=== PATIENT | male | born 1960 | race Caucasian/White ===

== ENCOUNTER 2016-10-06 21:21 | Observation (INO) | payer MEDICARE ==
[~2016-10-06] VITALS: Ht 175.3 cm; Wt 78.0 kg
[2016-10-06 21:23] VITALS: TEMP 97.9
[2016-10-06 21:35] VITALS: BP 132/87; PULSE 90; RESP 17; O2SAT 96
[2016-10-06] MEDS ORDERED: ASPIRIN 81 MG CHEW TAB PO ONE (21:45)
[2016-10-06] MEDS ORDERED: SODIUM CHLORID 0.9% 500 ML INJ 500 ML IV ONE (21:45)
[2016-10-06] MEDS ORDERED: TETANUS/DIPHTHERIA TOXOID ADULT 0.5 ML VIAL IM ONE (21:45)
[2016-10-06] MEDS ORDERED: BUPIVACAINE HCL PF 0.5% 10 ML VIAL INFIL ONE (21:45)
[2016-10-06] MEDS ORDERED: SODIUM CHLORIDE 0.9% FLUSH 5 ML FLUSH IVF PRN ×2 (21:45→23:00)
--- NOTE | 2016-10-06 21:54 | PD ---
HPI Chief Complaint: Chest Pain Time Seen by Provider: 21:30 Travel History International Travel<30 days: No Contact w/Intl Traveler<30days: No Traveled to known affect area: No History of Present Illness HPI Patient is a 56-year-old male presenting to the emergency department for evaluation of chest pain. Patient states the pain radiates across his whole chest, he reports it is shooting and constant. He states this started a few hours ago. He reports shortness of breath but no nausea, vomiting, or radiation of the chest pain. Patient does state that his right hand specifically the right second finger is painful and swollen. He is unsure what happened to his finger, he states is been like that for several days. He denies any fever or chills. Patient does endorse daily alcohol use, his last drink was several hours ago. He reports drinking 12 cans of beer today. He denies any illicit drug use, he has been cutting back on his tobacco use only smoking 2 cigarettes daily. PFS Past Medical History Medical History: Denies Significant Hx Social History Alcohol Use: Yes (patient reports drinking as much as he can on a daily basis.) Tobacco Use: Yes Allergies-Medications (Allergen,Severity, Reaction): Coded Allergies: No Known Allergies (Unverified , 10/06/16) Reported Meds & Prescriptions Reported Meds & Active Scripts Active Clindamycin (Clindamycin HCl) 150 Mg Cap 300 Mg PO Q8HR 10 Days Review of Systems Except as stated in HPI: all other systems reviewed are Neg General / Constitutional: No: Fever, Chills Eyes: No: Visual changes HENT: No: Headaches, Neck Pain Cardiovascular: Positive: Chest Pain or Discomfort, No: Tachycardia, Syncope, Dyspnea on exertion, Edema Respiratory: Positive: Shortness of Breath, No: Cough, Wheezing Gastrointestinal: No: Nausea, Vomiting, Diarrhea, Abdominal Pain Musculoskeletal: Positive: Edema, Pain Skin: Positive Change in Pigmentation, Positive Change in nails Neurologic: No: Weakness, Dizziness, Focal Abnormalities, Change in Mentation Psychiatric: Positive: Substance Abuse Physical Exam Narrative GENERAL: Well-developed, well-nourished, alert male. Resting comfortably in no acute distress. SKIN: Warm and dry. 2 superficial abrasions to the right anterior forearm, paronychia noted to the right second finger tip. Edema noted to the right second finger. HEAD: Atraumatic. Normocephalic. EYES: Pupils equal and round. No scleral icterus. No injection or drainage. ENT: No nasal bleeding or discharge. Mucous membranes pink and moist. NECK: Trachea midline. No JVD. CARDIOVASCULAR: Regular rate and rhythm. No murmur appreciated. Positive radial pulse. RESPIRATORY: No accessory muscle use. Clear to auscultation. Breath sounds equal bilaterally. GASTROINTESTINAL: Abdomen soft, non-tender, nondistended. Hepatic and splenic margins not palpable. MUSCULOSKELETAL: No obvious deformities. No clubbing. No cyanosis. No edema. NEUROLOGICAL: Awake and alert. No obvious cranial nerve deficits. Motor grossly within normal limits. Normal speech. PSYCHIATRIC: Appropriate mood and affect; insight and judgment normal. Data Data Last Documented VS Vital Signs Date Time Temp Pulse Resp B/P Pulse Ox O2 Delivery O2 Flow Rate FiO2 10/06/16 21:35 90 17 132/87 96 Room Air 10/06/16 21:23 97.9 Orders Ckmb (Isoenzyme) Profile (10/06/16 21:31) Complete Blood Count With Diff (10/06/16 21:31) Comprehensive Metabolic Panel (10/06/16 21:31) Magnesium (Mg) (10/06/16 21:31) Prothrombin Time / Inr (Pt) (10/06/16 21:31) Act Partial Throm Time (Ptt) (10/06/16 21:31) Troponin I (10/06/16 21:31) Chest, Single Ap (10/06/16 21:31) Ecg Monitoring (10/06/16 21:31) Bilateral Bp Monitoring (10/06/16 21:31) Iv Access Insert/Monitor (10/06/16 21:31) Oximetry (10/06/16 21:31) Oxygen Administration (10/06/16 21:31) Aspirin Chew (Aspirin Chew) (10/06/16 21:45) Sodium Chloride 0.9% Flush (Ns Flush) (10/06/16 21:45) Sodium Chlorid 0.9% 500 Ml Inj (Ns 500 M (10/06/16 21:45) Alcohol (Ethanol) (10/06/16 21:31) Wound Culture And Gram Stain (10/06/16 21:31) Tetanus/Diphtheria Tox Adult (Tetanus/Di (10/06/16 21:45) Bupivacaine Pf 0.5% Inj (Marcaine Pf 0.5 (10/06/16 21:45) Hand, Complete (Zys0asp) (10/06/16 ) Vital Signs (Adult) TORREY.Q4H (10/06/16 21:31) Blood Culture (10/06/16 21:31) CKMB (10/06/16 21:43) CKMB% (10/06/16 21:43) Sodium Chlor 0.9% 1000 Ml Inj (Ns 1000 M (10/06/16 22:45) Clindamycin (Cleocin) (10/06/16 22:45) Admit Order (Ed Use Only) (10/06/16 22:54) Activity Bed Rest With Brp (10/06/16 22:54) Vital Signs (Adult) Q4H (10/06/16 22:54) Cardiac Rhythm .As Directed (10/06/16 22:54) ^ Notify Dr: Other .PRN (10/06/16 22:54) ^ Notify Dr. Parameters (10/06/16 22:54) Resp Oxygen Nasal Cannula (10/06/16 ) Diet Npo (10/07/16 Breakfast) Ckmb (Isoenzyme) Profile (10/07/16 00:45) Ckmb (Isoenzyme) Profile (10/07/16 03:45) Troponin I (10/07/16 00:45) Troponin I (10/07/16 03:45) Electrocardiogram (10/07/16 00:45) Electrocardiogram (10/07/16 03:45) ^ Obtain (10/06/16 22:54) Sodium Chlor 0.9% 1000 Ml Inj (Ns 1000 M (10/06/16 22:54) Sodium Chloride 0.9% Flush (Ns Flush) (10/06/16 23:00) Sodium Chloride 0.9% Flush (Ns Flush) (10/06/16 23:00) Acetaminophen (Tylenol) (10/06/16 23:00) Ondansetron Inj (Zofran Inj) (10/06/16 23:00) Pantoprazole (Protonix) (10/07/16 09:00) Nitroglycerin Sl (Nitrostat Sl) (10/06/16 23:00) Aspirin (Aspirin) (10/07/16 09:00) Licensed Occupational Therapy Assistant / Telemetry TORREY.Q8H (10/06/16 22:54) Labs Laboratory Tests Test 10/06/16 10/06/16 21:43 21:45 White Blood Count 8.9 TH/MM3 Red Blood Count 4.30 MIL/MM3 Hemoglobin 13.7 GM/DL Hematocrit 39.9 % Mean Corpuscular Volume 92.8 FL Mean Corpuscular Hemoglobin 31.9 PG Mean Corpuscular Hemoglobin 34.4 % Concent Red Cell Distribution Width 14.9 % Platelet Count 353 TH/MM3 Mean Platelet Volume 8.1 FL Neutrophils (%) (Auto) 55.5 % Lymphocytes (%) (Auto) 34.5 % Monocytes (%) (Auto) 7.9 % Eosinophils (%) (Auto) 1.6 % Basophils (%) (Auto) 0.5 % Neutrophils # (Auto) 4.9 TH/MM3 Lymphocytes # (Auto) 3.1 TH/MM3 Monocytes # (Auto) 0.7 TH/MM3 Eosinophils # (Auto) 0.1 TH/MM3 Basophils # (Auto) 0.0 TH/MM3 CBC Comment DIFF FINAL Differential Comment Sodium Level 134 MEQ/L Potassium Level 3.7 MEQ/L Chloride Level 99 MEQ/L Carbon Dioxide Level 23.3 MEQ/L Anion Gap 12 MEQ/L Blood Urea Nitrogen 6 MG/DL Creatinine 0.77 MG/DL Estimat Glomerular Filtration 104 ML/MIN Rate Random Glucose 96 MG/DL Calcium Level 8.3 MG/DL Magnesium Level 2.0 MG/DL Total Bilirubin 0.6 MG/DL Aspartate Amino Transf 64 U/L (AST/SGOT) Alanine Aminotransferase 56 U/L (ALT/SGPT) Alkaline Phosphatase 90 U/L Total Creatine Kinase 179 U/L Creatine Kinase MB 2.9 NG/ML Troponin I LESS THAN 0.02 NG/ML Total Protein 7.9 GM/DL Albumin 3.3 GM/DL Ethyl Alcohol Level 256 MG/DL Prothrombin Time 10.7 SEC Prothromb Time International 1.0 RATIO Ratio Activated Partial 29.4 SEC Thromboplast Time MDM Medical Decision Making Medical Screen Exam Complete: Yes Emergency Medical Condition: Yes Interpretation(s) Last Impressions Chest X-Ray 10/06/162130 Signed Impressions: Service Date/Time: Thursday, October 06, 2016 21:53 - CONCLUSION: No acute disease. Warner Hill MD Hand X-Ray 10/06/16 0000 Signed Impressions: Service Date/Time: Thursday, October 06, 2016 21:55 - CONCLUSION: Soft tissue swelling without evidence of acute fracture or destructive bone changes. 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 Warner Hill MD Vital Signs Date Time Temp Pulse Resp B/P Pulse Ox O2 Delivery O2 Flow Rate FiO2 10/06/16 21:35 90 17 132/87 96 Room Air 10/06/16 21:23 97.9 Differential Diagnosis Abscess versus cellulitis versus electrolyte abnormality versus cardiac arrhythmia versus alcohol abuse versus a VA versus other Narrative Course Patient is a 56-year-old male presenting to emergency department evaluation of chest pain. Patient also complains of right second finger pain. There is a paronychia noted to the right second fingertip surrounding the nail bed. Please see procedure report for I&D. Labs, imaging ordered and pending. EKG shows sinus rhythm with PVCs. Scabs to right and left anterior forearm appear consistent with an impetigo. CBC is unremarkable Chemistry is unremarkable Troponin is less than 0.02 Alcohol level is 256 Coags are unremarkable Chest x-ray is negative X-ray of the left hand show soft tissue swelling. Clindamycin by mouth 1 dose ordered IV fluids 1 L ordered. 324 mg of aspirin ordered. Patient's vital signs are stable. Prescription written for clindamycin. Patient is agreeable to staying in the chest pain Center, orders placed. Procedures Procedure Narrative After the risks and benefits were discussed the following procedure was performed: To right second fingertip INCISION AND DRAINAGE OF ABSCESS: The area was prepped and was sterilely draped. A digital block with 0.5% bupivacaine with a total number 1 mL was used to anesthetize the area. The area was properly anesthetized. A number 11 scalpel was used to make a 1-cm incision across the area of the abscess. Cultures were obtained. The abscess was drained an irrigated with normal saline. Sterile dressing applied. Diagnosis Primary Impression: Chest pain Qualified Code: R07.9 - Chest pain, unspecified type Additional Impressions: Paronychia Qualified Code: L03.011 - Paronychia, right Impetigo Admitting Information Admitting Physician Requests: Observation Scripts Clindamycin 150 Mg [id number] Mg PO Q8HR 10 Days Ref 0 Prov:Comfort Donaldson 10/06/16 Condition: Stable Comfort Donaldson Oct 06, 2016 21:54
[2016-10-06 22:03] LABS: AUTOMATED NEUTROPHIL # 4.9 TH/MM3 (1.8-7.7); BASOPHIL % 0.5 % (0.0-2.0); EOSINOPHIL # 0.1 TH/MM3 (0-0.4); EOSINOPHIL % 1.6 % (0.0-4.0); HEMATOCRIT 39.9 % (39.0-51.0); HEMO FLAGS DIFF FINAL; LYMPH % 34.5 % (9.0-44.0); LYMPHOCYTE # 3.1 TH/MM3 (1.0-4.8); MEAN CELL VOLUME 92.8 FL (80.0-100.0); MEAN CORPUSCULAR HEMOGLOBIN 31.9 PG (27.0-34.0); MEAN CORPUSCULAR HGB CONC 34.4 % (32.0-36.0); MONO % 7.9 % (0.0-8.0); NEUT % 55.5 % (16.0-70.0); PLATELET COUNT 353 TH/MM3 (150-450); RED CELL DISTRIBUTION WIDTH 14.9 % (11.6-17.2); WHITE BLOOD COUNT 8.9 TH/MM3 (4.0-11.0)
--- NOTE | 2016-10-06 22:12 | RADRPT ---
EXAM DATE/TIME: 10/06/2016 21:53 [facility] COMPARISON: No previous studies available for comparison. INDICATIONS : Chest pain. MEDICAL HISTORY : None. SURGICAL HISTORY : None. ENCOUNTER: Initial ACUITY: 2 days PAIN SCORE: 6/10 LOCATION: Bilateral chest FINDINGS: A single view of the chest demonstrates the lungs to be symmetrically aerated without evidence of mas s, infiltrate or effusion. The cardiomediastinal contours are unremarkable. Osseous structures are intact. CONCLUSION: No acute disease. Warner Hill MD on October 06, 2016 at 22:10 Board Certified Radiologist. This report was verified electronically.
--- NOTE | 2016-10-06 22:14 | RADRPT ---
EXAM DATE/TIME: 10/06/2016 21:55 [facility] COMPARISON: No previous studies available for comparison. INDICATIONS : Right hand inflammation. MEDICAL HISTORY : None. SURGICAL HISTORY : None. ENCOUNTER: Initial ACUITY: 2 days PAIN SCORE: 9/10 LOCATION: Right upper extremity FINDINGS: [id number] generalized soft tissue swelling is seen across the metacarpal region of the hand. Degenerative joint disease is identified involving the first metacarpophalangeal joint. There is slig ht subluxation, joint space narrowing and subchondral sclerosis. The bony structures and joints are otherwise intact. There are no destructive changes there is no lanette dence of acute fracture. CONCLUSION: Soft tissue swelling without evidence of acute fracture or destructive bone changes. 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 Warner Hill MD on October 06, 2016 at 22:11 Board Certified Radiologist. This report was verified electronically.
[2016-10-06 22:18] LABS: APTT (PATIENT) 29.4 SEC (24.3-30.1); PROTHROMBIN TIME - PATIENT 10.7 SEC (9.8-11.6)
[2016-10-06 22:23] LABS: ANION GAP 12 MEQ/L (5-15); AST (GOT) 64 U/L (15-37); BICARBONATE 23.3 MEQ/L (21.0-32.0); BLOOD UREA NITROGEN 6 MG/DL (7-18); CHLORIDE 99 MEQ/L (98-107); GLOMERULAR FILTRATION RATE 104 ML/MIN (>89); POTASSIUM 3.7 MEQ/L (3.5-5.1); SODIUM (NA) 134 MEQ/L (136-145)
[2016-10-06 22:28] LABS: ALKALINE PHOSPHATASE 90 U/L (45-117); ALT (GPT) 56 U/L (12-78); CREATINE KINASE 179 U/L (39-308); TOTAL BILIRUBIN ADULT 0.6 MG/DL (0.2-1.0)
[2016-10-06 22:44] LABS: CKMB 2.9 NG/ML (0.5-3.6)
[2016-10-06] MEDS ORDERED: CLINDAMYCIN 150 MG CAP PO ONE (22:45)
[2016-10-06] MEDS ORDERED: SODIUM CHLOR 0.9% 1000 ML INJ 1,000 ML IV ONE (22:45)
[2016-10-06] MEDS ORDERED: CLIN1CAP5 PO (22:59)
[2016-10-06 23:00] VITALS: O2SAT 96
[2016-10-06] MEDS ORDERED: ONDANSETRON HCL 4 MG/2 ML VIAL IV PRN (23:00)
[2016-10-06] MEDS ORDERED: NITROGLYCERIN 0.4 MG SL 25 TABS/BTL SL PRN (23:00)
[2016-10-06] MEDS ORDERED: ACETAMINOPHEN 500 MG CPLT PO PRN (23:00)
[2016-10-06] MEDS: SODIUM CHLORIDE 0.9% FLUSH 5 ML FLUSH IVF SCH (23:05)
[2016-10-07 00:27] VITALS: BP 146/91; PULSE 55; RESP 18; TEMP 97.7; O2SAT 99
[2016-10-07] MEDS: SODIUM CHLOR 0.9% 1000 ML INJ 1,000 ML IV SCH ×4 (01:05→12:15)
[2016-10-07 02:02] LABS: CREATINE KINASE 154 U/L (39-308)
[2016-10-07 02:14] LABS: CKMB 2.7 NG/ML (0.5-3.6)
[2016-10-07 03:24] VITALS: BP 136/92; PULSE 83; RESP 18; TEMP 98.3; O2SAT 96
[2016-10-07 04:11] LABS: CREATINE KINASE 150 U/L (39-308)
[2016-10-07 04:23] LABS: CKMB 2.6 NG/ML (0.5-3.6)
[2016-10-07 08:00] VITALS: BP 155/90; PULSE 76; PULSE 82; RESP 20; TEMP 99.9; O2SAT 93
[2016-10-07] MEDS ORDERED: chlordiazePOXIDE 25 MG CAP PO PRN (08:30)
--- NOTE | 2016-10-07 08:45 | HHI.HP ---
HPI Primary Care Physician No Primary Care Physician Chief Complaint Chest pain and right hand pain History of Present Illness This is a 56-year-old male that presents to ED cloning of chest discomfort and right hand discomfort. He has been having left-sided intermittent chest discomfort last 3 days. The discomfort will last for about an hour a time. He found nothing to bring on the discomfort. No shortness breath or nausea or diaphoresis surgery with his symptoms. Patient also is complaining of right hand pain and swelling. 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 The right hand has been swollen painful for several days. Having a difficult time with movement in the fingers of his right hand more specifically the right index finger. Review of Systems General: Patient denies fevers, chills recent, and recent travel HEENT: Patient denies headache, sore throat, difficulty swallowing. Cardiovascular: Has the chest discomfort as mentioned above. Denies diaphoresis. Denies sensation of heart beating rapidly or irregularly. No syncope. Respiratory: Denies shortness of breath or inspirational chest discomfort. Denies coughing wheezing or hemoptysis. GI: Patient denies nausea, vomiting, diarrhea, abdominal pain, bloody stools. Musculoskeletal: Complains of right hand pain and swelling. Difficult time with flexion and extension of the fingers more so in the right index finger. Denies calf pain or edema. Neurovascular: Patient denies numbness, tingling, weakness in extremities. Denies headache. Endocrine: Denies polyuria and polydipsia. Hematologic: Denies easy bruising. Skin: He complains of multiple scabbed over areas. Past Family Social History Allergies: Coded Allergies: No Known Allergies (Unverified , 10/06/16) Past Medical History Alcoholism. History of DTs. Tobacco abuse. Denies hypertension, hyperlipidemia, diabetes, and known CAD. Past Surgical History Noncontributory. Reported Medications Reported Meds & Active Scripts Active Clindamycin (Clindamycin HCl) 150 Mg Cap 300 Mg PO Q8HR 10 Days Active Ordered Medications Current Medications Medications (Trade) Dose Ordered Sig/Jv Route Start Time Stop Time Status Last Admin IV Flush 2 ml 2 ml UNSCH PRN IVF 10/06/16 21:45 (NS 1000 ml Inj) 1,000 ml @ 100 mls/hr Q10H IV 10/06/16 22:54 10/07/16 01:05 (NS Flush) 2 ml UNSCH PRN IVF 10/06/16 23:00 (NS Flush) 2 ml BID IVF 10/06/16 23:00 10/06/16 23:05 (Tylenol) 500 mg Q4H PRN PO 10/06/16 23:00 (Zofran Inj) 4 mg Q6H PRN IV 10/06/16 23:00 (Protonix) 40 mg DAILY PO 10/07/16 09:00 (Nitrostat Sl) 0.4 mg Q5M PRN SL 10/06/16 23:00 (Aspirin) 325 mg DAILY PO 10/07/16 09:00 (Librium) 50 mg Q6H PRN PO 10/07/16 08:30 (Ativan Inj) 1 mg Q4H PRN IV PUSH 10/07/16 09:00 (Catapres) 0.1 mg Q4H PRN PO 10/07/16 08:30 UNV (Protonix) 40 mg DAILY PO 10/07/16 09:00 UNV (Theragran) 1 tab DAILY PO 10/07/16 09:00 UNV Family History Denies family history of CAD. Social History Patient smokes an average of pack of cigarettes per week for about 40 years states he's had no tobacco in 2 days. He drinks heavily on a daily basis will not elaborate how much. Last alcohol consumption was yesterday afternoon. He is homeless. Physical Exam Vital Signs Vital Signs Date Time Temp Pulse Resp B/P Pulse Ox O2 Delivery O2 Flow Rate FiO2 10/07/16 03:24 98.3 83 18 136/92 96 10/07/16 00:27 97.7 55 18 146/91 99 10/06/16 23:00 96 10/06/16 21:35 90 17 132/87 96 Room Air 10/06/16 21:23 97.9 Physical Exam GENERAL: This is a well-nourished, well-developed patient, in no apparent distress. Patient speaks in clear complete sentences. Patient is pleasant. HEENT: Head is atraumatic and normocephalic. Neck is supple without lymphadenopathy and trachea is midline. No JVD or carotid bruits. CARDIOVASCULAR: Regular rate and rhythm without murmurs, gallops, or rubs. RESPIRATORY: Clear to auscultation. Breath sounds equal bilaterally. No wheezes , rales, or rhonchi. Chest wall is nontender. No use of accessory muscles. GASTROINTESTINAL: Abdomen is nontender, nondistended. Abdomen soft. No obvious pulsatile mass or bruit. No CVA tenderness. Strong femoral pulses bilaterally. Normal bowel sounds in all quadrants. MUSCULOSKELETAL: There is edema, erythema, and tenderness throughout the right hand. Most of the erythemas on the dorsum. There also is edema in the right index finger with difficulty flexing the finger, there is quite amount of discomfort even with a mild amount of flexion he can maneuver in the right index finger. There is a incision point on the flexor side of the distal right phalanx from prior I&D last night in the ER. There is no active drainage. Patient is moving lower extremities freely. No calf tenderness or edema, no Homans sign. Strong pulses in upper and lower extremities. NEUROLOGICAL: Patient is alert and oriented. Cranial nerves 2-12 are grossly intact. No focal deficits and speech is clear. SKIN: There is erythema, warmth, edema on the right hand. Laboratory Laboratory Tests Test 10/06/16 10/06/16 10/07/16 10/07/16 21:43 21:45 00:55 03:39 White Blood Count 8.9 Red Blood Count 4.30 Hemoglobin 13.7 Hematocrit 39.9 Mean Corpuscular Volume 92.8 Mean Corpuscular Hemoglobin 31.9 Mean Corpuscular Hemoglobin 34.4 Concent Red Cell Distribution Width 14.9 Platelet Count 353 Mean Platelet Volume 8.1 Neutrophils (%) (Auto) 55.5 Lymphocytes (%) (Auto) 34.5 Monocytes (%) (Auto) 7.9 Eosinophils (%) (Auto) 1.6 Basophils (%) (Auto) 0.5 Neutrophils # (Auto) 4.9 Lymphocytes # (Auto) 3.1 Monocytes # (Auto) 0.7 Eosinophils # (Auto) 0.1 Basophils # (Auto) 0.0 CBC Comment DIFF FINAL Differential Comment Sodium Level 134 Potassium Level 3.7 Chloride Level 99 Carbon Dioxide Level 23.3 Anion Gap 12 Blood Urea Nitrogen 6 Creatinine 0.77 Estimat Glomerular Filtration 104 Rate Random Glucose 96 Calcium Level 8.3 Magnesium Level 2.0 Total Bilirubin 0.6 Aspartate Amino Transf 64 (AST/SGOT) Alanine Aminotransferase 56 (ALT/SGPT) Alkaline Phosphatase 90 Total Creatine Kinase 179 154 150 Creatine Kinase MB 2.9 2.7 2.6 Troponin I LESS THAN 0.02 0.02 0.02 Total Protein 7.9 Albumin 3.3 Ethyl Alcohol Level 256 Prothrombin Time 10.7 Prothromb Time International 1.0 Ratio Activated Partial 29.4 Thromboplast Time Date/Time Procedure Status Source Growth 10/06/16 22:00 Gram Stain Received Wound Finger Pending 10/06/16 22:00 Wound Culture Received Wound Finger Pending 10/06/16 21:45 Aerobic Blood Culture Received Blood Peripheral Pending 10/06/16 21:45 Anaerobic Blood Culture Received Blood Peripheral Pending Result Diagram: 10/06/16214210/06/162142 Imaging Last 48 hours Impressions Chest X-Ray 10/06/162130 Signed Impressions: Service Date/Time: Thursday, October 06, 2016 21:53 - CONCLUSION: No acute disease. Warner Hill MD Hand X-Ray 10/06/16 0000 Signed Impressions: Service Date/Time: Thursday, October 06, 2016 21:55 - CONCLUSION: Soft tissue swelling without evidence of acute fracture or destructive bone changes. 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 Warner Hill MD Course EKGs of sinus rhythm with frequent PVCs. Assessment and Plan Assessment and Plan * Chest pain: Patient had serial cardiac enzymes and EKGs for ruling out purposes. He was seen by Dr. Jae Troy of cardiology and the chest pain center. He will at this time have a Lexiscan. Cardiac workup will be completed if the Lexiscan is negative. He however will need admission for further treatment of the infection to his right hand. * Cellulitis right hand: He was given clindamycin 3 mg by mouth in the ED last evening. He will need IV antibiotics. Will likely start clindamycin IV and Bactrim by mouth. Wound culture is pending. Patient will be admitted to the family practice resident service and a hand surgeon consult will be requested. Dr. Schwartz is covering today. Further treatment pending this evaluation. * Alcoholism: Patient needs to decrease his alcohol intake. He will have Librium as well as Ativan when necessary to prevent DTs. * Tobacco abuse: Patient has been counseled on the importance of smoking cessation. Jaylen Rascon Oct 07, 2016 08:45
[2016-10-07] MEDS ORDERED: MULTIVITAMIN TAB PO SCH (09:00)
[2016-10-07] MEDS ORDERED: PANTOPRAZOLE SOD 40 MG DELAYED RELEASE TAB PO SCH (09:00)
[2016-10-07] MEDS ORDERED: RESP: ALBUTEROL 2.5 MG/IPRATROPIUM 0.5 MG NEB (PRN) INH (09:00)
[2016-10-07] MEDS ORDERED: SULFAMETHOXAZOLE-TRIMETHOPRIM DS 800-160 MG TAB PO SCH (09:00)
[2016-10-07] MEDS ORDERED: cloNIDine HCL 0.1 MG TAB PO PRN (09:00)
[2016-10-07] MEDS: SODIUM CHLORIDE 0.9% FLUSH 5 ML FLUSH IVF SCH ×2 (09:00→20:39)
[2016-10-07] MEDS: ASPIRIN 325 MG TAB PO SCH (09:15)
[2016-10-07] MEDS: PANTOPRAZOLE SOD 40 MG DELAYED RELEASE TAB PO SCH (09:15)
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
[2016-10-07] MEDS ORDERED: REGADENOSON INJ 0.4 MG/5 ML SYR ONE (10:02)
[2016-10-07] MEDS ORDERED: CLINDAMYCIN INJ 600 MG in SODIUM CHLORIDE 0.9% INJ 100 ML IV SCH (11:00)
[2016-10-07] MEDS: LORazepam 2 MG/ML VIAL IV PUSH PRN ×2 (11:23→18:39)
--- NOTE | 2016-10-07 11:44 | RADRPT ---
EXAM DATE/TIME: 10/07/2016 09:35 [facility] COMPARISON: No previous studies available for comparison. INDICATIONS : Substernal chest pain with dyspnea. Angina. DOSE: 26.1 mCi Tc99m Myoview at stress. 8.8 mCi Tc99m Myoview at rest. 0.4 mg Lexiscan STRESS SYMPTOMS: Chest pain, dyspnea and nausea. EJECTION FRACTION: 43% MEDICAL HISTORY : Hypertension. ETOH abuse. SURGICAL HISTORY : None. ENCOUNTER: Initial ACUITY: 2 days PAIN SCALE: 6/10 LOCATION: Substernal chest TECHNIQUE: The patient underwent pharmacologic stress with infusion of prescribed dose. Continuous ECG tracing was monitored during stress. Gated SPECT imaging was performed after stress and conventional SPECT i maging was performed at rest. The examination was performed on a SPECT/CT scanner, both attenuation and non-corrected datasets were reviewed. FINDINGS: DISTRIBUTION: The maximum perfused segment at stress is in the anterior lateral wall. PERFUSION STUDY: The pattern of perfusion at stress is within normal limits. GATED STUDY: There is intact wall motion and thickening without hypokinetic or dyskinetic segments. Mild global h ypokinesis. CONCLUSION: Negative for stress-induced ischemia.. Mild global hypokinesis. RISK CATEGORY: Low (<1% Annual Mortality Rate) Niko Avilez MD FACR on October 07, 2016 at 11:35 Board Certified Radiologist. This report was verified electronically.
[2016-10-07 12:10] VITALS: BP 161/92; PULSE 95; RESP 20; TEMP 98.9; O2SAT 96
[2016-10-07] MEDS ORDERED: Vancomycin Consult Pharmacy 1 EA XX SCH (12:15)
[2016-10-07] MEDS ORDERED: LORazepam 1 MG TAB PO PRN (12:30)
[2016-10-07] MEDS ORDERED: FLUMAZENIL 0.5 MG/5 ML VIAL IV PUSH PRN (12:30)
[2016-10-07] MEDS ORDERED: SODIUM CHLORIDE 0.9% FLUSH 5 ML FLUSH IV FLUSH PRN (12:30)
[2016-10-07] MEDS ORDERED: LORazepam 2 MG TAB PO PRN (12:30)
[2016-10-07] MEDS ORDERED: LORazepam 2 MG/ML VIAL IV PUSH PRN ×4 (12:30)
[2016-10-07] MEDS: KETOROLAC TROMETHAMINE 30 MG/ML (IVP) VIAL IV PUSH SCH ×2 (12:45→17:20)
[2016-10-07] MEDS ORDERED: hydrALAZINE HCL 10 MG TAB PO PRN (13:00)
[2016-10-07] MEDS: FOLIC ACID 1 MG TAB PO SCH (13:00)
[2016-10-07] MEDS: THIAMINE HCL 100 MG TAB PO SCH (13:00)
[2016-10-07] MEDS: CIPROFLOXACIN 400 MG PREMIX 200 ML IV SCH (13:00)
[2016-10-07] MEDS: MULTIVITAMINS/MINERALS THERAPEUTIC TAB PO SCH (13:00)
[2016-10-07] MEDS: MORPHINE SULFATE 4 MG/ML INJ IV PUSH PRN ×2 (13:10→17:21)
[2016-10-07 16:08] VITALS: BP 146/88; PULSE 60; RESP 18; TEMP 98.5; O2SAT 93
--- NOTE | 2016-10-07 16:12 | EKG ---
Date Performed: 10/07/2016 Time Performed: 04:03:55 PTAGE: 56 years EKG: Sinus rhythm WITH FREQUENT VENTRICULAR PREMATURE COMPLEXES POSSIBLE LEFT ATRIAL ENLARGEMENT NONSPECIFIC ST & T-WA VE ABNORMALITY ABNORMAL RHYTHM ECG PREVIOUS TRACING : 10/07/2016 00.47 Since previous tracing, no significant change noted DOCTOR: Jae Troy Interpretating Date/Time 10/07/2016 16:11:45
--- NOTE | 2016-10-07 16:14 | EKG ---
Date Performed: 10/07/2016 Time Performed: 00:47:25 PTAGE: 56 years EKG: Sinus rhythm WITH OCCASIONAL VENTRICULAR PREMATURE COMPLEXES POSSIBLE LEFT ATRIAL ENLARGEMENT NONSPECIFIC ST & T- WAVE ABNORMALITY BORDERLINE ECG PREVIOUS TRACING : 10/06/2016 21.26 Since previous tracing, no significant change noted DOCTOR: Jae Troy Interpretating Date/Time 10/07/2016 16:13:10
--- NOTE | 2016-10-07 16:15 | EKG ---
Date Performed: 10/06/2016 Time Performed: 21:26:44 PTAGE: 56 years EKG: Sinus rhythm WITH FREQUENT VENTRICULAR PREMATURE COMPLEXES ABNORMAL RHYTHM ECG NO PREVIOUS TRACING DOCTOR: Jae Troy Interpretating Date/Time 10/07/2016 16:13:50
--- NOTE | 2016-10-07 16:17 | TR ---
Date Performed: 10/07/2016 Time Performed: 10:08:57 DOCTOR: Jae Troy DRUG LIST: CLINICAL HISTORY: REASON FOR TEST: CHEST PAIN REASON FOR ENDING: OBSERVATION: CONCLUSION: Lexiscan stress test was performed under standard four minute protocol. Radionuclid e was injected one minute prior to ending the test. No electrocardiographic abormalities were present to suggest ischemia. Nuclear imaging and interpretation are pending. COMMENTS:
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
[2016-10-07] MEDS: VANCOMYCIN INJ 1,500 MG in SODIUM CHLORID 0.9% 500 ML INJ 500 ML IV SCH (17:20)
[2016-10-07] MEDS ORDERED: VANCOMYCIN INJ 1,500 MG in SODIUM CHLOR 0.9% 250 ML INJ 250 ML IV SCH (18:15)
[2016-10-07 20:10] VITALS: BP 123/83; PULSE 81; RESP 18; TEMP 98.4; O2SAT 98
[2016-10-07] MEDS: SODIUM CHLORIDE 0.9% FLUSH 5 ML FLUSH IV FLUSH SCH (20:39)
[2016-10-07] MEDS ORDERED: DOCUSATE SODIUM 50 MG/SENNA 8.6 MG TAB PO PRN (21:00)
--- NOTE | 2016-10-07 22:17 | HHI.FPPN ---
Subjective Subjective Patient seen and examined. Case reviewed and discussed Please refer to resident H&P for further details regarding HPI, ROS, PMH, SurgHx , FH and SocHx In summary, patient is a 56yo homeless male who was initially admitted to the chest pain center for ACS r/o. He underwent myocardial perfusion scan this am which was neg for ischemia. He is now being admitted for skin infections and acute alcohol withdrawal. He is seen in his hospital room without chest pain. Hand surgery consultation earlier today did not suggest tenosynovitis. Hospital Objective Objective Last Impressions Myocardial Perfusion Scan Nuc Med 10/07/16 0000 Signed Impressions: Service Date/Time: Friday, October 07, 2016 09:35 - CONCLUSION: Negative for stress-induced ischemia.. Mild global hypokinesis. RISK CATEGORY: Low (<1%% Annual Mortality Rate) Niko Avilez MD FACR Chest X-Ray 10/06/162130 Signed Impressions: Service Date/Time: Thursday, October 06, 2016 21:53 - CONCLUSION: No acute disease. Warner Hill MD Hand X-Ray 10/06/16 0000 Signed Impressions: Service Date/Time: Thursday, October 06, 2016 21:55 - CONCLUSION: Soft tissue swelling without evidence of acute fracture or destructive bone changes. 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 Warner Hill MD Vital Signs 10/06/16 10/07/16 10/07/16 10/07/16 23:00 00:27 03:24 08:00 Temp 97.7 98.3 Pulse 55 83 82 Resp 18 18 B/P 146/91 136/92 Pulse Ox 96 99 96 10/07/16 10/07/16 10/07/16 10/07/16 08:00 08:00 12:10 16:08 Temp 99.9 98.9 98.5 Pulse 76 95 60 Resp 20 20 18 B/P 155/90 161/92 146/88 Pulse Ox 93 96 93 10/07/16 10/07/16 10/07/16 17:30 19:04 20:10 Temp 98.4 Pulse 81 Resp 20 20 18 B/P 123/83 Pulse Ox 98 Physical exam GENERAL: Disheveled male, resting in bed SKIN: Warm and dry. Tanned skin. R ear and mandibular region with scabbed lesions, no active drainage. Bilateral hands with digital lesions from fish hook. +Edema of digits, limited ROM secondary to edema. s/p I&D on 2 digits. HEAD: Normocephalic. AT EYES: No scleral icterus. No injection or drainage. NECK: Supple, trachea midline. No JVD or lymphadenopathy. CARDIOVASCULAR: Regular rate and rhythm without murmurs, gallops, or rubs. RESPIRATORY: Breath sounds equal and clear bilaterally. No accessory muscle use. GASTROINTESTINAL: Abdomen soft, non-tender, nondistended. MUSCULOSKELETAL: No cyanosis, or edema. No calf tenderness BACK: Nontender without obvious deformity. No CVA tenderness. NEURO: Awake and alert. Normal speech. CN grossly intact. Assessment Assessment 56yoM admitted with: Chest pain, s/o ACS Acute alcohol withdrawal Alcohol dependence Homelessness Skin infections of hand, forearm, face, ear PLAN PLAN CI[facility] protocol Empiric antibiotics Follow wound cultures s/p I&D Appreciate hand surgery Seizure precautions Neuro checks CM consult Counseled on cessation Patient seen and examined. Case reviewed and discussed Agree with plan of care as discussed with me and documented in the resident note. Galilea Sales MD Oct 07, 2016 22:17
[2016-10-08] VITALS (7 sets, daily range): BP systolic 133–164; BP diastolic 75–106; PULSE 60–85; RESP 14–18; TEMP 97.5–98.8; O2SAT 95–99
[2016-10-08] MEDS: KETOROLAC TROMETHAMINE 30 MG/ML (IVP) VIAL IV PUSH SCH ×3 (00:08→12:36)
[2016-10-08] MEDS: CIPROFLOXACIN 400 MG PREMIX 200 ML IV SCH ×2 (00:08→12:35)
[2016-10-08] MEDS: SODIUM CHLOR 0.9% 1000 ML INJ 1,000 ML IV SCH (00:08)
[2016-10-08] MEDS: LORazepam 2 MG/ML VIAL IV PUSH PRN ×2 (00:09→03:38)
[2016-10-08] MEDS: VANCOMYCIN INJ 1,500 MG in SODIUM CHLORID 0.9% 500 ML INJ 500 ML IV SCH (03:32)
[2016-10-08 07:12] LABS: ANION GAP 8 MEQ/L (5-15); AST (GOT) 32 U/L (15-37); BLOOD UREA NITROGEN 9 MG/DL (7-18); CHLORIDE 105 MEQ/L (98-107); GLOMERULAR FILTRATION RATE 84 ML/MIN (>89); POTASSIUM 3.9 MEQ/L (3.5-5.1); SODIUM (NA) 139 MEQ/L (136-145)
[2016-10-08 07:28] LABS: AUTOMATED NEUTROPHIL # 5.4 TH/MM3 (1.8-7.7); BASOPHIL % 0.3 % (0.0-2.0); EOSINOPHIL # 0.2 TH/MM3 (0-0.4); EOSINOPHIL % 2.9 % (0.0-4.0); HEMATOCRIT 40.6 % (39.0-51.0); HEMO FLAGS DIFF FINAL; LYMPHOCYTE # 1.7 TH/MM3 (1.0-4.8); MEAN CELL VOLUME 94.1 FL (80.0-100.0); MEAN CORPUSCULAR HEMOGLOBIN 31.3 PG (27.0-34.0); MEAN CORPUSCULAR HGB CONC 33.3 % (32.0-36.0); MONO % 8.3 % (0.0-8.0); NEUT % 67.5 % (16.0-70.0); PLATELET COUNT 257 TH/MM3 (150-450); RED BLOOD COUNT 4.32 MIL/MM3 (4.50-5.90); RED CELL DISTRIBUTION WIDTH 14.9 % (11.6-17.2)
[2016-10-08 07:50] LABS: ALKALINE PHOSPHATASE 84 U/L (45-117); ALT (GPT) 38 U/L (12-78); TOTAL BILIRUBIN ADULT 0.4 MG/DL (0.2-1.0)
[2016-10-08] MEDS: SODIUM CHLORIDE 0.9% FLUSH 5 ML FLUSH IVF SCH (07:51)
[2016-10-08] MEDS: SODIUM CHLORIDE 0.9% FLUSH 5 ML FLUSH IV FLUSH SCH (07:51)
[2016-10-08] MEDS: PANTOPRAZOLE SOD 40 MG DELAYED RELEASE TAB PO SCH (07:52)
[2016-10-08] MEDS: FOLIC ACID 1 MG TAB PO SCH (07:52)
[2016-10-08] MEDS: ASPIRIN 325 MG TAB PO SCH (07:52)
[2016-10-08] MEDS: THIAMINE HCL 100 MG TAB PO SCH (07:53)
[2016-10-08] MEDS: MULTIVITAMINS/MINERALS THERAPEUTIC TAB PO SCH (07:53)
[2016-10-08] MEDS: MORPHINE SULFATE 4 MG/ML INJ IV PUSH PRN (09:45)
--- NOTE | 2016-10-08 13:57 | HHI.FPPN ---
Subjective Remarks Patient is feeling better this morning. He is interested in quitting alcohol. He still has mild discomfort in his right second digit. Patient would like this digit to undergo I&D. Otherwise, he is doing well. No chest pain, nausea , vomiting, diarrhea. He did require 4 mg by mouth Xanax since 11 AM yesterday. (Armando Freeman MD R2) Objective Vitals Vital Signs Date Time Temp Pulse Resp B/P Pulse Ox O2 Delivery O2 Flow Rate FiO2 10/08/16 11:25 98.0 60 16 154/96 95 10/08/16 08:17 72 10/08/16 07:36 97.5 72 14 150/90 96 10/08/16 04:25 98.8 78 18 142/75 99 10/08/16 00:00 98.2 78 18 133/78 97 10/07/16 20:10 98.4 81 18 123/83 98 10/07/16 19:04 20 10/07/16 17:30 20 10/07/16 16:08 98.5 60 18 146/88 93 (Armando Freeman MD R2) Result Diagram: 10/08/16 0612 10/08/16 0612 Objective Remarks GENERAL: Improved appearance, sitting upright in bed in no acute distress. SKIN: Sun exposure. Multiple Healing wounds appropriately wrapped: Right forearm: 2.5 x 2.5 cm erythematous rash, 3 x 2.5 cm erythematous rash. Left forearm: 4 x 2.5 cm erythematous rash. Chin: Small 3 cm healing laceration. HEAD: Atraumatic. Normocephalic. No temporal or scalp tenderness. EYES: Pupils equal round and reactive. Extraocular motions intact. No scleral icterus. No injection or drainage. ENT: Nose without bleeding, purulent drainage or septal hematoma. Throat without erythema, tonsillar hypertrophy or exudate. Uvula midline. Airway patent. Right ear with healing wound. NECK: Trachea midline. No JVD or lymphadenopathy. Supple, nontender, no meningeal signs. CARDIOVASCULAR: Regular rate and rhythm without murmurs, gallops, or rubs. RESPIRATORY: Clear to auscultation. Breath sounds equal bilaterally. No wheezes , rales, or rhonchi. GASTROINTESTINAL: Abdomen soft, non-tender, nondistended. No hepato-splenomegaly , or palpable masses. No guarding. MUSCULOSKELETAL: Patient is able to bend fingers with improvement on both sides. Right second digit with area of fluctuance at the tip of the finger. Tender to palpation. NEUROLOGICAL: Awake and alert. Cranial nerves II through XII intact. Motor and sensory grossly within normal limits. Five out of 5 muscle strength in all muscle groups. Normal speech. (Armando Freeman MD R2) A/P Assessment and Plan 56-year-old right-handed homeless male here for chest pain, cellulitis, multiple wounds, alcoholism. He is already been seen by cardiology and hand surgery. Troponins have been negative 3. Lexiscan scan is within normal limits. Patient was given clindamycin and Bactrim in the emergency room. He is status post I&D on the right second digit, left second digit. Wound culture showing gram-positive cocci in pairs. Dr. Schwartz of hand surgery ruled out tenosynovitis. Patient will be changed to by mouth antibiotics and discharged to seek help recovering from his alcoholism. Discharge Planning Today; case management is providing pamphlets on alcohol cessation and community resources for primary care physician and appropriate follow-up. ( Armando Freeman MD R2) Attending Attestation Patient seen and examined with the resident team. Case reviewed and discussed Agree with plan of care as discussed with me and documented in the resident note. (Galilea Sales MD) Problem List: (1) Cellulitis Status: Acute Plan: Patient has multiple cellulitic changes as described in the physical exam. He was given clindamycin and Bactrim in the emergency room. He has had one day of vancomycin and ciprofloxacin. Patient will be discharged on Bactrim DS for 5 days and bacitracin ESR and CRP within normal limits. Blood cultures no growth to date Wound cultures gram-positive cocci in pairs (2) Alcohol abuse Status: Acute Plan: Alcohol level 254 on admission. [facility] protocol Replace vitamins: Thiamine, folic acid, multivitamin Transmission Repairer cessation Patient would like to quit alcohol. Case management has provided the patient with alcohol cessation pamphlets. Patient will report to [facility] voluntarily for help. (3) Multiple wounds Status: Acute Plan: Tetanus vaccine given in the emergency room. Wound care nurse- bacitracin for chin and ear. Single-layer Xeroform for forearm wounds. Clean and dress multiple wounds which is described in the physical exam HIBA cleanse Antibiotics as above (4) Fish hook injury of finger of left hand Status: Acute Plan: Hand surgery consultation No tenosynovitis Antibiotics as above (5) Fish hook injury of index finger Status: Acute Plan: Right second finger post I&D on 10/06 for paronychia Wound culture gram-positive cocci in pairs We'll perform I&D of right second digit today prior to discharge. (6) Homeless Status: Acute Plan: Case management consult (7) FEN/PPX Status: Acute Plan: Fluids: Normal saline 130 ML's per hour Electrolytes: Monitor and replace when necessary Nutrition: Regular diet per hand surgery Prophylaxis: Bilateral SCDs (8) Chest pain Status: Resolved Plan: Cardiology has been consulted. Chest x-ray shows no acute disease. Troponins negative 3. Lexiscan within normal limits. (Armando Freeman MD R2) Problem Qualifiers (1) Chest pain: Qualified Code: R07.9 - Chest pain, unspecified type Armando Freeman MD R2 Oct 08, 2016 13:57 Galilea Sales MD Oct 09, 2016 11:47
[2016-10-08] MEDS ORDERED: BACT800T5 PO (14:05)
[2016-10-08] MEDS ORDERED: BACI500O2 TOP (14:05)
--- NOTE | 2016-10-08 14:06 | HHI.DCPOC ---
Discharge Care Plan Diagnosis: (1) Cellulitis (2) Multiple wounds (3) Alcohol abuse (4) Homeless (5) [place] Goals to Promote Your Health * To prevent worsening of your condition and complications * To maintain your health at the optimal level Directions to Meet Your Goals Take your medications as prescribed Follow your dietary instruction Follow activity as directed Keep your appointments as scheduled Take your immunizations and boosters as scheduled If your symptoms worsen call your PCP, if no PCP go to Urgent Care Center or Emergency Room Smoking is Dangerous to Your Health. Avoid second hand smoke Call the 24-hour hour crisis hotline for domestic abuse at Armando Freeman MD R2 Oct 08, 2016 14:06
[2016-10-08] MEDS ORDERED: BACITRACIN TOP OINT 15 GM TUBE TOP SCH (14:30)
[2016-10-08] MEDS ORDERED: CHLORHEXIDINE GLUCONATE 4% SOLN 120 ML BTL TOPICAL ONE (15:00)
[2016-10-08] MEDS ORDERED: LIDOCAINE HCL 1% 50 ML VIAL INFIL ONE (15:00)
[2016-10-08] MEDS ORDERED: PERC5TAB12 PO (15:23)
--- NOTE | 2016-10-08 15:28 | HHI.FPPN ---
Addendum to progress note ADDENDUM Reason for addendum: Additonal documentation Additional information Procedure note: INCISION AND DRAINAGE OF ABSCESS of the right second digit: The entire left second digit was prepped with alcohol and Betadine and was sterilely draped. A digital block with 1% lidocaine with a total number 5 mL was used to anesthetize the area. Prior to the incision, approximately 1 cc of pus was expressed at the prior incision site. This was cultured and we proceeded to perform the incision in case more pus could be expressed. The area was properly anesthetized. A number 11 scalpel was used to make a 0.2 cm incision made vertically in the radial distal end of the second digit. Only blood was expressed. Sterile dressing applied. Patient was asking for pain medication on discharge. Will provide 10 pills of percocet 5 mg. Additionally, it is ok if the patient take the bacitracin bottle that was previously used in his room. CM is helping provide a bus pass. Armando Freeman MD R2 Oct 08, 2016 15:28
[2016-10-08] MEDS ORDERED: oxyCODONE/ACETAMINOPHEN 5 MG/325 MG TAB PO ONE (16:00)
[2016-10-09] MEDS ORDERED: PHARMACY ORDERED LAB XX ONE (02:45)
[2016-10-09] MEDS ORDERED: SULFAMETHOXAZOLE-TRIMETHOPRIM DS 800-160 MG TAB PO SCH (09:00)
== END 2016-10-08 18:25 | disposition home or self-care (01) ==
LOC: NEPE 21:21 → NEDA 22:57 → NEPHCDU 23:55
PROVIDERS: ADMIT Family Medicine; ATTEND Family Medicine
DX: R07.9 Chest pain, unspecified (principal); L03.011 Cellulitis of right finger; L01.00 Impetigo, unspecified; I49.3 Ventricular premature depolarization; R06.02 Shortness of breath; R94.31 Abnormal electrocardiogram [ECG] [EKG]; M79.644 Pain in right finger(s); F17.210 Nicotine dependence, cigarettes, uncomplicated; S50.811A Abrasion of right forearm, initial encounter; Y90.8 Blood alcohol level of 240 mg/100 ml or more; F10.229 Alcohol dependence with intoxication, unspecified; Z23 Encounter for immunization; Z59.0 Homelessness; W26.8XXA Contact with other sharp object(s), not elsewhere classified, initial encounter; B95.0 Streptococcus, group A, as the cause of diseases classified elsewhere
CPT/HCPCS: 10060; 71010; 73130; 78452; 80053; 80320; 82550; 82552; 83735; 84484; 85025; 85610; 85652; 85730; 86140; 86403; 87040; 87070; 87205; 90471; 90714; 93005; 93017; 96360; 97161; 99285; A9502; G0378; G8987; G8988; J0744; J1885; J2060; J2270; J2785; J3370; J7030; J7040

== ENCOUNTER 2016-11-17 07:41 | Emergency (ER) | payer MEDICARE ==
[~2016-11-17] VITALS: Ht 180.3 cm; Wt 95.5 kg
[~2016-11-17 07:41] MED LIST: BACI500O2 TOP; BACT800T5 PO; PERC5TAB12 PO
[2016-11-17 07:44] VITALS: BP 169/92; PULSE 109; RESP 20; TEMP 97.9; O2SAT 97
[2016-11-17 07:55] VITALS: RESP 18; O2SAT 95
[2016-11-17] MEDS ORDERED: LISI-515 PO (07:56)
[2016-11-17] MEDS ORDERED: SODIUM CHLORIDE 0.9% FLUSH 10 ML FLUSH IVF PRN (08:00)
--- NOTE | 2016-11-17 08:01 | PD ---
HPI Chief Complaint: Dizziness Time Seen by Provider: 07:50 Travel History International Travel<30 days: No Contact w/Intl Traveler<30days: No Traveled to known affect area: No History of Present Illness HPI Patient is a homeless 56-year-old alcoholic male who presents emergency Department with complaint of dizziness. Patient checks and in the emergency department today after he brought a friend in. States "I figured I might get checked out to". States that he has been feeling somewhat lightheaded and dizzy over the course of the last 1-2 weeks. He's been ill with cough, sore throat, nasal congestion, hoarse voice. Patient denies any fevers or chills. Cough is productive of clear sputum. Patient states that he drinks "from the moment I get up to the moment I go to sleep". He denies any IV drug abuse. No chest pain, shortness of breath or palpitations. PFSH Past Medical History Cardiovascular Problems: Yes High Cholesterol: Yes Diabetes: No Diminished Hearing: No Hypertension: Yes Tetanus Vaccination: > 5 Years Influenza Vaccination: Yes Past Surgical History Cholecystectomy: Yes Social History Alcohol Use: Yes (daily) Tobacco Use: Yes (1 paxk every 3 days) Substance Use: Yes Allergies-Medications (Allergen,Severity, Reaction): Coded Allergies: No Known Allergies (Unverified , 11/17/16) Reported Meds & Prescriptions Reported Meds & Active Scripts Active Reported Lisinopril 20 Mg Tab 20 Mg PO DAILY Review of Systems Except as stated in HPI: all other systems reviewed are Neg Physical Exam Narrative GENERAL: Disheveled middle-aged male in no acute distress SKIN: Focused skin assessment warm/dry. Heavily tanned with slight sunburn HEAD: Normocephalic. EYES: No scleral icterus. No injection or drainage. ENT: Mucous membranes pink and moist. TMs clear bilaterally. Posterior nasal drip. Mild posterior pharyngeal erythema but no tonsillar swelling, exudate NECK: Supple without nuchal rigidity CARDIOVASCULAR: Regular rate and rhythm. No murmur appreciated. RESPIRATORY: No accessory muscle use. Clear to auscultation. Breath sounds equal bilaterally. GASTROINTESTINAL: Abdomen soft, non-tender, nondistended. MUSCULOSKELETAL: No obvious deformities. No edema. NEUROLOGICAL: Awake and alert. Normal speech. PSYCHIATRIC: Appropriate mood and affect; insight and judgment normal. Data Data Last Documented VS Vital Signs Date Time Temp Pulse Resp B/P Pulse Ox O2 Delivery O2 Flow Rate FiO2 11/17/16 08:35 87 18 137/86 95 Room Air 11/17/16 07:44 97.9 Orders Electrocardiogram (11/17/16 07:53) Basic Metabolic Panel (Bmp) (11/17/16 07:53) Complete Blood Count With Diff (11/17/16 07:53) Chest, Single Ap (11/17/16 07:53) Ecg Monitoring (11/17/16 07:53) Iv Access Insert/Monitor (11/17/16 07:53) Oximetry (11/17/16 07:53) Sodium Chloride 0.9% Flush (Ns Flush) (11/17/16 08:00) Alcohol (Ethanol) (11/17/16 07:56) Labs Laboratory Tests Test 11/17/16 08:00 White Blood Count 7.4 TH/MM3 Red Blood Count 4.11 MIL/MM3 Hemoglobin 13.0 GM/DL Hematocrit 39.2 % Mean Corpuscular Volume 95.2 FL Mean Corpuscular Hemoglobin 31.6 PG Mean Corpuscular Hemoglobin 33.2 % Concent Red Cell Distribution Width 15.3 % Platelet Count 185 TH/MM3 Mean Platelet Volume 8.0 FL Neutrophils (%) (Auto) 71.6 % Lymphocytes (%) (Auto) 15.9 % Monocytes (%) (Auto) 11.2 % Eosinophils (%) (Auto) 1.1 % Basophils (%) (Auto) 0.2 % Neutrophils # (Auto) 5.3 TH/MM3 Lymphocytes # (Auto) 1.2 TH/MM3 Monocytes # (Auto) 0.8 TH/MM3 Eosinophils # (Auto) 0.1 TH/MM3 Basophils # (Auto) 0.0 TH/MM3 CBC Comment DIFF FINAL Differential Comment Sodium Level 136 MEQ/L Potassium Level 3.9 MEQ/L Chloride Level 99 MEQ/L Carbon Dioxide Level 28.5 MEQ/L Anion Gap 9 MEQ/L Blood Urea Nitrogen 9 MG/DL Creatinine 1.05 MG/DL Estimat Glomerular Filtration 73 ML/MIN Rate Random Glucose 108 MG/DL Calcium Level 8.9 MG/DL Ethyl Alcohol Level LESS THAN 3 MG/DL MDM Medical Decision Making Medical Screen Exam Complete: Yes Emergency Medical Condition: Yes Medical Record Reviewed: Yes Differential Diagnosis 56-year-old homeless alcoholic male here with complaint of lightheadedness, dizziness and flulike symptoms times one to 2 weeks. Differential includes viral syndrome, upper respiratory infection, influenza, pneumonia, sinusitis, dehydration, electrolyte abnormality, symptomatic anemia, arrhythmia, alcoholism , malnutrition. Narrative Course Patient placed on monitor, IV established and blood obtained. Twelve-lead EKG showed sinus rhythm without notable ST abnormalities, normal intervals. CBC, BMP, blood alcohol level unremarkable. Portable chest x-ray obtained that by my read shows no acute abnormalities. Patient reassured. Encouraged to quit drinking and seek counseling for his alcoholism. Patient was given dose of Decadron for his upper respiratory infection. Diagnosis Primary Impression: Upper respiratory infection Qualified Code: J06.9 - Upper respiratory tract infection, unspecified type Additional Impressions: Alcoholism Lightheadedness Referrals: [facility] call for appointment [facility] call for appointment Additional Instructions: Seek outpatient management for alcoholism. Med/Other Pt SpecificInfo: No Change to Meds Disposition: 01 DISCHARGE HOME Condition: Stable Caridad Saunders MD Nov 17, 2016 08:01
[2016-11-17 08:21] LABS: AUTOMATED NEUTROPHIL # 5.3 TH/MM3 (1.8-7.7); BASOPHIL % 0.2 % (0.0-2.0); EOSINOPHIL # 0.1 TH/MM3 (0-0.4); EOSINOPHIL % 1.1 % (0.0-4.0); HEMATOCRIT 39.2 % (39.0-51.0); HEMO FLAGS DIFF FINAL; LYMPH % 15.9 % (9.0-44.0); LYMPHOCYTE # 1.2 TH/MM3 (1.0-4.8); MEAN CELL VOLUME 95.2 FL (80.0-100.0); MEAN CORPUSCULAR HEMOGLOBIN 31.6 PG (27.0-34.0); MEAN CORPUSCULAR HGB CONC 33.2 % (32.0-36.0); MONO % 11.2 % (0.0-8.0); NEUT % 71.6 % (16.0-70.0); PLATELET COUNT 185 TH/MM3 (150-450); RED BLOOD COUNT 4.11 MIL/MM3 (4.50-5.90); RED CELL DISTRIBUTION WIDTH 15.3 % (11.6-17.2); WHITE BLOOD COUNT 7.4 TH/MM3 (4.0-11.0)
[2016-11-17 08:35] VITALS: BP 137/86; PULSE 87; RESP 18; O2SAT 95
[2016-11-17 08:42] LABS: BICARBONATE 28.5 MEQ/L (21.0-32.0); POTASSIUM 3.9 MEQ/L (3.5-5.1)
--- NOTE | 2016-11-17 08:45 | RADRPT ---
EXAM DATE/TIME: 11/17/2016 08:20 [facility] COMPARISON: CHEST SINGLE AP, October 06, 2016, 21:53. INDICATIONS : Cough, congestion, fever, shortness of breath. MEDICAL HISTORY : Hypertension. Smoker. SURGICAL HISTORY : MAss removed on the left side. ENCOUNTER: Initial ACUITY: 3 days PAIN SCORE: 6/10 LOCATION: Left chest and midline. FINDINGS: A single view of the chest demonstrates the lungs to be symmetrically aerated without evidence of mas s, infiltrate or effusion. The cardiomediastinal contours are unremarkable. Osseous structures are intact. CONCLUSION: No acute disease. Warner Hill MD on November 17, 2016 at 8:43 Board Certified Radiologist. This report was verified electronically.
[2016-11-17] MEDS ORDERED: DEXAMETHASONE SOD PHOS 4 MG/ML VIAL IV PUSH ONE (09:00)
[2016-11-17 09:02] VITALS: BP 130/77; TEMP 97.8
--- NOTE | 2016-11-17 12:26 | EKG ---
Date Performed: 11/17/2016 Time Performed: 08:12:42 PTAGE: 56 years EKG: Sinus rhythm WITH MARKED SINUS ARRHYTHMIA POSSIBLE ANTERIOR MYOCARDIAL INFARCTION PROBABLE INFERIOR MYOCARDIAL IN FARCTION ABNORMAL ECG PREVIOUS TRACING : 10/07/2016 04.03 DOCTOR: Leonard Middleton Interpretating Date/Time 11/17/2016 12:24:40
== END 2016-11-17 09:01 | disposition home or self-care (01) ==
LOC: NEPC 07:41
DX: J06.9 Acute upper respiratory infection, unspecified (principal); F10.20 Alcohol dependence, uncomplicated; R42 Dizziness and giddiness; R05 Cough; R94.31 Abnormal electrocardiogram [ECG] [EKG]; E78.00 Pure hypercholesterolemia, unspecified; I10 Essential (primary) hypertension; Z59.0 Homelessness; Z72.0 Tobacco use; Z86.79 Personal history of other diseases of the circulatory system
CPT/HCPCS: 71010; 80048; 80307; 85025; 93005; 96374; 99284; J1100

== ENCOUNTER 2016-12-19 17:11 | Emergency (ER) | payer MEDICARE ==
[~2016-12-19] VITALS: Ht 180.3 cm; Wt 71.0 kg
[~2016-12-19 17:11] MED LIST changes: -BACI500O2 TOP; -BACT800T5 PO; +LISI-515 PO; -PERC5TAB12 PO
[2016-12-19 17:16] VITALS: BP 135/93; PULSE 102; RESP 18; TEMP 98.6; O2SAT 97
[2016-12-19] MEDS ORDERED: SODIUM CHLORIDE 0.9% FLUSH 10 ML FLUSH IVF PRN (17:45)
[2016-12-19] MEDS ORDERED: METOCLOPRAMIDE HCL 10 MG/2 ML VIAL IV PUSH ONE (17:45)
[2016-12-19 17:50] VITALS: RESP 18; O2SAT 97
--- NOTE | 2016-12-19 17:56 | PD ---
HPI Chief Complaint: Headache Time Seen by Provider: 17:49 Travel History International Travel<30 days: No Contact w/Intl Traveler<30days: No Traveled to known affect area: No History of Present Illness HPI Patient comes in complaining of a headache that began yesterday. Patient states he was walking to his friend's house and on the way became dizzy and lightheaded. Patient states he sat down and blacked out briefly. Patient denies falling or hitting his head. Denies any chest pain, nausea, vomiting, fevers, neck pain, back pain, numbness or tingling anywhere, or being on any blood thinners. Patient states that he is supposed to be on blood pressure medication but does not take it regularly. Patient reports associated visual changes more the right than left since the onset of the headache. Patient states that he took ibuprofen for his headache with little to no improvement of symptoms. Patient also complaining of cough and chest congestion ongoing over the past 2 weeks. Denies anything making it better or worse. PFSH Past Medical History Cardiovascular Problems: Yes (HBP PT STATES DOES NOT TAKE HIS MED) High Cholesterol: Yes Diabetes: No Diminished Hearing: No Hypertension: Yes Tetanus Vaccination: < 5 Years Influenza Vaccination: Yes Past Surgical History Cholecystectomy: Yes Social History Alcohol Use: Yes (daily) Tobacco Use: Yes (1 paxk every 3 days) Substance Use: Yes (marijuana occasionally) Allergies-Medications (Allergen,Severity, Reaction): Coded Allergies: No Known Allergies (Unverified , 12/19/16) Reported Meds & Prescriptions Reported Meds & Active Scripts Active Acetaminophen Extra Strength (Acetaminophen) 500 Mg Tab 500 Mg PO Q6H PRN Review of Systems Except as stated in HPI: all other systems reviewed are Neg Physical Exam Narrative GENERAL: Well-developed, well nourished, in no acute distress, and non-ill appearing. SKIN: Focused skin assessment warm and dry. HEAD: Atraumatic. Normocephalic. EYES: Pupils equal and round. EOMI. No scleral icterus. No injection or drainage. ENT: No nasal bleeding or discharge. Mucous membranes pink and moist. NECK: Trachea midline. No JVD. Supple. No nuclear rigidity. CARDIOVASCULAR: Regular rate and rhythm. No murmur appreciated. RESPIRATORY: No accessory muscle use. No respiratory distress. Clear to auscultation. Breath sounds equal bilaterally. MUSCULOSKELETAL: No obvious deformities. No clubbing. No cyanosis. No edema. Full range of motion. NEUROLOGICAL: Awake and alert. No obvious cranial nerve deficits. Motor grossly within normal limits. Normal speech. PSYCHIATRIC: Appropriate mood and affect; insight and judgment normal. Data Data Last Documented VS Vital Signs Date Time Temp Pulse Resp B/P Pulse Ox O2 Delivery O2 Flow Rate FiO2 12/19/16 20:38 98.5 98 15 154/98 96 12/19/16 17:50 Room Air Orders Electrocardiogram (12/19/16 ) Basic Metabolic Panel (Bmp) (12/19/16 17:43) Complete Blood Count With Diff (12/19/16 17:43) Magnesium (Mg) (12/19/16:43) Ckmb (Isoenzyme) Profile (12/19/16:43) Troponin I (12/19/16:43) Act Partial Throm Time (Ptt) (12/19/16:43) Prothrombin Time / Inr (Pt) (12/19/16:43) Chest, Single Ap (12/19/16 17:43) Ct Brain W/O Iv Contrast(Rout) (12/19/16 17:43) Ecg Monitoring (12/19/16 17:43) Iv Access Insert/Monitor (12/19/16:43) Oximetry (12/19/16 17:43) Sodium Chloride 0.9% Flush (Ns Flush) (12/19/16 17:45) Metoclopramide Inj (Reglan Inj) (12/19/16 17:45) CKMB (12/19/16 17:50) CKMB% (12/19/16 17:50) Labs Laboratory Tests Test 12/19/16 17:50 White Blood Count 9.9 TH/MM3 Red Blood Count 4.57 MIL/MM3 Hemoglobin 14.3 GM/DL Hematocrit 43.5 % Mean Corpuscular Volume 95.1 FL Mean Corpuscular Hemoglobin 31.2 PG Mean Corpuscular Hemoglobin 32.8 % Concent Red Cell Distribution Width 15.5 % Platelet Count 219 TH/MM3 Mean Platelet Volume 8.3 FL Neutrophils (%) (Auto) 68.5 % Lymphocytes (%) (Auto) 19.5 % Monocytes (%) (Auto) 10.8 % Eosinophils (%) (Auto) 1.0 % Basophils (%) (Auto) 0.2 % Neutrophils # (Auto) 6.8 TH/MM3 Lymphocytes # (Auto) 1.9 TH/MM3 Monocytes # (Auto) 1.1 TH/MM3 Eosinophils # (Auto) 0.1 TH/MM3 Basophils # (Auto) 0.0 TH/MM3 CBC Comment DIFF FINAL Differential Comment Prothrombin Time 10.4 SEC Prothromb Time International 0.9 RATIO Ratio Activated Partial 26.9 SEC Thromboplast Time Sodium Level 139 MEQ/L Potassium Level 3.8 MEQ/L Chloride Level 102 MEQ/L Carbon Dioxide Level 25.1 MEQ/L Anion Gap 12 MEQ/L Blood Urea Nitrogen 18 MG/DL Creatinine 1.47 MG/DL Estimat Glomerular Filtration 49 ML/MIN Rate Random Glucose 118 MG/DL Calcium Level 9.1 MG/DL Magnesium Level 2.1 MG/DL Total Creatine Kinase 158 U/L Creatine Kinase MB 2.1 NG/ML Troponin I LESS THAN 0.02 NG/ML MDM Medical Decision Making Medical Screen Exam Complete: Yes Emergency Medical Condition: Yes Interpretation(s) EKG reviewed by Dr. Cancino shows sinus rhythm with multiple PVCs ventricular rate of 97. No STEMI. Chest x-ray read by radiologist shows: No acute cardiopulmonary disease. CT the head read by radiologist shows: No acute disease. Differential Diagnosis Pneumonia, intracranial hemorrhage, headache, migraine, syncope, other Narrative Course 1924 patient resting comfortably in bed in no acute distress with the lights on and watching TV. Patient in no obvious distress upon re-evaluation. All pertinent laboratory/ Radiology result(s) discussed with patient. Discussed patient with Dr. Cancino prior to discharge, who saw, evaluated, and discharged patient. Please see her documentation for final diagnosis. Reinforced sheer importance of close follow up with patient's primary physician or primary care clinic. Instructed patient to return to ED immediately, if symptoms return/worsen. All questions were answered. Pt ambulated without difficulty out of ED at discharge. Scripts Acetaminophen (Acetaminophen Extra Strength)500 Mg [id number] Mg PO Q6H PRN (PAIN SCALE 1 TO 4) #20 TAB Ref 0 Prov:Marleny Cancino 12/19/16 Krunal Aguirre December 19, 2016 17:56 Krunal Aguirre December 19, 2016 17:56
[2016-12-19 18:16] LABS: AUTOMATED NEUTROPHIL # 6.8 TH/MM3 (1.8-7.7); BASOPHIL % 0.2 % (0.0-2.0); EOSINOPHIL # 0.1 TH/MM3 (0-0.4); HEMATOCRIT 43.5 % (39.0-51.0); HEMO FLAGS DIFF FINAL; LYMPH % 19.5 % (9.0-44.0); LYMPHOCYTE # 1.9 TH/MM3 (1.0-4.8); MEAN CELL VOLUME 95.1 FL (80.0-100.0); MEAN CORPUSCULAR HEMOGLOBIN 31.2 PG (27.0-34.0); MEAN CORPUSCULAR HGB CONC 32.8 % (32.0-36.0); MONO % 10.8 % (0.0-8.0); NEUT % 68.5 % (16.0-70.0); PLATELET COUNT 219 TH/MM3 (150-450); RED BLOOD COUNT 4.57 MIL/MM3 (4.50-5.90); RED CELL DISTRIBUTION WIDTH 15.5 % (11.6-17.2); WHITE BLOOD COUNT 9.9 TH/MM3 (4.0-11.0)
[2016-12-19 18:23] LABS: APTT (PATIENT) 26.9 SEC (24.3-30.1); INTERNATIONAL NORMALIZED RATIO 0.9 RATIO; PROTHROMBIN TIME - PATIENT 10.4 SEC (9.8-11.6)
[2016-12-19 18:36] LABS: CREATINE KINASE 158 U/L (39-308)
[2016-12-19 18:37] LABS: ANION GAP 12 MEQ/L (5-15); BICARBONATE 25.1 MEQ/L (21.0-32.0); BLOOD UREA NITROGEN 18 MG/DL (7-18); CHLORIDE 102 MEQ/L (98-107); GLOMERULAR FILTRATION RATE 49 ML/MIN (>89); MAGNESIUM 2.1 MG/DL (1.5-2.5); POTASSIUM 3.8 MEQ/L (3.5-5.1); SODIUM (NA) 139 MEQ/L (136-145)
[2016-12-19 18:49] LABS: CKMB 2.1 NG/ML (0.5-3.6)
--- NOTE | 2016-12-19 19:07 | RADRPT ---
EXAM DATE/TIME: 12/19/2016 18:41 [facility] COMPARISON: No previous studies available for comparison. INDICATIONS : Dizziness and cephalgia today. RADIATION DOSE: 69.15 CTDIvol (mGy) MEDICAL HISTORY : Hypertension. Cardiovascular disease SURGICAL HISTORY : Cholecystectomy. ENCOUNTER: Initial ACUITY: 1 day PAIN SCALE: 8/10 LOCATION: Bilateral head TECHNIQUE: Multiple contiguous axial images were obtained of the head. Using automated exposure control and adj ustment of the mA and/or kV according to patient size, radiation dose was kept as low as reasonably a chievable to obtain optimal diagnostic quality images. FINDINGS: CEREBRUM: The ventricles are normal for age. No evidence of midline shift, mass lesion, hemorrhage or acute in farction. No extra-axial fluid collections are seen. POSTERIOR FOSSA: The cerebellum and brainstem are intact. The 4th ventricle is midline. The cerebellopontine angle i s unremarkable. EXTRACRANIAL: The visualized portion of the orbits is intact. SKULL: The calvaria is intact. No evidence of skull fracture. CONCLUSION: No acute disease. Chriss Livingston MD on December 19, 2016 at 19:05 Board Certified Radiologist. This report was verified electronically.
--- NOTE | 2016-12-19 20:19 | PD ---
Physical Exam Narrative I, Dr. Cancino, have reviewed the advance practice practitioner's documentation and am in agreement, met with the patient face to face, made the diagnosis, and the medical decision making was done by me. *My assessment and Findings: Migraine headache vs. sinus headache vs. URI 56yo M complaining of throat pain, right sided headache and cough. Pt given reglan which improved the pain. CT brain showed no acute disease. Labs reviewed, no leukocytosis. Troponin negative. Creatinine mildly elevated at 1.47. Pt is requesting bus pass to go home. Pt has been observed to be resting comfortably in bed watching TV in the ED. Return precautions given. Data Data Last Documented VS Vital Signs Date Time Temp Pulse Resp B/P Pulse Ox O2 Delivery O2 Flow Rate FiO2 12/19/16 20:38 98.5 98 15 154/98 96 12/19/16 17:50 Room Air Orders Electrocardiogram (12/19/16 ) Basic Metabolic Panel (Bmp) (12/19/16 17:43) Complete Blood Count With Diff (12/19/16:43) Magnesium (Mg) (12/19/16 17:43) Ckmb (Isoenzyme) Profile (12/19/16 17:43) Troponin I (12/19/16 17:43) Act Partial Throm Time (Ptt) (12/19/16:43) Prothrombin Time / Inr (Pt) (12/19/16 17:43) Chest, Single Ap (12/19/16 17:43) Ct Brain W/O Iv Contrast(Rout) (12/19/16 17:43) Ecg Monitoring (12/19/16:43) Iv Access Insert/Monitor (12/19/16 17:43) Oximetry (12/19/16 17:43) Sodium Chloride 0.9% Flush (Ns Flush) (12/19/16 17:45) Metoclopramide Inj (Reglan Inj) (12/19/16 17:45) CKMB (12/19/16 17:50) CKMB% (12/19/16 17:50) Labs Laboratory Tests Test 12/19/16 17:50 White Blood Count 9.9 TH/MM3 Red Blood Count 4.57 MIL/MM3 Hemoglobin 14.3 GM/DL Hematocrit 43.5 % Mean Corpuscular Volume 95.1 FL Mean Corpuscular Hemoglobin 31.2 PG Mean Corpuscular Hemoglobin 32.8 % Concent Red Cell Distribution Width 15.5 % Platelet Count 219 TH/MM3 Mean Platelet Volume 8.3 FL Neutrophils (%) (Auto) 68.5 % Lymphocytes (%) (Auto) 19.5 % Monocytes (%) (Auto) 10.8 % Eosinophils (%) (Auto) 1.0 % Basophils (%) (Auto) 0.2 % Neutrophils # (Auto) 6.8 TH/MM3 Lymphocytes # (Auto) 1.9 TH/MM3 Monocytes # (Auto) 1.1 TH/MM3 Eosinophils # (Auto) 0.1 TH/MM3 Basophils # (Auto) 0.0 TH/MM3 CBC Comment DIFF FINAL Differential Comment Prothrombin Time 10.4 SEC Prothromb Time International 0.9 RATIO Ratio Activated Partial 26.9 SEC Thromboplast Time Sodium Level 139 MEQ/L Potassium Level 3.8 MEQ/L Chloride Level 102 MEQ/L Carbon Dioxide Level 25.1 MEQ/L Anion Gap 12 MEQ/L Blood Urea Nitrogen 18 MG/DL Creatinine 1.47 MG/DL Estimat Glomerular Filtration 49 ML/MIN Rate Random Glucose 118 MG/DL Calcium Level 9.1 MG/DL Magnesium Level 2.1 MG/DL Total Creatine Kinase 158 U/L Creatine Kinase MB 2.1 NG/ML Troponin I LESS THAN 0.02 NG/ML [facility] Supervised Visit with BENITO: Yes Interpretation(s) Laboratory Tests Test 12/19/16 17:50 White Blood Count 9.9 TH/MM3 (4.0-11.0) Red Blood Count 4.57 MIL/MM3 (4.50-5.90) Hemoglobin 14.3 GM/DL (13.0-17.0) Hematocrit 43.5 % (39.0-51.0) Mean Corpuscular Volume 95.1 FL (80.0-100.0) Mean Corpuscular Hemoglobin 31.2 PG (27.0-34.0) Mean Corpuscular Hemoglobin 32.8 % Concent (32.0-36.0) Red Cell Distribution Width 15.5 % (11.6-17.2) Platelet Count 219 TH/MM3 (150-450) Mean Platelet Volume 8.3 FL (7.0-11.0) Neutrophils (%) (Auto) 68.5 % (16.0-70.0) Lymphocytes (%) (Auto) 19.5 % (9.0-44.0) Monocytes (%) (Auto) 10.8 % (0.0-8.0) Eosinophils (%) (Auto) 1.0 % (0.0-4.0) Basophils (%) (Auto) 0.2 % (0.0-2.0) Neutrophils # (Auto) 6.8 TH/MM3 (1.8-7.7) Lymphocytes # (Auto) 1.9 TH/MM3 (1.0-4.8) Monocytes # (Auto) 1.1 TH/MM3 (0-0.9) Eosinophils # (Auto) 0.1 TH/MM3 (0-0.4) Basophils # (Auto) 0.0 TH/MM3 (0-0.2) CBC Comment DIFF FINAL Differential Comment Prothrombin Time 10.4 SEC (9.8-11.6) Prothromb Time International 0.9 RATIO Ratio Activated Partial 26.9 SEC Thromboplast Time (24.3-30.1) Sodium Level 139 MEQ/L (136-145) Potassium Level 3.8 MEQ/L (3.5-5.1) Chloride Level 102 MEQ/L (98-107) Carbon Dioxide Level 25.1 MEQ/L (21.0-32.0) Anion Gap 12 MEQ/L (5-15) Blood Urea Nitrogen 18 MG/DL (7-18) Creatinine 1.47 MG/DL (0.60-1.30) Estimat Glomerular Filtration 49 ML/MIN (>89) Rate Random Glucose 118 MG/DL (74-106) Calcium Level 9.1 MG/DL (8.5-10.1) Magnesium Level 2.1 MG/DL (1.5-2.5) Total Creatine Kinase 158 U/L (39-308) Creatine Kinase MB 2.1 NG/ML (0.5-3.6) Troponin I LESS THAN 0.02 NG/ML (0.02-0.05) Last Impressions Head CT 12/19/16 1106 Signed Impressions: Service Date/Time: Monday, December 19, 2016 18:41 - CONCLUSION: No acute disease. Chriss Livingston MD Diagnosis Primary Impression: Sinus headache Patient Instructions: General Instructions Departure Forms: Tests/Procedures Additional Instruction: Please follow up with your PMD in 3-7 days. Return to the ED if symptoms worsen. Med/Other Pt SpecificInfo: Prescription(s) given Scripts Acetaminophen (Acetaminophen Extra Strength)500 Mg [id number] Mg PO Q6H PRN (PAIN SCALE 1 TO 4) #20 TAB Ref 0 Prov:Marleny Cancino DO 12/19/16 Disposition: 01 DISCHARGE HOME Condition: Stable Marleny Cancino DO December 19, 2016 20:19 Marleny Cancino DO December 19, 2016 20:19
[2016-12-19] MEDS ORDERED: ACET500T36 PO (20:29)
--- NOTE | 2016-12-19 20:36 | RADRPT ---
EXAM DATE/TIME: 12/19/2016 18:03 [facility] COMPARISON: CHEST SINGLE AP, November 17, 2016, 8:20. INDICATIONS : Cough MEDICAL HISTORY : Hypertension. SURGICAL HISTORY : Cholecystectomy. ENCOUNTER: Initial ACUITY: 3 days PAIN SCORE: 3/10 LOCATION: Bilateral chest FINDINGS: The heart is stable compared to the previous examination. The pulmonary vascular pattern is normal. The lungs are clear. CONCLUSION: No acute cardiopulmonary disease. Chriss Livingston MD on December 19, 2016 at 20:32 Board Certified Radiologist. This report was verified electronically.
[2016-12-19 20:38] VITALS: BP 154/98; TEMP 98.5
--- NOTE | 2016-12-20 16:52 | EKG ---
Date Performed: 12/19/2016 Time Performed: 17:26:00 PTAGE: 56 years EKG: Sinus rhythm WITH FREQUENT VENTRICULAR PREMATURE COMPLEXES NONSPECIFIC ST & T-WAVE ABNORMALITY When compared to p revious tracing, the frequent premature Ventricular contractions are new. ABNORMAL RHYTHM ECG PREVIOUS TRACING : 11/17/2016 08.12 DOCTOR: Archana Caraballo Interpretating Date/Time 12/20/2016 16:50:31
== END 2016-12-19 21:21 | disposition home or self-care (01) ==
LOC: NEPE 17:11
DX: R51 Headache (principal); R94.31 Abnormal electrocardiogram [ECG] [EKG]; I10 Essential (primary) hypertension; F12.90 Cannabis use, unspecified, uncomplicated; Z72.0 Tobacco use
CPT/HCPCS: 70450; 71010; 80048; 82550; 82552; 83735; 84484; 85025; 85610; 85730; 93005; 96374; 99285; J2765

== ENCOUNTER 2016-12-25 20:02 | Emergency (ER) | payer MEDICARE, OTHER ==
[~2016-12-25] VITALS: Ht 180.3 cm; Wt 81.4 kg
[~2016-12-25 20:02] MED LIST changes: +ACET500T36 PO; -LISI-515 PO
[2016-12-25] MEDS ORDERED: TETANUS/DIPHTHERIA TOXOID ADULT 0.5 ML VIAL IM ONE (20:30)
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
[2016-12-25] MEDS ORDERED: LORazepam 1 MG TAB PO PRN (20:45)
[2016-12-25] MEDS ORDERED: FLUMAZENIL 0.5 MG/5 ML VIAL IV PUSH PRN (20:45)
[2016-12-25] MEDS ORDERED: LORazepam 2 MG/ML VIAL IV PUSH PRN ×4 (20:45)
[2016-12-25] MEDS ORDERED: ONDANSETRON ODT 4 MG TAB PO PRN (20:45)
[2016-12-25] MEDS ORDERED: LORazepam 2 MG TAB PO PRN (20:45)
[2016-12-25] MEDS ORDERED: ACETAMINOPHEN 325 MG TAB PO PRN (20:45)
[2016-12-25] MEDS ORDERED: IBUPROFEN 600 MG TAB PO PRN (20:45)
[2016-12-25 20:54] VITALS: BP 134/86; PULSE 88; RESP 15; TEMP 98.2; O2SAT 95
[2016-12-25 22:08] LABS: AUTOMATED NEUTROPHIL # 4.6 TH/MM3 (1.8-7.7); BASOPHIL % 0.6 % (0.0-2.0); EOSINOPHIL # 0.1 TH/MM3 (0-0.4); EOSINOPHIL % 1.7 % (0.0-4.0); HEMATOCRIT 44.5 % (39.0-51.0); HEMO FLAGS DIFF FINAL; LYMPH % 24.1 % (9.0-44.0); LYMPHOCYTE # 1.9 TH/MM3 (1.0-4.8); MEAN CELL VOLUME 96.2 FL (80.0-100.0); MEAN CORPUSCULAR HGB CONC 32.2 % (32.0-36.0); MONO % 13.4 % (0.0-8.0); NEUT % 60.2 % (16.0-70.0); PLATELET COUNT 247 TH/MM3 (150-450); RED BLOOD COUNT 4.62 MIL/MM3 (4.50-5.90); RED CELL DISTRIBUTION WIDTH 15.2 % (11.6-17.2); WHITE BLOOD COUNT 7.7 TH/MM3 (4.0-11.0)
[2016-12-25 22:14] LABS: AMPHETAMINE, URINE NEG (NEG); BARBITURATES, URINE NEG (NEG); COCAINE, URINE NEG (NEG)
[2016-12-25 22:34] LABS: ANION GAP 12 MEQ/L (5-15); AST (GOT) 49 U/L (15-37); BICARBONATE 26.2 MEQ/L (21.0-32.0); BLOOD UREA NITROGEN 21 MG/DL (7-18); CHLORIDE 99 MEQ/L (98-107); GLOMERULAR FILTRATION RATE 46 ML/MIN (>89); POTASSIUM 3.4 MEQ/L (3.5-5.1); SODIUM (NA) 137 MEQ/L (136-145)
[2016-12-25 22:37] LABS: ALKALINE PHOSPHATASE 103 U/L (45-117); ALT (GPT) 46 U/L (12-78); TOTAL BILIRUBIN ADULT 0.7 MG/DL (0.2-1.0)
[2016-12-26 02:26] VITALS: BP 126/77; PULSE 84; RESP 18; O2SAT 97
[2016-12-26 06:11] VITALS: BP 152/83; PULSE 76; RESP 18; O2SAT 98
== END 2016-12-26 10:46 | disposition short-term general hospital (02) ==
LOC: NEDAMB 20:02 → NEPJ 12-26 10:46
DX: F10.20 Alcohol dependence, uncomplicated (principal); F39 Unspecified mood [affective] disorder; S50.811A Abrasion of right forearm, initial encounter; S00.81XA Abrasion of other part of head, initial encounter; S50.312A Abrasion of left elbow, initial encounter; I10 Essential (primary) hypertension; E78.00 Pure hypercholesterolemia, unspecified; F17.210 Nicotine dependence, cigarettes, uncomplicated; Z23 Encounter for immunization; Y04.2XXA Assault by strike against or bumped into by another person, initial encounter; Z59.0 Homelessness; Z91.14 Patient's other noncompliance with medication regimen; Y93.9 Activity, unspecified; Y92.9 Unspecified place or not applicable; Y99.9 Unspecified external cause status
CPT/HCPCS: 80053; 80307; 85025; 90471; 90714

== ENCOUNTER 2017-01-13 19:20 | Emergency (ER) | payer MEDICARE, OTHER ==
[2017-01-13 19:40] VITALS: BP 177/85; PULSE 76; RESP 16; TEMP 98.2; O2SAT 97
--- NOTE | 2017-01-13 20:10 | PD ---
Physical Exam Time Seen by Provider: 20:08 Narrative 56yio M c/o L sided chest pain x couple days. +SOB. Chest pain worse w/ activity. Feels like heart is racing. Reports Etoh use today. Denies illicit drug use. Patient seen in triage. VS reviewed. Awaiting bed placement. Data Data Last Documented VS Vital Signs Date Time Temp Pulse Resp B/P Pulse Ox O2 Delivery O2 Flow Rate FiO2 01/13/17 19:40 98.2 76 16 177/85 97 Room Air [facility] Supervised Visit with BENITO: Kathrin Elliott Jan 13, 2017 20:09
== END 2017-01-13 22:10 | disposition left against medical advice (07) ==
LOC: NED 19:20
DX: Z53.21 Procedure and treatment not carried out due to patient leaving prior to being seen by health care provider (principal); R07.9 Chest pain, unspecified; R06.02 Shortness of breath
CPT/HCPCS: 99281

== ENCOUNTER 2017-02-02 03:29 | Emergency (ER) | payer MEDICARE ==
[2017-02-02 03:34] VITALS: BP 147/90; PULSE 69; TEMP 98.6
--- NOTE | 2017-02-02 03:53 | PD ---
HPI Chief Complaint: Musculoskeletal Complaint Time Seen by Provider: 03:30 Travel History International Travel<30 days: No Contact w/Intl Traveler<30days: No Traveled to known affect area: No History of Present Illness HPI Patient is a 56-year-old male presenting to emergency room for evaluation of bilateral foot pain. [place], wound care was provided by the [email or web address]. Several weeks ago he stepped on a nail which causes pain to the bottom of his right foot. Tetanus vaccine is up-to-date. Patient was brought to the emergency department by [facility], he states his friends encouraged him to get checked out. PFSH Past Medical History Cancer: Yes (bone as a kid) High Cholesterol: Yes Diabetes: No Diminished Hearing: No Hypertension: Yes Past Surgical History Cholecystectomy: Yes Neurologic Surgery: Yes (herniated disc) Social History Alcohol Use: Yes (daily) Tobacco Use: Yes (1 paxk every 3 days) Substance Use: Yes (ALCOHOL ABUSE) Allergies-Medications (Allergen,Severity, Reaction): Coded Allergies: No Known Allergies (Unverified , 02/02/17) Reported Meds & Prescriptions Reported Meds & Active Scripts Active No Active Prescriptions or Reported Medications Review of Systems Except as stated in HPI: all other systems reviewed are Neg Musculoskeletal: Positive: Edema (bilateral feet), Pain Skin: Positive Other (abrasion to left foot) Physical Exam Narrative GENERAL: Well-nourished, well-developed patient. SKIN: Focused skin assessment warm/dry. Superficial abrasion noted to lateral aspect of left foot and left heel, no erythema or induration, no drainage noted. Scab noted to the ball of the right foot HEAD: Normocephalic. EYES: No scleral icterus. No injection or drainage. NECK: Supple, trachea midline. No JVD or lymphadenopathy. CARDIOVASCULAR: Regular rate and rhythm without murmurs, gallops, or rubs. RESPIRATORY: Breath sounds equal bilaterally. No accessory muscle use. GASTROINTESTINAL: Abdomen soft, non-tender, nondistended. MUSCULOSKELETAL: No cyanosis, nonpitting peripheral edema bilaterally. Positive pedal pulses. Tenderness to palpation on the ball of the right foot. BACK: Nontender without obvious deformity. No CVA tenderness. Data Data Last Documented VS Vital Signs Date Time Temp Pulse Resp B/P Pulse Ox O2 Delivery O2 Flow Rate FiO2 02/02/17 03:34 98.6 69 147/90 Orders Wound Care (02/02/17 03:37) Foot, Limited (2vws) (02/02/17 ) Ibuprofen (Motrin) (02/02/17 04:00) Ketoconazole 2% Cream (Nizoral 2% Cream) (02/02/17 04:30) MDM Medical Decision Making Medical Screen Exam Complete: Yes Emergency Medical Condition: Yes Medical Record Reviewed: Yes Interpretation(s) Last Impressions Foot X-Ray 02/02/17 0000 Signed Impressions: Service Date/Time: Thursday, February 02, 2017 03:33 - CONCLUSION: Multiple opacities seen only on the frontal view superimposed upon the phalangeal portion of the 5th digit, possible radiopaque foreign bodies. Tyrone Vickers MD Vital Signs Date Time Temp Pulse Resp B/P Pulse Ox O2 Delivery O2 Flow Rate FiO2 02/02/17 03:34 98.6 69 147/90 Differential Diagnosis Retained foreign body versus laceration versus abrasion versus other Narrative Course Patient is 56-year-old male presenting to the emergency department for evaluation of bilateral foot pain, left foot pain is from an abrasion, right foot pain is from stepping on a nail. Patient's tetanus vaccine is updated, he appears slightly intoxicated and admits to drinking alcohol on a daily basis. Imaging is negative for retained foreign body on the ball of his right foot. It did show some possible radiopaque material at the fifth digit, upon closer inspection patient had sand and shells in between his fourth and fifth toes. Patient also appears to have tinea pedis, ketoconazole cream ordered. Patient is encouraged to stay out of the [place] his feet are healed. He is encouraged to keep his feet clean and dry as much as possible. He was encouraged to follow-up at the [facility]. Patient verbalized understanding of instructions. Patient is stable for discharge. Diagnosis Primary Impression: Tinea pedis Qualified Code: B35.3 - Tinea pedis, unspecified laterality Additional Impression: Abrasion, foot Qualified Code: S90.812A - Abrasion, foot, left, initial encounter Referrals: [facility] Patient Instructions: General Instructions, Tinea Pedis (DC) Additional Instructions: Keep feet clean and dry, apply ointment as directed. [place] Follow-up at the [facility] Return to emergency department for any new or worsening symptoms Med/Other Pt SpecificInfo: Prescription(s) given Scripts Cephalexin (Keflex)500 Mg [id number] Mg PO Q12H 7 Days Ref 0 Prov:Comfort Donaldson 02/02/17 Ketoconazole Topical 2% Cream1 Applic TOPICAL BID #15 GM Ref 0 Prov:Comfort Donaldson 02/02/17 Disposition: 01 DISCHARGE HOME Condition: Stable Comfort Donaldson Feb 02, 2017 03:53
[2017-02-02] MEDS ORDERED: IBUPROFEN 800 MG TAB PO ONE (04:00)
--- NOTE | 2017-02-02 04:12 | RADRPT ---
EXAM DATE/TIME: 02/02/2017 03:33 [facility] COMPARISON: No previous studies available for comparison. INDICATIONS : Right foot pain. Evaluate for foreign body. Patient states he stood on a nail over one week ago. MEDICAL HISTORY : None. SURGICAL HISTORY : None. ENCOUNTER: Initial ACUITY: 1 week PAIN SCORE: 6/10 LOCATION: Right foot. FINDINGS: Two view examination of the right foot demonstrates no soft tissue swelling, dislocation, or fracture . The calcaneus is intact with common plantar calcaneal spur and fragmented retrocalcaneal spur.. B geovanna mineralization is normal. On the frontal view, there are opacities which are elongated and multi focal superimposed upon the 5th digit. These may represent radiopaque foreign bodies. This area is not well-seen on the lateral view due to superimposition of the digits. CONCLUSION: Multiple opacities seen only on the frontal view superimposed upon the phalangeal portion of the 5th digit, possible radiopaque foreign bodies. Tyrone Vickers MD on February 02, 2017 at 4:08 Board Certified Radiologist. This report was verified electronically.
[2017-02-02] MEDS ORDERED: KETOCONAZOLE 2% CREAM 15 GM TOPICAL ONE (04:30)
[2017-02-02] MEDS ORDERED: KETO2CRE TOPICAL (04:31)
[2017-02-02] MEDS ORDERED: CEPH-460 PO (04:32)
[2017-02-02] MEDS ORDERED: CEPHALEXIN MONOHYDRATE 500 MG CAP PO ONE (04:45)
== END 2017-02-02 06:45 | disposition home or self-care (01) ==
LOC: NEPD 03:29
DX: B35.3 Tinea pedis (principal); S90.812A Abrasion, left foot, initial encounter; W45.0XXA Nail entering through skin, initial encounter; W22.8XXA Striking against or struck by other objects, initial encounter; Y93.9 Activity, unspecified; Y99.9 Unspecified external cause status; Y92.89 Other specified places as the place of occurrence of the external cause
CPT/HCPCS: 73620; 99284

== ENCOUNTER 2017-02-18 21:30 | Emergency (ER) | payer MEDICARE ==
[~2017-02-18] VITALS: Ht 180.3 cm; Wt 80.0 kg
[~2017-02-18 21:30] MED LIST changes: -ACET500T36 PO; +CEPH-460 PO; +KETO2CRE TOPICAL
[2017-02-18 21:52] VITALS: BP 129/90; PULSE 80; RESP 18; TEMP 98.1; O2SAT 98
[2017-02-18 21:56] VITALS: O2SAT 96
--- NOTE | 2017-02-18 21:57 | PD ---
HPI Chief Complaint: Chest Pain Time Seen by Provider: 21:52 Travel History International Travel<30 days: No Contact w/Intl Traveler<30days: No Traveled to known affect area: No History of Present Illness HPI 57-year-old male brought in by ambulance for evaluation of chest pain. Patient is reporting left-sided chest pain that started yesterday night, sharp, constant , worse with movement and palpation. He denies history of cardiac disease. Chart review shows that the patient has been here in the past intoxicated. He tells me he drank 2 beers today only and smoked a few cigarettes. He denies illicit drug use. PFSH Past Medical History Cancer: Yes (bone as a kid) High Cholesterol: Yes Diabetes: No Diminished Hearing: No Hypertension: Yes Past Surgical History Cholecystectomy: Yes Neurologic Surgery: Yes (herniated disc) Social History Alcohol Use: Yes (daily) Tobacco Use: Yes (1 paxk every 3 days) Substance Use: Yes (ALCOHOL ABUSE) Allergies-Medications (Allergen,Severity, Reaction): Coded Allergies: No Known Allergies (Unverified , 02/02/17) Reported Meds & Prescriptions Reported Meds & Active Scripts Active Keflex (Cephalexin) 500 Mg Cap 500 Mg PO Q12H 7 Days Ketoconazole Topical 2% Cream 1 Applic TOPICAL BID Review of Systems Except as stated in HPI: all other systems reviewed are Neg Physical Exam Narrative GENERAL: Well-developed, well-nourished, awake, appears intoxicated, no apparent distress. SKIN: Focused skin assessment warm/dry. HEAD: Atraumatic. Normocephalic. EYES: Pupils equal and round. No scleral icterus. No injection or drainage. ENT: Mucous membranes pink and moist. NECK: Trachea midline. No JVD. CARDIOVASCULAR: Regular rate and rhythm. Distal pulses brisk and equal bilaterally. RESPIRATORY: No accessory muscle use. Clear to auscultation. Breath sounds equal bilaterally. GASTROINTESTINAL: Abdomen soft, non-tender, nondistended. MUSCULOSKELETAL: No obvious deformities. No clubbing. No cyanosis. No edema. Left anterior chest wall tenderness without step-off, without crepitus, without paradoxical chest wall movements. NEUROLOGICAL: Awake and alert. No obvious cranial nerve deficits. Motor grossly within normal limits. Normal speech. PSYCHIATRIC: Flat affect. Poor eye contact. Appears intoxicated. Data Data Last Documented VS Vital Signs Date Time Temp Pulse Resp B/P Pulse Ox O2 Delivery O2 Flow Rate FiO2 02/18/17 23:17 82 18 123/67 95 Room Air 02/18/17 21:52 98.1 Orders Electrocardiogram (02/18/17 21:54) Basic Metabolic Panel (Bmp) (02/18/17 21:54) Ckmb (Isoenzyme) Profile (02/18/17 21:54) Complete Blood Count With Diff (02/18/17 21:54) Prothrombin Time / Inr (Pt) (02/18/17 21:54) Act Partial Throm Time (Ptt) (02/18/17 21:54) Troponin I (02/18/17 21:54) Chest, Single Ap (02/18/17 21:54) Ecg Monitoring (02/18/17 21:54) Iv Access Insert/Monitor (02/18/17 21:54) Oximetry (02/18/17 21:54) Aspirin Chew (Aspirin Chew) (02/18/17 22:00) Sodium Chloride 0.9% Flush (Ns Flush) (02/18/17 22:00) Alcohol (Ethanol) (02/18/17 21:54) CKMB (02/18/17 22:07) CKMB% (02/18/17 22:07) Protein Corrected Calcium(Pcc) (02/18/17 22:07) Calcium Gluconate Inj (Calcium Gluconate (02/18/17 23:30) Potassium Chloride (Kcl) (02/18/17 23:30) Labs Laboratory Tests Test 02/18/17 22:07 White Blood Count 5.8 TH/MM3 Red Blood Count 4.16 MIL/MM3 Hemoglobin 13.2 GM/DL Hematocrit 41.0 % Mean Corpuscular Volume 98.7 FL Mean Corpuscular Hemoglobin 31.9 PG Mean Corpuscular Hemoglobin 32.3 % Concent Red Cell Distribution Width 14.8 % Platelet Count 204 TH/MM3 Mean Platelet Volume 8.0 FL Neutrophils (%) (Auto) 25.1 % Lymphocytes (%) (Auto) 59.5 % Monocytes (%) (Auto) 9.2 % Eosinophils (%) (Auto) 5.7 % Basophils (%) (Auto) 0.5 % Neutrophils # (Auto) 1.5 TH/MM3 Lymphocytes # (Auto) 3.5 TH/MM3 Monocytes # (Auto) 0.5 TH/MM3 Eosinophils # (Auto) 0.3 TH/MM3 Basophils # (Auto) 0.0 TH/MM3 CBC Comment AUTO DIFF Prothrombin Time 11.5 SEC Prothromb Time International 1.0 RATIO Ratio Activated Partial 30.6 SEC Thromboplast Time Sodium Level 145 MEQ/L Potassium Level 3.0 MEQ/L Chloride Level 115 MEQ/L Carbon Dioxide Level 19.8 MEQ/L Anion Gap 10 MEQ/L Blood Urea Nitrogen 6 MG/DL Creatinine 0.56 MG/DL Estimat Glomerular Filtration 150 ML/MIN Rate Random Glucose 82 MG/DL Calcium Level 6.9 MG/DL Total Creatine Kinase 147 U/L Creatine Kinase MB 2.2 NG/ML Troponin I LESS THAN 0.02 NG/ML Ethyl Alcohol Level 287 MG/DL [facility] Medical Decision Making Medical Screen Exam Complete: Yes Emergency Medical Condition: Yes Medical Record Reviewed: Yes Differential Diagnosis ACS, pneumothorax, pericarditis, PE, pneumonia, musculoskeletal pain, alcohol intoxication, malingering Narrative Course Vital signs reviewed and are within normal limits. CBC shows WBC 5.8, hemoglobin 13.2, hematocrit 41, platelets 24, slight lymphocytosis at 59%. BMP is remarkable for potassium 3.0, bicarbonate 19.8, calcium 6.9. Cardiac enzymes are negative. Alcohol level is 287. Potassium replaced orally, and calcium was replaced parenterally. I do not believe the patient's chest pain is cardiac in nature. Pain was very reproducible upon arrival to the emergency department. Patient also reports that the pain has been going on for the last week. On reassessment the patient is sleeping comfortably and is easily arousable. He will be allowed to sleep off his intoxication in the emergency department. Diagnosis Primary Impression: Alcohol intoxication Qualified Code: F10.920 - Alcohol intoxication, uncomplicated Additional Impressions: Hypokalemia Hypocalcemia Atypical chest pain Referrals: [facility] day Additional Instructions: Follow-up with with [facility] tomorrow for help with alcoholism. Disposition: 01 DISCHARGE HOME Condition: Stable Amauri Grover MD Feb 18, 2017 21:57
[2017-02-18] MEDS ORDERED: ASPIRIN 81 MG CHEW TAB PO ONE (22:00)
[2017-02-18] MEDS ORDERED: SODIUM CHLORIDE 0.9% FLUSH 10 ML FLUSH IVF PRN (22:00)
--- NOTE | 2017-02-18 22:14 | RADRPT ---
EXAM DATE/TIME: 02/18/2017 21:52 [place] COMPARISON: CHEST SINGLE AP, December 19, 2016, 18:03. INDICATIONS : Chest pain MEDICAL HISTORY : Hypertension. SURGICAL HISTORY : Cholecystectomy. ENCOUNTER: Initial ACUITY: 1 day PAIN SCORE: 8/10 LOCATION: chest FINDINGS: The lungs are clear without infiltrate, nodule, or mass. There is no appreciable pleural effusion fo r technique. Heart and mediastinum are unremarkable. CONCLUSION: No acute cardiopulmonary disease. Regine Jane MD on February 18, 2017 at 22:12 Board Certified Radiologist. This report was verified electronically.
[2017-02-18 22:45] LABS: AUTOMATED NEUTROPHIL # 1.5 TH/MM3 (1.8-7.7); BASOPHIL % 0.5 % (0.0-2.0); EOSINOPHIL # 0.3 TH/MM3 (0-0.4); EOSINOPHIL % 5.7 % (0.0-4.0); LYMPH % 59.5 % (9.0-44.0); LYMPHOCYTE # 3.5 TH/MM3 (1.0-4.8); MEAN CELL VOLUME 98.7 FL (80.0-100.0); MEAN CORPUSCULAR HEMOGLOBIN 31.9 PG (27.0-34.0); MEAN CORPUSCULAR HGB CONC 32.3 % (32.0-36.0); MONO % 9.2 % (0.0-8.0); NEUT % 25.1 % (16.0-70.0); PLATELET COUNT 204 TH/MM3 (150-450); RED BLOOD COUNT 4.16 MIL/MM3 (4.50-5.90); RED CELL DISTRIBUTION WIDTH 14.8 % (11.6-17.2); WHITE BLOOD COUNT 5.8 TH/MM3 (4.0-11.0)
[2017-02-18 22:54] LABS: HEMO FLAGS AUTO DIFF
[2017-02-18 23:05] LABS: ANION GAP 10 MEQ/L (5-15); BICARBONATE 19.8 MEQ/L (21.0-32.0); BLOOD UREA NITROGEN 6 MG/DL (7-18); CHLORIDE 115 MEQ/L (98-107); CREATINE KINASE 147 U/L (39-308); GLOMERULAR FILTRATION RATE 150 ML/MIN (>89); SODIUM (NA) 145 MEQ/L (136-145)
[2017-02-18 23:09] LABS: APTT (PATIENT) 30.6 SEC (24.3-30.1); PROTHROMBIN TIME - PATIENT 11.5 SEC (9.8-11.6)
[2017-02-18 23:17] VITALS: BP 123/67; PULSE 82; RESP 18; O2SAT 95
[2017-02-18 23:23] LABS: CKMB 2.2 NG/ML (0.5-3.6)
[2017-02-18 23:30] LABS: SCAN/DIFF AUTO DIFF CONFIRMED
[2017-02-18] MEDS ORDERED: CALCIUM GLUCONATE INJ 1 GM in DEXTROSE 5% IN WATER 100ML INJ 100 ML IV ONE ×2 (23:30)
[2017-02-18] MEDS ORDERED: POTASSIUM CHLORIDE 20 MEQ CONTROLLED RELEASE TAB PO ONE (23:30)
[2017-02-18 23:41] LABS: CALCIUM-PROTEIN CORRECTED 7.3 MG/DL (8.5-10.1)
[2017-02-19 04:40] VITALS: BP 166/103; PULSE 80; RESP 18; O2SAT 100
[2017-02-19 05:50] LABS: POTASSIUM 4.4 MEQ/L (3.5-5.1)
--- NOTE | 2017-02-19 05:53 | PD ---
Physical Exam Date Seen by Provider: Feb 19, 2017 Time Seen by Provider: 05:51 Data Data Last Documented VS Vital Signs Date Time Temp Pulse Resp B/P Pulse Ox O2 Delivery O2 Flow Rate FiO2 02/19/17 04:40 80 18 166/103 100 Room Air 02/18/17 21:52 98.1 Orders Electrocardiogram (02/18/17 21:54) Basic Metabolic Panel (Bmp) (02/18/17 21:54) Ckmb (Isoenzyme) Profile (02/18/17 21:54) Complete Blood Count With Diff (02/18/17 21:54) Prothrombin Time / Inr (Pt) (02/18/17 21:54) Act Partial Throm Time (Ptt) (02/18/17 21:54) Troponin I (02/18/17 21:54) Chest, Single Ap (02/18/17 21:54) Ecg Monitoring (02/18/17 21:54) Iv Access Insert/Monitor (02/18/17 21:54) Oximetry (02/18/17 21:54) Aspirin Chew (Aspirin Chew) (02/18/17 22:00) Sodium Chloride 0.9% Flush (Ns Flush) (02/18/17 22:00) Alcohol (Ethanol) (02/18/17 21:54) CKMB (02/18/17 22:07) CKMB% (02/18/17 22:07) Protein Corrected Calcium(Pcc) (02/18/17 22:07) Calcium Gluconate Inj (Calcium Gluconate (02/18/17 23:30) Potassium Chloride (Kcl) (02/18/17 23:30) Electrocardiogram (02/19/17 04:44) Troponin I (02/19/17 04:44) Potassium, Serum (K) (02/19/17 04:44) Labs Laboratory Tests Test 02/18/17 02/19/17 22:07 04:52 White Blood Count 5.8 TH/MM3 Red Blood Count 4.16 MIL/MM3 Hemoglobin 13.2 GM/DL Hematocrit 41.0 % Mean Corpuscular Volume 98.7 FL Mean Corpuscular Hemoglobin 31.9 PG Mean Corpuscular Hemoglobin 32.3 % Concent Red Cell Distribution Width 14.8 % Platelet Count 204 TH/MM3 Mean Platelet Volume 8.0 FL Neutrophils (%) (Auto) 25.1 % Lymphocytes (%) (Auto) 59.5 % Monocytes (%) (Auto) 9.2 % Eosinophils (%) (Auto) 5.7 % Basophils (%) (Auto) 0.5 % Neutrophils # (Auto) 1.5 TH/MM3 Lymphocytes # (Auto) 3.5 TH/MM3 Monocytes # (Auto) 0.5 TH/MM3 Eosinophils # (Auto) 0.3 TH/MM3 Basophils # (Auto) 0.0 TH/MM3 CBC Comment AUTO DIFF Differential Comment AUTO DIFF CONFIRMED Prothrombin Time 11.5 SEC Prothromb Time International 1.0 RATIO Ratio Activated Partial 30.6 SEC Thromboplast Time Sodium Level 145 MEQ/L Potassium Level 3.0 MEQ/L 4.4 MEQ/L Chloride Level 115 MEQ/L Carbon Dioxide Level 19.8 MEQ/L Anion Gap 10 MEQ/L Blood Urea Nitrogen 6 MG/DL Creatinine 0.56 MG/DL Estimat Glomerular Filtration 150 ML/MIN Rate Random Glucose 82 MG/DL Calcium Level 6.9 MG/DL Protein Corrected Calcium 7.3 MG/DL Total Creatine Kinase 147 U/L Creatine Kinase MB 2.2 NG/ML Troponin I LESS THAN 0.02 0.02 NG/ML NG/ML Total Protein 6.4 GM/DL Ethyl Alcohol Level 287 MG/DL [facility] Medical Record Reviewed: Yes Supervised Visit with BENITO: Yes Interpretation(s) Repeat EKG is unchanged from prior EKG earlier this evening. Laboratory Tests Test 02/18/17 02/19/17 22:07 04:52 White Blood Count 5.8 TH/MM3 Red Blood Count 4.16 MIL/MM3 Hemoglobin 13.2 GM/DL Hematocrit 41.0 % Mean Corpuscular Volume 98.7 FL Mean Corpuscular Hemoglobin 31.9 PG Mean Corpuscular Hemoglobin 32.3 % Concent Red Cell Distribution Width 14.8 % Platelet Count 204 TH/MM3 Mean Platelet Volume 8.0 FL Neutrophils (%) (Auto) 25.1 % Lymphocytes (%) (Auto) 59.5 % Monocytes (%) (Auto) 9.2 % Eosinophils (%) (Auto) 5.7 % Basophils (%) (Auto) 0.5 % Neutrophils # (Auto) 1.5 TH/MM3 Lymphocytes # (Auto) 3.5 TH/MM3 Monocytes # (Auto) 0.5 TH/MM3 Eosinophils # (Auto) 0.3 TH/MM3 Basophils # (Auto) 0.0 TH/MM3 CBC Comment AUTO DIFF Differential Comment AUTO DIFF CONFIRMED Prothrombin Time 11.5 SEC Prothromb Time International 1.0 RATIO Ratio Activated Partial 30.6 SEC Thromboplast Time Sodium Level 145 MEQ/L Potassium Level 3.0 MEQ/L 4.4 MEQ/L Chloride Level 115 MEQ/L Carbon Dioxide Level 19.8 MEQ/L Anion Gap 10 MEQ/L Blood Urea Nitrogen 6 MG/DL Creatinine 0.56 MG/DL Estimat Glomerular Filtration 150 ML/MIN Rate Random Glucose 82 MG/DL Calcium Level 6.9 MG/DL Protein Corrected Calcium 7.3 MG/DL Total Creatine Kinase 147 U/L Creatine Kinase MB 2.2 NG/ML Troponin I LESS THAN 0.02 0.02 NG/ML NG/ML Total Protein 6.4 GM/DL Ethyl Alcohol Level 287 MG/DL Differential Diagnosis Differential diagnoses: Alcohol intoxication, substance abuse, electrolyte abnormality, malingering, coronary artery disease, chest wall pain, GI etiology Narrative Course Patient has slept soundly here in the ER. Now he is aroused. We have repeated his EKG, potassium and troponin. These are negative. His potassium has come up to normal range. He is medically stable for discharge. The patient's chest pain is not of a cardiac etiology. Pain appears to be reproducible or GI etiology. Diagnosis Primary Impression: Alcohol intoxication Qualified Code: F10.920 - Alcohol intoxication, uncomplicated Additional Impressions: Atypical chest pain Hypokalemia Hypocalcemia Referrals: [facility] day Patient Instructions: General Instructions, Chest Pain (ED), Hypokalemia (ED), Hypocalcemia (ED) Departure Forms: Tests/Procedures Additional Instruction: Rest. Increase fluids. Avoid alcohol. Avoid illegal substances. Take 2 Pepcid AC twice daily. 3 Advil every 6 hours as needed for additional pain. Follow-up with [facility] for detox. Do not operate a car or any heavy machinery under the influence of alcohol or drugs. Follow-up with a medical doctor this week. Return to the ER for emergencies Disposition: 01 DISCHARGE HOME Condition: Stable Juan A Reyes Feb 19, 2017 05:53
[2017-02-19 06:07] VITALS: BP 160/78; PULSE 78; RESP 18; TEMP 98.1; O2SAT 100
--- NOTE | 2017-02-20 10:52 | EKG ---
Date Performed: 02/19/2017 Time Performed: 04:51:16 PTAGE: 57 years EKG: Sinus rhythm NONSPECIFIC T-WAVE ABNORMALITY BORDERLINE ECG PREVIOUS TRACING : 02/18/2017 21.41 DOCTOR: Foster Cruz Interpretating Date/Time 02/20/2017 10:51:18
--- NOTE | 2017-02-20 11:00 | EKG ---
Date Performed: 02/18/2017 Time Performed: 21:41:01 PTAGE: 57 years EKG: Sinus rhythm NONSPECIFIC T-WAVE ABNORMALITY BORDERLINE ECG PREVIOUS TRACING : 12/19/2016 17.26 DOCTOR: Foster Cruz Interpretating Date/Time 02/20/2017 10:54:45
== END 2017-02-19 06:08 | disposition home or self-care (01) ==
LOC: NEPD 21:30
DX: F10.129 Alcohol abuse with intoxication, unspecified (principal); R07.89 Other chest pain; E87.6 Hypokalemia; E83.51 Hypocalcemia; E78.00 Pure hypercholesterolemia, unspecified; I10 Essential (primary) hypertension; R94.31 Abnormal electrocardiogram [ECG] [EKG]; F17.200 Nicotine dependence, unspecified, uncomplicated; Z79.899 Other long term (current) drug therapy
CPT/HCPCS: 71010; 80048; 80307; 82550; 82552; 84132; 84155; 84484; 85025; 85610; 85730; 93005; 96374; 99285; J0610

== ENCOUNTER 2017-03-17 06:20 | Emergency (ER) | payer MEDICARE, OTHER ==
[~2017-03-17] VITALS: Ht 182.9 cm; Wt 78.0 kg
[2017-03-17 06:28] VITALS: BP 170/107; PULSE 109; RESP 20; O2SAT 91
[2017-03-17 06:32] VITALS: BP 170/107; PULSE 97; O2SAT 94
[2017-03-17] MEDS ORDERED: LORazepam 2 MG/ML VIAL IM ONE (06:45)
--- NOTE | 2017-03-17 06:52 | PD ---
HPI Chief Complaint: Medical Clearance Time Seen by Provider: 06:46 Travel History International Travel<30 days: No Contact w/Intl Traveler<30days: No Traveled to known affect area: No History of Present Illness HPI 57-year-old white male presents to emergency department under [place] act by PD. The patient states that he is an alcoholic almost on the streets and would like to get detox. The patient states that if he does not get help he sure that he will succumb to his alcohol abuse. The patient states that he has contemplated self-harm but has no plan. He states that this is only due to his alcohol abuse. He denies any homicidal ideation. He states that a laceration to his left heel approximately one month ago and has had a intermittent draining sore. He was seen in the ER at [facility] was given a prescription which she had completed. He is up-to-date with immunizations. Patient denies any fever or chills. No chest pain or shortness of breath. No nausea vomiting. He does state that he is feeling tremulous and feels as if he is starting to get into withdrawal. He last drank alcohol approximately 6 hours ago. 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, right knee surgery, left facial fracture, cholecystectomy Cholecystectomy: Yes Neurologic Surgery: Yes (herniated disc) Social History Alcohol Use: Yes Tobacco Use: Yes Substance Use: No Allergies-Medications (Allergen,Severity, Reaction): Coded Allergies: No Known Allergies (Unverified , 02/02/17) Reported Meds & Prescriptions Reported Meds & Active Scripts Active Keflex (Cephalexin) 500 Mg Cap 500 Mg PO Q12H 7 Days Ketoconazole Topical 2% Cream 1 Applic TOPICAL BID Review of Systems Except as stated in HPI: all other systems reviewed are Neg Physical Exam Narrative GENERAL: Well-nourished, well-developed patient. SKIN: Patient has an abrasion to the nose. There is some serous drainage. No bony tenderness. Patient has a sore on the lateral aspect of his proximal left heel. There is some slight discharge. No fluctuance. No obvious foreign body. HEAD: Normocephalic and atraumatic. EYES: No scleral icterus. No injection or drainage. ENT: No nasal drainage noted. Mucous membranes pink. Airway patent. NECK: Supple, trachea midline. Moves head freely without obvious discomfort. CARDIOVASCULAR: Regular rate and rhythm without murmurs, gallops, or rubs. RESPIRATORY: Breath sounds equal bilaterally. No accessory muscle use. GASTROINTESTINAL: Abdomen soft, non-tender, nondistended. EXTREMITIES: No cyanosis or edema. BACK: Nontender without obvious deformity. No CVA tenderness. NEURO: Patient is alert and oriented. no sensorimotor deficits. Nonfocal. Normal speech. PSYCH: No delusions. No auditory or visual hallucinations. Data Data Last Documented VS Vital Signs Date Time Temp Pulse Resp B/P Pulse Ox O2 Delivery O2 Flow Rate FiO2 03/17/17 06:32 97 170/107 94 Room Air 03/17/17 06:28 20 Orders Lorazepam Inj (Ativan Inj) (03/17/17 06:45) [facility] Medical Decision Making Medical Screen Exam Complete: Yes Emergency Medical Condition: Yes Medical Record Reviewed: Yes Differential Diagnosis Differential diagnoses: Alcohol intoxication, substance abuse, electrolyte abnormality, malingering Narrative Course Patient is given 2 mg of Ativan IM. I have had a lengthy discussion with the patient regarding alcohol abuse and detox. He has agreed to go to [facility] I have called [facility] and they anticipate discharges this morning. I've contacted case management to assist with getting the patient bus passes. This is alcohol abuse Diagnosis Primary Impression: Alcohol abuse Patient Instructions: General Instructions Additional Instructions: Rest. Increase fluids. Avoid alcohol. Avoid illegal substances. Follow-up with [facility] for detox. Do not operate a car or any heavy machinery under the influence of alcohol or drugs. Follow-up with a medical doctor this week. Return to the ER for emergencies Med/Other Pt SpecificInfo: No Meds Exist/No RX given Disposition: 01 DISCHARGE HOME Condition: Stable Juan A Reyes Mar 17, 2017 06:52
[2017-03-17] MEDS ORDERED: BACT800T5 PO (07:15)
[2017-03-17] MEDS ORDERED: CIPR-9 PO (07:15)
[2017-03-17 07:38] VITALS: BP 170/77
== END 2017-03-17 07:44 | disposition home or self-care (01) ==
LOC: NEPD 06:20
DX: F10.10 Alcohol abuse, uncomplicated (principal); I10 Essential (primary) hypertension; E78.00 Pure hypercholesterolemia, unspecified; Z72.0 Tobacco use
CPT/HCPCS: 96372; J2060

== ENCOUNTER 2017-03-18 09:47 | Inpatient (IN) | payer MEDICARE, OTHER ==
[~2017-03-18] VITALS: Ht 180.3 cm; Wt 52.3 kg
[2017-03-18] VITALS (10 sets, daily range): BP systolic 129–185; BP diastolic 82–115; PULSE 80–108; RESP 18–20; TEMP 98.5–98.9; O2SAT 94–99
[~2017-03-18 09:47] MED LIST changes: +BACT800T5 PO; +CIPR-9 PO
[2017-03-18] MEDS ORDERED: THIAMINE INJ 100 MG in SODIUM CHLORIDE 0.9% INJ 100 ML IV ONE (10:00)
[2017-03-18] MEDS ORDERED: LORazepam 2 MG/ML VIAL IV PUSH ONE ×2 (10:00→11:30)
[2017-03-18] MEDS ORDERED: SODIUM CHLOR 0.9% 1000 ML INJ 1,000 ML IV ONE (10:00)
--- NOTE | 2017-03-18 10:03 | PD ---
HPI Chief Complaint: Psychiatric Symptoms Time Seen by Provider: 09:55 Travel History International Travel<30 days: No Contact w/Intl Traveler<30days: No Traveled to known affect area: No History of Present Illness HPI This is a 57-year-old male who presents to the emergency department with symptoms of alcohol withdrawal. He says he stopped drinking last night. He usually drinks hard liquor from the time he wakes up to the time he goes to sleep. He stopped drinking last night because he wants to quit. He's been feeling depressed. He denies any thoughts of hurting himself. He also says he has been seeing some things out of the corner of his eye and thinks he may be hallucinating. He went to [facility] but they sent him over here because they're concerned he was going into s. PFSH Past Medical History Cancer: Yes (bone as a kid) High Cholesterol: Yes Diabetes: No Diminished Hearing: No Hypertension: Yes Past Surgical History Cholecystectomy: Yes Neurologic Surgery: Yes (herniated disc) Social History Alcohol Use: Yes Tobacco Use: Yes Substance Use: No Allergies-Medications (Allergen,Severity, Reaction): Coded Allergies: No Known Allergies (Unverified , 02/02/17) Reported Meds & Prescriptions Reported Meds & Active Scripts Active Bactrim DS (Sulfamethoxazole-Trimethoprim) 800-160 Mg Tab 1 Tab PO BID Cipro (Ciprofloxacin HCl) 500 Mg Tab 500 Mg PO BID Keflex (Cephalexin) 500 Mg Cap 500 Mg PO Q12H 7 Days Ketoconazole Topical 2% Cream 1 Applic TOPICAL BID Review of Systems Except as stated in HPI: all other systems reviewed are Neg Physical Exam Narrative GENERAL:Well appearing, no acute distress SKIN: Focused skin assessment warm and dry. HEAD: Atraumatic. Normocephalic. EYES: Pupils equal and round. No injection or drainage. ENT: Moist mucous membranes NECK: Trachea midline. CARDIOVASCULAR: Regular rate and rhythm. No murmur appreciated. RESPIRATORY: Clear to auscultation. Breath sounds equal bilaterally. GASTROINTESTINAL: Abdomen soft, non-tender, nondistended. MUSCULOSKELETAL: No obvious deformities. NEUROLOGICAL: Awake and alert. No obvious cranial nerve deficits. Moving all extremities. Tremulous. PSYCHIATRIC: Anxious appearing Data Data Last Documented VS Vital Signs Date Time Temp Pulse Resp B/P Pulse Ox O2 Delivery O2 Flow Rate FiO2 03/18/17 10:30 87 20 158/115 98 Room Air 03/18/17 09:48 98.9 Orders Complete Blood Count With Diff (03/18/17 10:00) Comprehensive Metabolic Panel (03/18/17 10:00) ^ Insert Iv (03/18/17 10:00) Drug Screen, Random Urine (03/18/17 10:00) Lorazepam Inj (Ativan Inj) (03/18/17 10:00) Thiamine Inj (Thiamine Inj) (03/18/17 10:00) Sodium Chlor 0.9% 1000 Ml Inj (Ns 1000 M (03/18/17 10:00) Lisinopril (Prinivil) (03/18/17 10:45) Lorazepam Inj (Ativan Inj) (03/18/17 11:30) Place In Observation (03/18/17 ) Vital Signs (Adult) Q4H (03/18/17 11:41) Activity Oob With Assistance (03/18/17 11:41) Diet Regular Basic (03/18/17 Lunch) Sodium Chlor 0.9% 1000 Ml Inj (Ns 1000 M (03/18/17 11:41) Sodium Chloride 0.9% Flush (Ns Flush) (03/18/17 11:45) Sodium Chloride 0.9% Flush (Ns Flush) (03/18/17 21:00) Acetaminophen (Tylenol) (03/18/17 13:00) Ondansetron Inj (Zofran Inj) (03/18/17 13:00) Basic Metabolic Panel (Bmp) (03/19/17 06:00) Complete Blood Count With Diff (03/19/17 06:00) Resp Oxygen Sedrick C Titrat 1-4 L (03/18/17 ) Scd Bilateral/Knee High TORREY.BID (03/18/17 11:41) Naloxone Inj (Narcan Inj) (03/18/17 11:45) Docusate Sodium-Senna (Viridiana-Colace) (03/18/17 21:00) Magnesium Hydroxide Liq (Milk Of Magnesi (03/18/17 12:00) Sennosides (Senokot) (03/18/17 12:00) Bisacodyl Supp (Dulcolax Supp) (03/18/17 11:45) Lactulose Liq (Lactulose Liq) (03/18/17 11:45) Flumazenil Inj (Romazicon Inj) (03/18/17 11:45) Lorazepam (Ativan) (03/18/17 11:45) Lorazepam Inj (Ativan Inj) (03/18/17 11:45) Lorazepam (Ativan) (03/18/17 11:45) Lorazepam Inj (Ativan Inj) (03/18/17 11:45) Lorazepam Inj (Ativan Inj) (03/18/17 11:45) Lorazepam Inj (Ativan Inj) (03/18/17 11:45) Chlordiazepoxide (Librium) (03/18/17 13:00) Admit Order (Ed Use Only) (03/18/17 11:54) Labs Laboratory Tests Test 03/18/17 10:18 White Blood Count 8.6 TH/MM3 Red Blood Count 4.64 MIL/MM3 Hemoglobin 15.6 GM/DL Hematocrit 44.9 % Mean Corpuscular Volume 96.9 FL Mean Corpuscular Hemoglobin 33.7 PG Mean Corpuscular Hemoglobin 34.7 % Concent Red Cell Distribution Width 14.2 % Platelet Count 175 TH/MM3 Mean Platelet Volume 7.8 FL Neutrophils (%) (Auto) 71.8 % Lymphocytes (%) (Auto) 17.0 % Monocytes (%) (Auto) 10.7 % Eosinophils (%) (Auto) 0.2 % Basophils (%) (Auto) 0.3 % Neutrophils # (Auto) 6.2 TH/MM3 Lymphocytes # (Auto) 1.5 TH/MM3 Monocytes # (Auto) 0.9 TH/MM3 Eosinophils # (Auto) 0.0 TH/MM3 Basophils # (Auto) 0.0 TH/MM3 CBC Comment DIFF FINAL Differential Comment Sodium Level 137 MEQ/L Potassium Level 4.1 MEQ/L Chloride Level 103 MEQ/L Carbon Dioxide Level 22.1 MEQ/L Anion Gap 12 MEQ/L Blood Urea Nitrogen 10 MG/DL Creatinine 0.77 MG/DL Estimat Glomerular Filtration 104 ML/MIN Rate Random Glucose 106 MG/DL Calcium Level 8.5 MG/DL Total Bilirubin 0.7 MG/DL Aspartate Amino Transf 109 U/L (AST/SGOT) Alanine Aminotransferase 60 U/L (ALT/SGPT) Alkaline Phosphatase 104 U/L Total Protein 8.3 GM/DL Albumin 3.5 GM/DL Urine Opiates Screen NEG Urine Barbiturates Screen NEG Urine Amphetamines Screen NEG Urine Benzodiazepines Screen NEG Urine Cocaine Screen NEG Urine Cannabinoids Screen POS MDM Medical Decision Making Medical Screen Exam Complete: Yes Emergency Medical Condition: Yes Interpretation(s) afebrile, tachycardic, hypertensive no leukocytosis electrolytes reassuring urine drug screen positive for cannabinoids Differential Diagnosis Acute alcohol withdrawal, alcoholic hallucinosis, delirium tremens, electrolyte abnormality Narrative Course This is a 57-year-old male who presents to the emergency department with shakiness and tremulousness as well as some hallucinations in the setting of alcohol withdrawal. He is tachycardic, hypertensive and uncomfortable appearing on exam. He was given a total of 4 mg of IV Ativan in the emergency department and he appears or stable. Labs are obtained which were reassuring. I think he requires observation for continued benzodiazepines in the setting of alcohol withdrawal. Patient was admitted. Diagnosis Primary Impression: Alcohol withdrawal Qualified Code: F10.230 - Alcohol withdrawal syndrome without complication Admitting Information Admitting Physician Requests: Observation Sydnie Barboza MD Mar 18, 2017 10:03
[2017-03-18] MEDS ORDERED: LISINOPRIL 20 MG TAB PO ONE (10:45)
[2017-03-18 11:09] LABS: ANION GAP 12 MEQ/L (5-15); AST (GOT) 109 U/L (15-37); BICARBONATE 22.1 MEQ/L (21.0-32.0); BLOOD UREA NITROGEN 10 MG/DL (7-18); CHLORIDE 103 MEQ/L (98-107); GLOMERULAR FILTRATION RATE 104 ML/MIN (>89); POTASSIUM 4.1 MEQ/L (3.5-5.1); SODIUM (NA) 137 MEQ/L (136-145)
[2017-03-18 11:13] LABS: ALKALINE PHOSPHATASE 104 U/L (45-117); ALT (GPT) 60 U/L (12-78); AUTOMATED NEUTROPHIL # 6.2 TH/MM3 (1.8-7.7); BASOPHIL % 0.3 % (0.0-2.0); EOSINOPHIL % 0.2 % (0.0-4.0); HEMATOCRIT 44.9 % (39.0-51.0); HEMO FLAGS DIFF FINAL; LYMPHOCYTE # 1.5 TH/MM3 (1.0-4.8); MEAN CELL VOLUME 96.9 FL (80.0-100.0); MEAN CORPUSCULAR HEMOGLOBIN 33.7 PG (27.0-34.0); MEAN CORPUSCULAR HGB CONC 34.7 % (32.0-36.0); MONO % 10.7 % (0.0-8.0); NEUT % 71.8 % (16.0-70.0); PLATELET COUNT 175 TH/MM3 (150-450); RED BLOOD COUNT 4.64 MIL/MM3 (4.50-5.90); RED CELL DISTRIBUTION WIDTH 14.2 % (11.6-17.2); TOTAL BILIRUBIN ADULT 0.7 MG/DL (0.2-1.0); WHITE BLOOD COUNT 8.6 TH/MM3 (4.0-11.0)
[2017-03-18] MEDS ORDERED: SODIUM CHLORIDE 0.9% FLUSH 10 ML FLUSH IV FLUSH PRN (11:45)
[2017-03-18] MEDS ORDERED: NALOXONE HCL 0.4 MG/ML AMP IV PRN (11:45)
[2017-03-18] MEDS ORDERED: LORazepam 2 MG TAB PO PRN (11:45)
[2017-03-18] MEDS ORDERED: LACTULOSE SYRUP 20 GM/30 ML CUP PO PRN (11:45)
[2017-03-18] MEDS ORDERED: BISACODYL 10 MG SUPP RECTAL PRN (11:45)
[2017-03-18] MEDS ORDERED: LORazepam 2 MG/ML VIAL IV PUSH PRN (11:45)
[2017-03-18] MEDS ORDERED: FLUMAZENIL 0.5 MG/5 ML VIAL IV PUSH PRN (11:45)
[2017-03-18] MEDS ORDERED: MAGNESIUM HYDROXIDE SUSP 30 ML CUP PO PRN (12:00)
[2017-03-18] MEDS ORDERED: SENNOSIDES 8.6 MG TAB PO PRN (12:00)
[2017-03-18] MEDS ORDERED: chlordiazePOXIDE 25 MG CAP PO PRN ×2 (13:00→14:45)
[2017-03-18] MEDS ORDERED: ONDANSETRON HCL 4 MG/2 ML VIAL IVP PRN (13:00)
--- NOTE | 2017-03-18 13:15 | HHI.HP ---
HPI Service [facility] Primary Care Physician No Primary Care Physician Admission Diagnosis acute alcohol withdrawl Diagnoses: Chief Complaint: alcohol withdraw Travel History International Travel<30 Days: No Contact w/Intl Traveler <30 Da: No Traveled to Known Affected Are: No History of Present Illness Written by ESTEBAN Gregorio acting as scribe for Dr. Peace] on 03/18/17 at 13: 08. This note was transcribed by scribe ESTEBAN Gregorio. I, Dr. Markell Chairez personally performed the history, physical exam, and medical decision making; and confirmed the accuracy of the information in the transcribed note. Authenticated by Dr. Markell Chairez on 03/18/17 at 22:44. 57 y/o with a medical history of htn and depression, not currently on medication presented to the ED with complaints of tremors, diaphoresis, and chills since early this morning. He states he decided to quit drinking and his last drink was last night. Prior to today he drank daily from the time he wakes up til he goes to bed. He states he is very depressed and that's what causes him to drink. He states he went to [facility] this morning for detox but because of his condition they sent him to the hospital for initial treatment. He states he has also been having hallucinations on and off and nausea. Denies any fever, vomiting, diarrhea or dysuria. He is very motivated to quit drinking and states it is time to. Review of Systems Except as stated in HPI: all other systems reviewed are Neg Past Family Social History Past Medical History Bone cancer Depression HTN (not on medication) Past Surgical History Cholecystectomy Abdominal mass removed Knee arthroscopy Facial reconstruction Reported Medications Reported Meds & Active Scripts Active Bactrim DS (Sulfamethoxazole-Trimethoprim) 800-160 Mg Tab 1 Tab PO BID Cipro (Ciprofloxacin HCl) 500 Mg Tab 500 Mg PO BID Ketoconazole Topical 2% Cream 1 Applic TOPICAL BID Allergies: Coded Allergies: No Known Allergies (Unverified , 02/02/17) Active Ordered Medications Current Medications Medications (Trade) Dose Ordered Sig/Jv Route Start Time Stop Time Status Last Admin (NS 1000 ml Inj) 1,000 ml @ 100 mls/hr Q10H IV 03/18/17 11:41 (NS Flush) 2 ml UNSCH PRN IV FLUSH 03/18/17 11:45 (NS Flush) 2 ml BID IV FLUSH 03/18/17 21:00 (Tylenol) 650 mg Q4H PRN PO 03/18/17 13:00 (Zofran Inj) 4 mg Q6H PRN IVP 03/18/17 13:00 (Narcan Inj) 0.4 mg UNSCH PRN IV 03/18/17 11:45 (Viridiana-Colace) 1 tab BID PO 03/18/17 21:00 (Milk Of Magnesia Liq) 30 ml Q12HR PRN PO 03/18/17 12:00 (Senokot) 17.2 mg Q12HR PRN PO 03/18/17 12:00 (Dulcolax Supp) 10 mg DAILY PRN RECTAL 03/18/17 11:45 (Lactulose Liq) 30 ml DAILY PRN PO 03/18/17 11:45 (Romazicon Inj) 0.2 mg Q1M PRN IV PUSH 03/18/17 11:45 (Ativan) 1 mg Q4H PRN PO 03/18/17 11:45 (Ativan Inj) 1 mg Q4H PRN IV PUSH 03/18/17 11:45 (Ativan) 2 mg Q2H PRN PO 03/18/17 11:45 (Ativan Inj) 2 mg Q2H PRN IV PUSH 03/18/17 11:45 (Ativan Inj) 2 mg Q1H PRN IV PUSH 03/18/17 11:45 (Ativan Inj) 2 mg Q15M PRN IV PUSH 03/18/17 11:45 (Librium) 25 mg TID PRN PO 03/18/17 13:00 Family History Mom and dad: ETOH abuse Social History Tobacco use: 1/2 PPD Alcohol use: Daily up until yesterday since age 11 Illicit drug use: Denies Physical Exam Vital Signs Vital Signs Date Time Temp Pulse Resp B/P Pulse Ox O2 Delivery O2 Flow Rate FiO2 03/18/17 12:30 80 20 182/99 96 Room Air 03/18/17 12:26 95 21 03/18/17 11:30 88 20 163/106 99 Room Air 03/18/17 10:30 87 20 158/115 98 Room Air 03/18/17 09:48 98.9 103 20 185/109 95 Room Air Physical Exam GENERAL: This is a well-nourished, well-developed patient, in active DTs SKIN: No rashes, ecchymoses or lesions. Cool and diaphoretic HEAD: Atraumatic. Normocephalic. No temporal or scalp tenderness. EYES: Pupils equal round and reactive. Extraocular motions intact. ENT: Nose without bleeding, purulent drainage or septal hematoma. Airway patent. NECK: Trachea midline. No JVD or lymphadenopathy. CARDIOVASCULAR: Regular rate and rhythm without murmurs, gallops, or rubs. RESPIRATORY: Clear to auscultation. Breath sounds equal bilaterally. No wheezes , rales, or rhonchi. GASTROINTESTINAL: Abdomen soft, non-tender, nondistended. No hepato-splenomegaly , or palpable masses. No guarding. MUSCULOSKELETAL: Extremities without clubbing, cyanosis, or edema. No joint tenderness, effusion, or edema noted. No calf tenderness. NEUROLOGICAL: Awake and alert. Motor and sensory grossly within normal limits. Normal speech. Essential tremors noted Laboratory Laboratory Tests Test 03/18/17 10:18 White Blood Count 8.6 Red Blood Count 4.64 Hemoglobin 15.6 Hematocrit 44.9 Mean Corpuscular Volume 96.9 Mean Corpuscular Hemoglobin 33.7 Mean Corpuscular Hemoglobin 34.7 Concent Red Cell Distribution Width 14.2 Platelet Count 175 Mean Platelet Volume 7.8 Neutrophils (%) (Auto) 71.8 Lymphocytes (%) (Auto) 17.0 Monocytes (%) (Auto) 10.7 Eosinophils (%) (Auto) 0.2 Basophils (%) (Auto) 0.3 Neutrophils # (Auto) 6.2 Lymphocytes # (Auto) 1.5 Monocytes # (Auto) 0.9 Eosinophils # (Auto) 0.0 Basophils # (Auto) 0.0 CBC Comment DIFF FINAL Differential Comment Sodium Level 137 Potassium Level 4.1 Chloride Level 103 Carbon Dioxide Level 22.1 Anion Gap 12 Blood Urea Nitrogen 10 Creatinine 0.77 Estimat Glomerular Filtration 104 Rate Random Glucose 106 Calcium Level 8.5 Total Bilirubin 0.7 Aspartate Amino Transf 109 (AST/SGOT) Alanine Aminotransferase 60 (ALT/SGPT) Alkaline Phosphatase 104 Total Protein 8.3 Albumin 3.5 Urine Opiates Screen NEG Urine Barbiturates Screen NEG Urine Amphetamines Screen NEG Urine Benzodiazepines Screen NEG Urine Cocaine Screen NEG Urine Cannabinoids Screen POS Result Diagram: 03/18/17 1018 03/18/17 1018 Assessment and Plan Problem List: (1) DTs (delirium tremens) ICD Code: F10.231 Status: Acute (2) Alcohol withdrawal ICD Code: F10.239 Status: Acute Assessment and Plan 57 y/o with a medical history of htn and depression, not currently on medication presented to the ED with complaints of tremors, diaphoresis, and chills since early this morning. He states he decided to quit drinking and his last drink was last night. Alcohol withdrawal with active delirium tremens -CIWA protocol -Librium PRN -Neuro checks -Patient will need to return to [facility] once stable . -Thiamine IV daily for 3 days -IVF for hydration HTN, chronic, currently unstable due to alcohol withdrawal -Vasotec IV PRN -Patient may need retirement therapy once DT's are controlled -Cont to monitor BP DVT prophylaxis: SCDs Discussed Condition With Patient, RN and ED physician Problem Qualifiers (1) Alcohol withdrawal: Qualified Code: F10.230 - Alcohol withdrawal syndrome without complication Celeste Amaya Mar 18, 2017 13:15 Jorge Chairez DO Mar 18, 2017 22:44
[2017-03-18] MEDS: LORazepam 2 MG/ML VIAL IV PUSH PRN ×3 (13:54→22:04)
[2017-03-18] MEDS: SODIUM CHLOR 0.9% 1000 ML INJ 1,000 ML IV SCH ×2 (14:07→21:41)
[2017-03-18] MEDS: chlordiazePOXIDE 25 MG CAP PO SCH (18:39)
[2017-03-18] MEDS: DOCUSATE SODIUM 50 MG/SENNA 8.6 MG TAB PO SCH (21:00)
[2017-03-18] MEDS: SODIUM CHLORIDE 0.9% FLUSH 10 ML FLUSH IV FLUSH SCH (22:03)
[2017-03-19] VITALS (13 sets, daily range): BP systolic 145–182; BP diastolic 84–113; PULSE 70–100; RESP 16–20; TEMP 97.8–99; O2SAT 92–97
[2017-03-19] MEDS: ENALAPRILAT 1.25 MG/ML VIAL IV PUSH PRN ×2 (02:29→09:35)
[2017-03-19 06:00] LABS: BASOPHIL % 0.3 % (0.0-2.0); EOSINOPHIL # 0.1 TH/MM3 (0-0.4); EOSINOPHIL % 1.4 % (0.0-4.0); HEMATOCRIT 46.5 % (39.0-51.0); HEMO FLAGS DIFF FINAL; LYMPH % 22.5 % (9.0-44.0); LYMPHOCYTE # 1.7 TH/MM3 (1.0-4.8); MEAN CELL VOLUME 98.8 FL (80.0-100.0); MEAN CORPUSCULAR HEMOGLOBIN 32.4 PG (27.0-34.0); MEAN CORPUSCULAR HGB CONC 32.8 % (32.0-36.0); MONO % 9.1 % (0.0-8.0); NEUT % 66.7 % (16.0-70.0); PLATELET COUNT 191 TH/MM3 (150-450); RED CELL DISTRIBUTION WIDTH 14.2 % (11.6-17.2); WHITE BLOOD COUNT 7.4 TH/MM3 (4.0-11.0)
[2017-03-19 06:14] LABS: POTASSIUM 3.5 MEQ/L (3.5-5.1)
[2017-03-19] MEDS: LORazepam 1 MG TAB PO PRN ×5 (06:42→21:13)
[2017-03-19] MEDS: DOCUSATE SODIUM 50 MG/SENNA 8.6 MG TAB PO SCH ×2 (09:00→20:48)
[2017-03-19] MEDS: SODIUM CHLORIDE 0.9% FLUSH 10 ML FLUSH IV FLUSH SCH ×2 (09:00→20:48)
[2017-03-19] MEDS: THIAMINE INJ 100 MG in SODIUM CHLORIDE 0.9% INJ 100 ML IV SCH (09:13)
[2017-03-19] MEDS: SODIUM CHLOR 0.9% 1000 ML INJ 1,000 ML IV SCH ×3 (09:14→20:48)
[2017-03-19] MEDS: chlordiazePOXIDE 25 MG CAP PO SCH ×3 (09:14→17:51)
[2017-03-19] MEDS ORDERED: PNEUMOCOCCAL POLYVALENT INJ 25 MCG/0.5 ML SYR IM ONE (10:00)
[2017-03-19] MEDS ORDERED: LORazepam 2 MG/ML VIAL IV PUSH ONE (14:00)
--- NOTE | 2017-03-19 16:23 | HHI.PR ---
Subjective Remarks Follow up for Alcohol withdrawal, DT. Patient is doing well, still has some tremors. He remains motivated to quit alcohol and insists that he does not want to go through such episodes again. No fever, chills. Objective Vitals Vital Signs Date Time Temp Pulse Resp B/P Pulse Ox O2 Delivery O2 Flow Rate FiO2 03/19/17 16:19 98.0 93 20 165/95 95 03/19/17 13:02 98.1 73 18 163/102 96 03/19/17 10:50 97.9 85 18 145/100 95 03/19/17 09:28 176/113 03/19/17 08:00 160/100 03/19/17 07:30 98.6 70 16 175/103 94 03/19/17 04:32 160/84 03/19/17 04:17 98.6 86 20 165/99 95 03/19/17 02:30 158/89 03/19/17 01:24 182/112 160/92 03/19/17 00:14 98.5 91 18 177/103 92 171/100 03/18/17 23:18 20 96 03/18/17 21:21 98.6 92 18 129/85 94 03/18/17 19:09 95 21 I/O 03/18/17 03/18/17 03/18/17 03/19/17 03/19/17 03/19/17 06:59 14:59 22:59 06:59 14:59 22:59 Intake Total 360 ml Balance 360 ml Intake Oral 360 ml Result Diagram: 03/19/1751903/19/17519 Objective Remarks GENERAL: Alert, Oriented x 3, NAD. SKIN: Warm and dry. HEAD: Normocephalic. EYES: No scleral icterus. No injection or drainage. NECK: Supple, trachea midline. No JVD or lymphadenopathy. CARDIOVASCULAR: Regular rate and rhythm without murmurs, gallops, or rubs. RESPIRATORY: Breath sounds equal bilaterally. No accessory muscle use. GASTROINTESTINAL: Abdomen soft, non-tender, nondistended. MUSCULOSKELETAL: No cyanosis, or edema. Has some upper ext tremors on extension. BACK: Nontender without obvious deformity. No CVA tenderness. A/P Problem List: (1) DTs (delirium tremens) ICD Code: F10.231 Status: Acute (2) Alcohol withdrawal ICD Code: F10.239 Status: Acute Assessment and Plan 57 y/o with a medical history of htn and depression, not currently on medication presented to the ED with complaints of tremors, diaphoresis, and chills since early this morning. He states he decided to quit drinking and his last drink was last night. - Alcohol withdrawal with active delirium tremens - Continue CIWA protocol - Continue Librium 50mg TID. . - Thiamine IV daily for 3 days, then PO thiamine. Continue Folic acid. - D/C IV fluid. - Hypertension - possibly due to Alcohol withdrawal. - Continue to provide Ativan based on CIWA protocol. - Vasotec IV PRN - Patient may need bindery assistant therapy once DT's are controlled - Consider Amlodipine 5mg Qday once DT symptoms subside. - Discussed with CM (Rakan), will convert patient to in-patient status and transfer patient to a regular floor room. Full code. SCDs. Problem Qualifiers (1) Alcohol withdrawal: Qualified Code: F10.230 - Alcohol withdrawal syndrome without complication Jorge Chairez DO Mar 19, 2017 16:23
[2017-03-19] MEDS ORDERED: FOLIC ACID 1 MG TAB PO ONE (21:00)
[2017-03-20] VITALS (8 sets, daily range): BP systolic 147–163; BP diastolic 78–110; PULSE 85–110; RESP 16–19; TEMP 96.5–99; O2SAT 92–99
[2017-03-20] MEDS: LORazepam 1 MG TAB PO PRN ×5 (01:36→21:16)
[2017-03-20] MEDS: ENALAPRILAT 1.25 MG/ML VIAL IV PUSH PRN ×2 (04:24→23:41)
[2017-03-20] MEDS: DOCUSATE SODIUM 50 MG/SENNA 8.6 MG TAB PO SCH ×2 (08:38→21:16)
[2017-03-20] MEDS: chlordiazePOXIDE 25 MG CAP PO SCH ×3 (08:38→18:04)
[2017-03-20] MEDS: FOLIC ACID 1 MG TAB PO SCH (08:38)
[2017-03-20] MEDS: SODIUM CHLORIDE 0.9% FLUSH 10 ML FLUSH IV FLUSH SCH ×2 (09:41→21:00)
[2017-03-20] MEDS: THIAMINE INJ 100 MG in SODIUM CHLORIDE 0.9% INJ 100 ML IV SCH (09:49)
[2017-03-20] MEDS: LORazepam 2 MG/ML VIAL IV PUSH PRN (11:55)
--- NOTE | 2017-03-20 12:32 | PD.PSY.CON ---
Provisional Diagnosis Admission Date Mar 18, 2017 at 14:47 [place]. Alcohol induced mood disorder, alcohol use disorder [place]. Deferred History of Present Illness Service Psychiatry Consult Requested By Reason for Consult Depression and suicidal ideation Primary Care Physician No Primary Care Physician HPI The patient is a 57-year-old man, homeless, unemployed, on SSI, with psychiatric history of alcohol use disorder, previously under [place] due to alcohol related disorder, but no psychiatric hospitalizations, no previous suicidal attempts, who presents to the emergency department with symptoms of alcohol withdrawal. He says he stopped drinking last night. He usually drinks hard liquor and beers from the time he wakes up to the time he goes to sleep, and he has been doing that for a long time. He stopped drinking last night because he wants to quit and he is highly interested in detoxing and going to a rehabilitation program. At the moment of this psychiatric evaluation the patient feels much better, still tremulous and sweaty, but denies depressive symptoms, denies suicidal or homicidal ideation, denies visual and auditory hallucinations. Patient states that he is motivated to quit alcohol "this is the moment of my life, I want to take my life back and find a job". Patient is oriented 3, no attention deficit, no confusion, no delirium. Review of Systems Constitutional: DENIES: Diaphoretic episodes, Fatigue, Fever, Weight gain, Weight loss, Chills, Dizziness, Change in appetite, Night Sweats Endocrine: DENIES: Heat/cold intolerance, Polydipsia, Polyuria, Polyphagia Eyes: DENIES: Blurred vision, Diplopia, Eye inflammation, Eye pain, Vision loss , Photosensitivity, Double Vision Ears, nose, mouth, throat: DENIES: Tinnitus, Hearing loss, Vertigo, Nasal discharge, Oral lesions, Throat pain, Hoarseness, Ear Pain, Running Nose, Epistaxis, Sinus Pain, Toothache, Odynophagia Respiratory: DENIES: Apneas, Cough, Snoring, Wheezing, Hemoptysis, Sputum production, Shortness of breath Cardiovascular: DENIES: Chest pain, Palpitations, Syncope, Dyspnea on Exertion , PND, Lower Extremity Edema, Orthopnea, Claudication Gastrointestinal: DENIES: Abdominal pain, Black stools, Bloody stools, Constipation, Diarrhea, Nausea, Vomiting, Difficulty Swallowing, Anorexia Integumentary: DENIES: Abnormal pigmentation, Nail changes, Pruritus, Rash Hematologic/lymphatic: DENIES: Bruising, Lymphadenopathy Neurologic: COMPLAINS OF: Tremor, DENIES: Abnormal gait, Headache, Localized weakness, Paresthesias, Seizures, Speech Problems, Poor Balance Psychiatric: COMPLAINS OF: Confusion, DENIES: Anxiety, Mood changes, Depression, Hallucinations, Agitation, Suicidal Ideation, Homicidal Ideation, Delusions Past Family Social History Coded Allergies: No Known Allergies (Unverified , 02/02/17) Active Scripts Sulfamethoxazole-Trimethoprim (Bactrim DS)800-160 Mg Tab1 Tab PO BID #20 TAB Prov:Tarah Hunt MD 03/17/17 Ciprofloxacin (Cipro)500 Mg [id number] Mg PO BID #20 TAB Prov:Tarah Hunt MD 03/17/17 Ketoconazole Topical 2% Cream1 Applic TOPICAL BID #15 GM Ref 0 Prov:Comfort Donaldson 02/02/17 Discontinued Scripts Cephalexin (Keflex)500 Mg [id number] Mg PO Q12H 7 Days Ref 0 Prov:Comfort Donaldson 02/02/17 Current Medications Medications (Trade) Dose Ordered Sig/Jv Route Start Time Stop Time Status Last Admin (NS Flush) 2 ml UNSCH PRN IV FLUSH 03/18/17 11:45 03/19/17 14:52 (NS Flush) 2 ml BID IV FLUSH 03/18/17 21:00 03/20/17 09:41 (Tylenol) 650 mg Q4H PRN PO 03/18/17 13:00 (Zofran Inj) 4 mg Q6H PRN IVP 03/18/17 13:00 03/18/17 18:39 (Narcan Inj) 0.4 mg UNSCH PRN IV 03/18/17 11:45 (Viridiana-Colace) 1 tab BID PO 03/18/17 21:00 03/20/17 08:38 (Milk Of Magnesia Liq) 30 ml Q12HR PRN PO 03/18/17 12:00 (Senokot) 17.2 mg Q12HR PRN PO 03/18/17 12:00 (Dulcolax Supp) 10 mg DAILY PRN RECTAL 03/18/17 11:45 (Lactulose Liq) 30 ml DAILY PRN PO 03/18/17 11:45 (Romazicon Inj) 0.2 mg Q1M PRN IV PUSH 03/18/17 11:45 (Ativan) 1 mg Q4H PRN PO 03/18/17 11:45 03/20/17 08:38 (Ativan Inj) 1 mg Q4H PRN IV PUSH 03/18/17 11:45 03/20/17 11:55 (Ativan) 2 mg Q2H PRN PO 03/18/17 11:45 (Ativan Inj) 2 mg Q2H PRN IV PUSH 03/18/17 11:45 03/18/17 13:54 (Ativan Inj) 2 mg Q1H PRN IV PUSH 03/18/17 11:45 03/18/17 22:04 (Ativan Inj) 2 mg Q15M PRN IV PUSH 03/18/17 11:45 Enalaprilat 1.25 mg 1.25 mg Q6H PRN IV PUSH 03/18/17 13:45 03/20/17 04:24 (Thiamine Inj/NS Inj) 101 ml @ 101 mls/hr DAILY IV 03/19/17 09:00 03/22/17 09:00 03/20/17 09:49 (Librium) 50 mg TID PO 03/18/17 18:00 03/20/17 11:55 (Librium) 25 mg ONCE PRN PO 03/18/17 14:45 04/01/17 14:44 (Folate) 1 mg DAILY PO 03/20/17 09:00 03/20/17 08:38 (Vitamin B1) 100 mg DAILY PO 03/23/17 09:00 Family History Patient denies family psychiatric history Social History Patient was born in [place], he is homeless, single, unemployed, supported by [employer], he has some college credits Patient's Strengths (min. 2) Motivation to quit alcohol Physical Exam Mildly bilateral tremors, sweating Vital Signs Vital Signs Date Time Temp Pulse Resp B/P Pulse Ox O2 Delivery O2 Flow Rate FiO2 03/20/17 08:00 96.5 99 19 147/103 97 03/20/17 02:34 Room Air 03/18/17 19:09 21 I/O 03/19/17 03/19/17 03/19/17 07:59 15:59 23:59 Intake Total 360 ml Output Total 600 ml Balance -240 ml Lab Results Labs Laboratory Tests Test 03/18/17 10:18 White Blood Count 8.6 TH/MM3 Red Blood Count 4.64 MIL/MM3 Hemoglobin 15.6 GM/DL Hematocrit 44.9 % Mean Corpuscular Volume 96.9 FL Mean Corpuscular Hemoglobin 33.7 PG Mean Corpuscular Hemoglobin 34.7 % Concent Red Cell Distribution Width 14.2 % Platelet Count 175 TH/MM3 Mean Platelet Volume 7.8 FL Neutrophils (%) (Auto) 71.8 % Lymphocytes (%) (Auto) 17.0 % Monocytes (%) (Auto) 10.7 % Eosinophils (%) (Auto) 0.2 % Basophils (%) (Auto) 0.3 % Neutrophils # (Auto) 6.2 TH/MM3 Lymphocytes # (Auto) 1.5 TH/MM3 Monocytes # (Auto) 0.9 TH/MM3 Eosinophils # (Auto) 0.0 TH/MM3 Basophils # (Auto) 0.0 TH/MM3 CBC Comment DIFF FINAL Differential Comment Sodium Level 137 MEQ/L Potassium Level 4.1 MEQ/L Chloride Level 103 MEQ/L Carbon Dioxide Level 22.1 MEQ/L Anion Gap 12 MEQ/L Blood Urea Nitrogen 10 MG/DL Creatinine 0.77 MG/DL Estimat Glomerular Filtration 104 ML/MIN Rate Random Glucose 106 MG/DL Calcium Level 8.5 MG/DL Total Bilirubin 0.7 MG/DL Aspartate Amino Transf 109 U/L (AST/SGOT) Alanine Aminotransferase 60 U/L (ALT/SGPT) Alkaline Phosphatase 104 U/L Total Protein 8.3 GM/DL Albumin 3.5 GM/DL Urine Opiates Screen NEG Urine Barbiturates Screen NEG Urine Amphetamines Screen NEG Urine Benzodiazepines Screen NEG Urine Cocaine Screen NEG Urine Cannabinoids Screen POS Mental Status Examination Appearance man, poor hygiene, malodorous, hospital [facility], calm and cooperative Speech: Unremarkable Orientation: x3 Memory: Unremarkable Thought Process: Logical Thought Content: Unremarkable Language [place] and spontaneous Fund of Knowledge Adequate for level of education Hallucination Type: None Attention and Concentration: Good Suicidal Ideation: No Previous Suicide Attempts: No Homicidal Ideation: No Previous Homicide Attempts: No Judgment: WNL Affect: Good Mood: Appropriate Motor Activity: Normal gait Assessment & Plan Problem List: (1) Alcohol abuse with alcohol-induced mood disorder Assessment & Plan: On psychiatric evaluation today the patient does not present any concerning, significant or acute evidence of severe depressive symptoms, anxiety, cody or psychosis. Patient does endorse mild depression secondary to withdrawal symptoms, however patient expresses oskar in the future , motivation, he is goal-directed to be detox of alcohol and then going to a rehabilitation program. Patient denies suicidal and homicidal ideation, he denies visual and auditory hallucinations. No psychiatric admission is indicated at this moment. Completely agree with CIWA protocol. Also agree with Librium 50 mg 3 times a day for alcohol withdrawal, to be titrated down for about 25% daily as patient can tolerate. Support, motivation and psychoeducation provided. Consult patient appeared ICD Code: F10.14 Assessment & Plan Estimated LOS: days Stanford Pineda MD Mar 20, 2017 12:32
--- NOTE | 2017-03-20 13:04 | HHI.PR ---
Subjective Remarks Patient is still actively withdrawing. He is hallucinating. Still tremulous requiring IV Ativan. States he feels awful. Objective Vitals Vital Signs Date Time Temp Pulse Resp B/P Pulse Ox O2 Delivery O2 Flow Rate FiO2 03/20/17 08:00 96.5 99 19 147/103 97 03/20/17 04:39 153/97 03/20/17 04:20 97.8 103 18 163/103 96 03/20/17 02:34 Room Air 03/20/17 00:16 99.0 110 18 156/99 99 03/19/17 20:15 99.0 100 18 164/97 96 03/19/17 17:51 97.8 87 168/106 97 03/19/17 16:19 98.0 93 20 165/95 95 03/19/17 13:02 98.1 73 18 163/102 96 I/O 03/19/17 03/19/17 03/19/17 03/20/17 03/20/17 03/20/17 07:00 15:00 23:00 07:00 15:00 23:00 Intake Total 360 ml 1238 ml Output Total 600 ml Balance -240 ml 1238 ml Intake Oral 360 ml 360 ml IV Total 878 ml Output Urine Total 600 ml # Voids 1 4 # Bowel Movements 0 0 Result Diagram: 03/19/1751903/19/17519 Objective Remarks GENERAL: Patient appearing older than stated age. Very tremulous. CARDIOVASCULAR: Normal rate and regular rhythm without murmurs, gallops, or rubs. RESPIRATORY: Good respiratory efforts. Breath sounds equal and clear to auscultation bilaterally. GASTROINTESTINAL: Abdomen soft, non-tender, non-distended. Normal active bowel sounds MUSCULOSKELETAL: Extremities without cyanosis, or edema. NEURO: Alert & Oriented x4 to person, place, time, situation. Tremulous. PSYCH: Visual and auditory hallucinating. A/P Problem List: (1) DTs (delirium tremens) ICD Code: F10.231 Status: Acute (2) Alcohol withdrawal ICD Code: F10.239 Status: Acute Assessment and Plan 57 y/o with a medical history of htn and depression, not currently on medication presented to the ED with complaints of tremors, diaphoresis, and chills. He states he decided to quit drinking. - Alcohol withdrawal with active delirium tremens - Continue CIWA protocol - Continue Librium 50mg TID. Plan to decrease dose tomorrow if remained stable. Psychiatry following. . - Thiamine IV daily for 3 days, then PO thiamine. Continue Folic acid. - Encourage by mouth intake. - Hypertension - possibly due to Alcohol withdrawal. - Continue to provide Ativan based on [facility] protocol. - Vasotec IV PRN - Likely need long-term therapy. Start amlodipine 5 mg daily. Full code. SCDs. Problem Qualifiers (1) Alcohol withdrawal: Qualified Code: F10.230 - Alcohol withdrawal syndrome without complication New Porter MD Mar 20, 2017 13:04
[2017-03-20] MEDS: amLODIPine BESYLATE 5 MG TAB PO SCH (15:51)
[2017-03-21 00:20] VITALS: BP 151/92; PULSE 75
[2017-03-21] MEDS: LORazepam 1 MG TAB PO PRN (01:07)
[2017-03-21 04:00] VITALS: BP 145/97; PULSE 90; RESP 16; TEMP 97.9; O2SAT 99
[2017-03-21] MEDS: LORazepam 2 MG/ML VIAL IV PUSH PRN ×8 (04:52→22:25)
[2017-03-21 08:00] VITALS: BP 152/98; PULSE 120; RESP 18; TEMP 97.4; O2SAT 96
[2017-03-21] MEDS: amLODIPine BESYLATE 5 MG TAB PO SCH (08:29)
[2017-03-21] MEDS: DOCUSATE SODIUM 50 MG/SENNA 8.6 MG TAB PO SCH ×2 (08:29→20:15)
[2017-03-21] MEDS: FOLIC ACID 1 MG TAB PO SCH (08:29)
[2017-03-21] MEDS: chlordiazePOXIDE 25 MG CAP PO SCH ×3 (08:29→17:46)
[2017-03-21] MEDS: SODIUM CHLORIDE 0.9% FLUSH 10 ML FLUSH IV FLUSH SCH ×2 (08:35→20:15)
[2017-03-21] MEDS: THIAMINE INJ 100 MG in SODIUM CHLORIDE 0.9% INJ 100 ML IV SCH (08:57)
--- NOTE | 2017-03-21 09:26 | HHI.PR ---
Subjective Remarks Patient continues to actively hallucinating with both visual and auditory hallucinations. Remains tremulous although per patient this is improving. Overnight pulled out his IVs and wanted to leave. Patient does not report wishing to leave at this time. Complains of chronic left knee pain. Endorses nausea and anorexia. CIWA increased this morning to 13. Objective Vitals Vital Signs Date Time Temp Pulse Resp B/P Pulse Ox O2 Delivery O2 Flow Rate FiO2 03/21/17 04:00 97.9 90 16 145/97 99 03/21/17 02:28 Room Air 03/21/17 00:20 75 151/92 03/20/17 23:20 98.5 89 16 159/106 97 03/20/17 20:00 97.5 95 17 162/78 94 03/20/17 16:00 97.7 85 18 152/99 95 03/20/17 12:00 97.0 90 19 157/110 92 I/O 03/20/17 03/20/17 03/20/17 03/21/17 03/21/17 03/21/17 07:00 15:00 23:00 07:00 15:00 23:00 Intake Total 1238 ml 961 ml 1440 ml 720 ml Balance 1238 ml 961 ml 1440 ml 720 ml Intake Oral 360 ml 1440 ml 720 ml IV Total 878 ml 961 ml # Voids 4 9 2 # Bowel Movements 0 1 Result Diagram: 03/19/1751903/19/17519 Objective Remarks GENERAL: Patient appearing older than stated age. Moderately tremulous. CARDIOVASCULAR: Normal rate and regular rhythm without murmurs, gallops, or rubs. RESPIRATORY: Good respiratory efforts. Breath sounds equal and clear to auscultation bilaterally. GASTROINTESTINAL: Abdomen soft, non-tender, non-distended. Normal active bowel sounds MUSCULOSKELETAL: Extremities without cyanosis, or edema. NEURO: Alert & Oriented x3 to person, place, situation. Believes is just 2018. Tremulous. PSYCH: Visual and auditory hallucinating. A/P Problem List: (1) DTs (delirium tremens) ICD Code: F10.231 Status: Acute (2) Alcohol withdrawal ICD Code: F10.239 Status: Acute Assessment and Plan 57 y/o with a medical history of htn and depression, not currently on medication presented to the ED with complaints of tremors, diaphoresis, and chills. He states he decided to quit drinking. - Alcohol withdrawal with active delirium tremens - Continue CIWA protocol - Continue Librium 50mg TID. Cannot wean at this time as patient's CIWA score increasing. Psychiatry following. . - Thiamine IV daily for 3 days, then PO thiamine. Continue Folic acid. - Encourage by mouth intake. - Hypertension - possibly due to Alcohol withdrawal. - Continue to provide Ativan based on CIWA protocol. - Vasotec IV PRN - Likely need long-term therapy. Increase amlodipine to 10 mg daily Full code. SCDs. Discharge Planning Pending clinical improvement. Problem Qualifiers (1) Alcohol withdrawal: Qualified Code: F10.230 - Alcohol withdrawal syndrome without complication Patricia Mariee MD R3 Mar 21, 2017 09:25
[2017-03-21 12:00] VITALS: BP 132/96; PULSE 86; RESP 18; TEMP 98; O2SAT 96
[2017-03-21 16:00] VITALS: BP 144/104; PULSE 79; RESP 18; TEMP 98.6; O2SAT 96
[2017-03-21 19:00] VITALS: BP 159/96; PULSE 93; RESP 18; TEMP 96.2; O2SAT 98
[2017-03-22] MEDS: LORazepam 2 MG/ML VIAL IV PUSH PRN ×6 (00:40→05:38)
[2017-03-22 02:00] VITALS: BP 156/91; PULSE 68; RESP 17; TEMP 97.9; O2SAT 96
[2017-03-22 04:00] VITALS: BP 158/103; PULSE 97; RESP 16; TEMP 96.8; O2SAT 98
[2017-03-22] MEDS: ENALAPRILAT 1.25 MG/ML VIAL IV PUSH PRN (04:25)
[2017-03-22 08:00] VITALS: BP 117/73; PULSE 97; RESP 18; TEMP 97.1; O2SAT 97
[2017-03-22] MEDS: HALOPERIDOL LACTATE 5 MG/ML AMP IM PRN ×2 (08:25→13:15)
[2017-03-22] MEDS: FOLIC ACID 1 MG TAB PO SCH (08:25)
[2017-03-22] MEDS: chlordiazePOXIDE 25 MG CAP PO SCH ×3 (08:26→18:09)
[2017-03-22] MEDS: SODIUM CHLORIDE 0.9% FLUSH 10 ML FLUSH IV FLUSH SCH ×2 (08:26→19:51)
[2017-03-22] MEDS: THIAMINE INJ 100 MG in SODIUM CHLORIDE 0.9% INJ 100 ML IV SCH (08:26)
[2017-03-22] MEDS: DOCUSATE SODIUM 50 MG/SENNA 8.6 MG TAB PO SCH ×2 (08:26→19:51)
--- NOTE | 2017-03-22 08:38 | HHI.PR ---
Subjective Remarks Patient continues to actively hallucinating with both visual and auditory hallucinations. Remains tremulous although per patient this is improving. Overnight pulled out his IVs and wanted to leave. Patient does not report wishing to leave at this time. No current complaints. Endorses no nausea and anorexia. CIWA increased this morning to 17. We will add Haldol 5 mg IM every 4 when necessary anxiety Denies any nausea or vomiting denies any fevers or chills or shortness of breath or chest pain Objective Vitals Vital Signs Date Time Temp Pulse Resp B/P Pulse Ox O2 Delivery O2 Flow Rate FiO2 03/22/17 04:00 96.8 97 16 158/103 98 03/22/17 02:00 97.9 68 17 156/91 96 03/21/17 19:00 96.2 93 18 159/96 98 03/21/17 16:00 98.6 79 18 144/104 96 03/21/17 12:00 98.0 86 18 132/96 96 I/O 03/21/17 03/21/17 03/21/17 03/22/17 03/22/17 03/22/17 06:59 14:59 22:59 06:59 14:59 22:59 Intake Total 720 ml 600 ml 480 ml 480 ml Balance 720 ml 600 ml 480 ml 480 ml Intake Oral 720 ml 600 ml 480 ml 480 ml # Voids 2 4 2 3 # Bowel Movements 1 0 0 Result Diagram: 03/19/1751903/19/17519 Objective Remarks GENERAL: Anxious and somewhat confused SKIN: Warm and dry. Scattered on his nose HEAD: Atraumatic. Normocephalic. EYES: Pupils equal and round. No scleral icterus. No injection or drainage. Extraocular muscles grossly intact ENT: No nasal bleeding or discharge. Mucous membranes pink and moist. Tongue is midline NECK: Trachea midline. No JVD. CARDIOVASCULAR: Regular rate and rhythm. S1-S2 no S3 or S4 no heave or thrill or rub or gallop RESPIRATORY: No accessory muscle use. Coarse breath sounds bilaterally. Breath sounds equal bilaterally. GASTROINTESTINAL: Abdomen soft, non-tender, nondistended. Hepatic and splenic margins not palpable. MUSCULOSKELETAL: Extremities without clubbing, cyanosis, or edema. No obvious deformities. NEUROLOGICAL: Awake and alert. No obvious cranial nerve deficits. Motor grossly within normal limits. Five out of 5 muscle strength in the arms and legs. Normal speech. Less tremulous PSYCHIATRIC: INAppropriate mood and affect; insight and judgment ABnormal. Medications and IVs Current Medications Lorazepam 2 mg 2 mg ONCE ONCE IV PUSH Last administered on 03/18/17 10:35; Start 03/18/17 at 10:00; Stop 03/18/17 at 10:02; Status DC Thiamine HCl 100 mg/Sodium Chloride 101 ml @ 101 mls/hr ONCE ONCE IV Last administered on 03/18/17 10:35; Start 03/18/17 at 10:00; Stop 03/18/17 at 10:59 ; Status DC Sodium Chloride (NS 1000 ml Inj) 1,000 ml @ 999 mls/hr BOLUS ONCE IV Last administered on 03/18/17 10:35; Start 03/18/17 at 10:00; Stop 03/18/17 at 11:00 ; Status DC Lisinopril (Prinivil) 20 mg ONCE ONCE PO Last administered on 03/18/17 11:22 ; Start 03/18/17 at 10:45; Stop 03/18/17 at 10:46; Status DC Lorazepam 2 mg 2 mg ONCE ONCE IV PUSH Last administered on 03/18/17 12:03; Start 03/18/17 at 11:30; Stop 03/18/17 at 11:31; Status DC Sodium Chloride (NS 1000 ml Inj) 1,000 ml @ 100 mls/hr Q10H IV Last administered on 03/19/17 20:48; Start 03/18/17 at 11:41; Stop 03/19/17 at 20:52 ; Status DC Sodium Chloride (NS Flush) 2 ml UNSCH PRN IV FLUSH FLUSH AFTER USING IV ACCESS Last administered on 03/19/17 14:52; Start 03/18/17 at 11:45 Sodium Chloride (NS Flush) 2 ml BID IV FLUSH Last administered on 03/21/17 20: 15; Start 03/18/17 at 21:00 Acetaminophen (Tylenol) 650 mg Q4H PRN PO Headache, fever, pain 1-4; Start 05/25 at 13:00 Ondansetron HCl (Zofran Inj) 4 mg Q6H PRN IVP NAUSEA OR VOMITING Last administered on 03/18/17 18:39; Start 03/18/17 at 13:00 Naloxone HCl (Narcan Inj) 0.4 mg UNSCH PRN IV SEE LABEL COMMENTS; Start at 11:45 Senna/Docusate Sodium (Viridiana-Colace) 1 tab BID PO Last administered on 08:26; Start 03/18/17 at 21:00 Magnesium Hydroxide (Milk Of Magnesia Liq) 30 ml Q12HR PRN PO MILD - MODERATE CONSTIPATION; Start 03/18/17 at 12:00 Sennosides (Senokot) 17.2 mg Q12HR PRN PO MODERATE - SEVERE CONSTIPATION; Start 03/18/17 at 12:00 Bisacodyl (Dulcolax Supp) 10 mg DAILY PRN RECTAL SEVERE CONSITIPATION; Start at 11:45 Lactulose (Lactulose Liq) 30 ml DAILY PRN PO SEVERE CONSITIPATION; Start at 11:45 Flumazenil (Romazicon Inj) 0.2 mg Q1M PRN IV PUSH SEE LABEL COMMENTS; Start 05/25 at 11:45 Lorazepam (Ativan) 1 mg Q4H PRN PO CIWA 8 - 10 Last administered on 03/21/17 01:07; Start 03/18/17 at 11:45 Lorazepam (Ativan Inj) 1 mg Q4H PRN IV PUSH CIWA 8 - 10 Last administered on 11:55; Start 03/18/17 at 11:45 Lorazepam (Ativan) 2 mg Q2H PRN PO CIWA 11-14; Start 03/18/17 at 11:45 Lorazepam (Ativan Inj) 2 mg Q2H PRN IV PUSH CIWA 11-14 Last administered on 00:40; Start 03/18/17 at 11:45 Lorazepam (Ativan Inj) 2 mg Q1H PRN IV PUSH CIWA 15-20 Last administered on 05:38; Start 03/18/17 at 11:45 Lorazepam (Ativan Inj) 2 mg Q15M PRN IV PUSH CIWA > 20; Start 03/18/17 at 11:45 Chlordiazepoxide (Librium) 25 mg TID PRN PO SEVERE ANXIETY OR AGITATION Last administered on 03/18/17 14:32; Start 03/18/17 at 13:00; Stop 03/18/17 at 14:39 ; Status DC Enalaprilat 1.25 mg 1.25 mg Q6H PRN IV PUSH SBP>160, DBP>90 Last administered on 03/22/17 04:25; Start 03/18/17 at 13:45 Thiamine HCl/ Sodium Chloride (Thiamine Inj/NS Inj) 101 ml @ 101 mls/hr DAILY IV Last administered on 03/21/17 08:57; Start 03/19/17 at 09:00; Stop at 09:00 Chlordiazepoxide (Librium) 50 mg TID PO Last administered on 03/22/17 08:26; Start 03/18/17 at 18:00 Chlordiazepoxide (Librium) 25 mg ONCE PRN PO SEVERE ANXIETY OR AGITATION; Start 03/18/17 at 14:45; Stop 04/01/17 at 14:44 Pneumococcal Polyvalent Vaccine (Pneumovax-23 Inj) 25 mcg ONCE ONCE IM Last administered on 03/19/17 09:16; Start 03/19/17 at 10:00; Stop 03/19/17 at 10:01 ; Status DC Lorazepam (Ativan Inj) 2 mg NOW ONCE IV PUSH Last administered on 03/19/17 14 :52; Start 03/19/17 at 14:00; Stop 03/19/17 at 14:01; Status DC Folic Acid (Folate) 1 mg ONCE ONCE PO Last administered on 03/19/17 21:17; Start 03/19/17 at 21:00; Stop 03/19/17 at 21:01; Status DC Folic Acid (Folate) 1 mg DAILY PO Last administered on 03/22/17 08:25; Start 03/20/17 at 09:00 Thiamine HCl (Vitamin B1) 100 mg DAILY PO ; Start 03/23/17 at 09:00 Amlodipine Besylate (Norvasc) 5 mg DAILY PO Last administered on 03/21/17 08: 29; Start 03/20/17 at 14:00; Stop 03/21/17 at 09:22; Status DC Amlodipine Besylate (Norvasc) 10 mg DAILY PO Last administered on 03/22/17 08: 25; Start 8/13/17 at 09:30 Haloperidol Lactate (Haldol Inj) 5 mg Q4H PRN IM ANXIETY Last administered on t 08:25; Start 03/22/17 at 07:45 Urinary Catheter: No Vascular Central Line Catheter: No A/P Problem List: (1) DTs (delirium tremens) ICD Code: F10.231 Status: Acute (2) Alcohol withdrawal ICD Code: F10.239 Status: Acute Assessment and Plan Assessment and Plan 57 y/o with a medical history of htn and depression, not currently on medication presented to the ED with complaints of tremors, diaphoresis, and chills. He states he decided to quit drinking. - Alcohol withdrawal with active delirium tremens - Continue CIWA protocol - Continue Librium 50mg TID. Cannot wean at this time as patient's CIWA score increasing. Psychiatry following. . - Thiamine IV daily for 3 days, then PO thiamine. Continue Folic acid. - Encourage by mouth intake. Will add Haldol 5 mg IM every 4 hours when necessary anxiety Some hallucinations - Hypertension - possibly due to Alcohol withdrawal. - Continue to provide Ativan based on CIWA protocol. - Vasotec IV PRN - Likely need long-term therapy. Increase amlodipine to 10 mg daily Tobacco abuse-recommend smoking cessation NicoDerm patch Marijuana abuse recommend cessation Full code. SCDs. Problem Qualifiers (1) Alcohol withdrawal: Qualified Code: F10.230 - Alcohol withdrawal syndrome without complication Niko Leija DO Mar 22, 2017 08:38
[2017-03-22 12:00] VITALS: BP 119/74; PULSE 94; RESP 18; TEMP 96.8; O2SAT 97
[2017-03-22 16:00] VITALS: BP 124/69; PULSE 93; RESP 18; TEMP 98; O2SAT 98
[2017-03-22] MEDS: LORazepam 1 MG TAB PO PRN (20:00)
[2017-03-22 20:30] VITALS: BP 115/79; PULSE 91; RESP 17; TEMP 97.5; O2SAT 95
[2017-03-22 20:51] LABS: BICARBONATE 25.6 MEQ/L (21.0-32.0); POTASSIUM 3.7 MEQ/L (3.5-5.1)
[2017-03-23 00:10] VITALS: BP 150/93; PULSE 92; RESP 18; TEMP 97.8; O2SAT 97
[2017-03-23 04:25] VITALS: BP 123/73; PULSE 84; RESP 17; TEMP 96.8; O2SAT 98
[2017-03-23 08:00] VITALS: BP 120/83; PULSE 77; RESP 18; TEMP 96.5; O2SAT 96
[2017-03-23] MEDS: FOLIC ACID 1 MG TAB PO SCH (08:29)
[2017-03-23] MEDS: THIAMINE HCL 100 MG TAB PO SCH (08:29)
[2017-03-23] MEDS: DOCUSATE SODIUM 50 MG/SENNA 8.6 MG TAB PO SCH ×2 (08:29→22:18)
[2017-03-23] MEDS: SODIUM CHLORIDE 0.9% FLUSH 10 ML FLUSH IV FLUSH SCH ×2 (08:30→21:00)
[2017-03-23] MEDS: chlordiazePOXIDE 25 MG CAP PO SCH ×3 (08:30→18:07)
--- NOTE | 2017-03-23 08:47 | HHI.PR ---
Subjective Remarks 03-22 Patient continues to actively hallucinating with both visual and auditory hallucinations. Remains tremulous although per patient this is improving. Overnight pulled out his IVs and wanted to leave. Patient does not report wishing to leave at this time. No current complaints. Endorses no nausea and anorexia. CIWA increased this morning to 17. We will add Haldol 5 mg IM every 4 when necessary anxiety Denies any nausea or vomiting denies any fevers or chills or shortness of breath or chest pain 03-23 HAD ATIVAN LAST NIGHT NOT NEEDING ANYTHING SO FAR TODAY FOR WITHDRAWALS LESS TREMORS HAS SOME TENDERNESS OF LEFT HAND WRIST- PAIN CONTROL Objective Vitals Vital Signs Date Time Temp Pulse Resp B/P Pulse Ox O2 Delivery O2 Flow Rate FiO2 03/23/17 08:00 96.5 77 18 120/83 96 03/23/17 04:25 96.8 84 17 123/73 98 03/23/17 00:10 97.8 92 18 150/93 97 03/22/17 20:30 97.5 91 17 115/79 95 Manual Cuff/Auscultation 03/22/17 16:00 98.0 93 18 124/69 98 03/22/17 12:00 96.8 94 18 119/74 97 I/O 03/22/17 03/22/17 03/22/17 03/23/17 03/23/17 03/23/17 07:00 15:00 23:00 07:00 15:00 23:00 Intake Total 480 ml 600 ml 240 ml Balance 480 ml 600 ml 240 ml Intake Oral 480 ml 600 ml 240 ml # Voids 3 7 2 # Bowel Movements 0 0 0 Result Diagram: 03/19/17 0520 03/22/171926 Other Results Laboratory Tests Test 03/22/17 19:27 Sodium Level 137 MEQ/L Potassium Level 3.7 MEQ/L Chloride Level 105 MEQ/L Carbon Dioxide Level 25.6 MEQ/L Anion Gap 6 MEQ/L Blood Urea Nitrogen 11 MG/DL Creatinine 0.85 MG/DL Estimat Glomerular Filtration 93 ML/MIN Rate Random Glucose 102 MG/DL Calcium Level 8.9 MG/DL Objective Remarks GENERAL: Anxious and somewhat LESS confused SKIN: Warm and dry. ScaB on his nose HEAD: Atraumatic. Normocephalic. EYES: Pupils equal and round. No scleral icterus. No injection or drainage. Extraocular muscles grossly intact ENT: No nasal bleeding or discharge. Mucous membranes pink and moist. Tongue is midline NECK: Trachea midline. No JVD. CARDIOVASCULAR: Regular rate and rhythm. S1-S2 no S3 or S4 no heave or thrill or rub or gallop RESPIRATORY: No accessory muscle use. Coarse breath sounds bilaterally. Breath sounds equal bilaterally. GASTROINTESTINAL: Abdomen soft, non-tender, nondistended. Hepatic and splenic margins not palpable. MUSCULOSKELETAL: Extremities without clubbing, cyanosis, or edema. No obvious deformities. NEUROLOGICAL: Awake and alert. No obvious cranial nerve deficits. Motor grossly within normal limits. Five out of 5 muscle strength in the arms and legs. Normal speech. Less tremulous PSYCHIATRIC: INAppropriate mood and affect; insight and judgment ABnormal. Medications and IVs Current Medications Lorazepam 2 mg 2 mg ONCE ONCE IV PUSH Last administered on 03/18/17 10:35; Start 03/18/17 at 10:00; Stop 03/18/17 at 10:02; Status DC Thiamine HCl 100 mg/Sodium Chloride 101 ml @ 101 mls/hr ONCE ONCE IV Last administered on 03/18/17 10:35; Start 03/18/17 at 10:00; Stop 03/18/17 at 10:59 ; Status DC Sodium Chloride (NS 1000 ml Inj) 1,000 ml @ 999 mls/hr BOLUS ONCE IV Last administered on 03/18/17 10:35; Start 03/18/17 at 10:00; Stop 03/18/17 at 11:00 ; Status DC Lisinopril (Prinivil) 20 mg ONCE ONCE PO Last administered on 03/18/17 11:22 ; Start 03/18/17 at 10:45; Stop 03/18/17 at 10:46; Status DC Lorazepam 2 mg 2 mg ONCE ONCE IV PUSH Last administered on 03/18/17 12:03; Start 03/18/17 at 11:30; Stop 03/18/17 at 11:31; Status DC Sodium Chloride (NS 1000 ml Inj) 1,000 ml @ 100 mls/hr Q10H IV Last administered on 03/19/17 20:48; Start 03/18/17 at 11:41; Stop 03/19/17 at 20:52 ; Status DC Sodium Chloride (NS Flush) 2 ml UNSCH PRN IV FLUSH FLUSH AFTER USING IV ACCESS Last administered on 03/19/17 14:52; Start 03/18/17 at 11:45 Sodium Chloride (NS Flush) 2 ml BID IV FLUSH Last administered on 03/21/17 20: 15; Start 03/18/17 at 21:00 Acetaminophen (Tylenol) 650 mg Q4H PRN PO Headache, fever, pain 1-4; Start 05/25 at 13:00 Ondansetron HCl (Zofran Inj) 4 mg Q6H PRN IVP NAUSEA OR VOMITING Last administered on 03/18/17 18:39; Start 03/18/17 at 13:00 Naloxone HCl (Narcan Inj) 0.4 mg UNSCH PRN IV SEE LABEL COMMENTS; Start at 11:45 Senna/Docusate Sodium (Viridiana-Colace) 1 tab BID PO Last administered on 08:29; Start 03/18/17 at 21:00 Magnesium Hydroxide (Milk Of Magnesia Liq) 30 ml Q12HR PRN PO MILD - MODERATE CONSTIPATION; Start 03/18/17 at 12:00 Sennosides (Senokot) 17.2 mg Q12HR PRN PO MODERATE - SEVERE CONSTIPATION; Start 03/18/17 at 12:00 Bisacodyl (Dulcolax Supp) 10 mg DAILY PRN RECTAL SEVERE CONSITIPATION; Start at 11:45 Lactulose (Lactulose Liq) 30 ml DAILY PRN PO SEVERE CONSITIPATION; Start at 11:45 Flumazenil (Romazicon Inj) 0.2 mg Q1M PRN IV PUSH SEE LABEL COMMENTS; Start 05/25 at 11:45 Lorazepam (Ativan) 1 mg Q4H PRN PO CIWA 8 - 10 Last administered on 03/22/17 20:00; Start 03/18/17 at 11:45 Lorazepam (Ativan Inj) 1 mg Q4H PRN IV PUSH CIWA 8 - 10 Last administered on 11:55; Start 03/18/17 at 11:45 Lorazepam (Ativan) 2 mg Q2H PRN PO CIWA 11-14; Start 03/18/17 at 11:45 Lorazepam (Ativan Inj) 2 mg Q2H PRN IV PUSH CIWA 11-14 Last administered on 00:40; Start 03/18/17 at 11:45 Lorazepam (Ativan Inj) 2 mg Q1H PRN IV PUSH CIWA 15-20 Last administered on 05:38; Start 03/18/17 at 11:45 Lorazepam (Ativan Inj) 2 mg Q15M PRN IV PUSH CIWA > 20; Start 03/18/17 at 11:45 Chlordiazepoxide (Librium) 25 mg TID PRN PO SEVERE ANXIETY OR AGITATION Last administered on 03/18/17 14:32; Start 03/18/17 at 13:00; Stop 03/18/17 at 14:39 ; Status DC Enalaprilat 1.25 mg 1.25 mg Q6H PRN IV PUSH SBP>160, DBP>90 Last administered on 03/22/17 04:25; Start 03/18/17 at 13:45 Thiamine HCl/ Sodium Chloride (Thiamine Inj/NS Inj) 101 ml @ 101 mls/hr DAILY IV Last administered on 03/21/17 08:57; Start 03/19/17 at 09:00; Stop at 09:00; Status DC Chlordiazepoxide (Librium) 50 mg TID PO Last administered on 03/23/17 08:30; Start 03/18/17 at 18:00 Chlordiazepoxide (Librium) 25 mg ONCE PRN PO SEVERE ANXIETY OR AGITATION; Start 03/18/17 at 14:45; Stop 04/01/17 at 14:44 Pneumococcal Polyvalent Vaccine (Pneumovax-23 Inj) 25 mcg ONCE ONCE IM Last administered on 03/19/17 09:16; Start 03/19/17 at 10:00; Stop 03/19/17 at 10:01 ; Status DC Lorazepam (Ativan Inj) 2 mg NOW ONCE IV PUSH Last administered on 03/19/17 14 :52; Start 03/19/17 at 14:00; Stop 03/19/17 at 14:01; Status DC Folic Acid (Folate) 1 mg ONCE ONCE PO Last administered on 03/19/17 21:17; Start 03/19/17 at 21:00; Stop 03/19/17 at 21:01; Status DC Folic Acid (Folate) 1 mg DAILY PO Last administered on 03/23/17 08:29; Start 03/20/17 at 09:00 Thiamine HCl (Vitamin B1) 100 mg DAILY PO Last administered on 03/23/17 08:29 ; Start 03/23/17 at 09:00 Amlodipine Besylate (Norvasc) 5 mg DAILY PO Last administered on 03/21/17 08: 29; Start 03/20/17 at 14:00; Stop 03/21/17 at 09:22; Status DC Amlodipine Besylate (Norvasc) 10 mg DAILY PO Last administered on 03/23/17 08: 29; Start 03/21/17 at 09:30 Haloperidol Lactate (Haldol Inj) 5 mg Q4H PRN IM ANXIETY Last administered on 13:15; Start 03/22/17 at 07:45 Urinary Catheter: No Vascular Central Line Catheter: No A/P Problem List: (1) DTs (delirium tremens) ICD Code: F10.231 Status: Acute (2) Alcohol withdrawal ICD Code: F10.239 Status: Acute Assessment and Plan Assessment and Plan 57 y/o with a medical history of htn and depression, not currently on medication presented to the ED with complaints of tremors, diaphoresis, and chills. He states he decided to quit drinking. - Alcohol withdrawal with active delirium tremens - Continue CIWA protocol - Continue Librium 50mg TID. Cannot wean at this time as patient's CIWA score increasing. Psychiatry following. . - Thiamine IV daily for 3 days, then PO thiamine. Continue Folic acid. - Encourage by mouth intake. Will add Haldol 5 mg IM every 4 hours when necessary anxiety Some hallucinations - Hypertension - possibly due to Alcohol withdrawal. - Continue to provide Ativan based on CIWA protocol. - Vasotec IV PRN - Likely need long-term therapy. Increase amlodipine to 10 mg daily Tobacco abuse-recommend smoking cessation NicoDerm patch Marijuana abuse recommend cessation Full code. SCDs. AM LABS PT AND OT DC IN NEXT 24- 48 HOURS Problem Qualifiers (1) Alcohol withdrawal: Qualified Code: F10.230 - Alcohol withdrawal syndrome without complication Niko Leija DO Mar 23, 2017 08:47
[2017-03-23 09:29] LABS: AUTOMATED NEUTROPHIL # 3.5 TH/MM3 (1.8-7.7); BASOPHIL % 0.4 % (0.0-2.0); EOSINOPHIL # 0.3 TH/MM3 (0-0.4); HEMATOCRIT 44.1 % (39.0-51.0); HEMO FLAGS DIFF FINAL; LYMPH % 27.1 % (9.0-44.0); LYMPHOCYTE # 1.8 TH/MM3 (1.0-4.8); MEAN CELL VOLUME 99.4 FL (80.0-100.0); MEAN CORPUSCULAR HEMOGLOBIN 32.5 PG (27.0-34.0); MEAN CORPUSCULAR HGB CONC 32.7 % (32.0-36.0); MONO % 15.1 % (0.0-8.0); NEUT % 53.4 % (16.0-70.0); PLATELET COUNT 181 TH/MM3 (150-450); RED BLOOD COUNT 4.44 MIL/MM3 (4.50-5.90); RED CELL DISTRIBUTION WIDTH 14.1 % (11.6-17.2); WHITE BLOOD COUNT 6.5 TH/MM3 (4.0-11.0)
[2017-03-23 09:50] LABS: ALT (GPT) 36 U/L (12-78); ANION GAP 7 MEQ/L (5-15); AST (GOT) 36 U/L (15-37); BICARBONATE 23.9 MEQ/L (21.0-32.0); BLOOD UREA NITROGEN 9 MG/DL (7-18); CHLORIDE 105 MEQ/L (98-107); GLOMERULAR FILTRATION RATE 107 ML/MIN (>89); MAGNESIUM 2.1 MG/DL (1.5-2.5); POTASSIUM 3.8 MEQ/L (3.5-5.1); SODIUM (NA) 136 MEQ/L (136-145)
[2017-03-23 09:59] LABS: ALKALINE PHOSPHATASE 90 U/L (45-117); FREE T4 1.08 NG/DL (0.76-1.46); TOTAL BILIRUBIN ADULT 0.6 MG/DL (0.2-1.0)
[2017-03-23 10:55] LABS: HEMOGLOBIN A1a 1.4 %; HEMOGLOBIN A1b 1.5 %; HEMOGLOBIN Ao 84.3 %; HEMOGLOBIN LA1C 2.2 %; HEMOGLOBIN P3 3.8 %
[2017-03-23 12:00] VITALS: BP 119/76; PULSE 88; RESP 18; TEMP 96.6; O2SAT 93
[2017-03-23] MEDS: LORazepam 1 MG TAB PO PRN ×3 (12:36→22:21)
[2017-03-23 16:00] VITALS: BP 121/82; PULSE 99; RESP 18; TEMP 97.2; O2SAT 99
[2017-03-23] MEDS: ACETAMINOPHEN 325 MG TAB PO PRN ×2 (18:07→22:21)
[2017-03-23 20:40] VITALS: BP 137/79; PULSE 78; RESP 18; TEMP 96.9; O2SAT 95
[2017-03-24 00:35] VITALS: BP 155/96; PULSE 78; RESP 19; TEMP 96.7; O2SAT 100
[2017-03-24] MEDS: LORazepam 1 MG TAB PO PRN ×4 (03:06→20:32)
[2017-03-24 04:35] VITALS: BP 151/97; PULSE 92; RESP 18; TEMP 96.2; O2SAT 95
[2017-03-24] MEDS: ACETAMINOPHEN 325 MG TAB PO PRN ×2 (04:56→22:16)
[2017-03-24 07:27] VITALS: BP 135/96; PULSE 80; RESP 18; TEMP 95.9; O2SAT 96
[2017-03-24] MEDS: chlordiazePOXIDE 25 MG CAP PO SCH ×3 (08:40→18:31)
[2017-03-24] MEDS: FOLIC ACID 1 MG TAB PO SCH (08:40)
[2017-03-24] MEDS: DOCUSATE SODIUM 50 MG/SENNA 8.6 MG TAB PO SCH ×2 (08:41→20:32)
[2017-03-24] MEDS: THIAMINE HCL 100 MG TAB PO SCH (08:41)
--- NOTE | 2017-03-24 09:32 | HHI.PR ---
Subjective Remarks 03-22 Patient continues to actively hallucinating with both visual and auditory hallucinations. Remains tremulous although per patient this is improving. Overnight pulled out his IVs and wanted to leave. Patient does not report wishing to leave at this time. No current complaints. Endorses no nausea and anorexia. CIWA increased this morning to 17. We will add Haldol 5 mg IM every 4 when necessary anxiety Denies any nausea or vomiting denies any fevers or chills or shortness of breath or chest pain -15 HAD ATIVAN LAST NIGHT NOT NEEDING ANYTHING SO FAR TODAY FOR WITHDRAWALS LESS TREMORS HAS SOME TENDERNESS OF LEFT HAND WRIST- PAIN CONTROL 03-24 STILL NEEDING CIWA LIBRIUM AND ATIVAN IS HOMELESS AT THIS TIME CONSULT CASE MANAGEMENT FOR DC Objective Vitals Vital Signs Date Time Temp Pulse Resp B/P Pulse Ox O2 Delivery O2 Flow Rate FiO2 03/24/17 07:27 95.9 80 18 135/96 96 03/24/17 04:35 96.2 92 18 151/97 95 03/24/17 00:35 96.7 78 19 155/96 100 03/23/17 20:40 96.9 78 18 137/79 95 03/23/17 16:00 97.2 99 18 121/82 99 03/23/17 12:00 96.6 88 18 119/76 93 I/O 03/23/17 03/23/17 03/23/17 03/24/17 03/24/17 03/24/17 06:59 14:59 22:59 06:59 14:59 22:59 Intake Total 240 ml 960 ml 240 ml 480 ml Balance 240 ml 960 ml 240 ml 480 ml Intake Oral 240 ml 960 ml 240 ml 480 ml # Voids 2 2 2 2 # Bowel Movements 0 2 0 0 Result Diagram: 03/23/17 0903/23/17 09 Objective Remarks GENERAL: LESS Anxious and somewhat LESS confused SKIN: Warm and dry. ScaB on his nose--LEFT HEEL AREA WOUND HEALING HEAD: Atraumatic. Normocephalic. EYES: Pupils equal and round. No scleral icterus. No injection or drainage. Extraocular muscles grossly intact ENT: No nasal bleeding or discharge. Mucous membranes pink and moist. Tongue is midline NECK: Trachea midline. No JVD. CARDIOVASCULAR: Regular rate and rhythm. S1-S2 no S3 or S4 no heave or thrill or rub or gallop RESPIRATORY: No accessory muscle use. Coarse breath sounds bilaterally. Breath sounds equal bilaterally. GASTROINTESTINAL: Abdomen soft, non-tender, nondistended. Hepatic and splenic margins not palpable. MUSCULOSKELETAL: Extremities without clubbing, cyanosis, or edema. No obvious deformities. NEUROLOGICAL: Awake and alert. No obvious cranial nerve deficits. Motor grossly within normal limits. Five out of 5 muscle strength in the arms and legs. Normal speech. Less tremulous PSYCHIATRIC: INAppropriate mood and affect; insight and judgment ABnormal. Medications and IVs Current Medications Lorazepam 2 mg 2 mg ONCE ONCE IV PUSH Last administered on 03/18/17 10:35; Start 03/18/17 at 10:00; Stop 03/18/17 at 10:02; Status DC Thiamine HCl 100 mg/Sodium Chloride 101 ml @ 101 mls/hr ONCE ONCE IV Last administered on 03/18/17 10:35; Start 03/18/17 at 10:00; Stop 03/18/17 at 10:59 ; Status DC Sodium Chloride (NS 1000 ml Inj) 1,000 ml @ 999 mls/hr BOLUS ONCE IV Last administered on 03/18/17 10:35; Start 03/18/17 at 10:00; Stop 03/18/17 at 11:00 ; Status DC Lisinopril (Prinivil) 20 mg ONCE ONCE PO Last administered on 03/18/17 11:22 ; Start 03/18/17 at 10:45; Stop 03/18/17 at 10:46; Status DC Lorazepam 2 mg 2 mg ONCE ONCE IV PUSH Last administered on 03/18/17 12:03; Start 03/18/17 at 11:30; Stop 03/18/17 at 11:31; Status DC Sodium Chloride (NS 1000 ml Inj) 1,000 ml @ 100 mls/hr Q10H IV Last administered on 03/19/17 20:48; Start 03/18/17 at 11:41; Stop 03/19/17 at 20:52 ; Status DC Sodium Chloride (NS Flush) 2 ml UNSCH PRN IV FLUSH FLUSH AFTER USING IV ACCESS Last administered on 03/19/17 14:52; Start 03/18/17 at 11:45 Sodium Chloride (NS Flush) 2 ml BID IV FLUSH Last administered on 03/21/17 20: 15; Start 03/18/17 at 21:00 Acetaminophen (Tylenol) 650 mg Q4H PRN PO Headache, fever, pain 1-4 Last administered on 03/24/17 04:56; Start 03/18/17 at 13:00 Ondansetron HCl (Zofran Inj) 4 mg Q6H PRN IVP NAUSEA OR VOMITING Last administered on 03/18/17 18:39; Start 03/18/17 at 13:00 Naloxone HCl (Narcan Inj) 0.4 mg UNSCH PRN IV SEE LABEL COMMENTS; Start at 11:45 Senna/Docusate Sodium (Viridiana-Colace) 1 tab BID PO Last administered on 08:41; Start 03/18/17 at 21:00 Magnesium Hydroxide (Milk Of Magnesia Liq) 30 ml Q12HR PRN PO MILD - MODERATE CONSTIPATION; Start 03/18/17 at 12:00 Sennosides (Senokot) 17.2 mg Q12HR PRN PO MODERATE - SEVERE CONSTIPATION; Start 03/18/17 at 12:00 Bisacodyl (Dulcolax Supp) 10 mg DAILY PRN RECTAL SEVERE CONSITIPATION; Start at 11:45 Lactulose (Lactulose Liq) 30 ml DAILY PRN PO SEVERE CONSITIPATION; Start at 11:45 Flumazenil (Romazicon Inj) 0.2 mg Q1M PRN IV PUSH SEE LABEL COMMENTS; Start 05/25 at 11:45 Lorazepam (Ativan) 1 mg Q4H PRN PO CIWA 8 - 10 Last administered on 03/24/17 06:45; Start 03/18/17 at 11:45 Lorazepam (Ativan Inj) 1 mg Q4H PRN IV PUSH CIWA 8 - 10 Last administered on 11:55; Start 03/18/17 at 11:45 Lorazepam (Ativan) 2 mg Q2H PRN PO CIWA 11-14; Start 03/18/17 at 11:45 Lorazepam (Ativan Inj) 2 mg Q2H PRN IV PUSH CIWA 11-14 Last administered on 00:40; Start 03/18/17 at 11:45 Lorazepam (Ativan Inj) 2 mg Q1H PRN IV PUSH CIWA 15-20 Last administered on 05:38; Start 03/18/17 at 11:45 Lorazepam (Ativan Inj) 2 mg Q15M PRN IV PUSH CIWA > 20; Start 03/18/17 at 11:45 Chlordiazepoxide (Librium) 25 mg TID PRN PO SEVERE ANXIETY OR AGITATION Last administered on 03/18/17 14:32; Start 03/18/17 at 13:00; Stop 03/18/17 at 14:39 ; Status DC Enalaprilat 1.25 mg 1.25 mg Q6H PRN IV PUSH SBP>160, DBP>90 Last administered on 03/22/17 04:25; Start 03/18/17 at 13:45 Thiamine HCl/ Sodium Chloride (Thiamine Inj/NS Inj) 101 ml @ 101 mls/hr DAILY IV Last administered on 03/21/17 08:57; Start 03/19/17 at 09:00; Stop at 09:00; Status DC Chlordiazepoxide (Librium) 50 mg TID PO Last administered on 03/24/17 08:40; Start 03/18/17 at 18:00 Chlordiazepoxide (Librium) 25 mg ONCE PRN PO SEVERE ANXIETY OR AGITATION; Start 03/18/17 at 14:45; Stop 04/01/17 at 14:44 Pneumococcal Polyvalent Vaccine (Pneumovax-23 Inj) 25 mcg ONCE ONCE IM Last administered on 03/19/17 09:16; Start 03/19/17 at 10:00; Stop 03/19/17 at 10:01 ; Status DC Lorazepam (Ativan Inj) 2 mg NOW ONCE IV PUSH Last administered on 03/19/17 14 :52; Start 03/19/17 at 14:00; Stop 03/19/17 at 14:01; Status DC Folic Acid (Folate) 1 mg ONCE ONCE PO Last administered on 03/19/17 21:17; Start 03/19/17 at 21:00; Stop 03/19/17 at 21:01; Status DC Folic Acid (Folate) 1 mg DAILY PO Last administered on 03/24/17 08:40; Start 03/20/17 at 09:00 Thiamine HCl (Vitamin B1) 100 mg DAILY PO Last administered on 03/24/17 08:41 ; Start 03/23/17 at 09:00 Amlodipine Besylate (Norvasc) 5 mg DAILY PO Last administered on 03/21/17 08: 29; Start 03/20/17 at 14:00; Stop 03/21/17 at 09:22; Status DC Amlodipine Besylate (Norvasc) 10 mg DAILY PO Last administered on 03/24/17 08: 41; Start 03/21/17 at 09:30 Haloperidol Lactate (Haldol Inj) 5 mg Q4H PRN IM ANXIETY Last administered on 13:15; Start 03/22/17 at 07:45 Urinary Catheter: No Vascular Central Line Catheter: No A/P Problem List: (1) DTs (delirium tremens) ICD Code: F10.231 Status: Acute (2) Alcohol withdrawal ICD Code: F10.239 Status: Acute Assessment and Plan Assessment and Plan 57 y/o with a medical history of htn and depression, not currently on medication presented to the ED with complaints of tremors, diaphoresis, and chills. He states he decided to quit drinking. - Alcohol withdrawal with active delirium tremens - Continue CIWA protocol - Continue Librium 50mg TID. Cannot wean at this time as patient's CIWA score increasing. Psychiatry following. . - Thiamine IV daily for 3 days, then PO thiamine. Continue Folic acid. - Encourage by mouth intake. Will add Haldol 5 mg IM every 4 hours when necessary anxiety Some hallucinations - Hypertension - possibly due to Alcohol withdrawal. - Continue to provide Ativan based on CIWA protocol. - Vasotec IV PRN - Likely need long-term therapy. Increase amlodipine to 10 mg daily LEFT HEEL WOUND SCABBED OVER- BACITRACIN Tobacco abuse-recommend smoking cessation NicoDerm patch Marijuana abuse recommend cessation Full code. SCDs. AM LABS PT AND OT DC IN NEXT 24- 48 HOURS CASE MANAGEMENT FOR DC Problem Qualifiers (1) Alcohol withdrawal: Qualified Code: F10.230 - Alcohol withdrawal syndrome without complication Niko Leija DO Mar 24, 2017 09:32
[2017-03-24] MEDS: BACITRACIN TOP OINT 15 GM TUBE TOPICAL SCH ×2 (09:45→20:34)
[2017-03-24 11:38] VITALS: BP 128/93; PULSE 79; RESP 18; TEMP 96.8; O2SAT 99
[2017-03-24 16:00] VITALS: BP 140/92; PULSE 87; RESP 18; TEMP 97.3; O2SAT 100
[2017-03-24] MEDS: SODIUM CHLORIDE 0.9% FLUSH 10 ML FLUSH IV FLUSH SCH (20:34)
[2017-03-24 20:35] VITALS: BP 153/94; PULSE 95; RESP 18; TEMP 97.6; O2SAT 100
[2017-03-25 00:29] VITALS: BP 149/86; PULSE 97; RESP 18; TEMP 97.2; O2SAT 100
[2017-03-25] MEDS: LORazepam 1 MG TAB PO PRN (00:47)
[2017-03-25 04:14] VITALS: BP 151/94; PULSE 92; RESP 18; TEMP 96.9; O2SAT 99
--- NOTE | 2017-04-27 15:32 | PD.AMA ---
Against Medical Advice Note Diagnosis: (1) Homeless (2) Alcohol abuse (3) Alcohol intoxication (4) HTN (hypertension) (5) Alcohol withdrawal (6) Nasal congestion (7) Alcohol abuse with alcohol-induced mood disorder (8) Abrasion, foot (9) Substance induced mood disorder Discharge Disposition: Against Medical Advice Pt Condition on Discharge: Fair Recommended Treatment Course patient left AGAINST MEDICAL ADVICE RECOMMEND SMOKING AND ALCOHOL CESSATION AMA Statement Patient Brett Robertson has decided to leave the hospital against medical advice. This patient has the capacity to refuse care and understands the risks of leaving, including permanent disability and/or , and has had an opportunity to ask questions about his condition. The patient has been informed that he may return for care at any time, and follow up has been arranged/advised. Niko Leija DO Apr 27, 2017 15:32
--- NOTE | 2017-04-30 10:08 | HHI.DS ---
Discharge Summary Admission Date Mar 18, 2017 at 14:47 Discharge Date: Mar 25, 2017 Admitting Diagnosis acute alcohol withdrawl (1) DTs (delirium tremens) ICD Code: F10.231 - Alcohol dependence with withdrawal delirium Diagnosis: Principal Status: Acute (2) Alcohol withdrawal ICD Code: F10.239 - Alcohol dependence with withdrawal, unspecified Diagnosis: Principal Status: Acute Procedures none Brief History - From Admission 57 y/o with a medical history of htn and depression, not currently on medication presented to the ED with complaints of tremors, diaphoresis, and chills since early this morning. He states he decided to quit drinking and his last drink was last night. Prior to today he drank daily from the time he wakes up til he goes to bed. He states he is very depressed and that's what causes him to drink. He states he went to [facility] this morning for detox but because of his condition they sent him to the hospital for initial treatment. He states he has also been having hallucinations on and off and nausea. Denies any fever, vomiting, diarrhea or dysuria. He is very motivated to quit drinking and states it is time to. 8-14 Patient continues to actively hallucinating with both visual and auditory hallucinations. Remains tremulous although per patient this is improving. Overnight pulled out his IVs and wanted to leave. Patient does not report wishing to leave at this time. No current complaints. Endorses no nausea and anorexia. CIWA increased this morning to 17. We will add Haldol 5 mg IM every 4 when necessary anxiety Denies any nausea or vomiting denies any fevers or chills or shortness of breath or chest pain 8-15 HAD ATIVAN LAST NIGHT NOT NEEDING ANYTHING SO FAR TODAY FOR WITHDRAWALS LESS TREMORS HAS SOME TENDERNESS OF LEFT HAND WRIST- PAIN CONTROL 8-16 STILL NEEDING CIWA LIBRIUM AND ATIVAN IS HOMELESS AT THIS TIME CONSULT CASE MANAGEMENT FOR DC PE at Discharge GENERAL: LESS Anxious and somewhat LESS confused SKIN: Warm and dry. ScaB on his nose--LEFT HEEL AREA WOUND HEALING HEAD: Atraumatic. Normocephalic. EYES: Pupils equal and round. No scleral icterus. No injection or drainage. Extraocular muscles grossly intact ENT: No nasal bleeding or discharge. Mucous membranes pink and moist. Tongue is midline NECK: Trachea midline. No JVD. CARDIOVASCULAR: Regular rate and rhythm. S1-S2 no S3 or S4 no heave or thrill or rub or gallop RESPIRATORY: No accessory muscle use. Coarse breath sounds bilaterally. Breath sounds equal bilaterally. GASTROINTESTINAL: Abdomen soft, non-tender, nondistended. Hepatic and splenic margins not palpable. MUSCULOSKELETAL: Extremities without clubbing, cyanosis, or edema. No obvious deformities. NEUROLOGICAL: Awake and alert. No obvious cranial nerve deficits. Motor grossly within normal limits. Five out of 5 muscle strength in the arms and legs. Normal speech. Less tremulous PSYCHIATRIC: INAppropriate mood and affect; insight and judgment ABnormal. Hospital Course 57 y/o with a medical history of htn and depression, not currently on medication presented to the ED with complaints of tremors, diaphoresis, and chills since early this morning. He states he decided to quit drinking and his last drink was last night. Prior to today he drank daily from the time he wakes up til he goes to bed. He states he is very depressed and that's what causes him to drink. He states he went to [facility] this morning for detox but because of his condition they sent him to the hospital for initial treatment. He states he has also been having hallucinations on and off and nausea. Denies any fever, vomiting, diarrhea or dysuria. He is very motivated to quit drinking and states it is time to. 8-14 Patient continues to actively hallucinating with both visual and auditory hallucinations. Remains tremulous although per patient this is improving. Overnight pulled out his IVs and wanted to leave. Patient does not report wishing to leave at this time. No current complaints. Endorses no nausea and anorexia. CIWA increased this morning to 17. We will add Haldol 5 mg IM every 4 when necessary anxiety Denies any nausea or vomiting denies any fevers or chills or shortness of breath or chest pain 8-15 HAD ATIVAN LAST NIGHT NOT NEEDING ANYTHING SO FAR TODAY FOR WITHDRAWALS LESS TREMORS HAS SOME TENDERNESS OF LEFT HAND WRIST- PAIN CONTROL 8-16 STILL NEEDING CIWA LIBRIUM AND ATIVAN IS HOMELESS AT THIS TIME CONSULT CASE MANAGEMENT FOR DC 8-17 PATIENT DECIDED TO LEAVE AMA AND LEFT Pt Condition on Discharge: Fair Discharge Disposition: Discharge Home (PATIENT LEFT AMA) Discharge Time: <= 30 minutes Discharge Instructions DIET: Follow Instructions for: As Tolerated, No Restrictions Speech Therapy-Diet Recommends: Regular Additional Information PATIENT LEFT AMA NO NEW PRESCRIPTIONS OR INSTRUCTIONS WERE GIVEN PRIOR TO HIM LEAVING AMA Niko Leija DO Apr 30, 2017 10:08
== END 2017-03-25 07:13 | disposition left against medical advice (07) | DRG 894 ==
LOC: NEPD 09:47 → NEDA 11:55 → NEPFCDU 13:25 → OBSVTOIN 14:47 → N06A 03-19 19:13
PROVIDERS: ADMIT Hospitalist; ATTEND Hospitalist
DX: F10.231 Alcohol dependence with withdrawal delirium (principal); I10 Essential (primary) hypertension; R44.0 Auditory hallucinations; F32.9 Major depressive disorder, single episode, unspecified; F17.210 Nicotine dependence, cigarettes, uncomplicated; F10.24 Alcohol dependence with alcohol-induced mood disorder; F12.10 Cannabis abuse, uncomplicated; F41.9 Anxiety disorder, unspecified; E78.00 Pure hypercholesterolemia, unspecified; G89.29 Other chronic pain; M25.562 Pain in left knee; R44.1 Visual hallucinations; Z59.0 Homelessness; Z23 Encounter for immunization; Z85.830 Personal history of malignant neoplasm of bone
CPT/HCPCS: 76937; 80048; 80053; 80307; 83036; 83735; 84100; 84439; 84443; 85025; 90471; 90732; 96365; 96372; 96375; G0009; G0378; J1630; J2060; J2405; J3411; J7030

== ENCOUNTER 2017-04-10 11:51 | Emergency (ER) | payer MEDICARE ==
[~2017-04-10] VITALS: Ht 180.3 cm; Wt 75.0 kg
[~2017-04-10 11:51] MED LIST changes: -CEPH-460 PO
[2017-04-10 11:58] VITALS: BP 124/78; PULSE 86; RESP 16; TEMP 98; O2SAT 92
--- NOTE | 2017-04-10 12:27 | PD ---
HPI Chief Complaint: Fall Time Seen by Provider: 12:11 Travel History International Travel<30 days: No Contact w/Intl Traveler<30days: No Traveled to known affect area: No History of Present Illness HPI 57-year-old male complains of facial pain, headache, neck pain, back pain, right shoulder pain and bilateral knee pain. Patient admitted to alkyl consumption. Patient has history of EtOH abuse. Patient fell on his face this morning. Patient's not sure whether he had loss of consciousness or not. Patient complains of headache and facial pain. Patient denies any visual change. Patient complains of neck pain. Patient complained of sharp pain or shoulder upper back low back and bilateral knee. Patient complains center chest wall pain. Patient denies any focal weakness or numbness of the extremity. PFSH Past Medical History Blood Disorders: No Anxiety: Yes Depression: Yes Heart Rhythm Problems: Yes Cancer: Yes (BONE) High Cholesterol: Yes Chest Pain: Yes Diabetes: No Diminished Hearing: No Endocrine: No Genitourinary: Yes Hypertension: Yes Immune Disorder: No Musculoskeletal: Yes ( rt knee surgery/ back surgery bone graft ) Neurologic: No Psychiatric: Yes Reproductive: Yes Respiratory: No Thyroid Disease: No Tetanus Vaccination: < 5 Years Influenza Vaccination: Yes Past Surgical History Cholecystectomy: Yes Neurologic Surgery: Yes (herniated disc) Social History Alcohol Use: Yes (24 BEERS DAILY) Tobacco Use: Yes (1/2 PPD) Substance Use: No Allergies-Medications (Allergen,Severity, Reaction): Coded Allergies: No Known Allergies (Unverified , 02/02/17) Reported Meds & Prescriptions Reported Meds & Active Scripts Active Bactrim DS (Sulfamethoxazole-Trimethoprim) 800-160 Mg Tab 1 Tab PO BID Cipro (Ciprofloxacin HCl) 500 Mg Tab 500 Mg PO BID Ketoconazole Topical 2% Cream 1 Applic TOPICAL BID Review of Systems General / Constitutional: No: Fever Eyes: No: Visual changes HENT: Positive: Headaches, Neck Pain Cardiovascular: No: Chest Pain or Discomfort Respiratory: No: Shortness of Breath Gastrointestinal: No: Abdominal Pain Genitourinary: No: Dysuria Musculoskeletal: Positive: Pain Skin: No Rash Neurologic: No: Weakness Psychiatric: No: Depression Endocrine: No: Polydipsia Hematologic/Lymphatic: No: Easy Bruising Physical Exam Narrative GENERAL: Well-nourished, well-developed patient. SKIN: Focused skin assessment warm/dry. HEAD: Normocephalic. Multiple abrasions to the face including the nose and cheek area. EYES: No scleral icterus. No injection or drainage. Pupils 3 mm equal reactive. NECK: Supple, trachea midline. No JVD or lymphadenopathy. Moderate tenderness and palpation paraspinal areas cervical spine. No midline tenderness. CARDIOVASCULAR: Regular rate and rhythm without murmurs, gallops, or rubs. RESPIRATORY: Breath sounds equal bilaterally. No accessory muscle use. GASTROINTESTINAL: Abdomen soft, non-tender, nondistended. MUSCULOSKELETAL: Patient has mild diffuse tenderness over the right shoulder, bilateral knee joint. Full range of motion all joints. No deformity noted. BACK: Moderate tenderness on palpation thoracic lumbar area, without obvious deformity. No CVA tenderness. Neurologic exam: Patient is intoxicated however answers questions appropriately. Patient moves all extremity well. No obvious focal neurological deficit. Data Data Last Documented VS Vital Signs Date Time Temp Pulse Resp B/P (MAP) Pulse Ox O2 Delivery O2 Flow Rate FiO2 04/10/17 12:36 16 92 Room Air 04/10/17 12:09 83 04/10/17 11:58 98.0 124/78 (93) Orders Orders Complete Blood Count With Diff (04/10/17 12:19) Basic Metabolic Panel (Bmp) (04/10/17 12:19) Prothrombin Time / Inr (Pt) (04/10/17 12:19) Act Partial Throm Time (Ptt) (04/10/17 12:19) Iv Access Insert/Monitor (04/10/17 12:19) Ecg Monitoring (04/10/17 12:19) Oximetry (04/10/17 12:19) Alcohol (Ethanol) (04/10/17 12:19) Ct Brain W/O Iv Contrast(Rout) (04/10/17 12:19) Ct Cerv Spine W/O Contrast (04/10/17 12:19) Ct Facial Bones W/O Iv Cont (04/10/17 12:19) Knee, Ltd (1 Or 2vws) (04/10/17 12:19) Shoulder, Limited(2vws) (04/10/17 12:19) Chest, Single Ap (04/10/17 12:19) Spine, Thoracic-Ap/Lat/Sw(3vw) (04/10/17 12:19) Spine, Lumbar - Ltd (Ap & Lat) (04/10/17 12:19) Pelvis, Ap Only (Routine) (04/10/17 12:19) Knee, Ltd (1 Or 2vws) (04/10/17 12:19) Labs Laboratory Tests Test 04/10/17 12:30 White Blood Count 6.1 TH/MM3 Red Blood Count 4.20 MIL/MM3 Hemoglobin 13.9 GM/DL Hematocrit 41.8 % Mean Corpuscular Volume 99.5 FL Mean Corpuscular Hemoglobin 33.1 PG Mean Corpuscular Hemoglobin Concent 33.2 % Red Cell Distribution Width 14.0 % Platelet Count 261 TH/MM3 Mean Platelet Volume 7.9 FL Neutrophils (%) (Auto) 43.0 % Lymphocytes (%) (Auto) 42.8 % Monocytes (%) (Auto) 9.4 % Eosinophils (%) (Auto) 4.4 % Basophils (%) (Auto) 0.4 % Neutrophils # (Auto) 2.6 TH/MM3 Lymphocytes # (Auto) 2.6 TH/MM3 Monocytes # (Auto) 0.6 TH/MM3 Eosinophils # (Auto) 0.3 TH/MM3 Basophils # (Auto) 0.0 TH/MM3 CBC Comment DIFF FINAL Differential Comment Prothrombin Time 10.7 SEC Prothromb Time International Ratio 1.0 RATIO Activated Partial Thromboplast Time 28.9 SEC Blood Urea Nitrogen 7 MG/DL Creatinine 0.73 MG/DL Random Glucose 96 MG/DL Calcium Level 7.8 MG/DL Sodium Level 144 MEQ/L Potassium Level 4.2 MEQ/L Chloride Level 112 MEQ/L Carbon Dioxide Level 22.1 MEQ/L Anion Gap 10 MEQ/L Estimat Glomerular Filtration Rate 110 ML/MIN Ethyl Alcohol Level 304 MG/DL MDM Medical Decision Making Medical Screen Exam Complete: Yes Emergency Medical Condition: Yes Interpretation(s) 1400 p.m. CBC within normal limit. BMP within normal limit. Alcohol 304 15 :22 PM. Last Impressions Thoracic Spine X-Ray 04/10/171218 Signed Impressions: Service Date/Time: Monday, April 10, 2017 13:38 - CONCLUSION: Negative for acute compression Moderate degenerative changes. Niko Avilez MD FACR Shoulder X-Ray 04/10/171218 Signed Impressions: Service Date/Time: Monday, April 10, 2017 13:43 - CONCLUSION: Negative for fracture or dislocation. Follow up in 7-10 days is suggested if symptoms persist. Niko Avilez MD FACR Pelvis X-Ray 04/10/171218 Signed Impressions: Service Date/Time: Monday, April 10, 2017 13:36 - CONCLUSION: Mild deformity left iliac crest, correlation suggested. Niko Avilez MD FACR Maxillofacial CT 04/10/171218 Signed Impressions: Service Date/Time: Monday, April 10, 2017 14:20 - CONCLUSION: Chronic maxillary sinus disease, history of previous fracture on the left, otherwise negative. Niko Avilez MD FACR Lumbar Spine X-Ray 04/10/171218 Signed Impressions: Service Date/Time: Monday, April 10, 2017 13:40 - CONCLUSION: Extensive degenerative changes without evidence for acute compression. Niko Avilez MD FACR Knee X-Ray 04/10/171218 Signed Impressions: Service Date/Time: Monday, April 10, 2017 13:47 - CONCLUSION: Negative for fracture or dislocation. Follow up in 7-10 days is suggested if symptoms persist. Niko Avilez MD FACR Knee X-Ray 04/10/171218 Signed Impressions: Service Date/Time: Monday, April 10, 2017 13:48 - CONCLUSION: Negative for fracture or dislocation. Follow up in 7-10 days is suggested if symptoms persist. Niko Avilez MD FACR Head CT 04/10/179 Signed Impressions: Service Date/Time: Monday, April 10, 2017 14:20 - CONCLUSION: Negative for acute process. Niko Avilez MD FACR Chest X-Ray 04/10/171218 Signed Impressions: Service Date/Time: Monday, April 10, 2017 13:42 - CONCLUSION: Negative for pneumothorax or displaced rib fracture. Niko Avilez MD FACR Cervical Spine CT 04/10/171218 Signed Impressions: Service Date/Time: Monday, April 10, 2017 14:20 - CONCLUSION: Extensive degenerative changes without fracture. Niko Avilez MD FACR Differential Diagnosis Differential diagnosis including head injury, neck injury, facial injury, back injury, extremity injury. Narrative Course 57-year-old male with headache, neck pain, facial injury, back pain, right shoulder pain, bilateral knee pain status post fall. History of EtOH abuse. X- ray pelvis showed deformity of left indirect rest. Reexamination shows no tenderness on palpation left iliac wing. Diagnosis Primary Impression: Closed head injury Qualified Codes: S09.90XA - Unspecified injury of head, initial encounter Additional Impressions: Facial abrasion Qualified Codes: S00.81XA - Abrasion of other part of head, initial encounter Multiple contusions Alcohol intoxication Qualified Codes: F10.920 - Alcohol use, unspecified with intoxication, uncomplicated Patient Instructions: General Instructions Additional Instructions: Trauma instructions given. Wound care daily. I feel for pain. Follow-up with personal physician. Advised [facility] for detox program. Disposition: 01 DISCHARGE HOME Condition: Stable Doug Acevedo MD Apr 10, 2017 12:27
[2017-04-10 12:36] VITALS: RESP 16; O2SAT 92
[2017-04-10 12:50] LABS: AUTOMATED NEUTROPHIL # 2.6 TH/MM3 (1.8-7.7); BASOPHIL % 0.4 % (0.0-2.0); EOSINOPHIL # 0.3 TH/MM3 (0-0.4); EOSINOPHIL % 4.4 % (0.0-4.0); HEMATOCRIT 41.8 % (39.0-51.0); HEMO FLAGS DIFF FINAL; LYMPH % 42.8 % (9.0-44.0); LYMPHOCYTE # 2.6 TH/MM3 (1.0-4.8); MEAN CELL VOLUME 99.5 FL (80.0-100.0); MEAN CORPUSCULAR HEMOGLOBIN 33.1 PG (27.0-34.0); MEAN CORPUSCULAR HGB CONC 33.2 % (32.0-36.0); MONO % 9.4 % (0.0-8.0); PLATELET COUNT 261 TH/MM3 (150-450); WHITE BLOOD COUNT 6.1 TH/MM3 (4.0-11.0)
[2017-04-10 13:03] LABS: APTT (PATIENT) 28.9 SEC (24.3-30.1); PROTHROMBIN TIME - PATIENT 10.7 SEC (9.8-11.6)
[2017-04-10 13:19] LABS: BICARBONATE 22.1 MEQ/L (21.0-32.0)
[2017-04-10 13:21] LABS: POTASSIUM 4.2 MEQ/L (3.5-5.1)
--- NOTE | 2017-04-10 14:33 | RADRPT ---
EXAM DATE/TIME: 04/10/2017 13:42 [facility] COMPARISON: CHEST SINGLE AP, February 18, 2017, 21:52. INDICATIONS : Short of breath after fall. MEDICAL HISTORY : Hypertension. SURGICAL HISTORY : Cholecystectomy. ENCOUNTER: Initial ACUITY: 1 day PAIN SCORE: Non-responsive. LOCATION: Bilateral chest FINDINGS: A single view of the chest demonstrates the lungs to be symmetrically aerated without evidence of mas s, infiltrate or effusion. The cardiomediastinal contours are unremarkable. Osseous structures are intact. CONCLUSION: Negative for pneumothorax or displaced rib fracture. Niko Avilez MD FACR on April 10, 2017 at 14:31 Board Certified Radiologist. This report was verified electronically.
--- NOTE | 2017-04-10 14:36 | RADRPT ---
EXAM DATE/TIME: 04/10/2017 13:36 [facility] COMPARISON: No previous studies available for comparison. INDICATIONS : Pelvic pain from fall. MEDICAL HISTORY : None. SURGICAL HISTORY : Cholecystectomy. ENCOUNTER: Initial ACUITY: 1 day PAIN SCORE: 8/10 LOCATION: Bilateral Pelvis FINDINGS: A single frontal view of the pelvis demonstrates no evidence of fracture. There is mild deformity of the left iliac crest. Correlation suggested. Bony mineralization is normal. The soft tissues are intact. CONCLUSION: Mild deformity left iliac crest, correlation suggested. Niko Avilez MD FACR on April 10, 2017 at 14:33 Board Certified Radiologist. This report was verified electronically.
--- NOTE | 2017-04-10 14:39 | RADRPT ---
EXAM DATE/TIME: 04/10/2017 14:20 [facility] COMPARISON: CT BRAIN W/O CONTRAST, December 19, 2016, 18:41. INDICATIONS : Trauma; fall. RADIATION DOSE: 56.35 CTDIvol (mGy) MEDICAL HISTORY : Hypertension. Carcinoma, bone. ETOH SURGICAL HISTORY : Cholecystectomy. brain ENCOUNTER: Initial ACUITY: 1 day PAIN SCALE: 5/10 LOCATION: cranial TECHNIQUE: Multiple contiguous axial images were obtained of the head. Using automated exposure control and adj ustment of the mA and/or kV according to patient size, radiation dose was kept as low as reasonably a chievable to obtain optimal diagnostic quality images. DICOM format image data is available electro nically for review and comparison. FINDINGS: CEREBRUM: The ventricles are normal for age. No evidence of midline shift, mass lesion, hemorrhage or acute in farction. No extra-axial fluid collections are seen. POSTERIOR FOSSA: The cerebellum and brainstem are intact. The 4th ventricle is midline. The cerebellopontine angle i s unremarkable. EXTRACRANIAL: The visualized portion of the orbits is intact. SKULL: The calvaria is intact. No evidence of skull fracture. CONCLUSION: Negative for acute process. Niko Avilez MD FACR on April 10, 2017 at 14:37 Board Certified Radiologist. This report was verified electronically.
--- NOTE | 2017-04-10 14:42 | RADRPT ---
EXAM DATE/TIME: 04/10/2017 13:47 [facility] COMPARISON: No previous studies available for comparison. INDICATIONS : Right knee pain from fall. MEDICAL HISTORY : Hypertension. SURGICAL HISTORY : Cholecystectomy. ENCOUNTER: Initial ACUITY: 1 day PAIN SCORE: 3/10 LOCATION: Right Knee FINDINGS: Degenerative changes are evident with normal alignment. Fracture is not appreciated. There is no dewayne int effusion. CONCLUSION: Negative for fracture or dislocation. Follow up in 7-10 days is suggested if symptoms persist. Niko Avilez MD FACR on April 10, 2017 at 14:40 Board Certified Radiologist. This report was verified electronically.
--- NOTE | 2017-04-10 14:42 | RADRPT ---
EXAM DATE/TIME: 04/10/2017 13:43 [facility] COMPARISON: No previous studies available for comparison. INDICATIONS : Right shoulder pain from fall. MEDICAL HISTORY : Hypertension. SURGICAL HISTORY : Cholecystectomy. ENCOUNTER: Initial ACUITY: 1 day PAIN SCORE: 8/10 LOCATION: Right Shoulder FINDINGS: Degenerative changes are evident. Alignment is anatomic. Fracture is not appreciated. CONCLUSION: Negative for fracture or dislocation. Follow up in 7-10 days is suggested if symptoms persist. Niko Avilez MD FACR on April 10, 2017 at 14:40 Board Certified Radiologist. This report was verified electronically.
--- NOTE | 2017-04-10 14:43 | RADRPT ---
EXAM DATE/TIME: 04/10/2017 13:48 [facility] COMPARISON: No previous studies available for comparison. INDICATIONS : Left knee pain from fall. MEDICAL HISTORY : Hypertension. SURGICAL HISTORY : Cholecystectomy. ENCOUNTER: Initial ACUITY: 1 day PAIN SCORE: 3/10 LOCATION: Left Knee FINDINGS: Degenerative changes are evident. Alignment is anatomic. Fracture is not appreciated. There is no joint effusion. CONCLUSION: Negative for fracture or dislocation. Follow up in 7-10 days is suggested if symptoms persist. Niko Avilez MD FACR on April 10, 2017 at 14:41 Board Certified Radiologist. This report was verified electronically.
--- NOTE | 2017-04-10 14:45 | RADRPT ---
EXAM DATE/TIME: 04/10/2017 14:20 [facility] COMPARISON: No previous studies available for comparison. INDICATIONS : Trauma; fall. RADIATION DOSE: 36.35 CTDIvol (mGy) MEDICAL HISTORY : Carcinoma, bone. Hypertension. SURGICAL HISTORY : Cholecystectomy. brain ENCOUNTER: Initial ACUITY: 1 day PAIN SCORE: 5/10 LOCATION: Bilateral facial TECHNIQUE: Volumetric scanning of the facial bones was performed. Using automated exposure control and adjustme nt of the mA and/or kV according to patient size, radiation dose was kept as low as reasonably achiev able to obtain optimal diagnostic quality images. DICOM format image data is available [employer] y for review and comparison. FINDINGS: ORBITS: The orbital and infraorbital osseous structures are intact. The retroconal structures have a normal configuration. No radiopaque foreign bodies are seen. Evidence for previous surgery on the left is noted. NASAL BONE: The nasal bone and maxillary spine are intact ZYGOMATIC ARCHES: Symmetric without evidence of fracture. SINUSES: The maxillary, ethmoid and frontal sinuses are intact. Minimal chronic sinus disease is evident. NASAL CAVITY: The nasal septum is intact and midline. The lacrimal ducts are intact. SOFT TISSUES: No radiopaque foreign bodies seen. No soft-tissue swelling is seen. INTRACRANIAL: No intracranial air seen. CRIBIFORM PLATE: Grossly intact. CONCLUSION: Chronic maxillary sinus disease, history of previous fracture on the left, otherwise negative. Niko Avilez MD FACR on April 10, 2017 at 14:43 Board Certified Radiologist. This report was verified electronically.
--- NOTE | 2017-04-10 14:56 | RADRPT ---
EXAM DATE/TIME: 04/10/2017 13:38 [facility] COMPARISON: No previous studies available for comparison. INDICATIONS : Back pain from fall. MEDICAL HISTORY : Hypertension. SURGICAL HISTORY : Cholecystectomy. ENCOUNTER: Initial ACUITY: 1 day PAIN SCORE: 8/10 LOCATION: Thoracic spine FINDINGS: There are moderate degenerative changes in the thoracic spine. Small and calcified evident. Acute c ompression fracture is not evident. CONCLUSION: Negative for acute compression Moderate degenerative changes. Niko Avilez MD FACR on April 10, 2017 at 14:54 Board Certified Radiologist. This report was verified electronically.
--- NOTE | 2017-04-10 14:57 | RADRPT ---
EXAM DATE/TIME: 04/10/2017 13:40 [facility] COMPARISON: No previous studies available for comparison. INDICATIONS : Back pain from fall. MEDICAL HISTORY : Hypertension. SURGICAL HISTORY : Cholecystectomy. ENCOUNTER: Initial ACUITY: 1 day PAIN SCORE: 8/10 LOCATION: Lumbar spine FINDINGS: Moderate degenerative changes are seen in the lower lumbar spine loss of disc space height at L3, 4 L 4, 5 and L5, one. There is no evidence for acute compression. Moderate degenerative changes are present in the facets. Lumbar spinal stenosis would be considerati on. CONCLUSION: Extensive degenerative changes without evidence for acute compression. Niko Avilez MD FACR on April 10, 2017 at 14:54 Board Certified Radiologist. This report was verified electronically.
--- NOTE | 2017-04-10 15:06 | RADRPT ---
EXAM DATE/TIME: 04/10/2017 14:20 [facility] COMPARISON: No previous studies available for comparison. INDICATIONS : Trauma; fall. RADIATION DOSE: 26.05 CTDIvol (mGy) MEDICAL HISTORY : Carcinoma, bone. Hypertension. ETOH SURGICAL HISTORY : Cholecystectomy. brain ENCOUNTER: Initial ACUITY: 1 day PAIN SCALE: 5/10 LOCATION: Bilateral neck TECHNIQUE: Volumetric scanning of the cervical spine was performed. Multiplanar reconstructions in the sagittal, coronal and oblique axial planes were performed. Using automated exposure control and adjustment o f the mA and/or kV according to patient size, radiation dose was kept as low as reasonably achievable to obtain optimal diagnostic quality images. DICOM format image data is available electronically f or review and comparison. FINDINGS: VERTEBRAE: Degenerative changes are evident. ALIGNMENT: No evidence of subluxation. C2-C3: The bony spinal canal is normal in size. No evidence of disc bulge or herniation. The neural forami na are bilaterally patent. 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 C4-C5: Large anterior osteophytes are noted. Ossification of posterior longitudinal ligament is evident. T here is mild stenosis. C5-C6: Extensive uncinate ridging is present with bilateral neural foramina encroachment. Spinal stenosis i s mild. No from encroachment on the right is moderate. C6-C7: Moderate ascites is present. There is bilateral from encroachment. Fracture is not appreciated. C7-T1: The bony spinal canal is normal in size. No evidence of disc bulge or herniation. The neural forami na are bilaterally patent. CONCLUSION: Extensive degenerative changes without fracture. Niko Avilez MD FACR on April 10, 2017 at 15:02 Board Certified Radiologist. This report was verified electronically.
== END 2017-04-10 17:07 | disposition home or self-care (01) ==
LOC: NEPD 11:51
DX: S00.81XA Abrasion of other part of head, initial encounter (principal); M54.2 Cervicalgia; M25.511 Pain in right shoulder; M25.562 Pain in left knee; M25.561 Pain in right knee; F17.200 Nicotine dependence, unspecified, uncomplicated; R07.89 Other chest pain; F10.129 Alcohol abuse with intoxication, unspecified; Y90.8 Blood alcohol level of 240 mg/100 ml or more; W19.XXXA Unspecified fall, initial encounter
CPT/HCPCS: 70450; 70486; 71010; 72072; 72100; 72125; 72170; 73030; 73560; 80048; 80307; 85025; 85610; 85730; 99285

== ENCOUNTER 2017-04-11 10:29 | Emergency (ER) | payer MEDICARE ==
[~2017-04-11] VITALS: Ht 180.3 cm; Wt 60.0 kg
[2017-04-11 10:55] VITALS: BP 126/82
--- NOTE | 2017-04-11 10:57 | PD ---
HPI Chief Complaint: intoxication Time Seen by Provider: 10:44 Travel History International Travel<30 days: No Contact w/Intl Traveler<30days: No History of Present Illness HPI 57-year-old man presents to the emergency room brought in by law enforcement after being found intoxicated. He is ambulatory. He complains that he fell down a couple days ago. He was seen yesterday for fall and had a negative workup. No other complaints. History Past Medical History Narrative Medical Intoxication and alcoholism Homelessness Social History Alcohol Use: Yes (24 BEERS DAILY) Tobacco Use: Yes (1/2 PPD) Allergies-Medications (Allergen,Severity, Reaction): Coded Allergies: No Known Allergies (Unverified , 02/02/17) Reported Meds & Prescriptions Reported Meds & Active Scripts Active Bactrim DS (Sulfamethoxazole-Trimethoprim) 800-160 Mg Tab 1 Tab PO BID Cipro (Ciprofloxacin HCl) 500 Mg Tab 500 Mg PO BID Ketoconazole Topical 2% Cream 1 Applic TOPICAL BID Review of Systems Except as stated in HPI: all other systems reviewed are Neg Physical Exam Narrative GENERAL: Disheveled 57-year-old man, no acute distress. SKIN: Focused skin assessment warm/dry. HEAD: Atraumatic. Normocephalic. EYES: Pupils equal and round. No scleral icterus. No injection or drainage. ENT: No nasal bleeding or discharge. Mucous membranes pink and moist. Some abrasions to his nose are well-healing. NECK: Trachea midline. No JVD. CARDIOVASCULAR: Regular rate and rhythm. No murmur appreciated. RESPIRATORY: No accessory muscle use. Clear to auscultation. Breath sounds equal bilaterally. GASTROINTESTINAL: Abdomen soft, non-tender, nondistended. Hepatic and splenic margins not palpable. MUSCULOSKELETAL: No obvious deformities. No clubbing. No cyanosis. No edema. NEUROLOGICAL: Awake and alert. No obvious cranial nerve deficits. Motor grossly within normal limits. Speech is a little bit slurred. MDM Medical Decision Making Medical Screen Exam Complete: Yes Emergency Medical Condition: Yes Differential Diagnosis Intoxication, homelessness, other Narrative Course Medical decision making 49-year-old man presents emergent arm brought in by police for alcohol intoxication. No evidence of his immediate threat to himself or others. Declined outpatient treatment resources. He is ambulatory. He stable for discharge. Diagnosis Primary Impression: Alcohol intoxication Additional Instructions: Drink alcohol in moderation. Return to the emergency department for any new or worsening symptoms. Med/Other Pt SpecificInfo: No Change to Meds Disposition: 01 DISCHARGE HOME Condition: Foster Shore MD Apr 11, 2017 10:57
[2017-04-11 10:59] VITALS: BP 126/82; PULSE 88; RESP 16; TEMP 98; O2SAT 98
== END 2017-04-11 12:04 | disposition home or self-care (01) ==
LOC: NEPD 10:29
DX: F10.920 Alcohol use, unspecified with intoxication, uncomplicated (principal)
CPT/HCPCS: 99281

== ENCOUNTER 2017-04-18 16:48 | Inpatient (IN) | payer MEDICARE ==
[~2017-04-18] VITALS: Ht 180.3 cm; Wt 83.3 kg
[2017-04-18 17:33] VITALS: BP 147/120; PULSE 106; RESP 20; TEMP 96.6; O2SAT 96
[2017-04-18] MEDS ORDERED: SODIUM CHLORIDE 0.9% FLUSH 10 ML FLUSH IV FLUSH PRN (17:45)
[2017-04-18] MEDS ORDERED: LORazepam 2 MG/ML VIAL IV PUSH PRN (17:45)
[2017-04-18] MEDS ORDERED: FLUMAZENIL 0.5 MG/5 ML VIAL IV PUSH PRN (17:45)
[2017-04-18] MEDS ORDERED: ONDANSETRON HCL 4 MG/2 ML VIAL IV PRN (17:45)
--- NOTE | 2017-04-18 18:14 | HHI.HP ---
[facility] No Primary Care Physician Admission Diagnosis Alcohol withdrawal Diagnoses: (1) Alcohol withdrawal Travel History International Travel<30 Days: No Contact w/Intl Traveler <30 Da: No Traveled to Known Affected Are: No History of Present Illness This is a 57 year-old female with past medical history of alcoholism and hypertension who presented to the ER today complaining of alcohol withdrawal symptoms including tremors, hallucinosis. The patient states that he normally drinks about a fifth of vodka a day and half case of beer. He has been drinking this way since he was last hospitalized in July. The patient states he stopped drinking 2 days ago as he had to go [place] [facility] [place]. He has started to develop hallucinations "seeing things" out of the corner of his eyes. No seizures although he does have a history of alcohol withdrawal seizures as well as delirium tremens. The patient also endorses hot and cold flashes. He denies nausea vomiting abdominal pain and hematemesis hematochezia or melena. The patient states that he is tired of drinking and wants to get involved in a cessation program. The patient states he has unintentionally lost about 70 pounds over the past 6 months which she attributes to alcoholism. The patient also states that he had a syncopal episode 2 days ago where he blacked out" face planted" suffering abrasions to his nose and lower extremities. 10 point review of systems otherwise negative. 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 Physical Exam Vital Signs Vital Signs Date Time Temp Pulse Resp B/P (MAP) Pulse Ox O2 Delivery O2 Flow Rate FiO2 04/18/17 17:33 96.6 106 20 147/120 (129) 96 Physical Exam GENERAL: This is a well-nourished, well-developed patient, in no apparent distress. SKIN: warm and dry. abrasions over lower extremities, knees b/l. HEAD: Atraumatic. Normocephalic. EYES: Pupils equal round and reactive. Extraocular motions intact. No scleral icterus. No injection or drainage. ENT: Abrasion on the bride of the nose. Nose without bleeding. Throat without erythema, tonsillar hypertrophy or exudate. Uvula midline. Airway patent. NECK: Trachea midline. No JVD or lymphadenopathy. Supple, nontender, no meningeal signs. CARDIOVASCULAR: Regular rate and rhythm without murmurs, gallops, or rubs. varicose veins of lower extremities. RESPIRATORY: Clear to auscultation. Breath sounds equal bilaterally. No wheezes , rales, or rhonchi. GASTROINTESTINAL: Abdomen soft, non-tender, nondistended. No hepato-splenomegaly , or palpable masses. No guarding. MUSCULOSKELETAL: Extremities without clubbing, cyanosis, or edema. NEUROLOGICAL: Awake and alert. Motor and sensory grossly within normal limits. Normal speech. Caprini VTE Risk Assessment Caprini VTE Risk Assessment: Mod/High Risk (score >= 2) Caprini Risk Assessment Model Point Value = 1 Point Value = 2 Point Value = 3 Point Value = 5 Age 41-60 Minor surgery BMI > 25 kg/m2 Swollen legs Varicose veins or History of unexplained or recurrent spontaneous Oral contraceptives or hormone replacement Sepsis (< 1 month) Serious lung disease, including pneumonia (< 1 month) Abnormal pulmonary function Acute myocardial infarction Congestive heart failure (< 1 month) History of inflammatory bowel disease Medical patient at bed rest Age 61-74 Arthroscopic surgery Major open surgery (> 45 min) Laparoscopic surgery (> 45 min) Malignancy Confined to bed (> 72 hours) Immobilizing plaster cast Central venous access Age >= 75 History of VTE Family history of VTE Factor V Leiden Prothrombin [id number] Lupus anticoagulant Anticardiolipin antibodies Elevated serum homocysteine Heparin-induced thrombocytopenia Other congenital or acquired thrombophilia Stroke (< 1 month) Elective arthroplasty Hip, pelvis, or leg fracture Acute spinal cord injury (< 1 month) Prophylaxis Regimen Total Risk Factor Score Risk Level Prophylaxis Regimen 0-1 Low Early ambulation 2 Moderate Order ONE of the following: *Sequential Compression Device (SCD) *Heparin 5000 units SQ BID 3-4 Higher Order ONE of the following medications: *Heparin 5000 units SQ TID *Enoxaparin/Lovenox 40 mg SQ daily (WT < 150 kg, CrCl > 30 mL/min) *Enoxaparin/Lovenox 30 mg SQ daily (WT < 150 kg, CrCl > 10-29 mL/min) *Enoxaparin/Lovenox 30 mg SQ BID (WT < 150 kg, CrCl > 30 mL/min) AND/OR *Sequential Compression Device (SCD) 5 or more Highest Order ONE of the following medications: *Heparin 5000 units SQ TID (Preferred with Epidurals) *Enoxaparin/Lovenox 40 mg SQ daily (WT < 150 kg, CrCl > 30 mL/min) *Enoxaparin/Lovenox 30 mg SQ daily (WT < 150 kg, CrCl > 10-29 mL/min) *Enoxaparin/Lovenox 30 mg SQ BID (WT < 150 kg, CrCl > 30 mL/min) AND *Sequential Compression Device (SCD) Assessment and Plan Assessment and Plan -Alcohol withdrawal, hallucinosis in a patient with significant alcohol history and history of DTs and alcohol withdrawal seizures. Begin the alcohol withdrawal protocol and I will start him on Librium 25 mg by mouth 3 times a day. Monitor closely. Consult case management for alcohol cessation programs. -Status post syncopal event on toxic it several days ago. With lacerations of the knees and nose. Will use antibiotic salve on the lesions. Head and cervical spine CT was negative in the emergency department. -History of hypertension. Monitor blood pressure and begin antihypertensives as needed. -DVT prophylaxis with SCDs and Lovenox. Edith Smith MD Apr 18, 2017 18:14
[2017-04-18] MEDS: chlordiazePOXIDE 25 MG CAP PO SCH (18:34)
[2017-04-18] MEDS: LORazepam 1 MG TAB PO PRN (18:34)
[2017-04-18] MEDS: ENOXAPARIN SODIUM 40 MG/0.4 ML SYRINGE SQ SCH (18:35)
[2017-04-18] MEDS: SODIUM CHLORIDE 0.9% FLUSH 10 ML FLUSH IV FLUSH SCH (20:56)
[2017-04-18] MEDS: LORazepam 2 MG/ML VIAL IV PUSH PRN ×2 (20:56→23:10)
[2017-04-18 21:15] VITALS: BP 150/104; RESP 18; TEMP 98.2; O2SAT 95
[2017-04-19 01:10] VITALS: BP 137/104; PULSE 109; RESP 20; TEMP 96.6; O2SAT 96
[2017-04-19] MEDS: LORazepam 2 MG/ML VIAL IV PUSH PRN ×3 (01:49→23:33)
[2017-04-19] MEDS: LORazepam 2 MG TAB PO PRN ×4 (03:54→14:57)
[2017-04-19 04:35] VITALS: BP 142/100; O2SAT 96
[2017-04-19 08:45] LABS: CHLORIDE 102 MEQ/L (98-107); POTASSIUM 3.6 MEQ/L (3.5-5.1); SODIUM (NA) 135 MEQ/L (136-145)
[2017-04-19 08:49] LABS: ANION GAP 10 MEQ/L (5-15); BICARBONATE 23.2 MEQ/L (21.0-32.0); BLOOD UREA NITROGEN 13 MG/DL (7-18)
[2017-04-19 08:52] LABS: ALT (GPT) 33 U/L (12-78); AST (GOT) 49 U/L (15-37); GLOMERULAR FILTRATION RATE 102 ML/MIN (>89)
[2017-04-19 08:53] LABS: TOTAL BILIRUBIN ADULT 0.7 MG/DL (0.2-1.0)
[2017-04-19 08:55] LABS: ALKALINE PHOSPHATASE 122 U/L (45-117)
[2017-04-19] MEDS: SODIUM CHLORIDE 0.9% FLUSH 10 ML FLUSH IV FLUSH SCH ×2 (09:00→21:55)
[2017-04-19 09:57] VITALS: BP 153/102; PULSE 100; RESP 20; TEMP 98.9; O2SAT 94
[2017-04-19] MEDS: FOLIC ACID 1 MG TAB PO SCH (09:58)
[2017-04-19] MEDS: THIAMINE HCL 100 MG TAB PO SCH (09:58)
[2017-04-19] MEDS: chlordiazePOXIDE 25 MG CAP PO SCH ×3 (09:58→18:42)
[2017-04-19] MEDS: MULTIVITAMINS/MINERALS THERAPEUTIC TAB PO SCH (09:58)
[2017-04-19] MEDS: PANTOPRAZOLE SOD 40 MG DELAYED RELEASE TAB PO SCH (09:59)
--- NOTE | 2017-04-19 11:14 | HHI.PR ---
Subjective Remarks Patient endorses hallucinosis with ghostlike figures in the corner of his eyes. The patient also endorses significant withdrawal symptoms and tremor. Objective Vitals Vital Signs Date Time Temp Pulse Resp B/P (MAP) Pulse Ox O2 Delivery O2 Flow Rate FiO2 04/19/17 09:57 98.9 100 20 153/102 (119) 94 04/19/17 04:35 142/100 (114) 96 04/19/17 01:10 96.6 109 20 137/104 (115) 96 04/18/17 21:15 98.2 18 150/104 (119) 95 04/18/17 17:33 96.6 106 20 147/120 (129) 96 Result Diagram: 04/19/17 0743 Objective Remarks GENERAL: This is a well-nourished, well-developed patient, in no apparent distress. SKIN: warm and dry. abrasions over lower extremities, knees b/l. HEAD: Atraumatic. Normocephalic. EYES: Pupils equal round and reactive. Extraocular motions intact. No scleral icterus. No injection or drainage. ENT: Abrasion on the bride of the nose. Nose without bleeding. Throat without erythema, tonsillar hypertrophy or exudate. Uvula midline. Airway patent. NECK: Trachea midline. No JVD or lymphadenopathy. Supple, nontender, no meningeal signs. CARDIOVASCULAR: Regular rate and rhythm without murmurs, gallops, or rubs. varicose veins of lower extremities. RESPIRATORY: Clear to auscultation. Breath sounds equal bilaterally. No wheezes , rales, or rhonchi. GASTROINTESTINAL: Abdomen soft, non-tender, nondistended. No hepato-splenomegaly , or palpable masses. No guarding. MUSCULOSKELETAL: Extremities without clubbing, cyanosis, or edema. NEUROLOGICAL: Awake and alert. Motor and sensory grossly within normal limits. Normal speech. A/P Problem List: (1) Alcohol withdrawal ICD Code: F10.239 - Alcohol dependence with withdrawal, unspecified Status: Acute Assessment and Plan -Alcohol withdrawal, hallucinosis in a patient with significant alcohol history and history of DTs and alcohol withdrawal seizures. Continue alcohol withdrawal protocol and Librium 25 mg by mouth 3 times a day. Monitor closely. Consult case management for alcohol cessation programs. -Status post syncopal event on toxic it several days ago. With lacerations of the knees and nose. Will use antibiotic salve on the lesions. Head and cervical spine CT was negative in the emergency department. -History of hypertension. Monitor blood pressure and begin antihypertensives as needed. -DVT prophylaxis with SCDs and Lovenox. Edith Smith MD Apr 19, 2017 11:14
[2017-04-19 11:51] VITALS: BP 152/102; PULSE 96; RESP 18; TEMP 98; O2SAT 97
[2017-04-19 16:12] VITALS: BP 149/106; PULSE 99; RESP 22; TEMP 98.3; O2SAT 95
[2017-04-19] MEDS: BACITRACIN TOP OINT 15 GM TUBE TOPICAL SCH ×2 (16:27→21:00)
[2017-04-19] MEDS: ENOXAPARIN SODIUM 40 MG/0.4 ML SYRINGE SQ SCH (17:53)
[2017-04-19 20:00] VITALS: BP 150/97; PULSE 88; RESP 20; TEMP 97.9; O2SAT 95
[2017-04-20] MEDS: LORazepam 2 MG/ML VIAL IV PUSH PRN ×3 (01:19→05:13)
[2017-04-20 08:00] VITALS: BP 151/104; PULSE 96; RESP 20; TEMP 96.2; O2SAT 97
[2017-04-20] MEDS: LORazepam 2 MG TAB PO PRN (08:39)
[2017-04-20] MEDS: MULTIVITAMINS/MINERALS THERAPEUTIC TAB PO SCH (09:42)
[2017-04-20] MEDS: FOLIC ACID 1 MG TAB PO SCH (09:42)
[2017-04-20] MEDS: PANTOPRAZOLE SOD 40 MG DELAYED RELEASE TAB PO SCH (09:42)
[2017-04-20] MEDS: chlordiazePOXIDE 25 MG CAP PO SCH (09:42)
[2017-04-20] MEDS: SODIUM CHLORIDE 0.9% FLUSH 10 ML FLUSH IV FLUSH SCH ×2 (09:42→20:22)
[2017-04-20] MEDS: THIAMINE HCL 100 MG TAB PO SCH (09:42)
[2017-04-20 12:00] VITALS: BP 150/101; PULSE 85; RESP 18; TEMP 97.2; O2SAT 95
--- NOTE | 2017-04-20 12:03 | HHI.PR ---
Subjective Remarks Patient reports he is still very tremulous and hallucinating. States he is starting to eat better and feeling better overall. Objective Vitals Vital Signs Date Time Temp Pulse Resp B/P (MAP) Pulse Ox O2 Delivery O2 Flow Rate FiO2 04/20/17 08:00 96.2 96 20 151/104 (120) 97 04/19/17 20:00 97.9 88 20 150/97 (114) 95 04/19/17 18:43 18 04/19/17 16:12 98.3 99 22 149/106 (120) 95 I/O 04/19/17 04/19/17 04/19/17 04/20/17 04/20/17 04/20/17 07:00 15:00 23:00 07:00 15:00 23:00 Intake Total 800 ml 480 ml Balance 800 ml 480 ml Intake Oral 800 ml 480 ml # Voids 3 4 3 # Bowel Movements 0 1 Result Diagram: 04/19/17 0743 Objective Remarks GENERAL: This is a well-nourished, well-developed patient, in no apparent distress. CARDIOVASCULAR: Normal rate and regular rhythm without murmurs, gallops, or rubs. RESPIRATORY: Good respiratory efforts. Breath sounds equal and clear to auscultation bilaterally. GASTROINTESTINAL: Abdomen soft, non-tender, non-distended. Normal active bowel sounds MUSCULOSKELETAL: Extremities without cyanosis, or edema. NEURO: Alert & Oriented. Moves all ext x4. tremulous. PSYCH: Does not seem to be responding to internal stimuli. Somewhat anxious. A/P Problem List: (1) Alcohol withdrawal ICD Code: F10.239 - Alcohol dependence with withdrawal, unspecified Status: Acute Assessment and Plan 57-year-old male alcoholic admitted for: -Alcohol withdrawal, hallucinations in a patient with significant alcohol history and history of DTs and alcohol withdrawal seizures. Patient is improving overall. Continue CIWA protocol. Discontinue scheduled Librium. Patient was extensively counseled on the detrimental effects of alcohol on his health. He was counseled to quit. Patient expresses desire to go to inpatient alcohol rehabilitation on discharge. Case management following. -Reported syncopal event while intoxicated several days ago. With lacerations of the knees and nose. Will use topical antibiotics on the lesions. Head and cervical spine CT was negative in the emergency department. -History of hypertension. Monitor blood pressure and begin antihypertensives as needed. -DVT prophylaxis with SCDs and Lovenox. [place] Porter MD Apr 20, 2017 12:03
[2017-04-20] MEDS: BACITRACIN TOP OINT 15 GM TUBE TOPICAL SCH ×2 (12:37→20:22)
[2017-04-20] MEDS: amLODIPine BESYLATE 5 MG TAB PO SCH (15:21)
[2017-04-20] MEDS: LORazepam 1 MG TAB PO PRN ×2 (16:25→20:21)
[2017-04-20 17:30] VITALS: BP 150/101; PULSE 85; RESP 18; TEMP 97.2; O2SAT 95
[2017-04-20] MEDS: ENOXAPARIN SODIUM 40 MG/0.4 ML SYRINGE SQ SCH (18:20)
[2017-04-20 20:00] VITALS: BP 130/93; PULSE 97; RESP 20; TEMP 97.6; O2SAT 99
[2017-04-21] VITALS: BP 155/101; PULSE 82; RESP 18; TEMP 97.7; O2SAT 96
[2017-04-21] MEDS: LORazepam 1 MG TAB PO PRN ×4 (00:36→23:15)
[2017-04-21] MEDS: LORazepam 2 MG TAB PO PRN ×2 (04:25→20:25)
[2017-04-21] MEDS: MULTIVITAMINS/MINERALS THERAPEUTIC TAB PO SCH (08:35)
[2017-04-21] MEDS: PANTOPRAZOLE SOD 40 MG DELAYED RELEASE TAB PO SCH (08:35)
[2017-04-21] MEDS: amLODIPine BESYLATE 5 MG TAB PO SCH (08:35)
[2017-04-21] MEDS: FOLIC ACID 1 MG TAB PO SCH (08:35)
[2017-04-21] MEDS: THIAMINE HCL 100 MG TAB PO SCH (08:35)
[2017-04-21] MEDS: SODIUM CHLORIDE 0.9% FLUSH 10 ML FLUSH IV FLUSH SCH ×2 (08:36→21:00)
[2017-04-21] MEDS: BACITRACIN TOP OINT 15 GM TUBE TOPICAL SCH ×2 (08:37→21:00)
[2017-04-21 08:41] VITALS: BP 143/104; PULSE 94; RESP 16; TEMP 96.8; O2SAT 99
[2017-04-21 12:00] VITALS: BP 150/90; PULSE 89; RESP 18; TEMP 98.2; O2SAT 97
--- NOTE | 2017-04-21 13:34 | HHI.PR ---
Subjective Remarks patient states feels better still has tremors c/o some hallucinations. states feels dizzy Objective Vitals Vital Signs Date Time Temp Pulse Resp B/P (MAP) Pulse Ox O2 Delivery O2 Flow Rate FiO2 04/21/17 08:41 96.8 94 16 143/104 (117) 99 04/21/17 00:00 97.7 82 18 155/101 (119) 96 04/20/17 20:00 97.6 97 20 130/93 (105) 99 04/20/17 17:30 97.2 85 18 150/101 (117) 95 04/20/17 13:41 18 I/O 04/20/17 04/20/17 04/20/17 04/21/17 04/21/17 04/21/17 07:00 15:00 23:00 07:00 15:00 23:00 Intake Total 480 ml 560 ml 460 ml Balance 480 ml 560 ml 460 ml Intake Oral 480 ml 560 ml 460 ml # Voids 3 4 2 # Bowel Movements 0 0 Result Diagram: 04/19/17 0743 Objective Remarks AAOx3, nad fine tromors in upper extremities S1S2 RRR, no MRG abdomen soft, nt, nd Clear lungs BL Medications and IVs Current Medications Medications (Trade) Dose Ordered Sig/Jv Route Start Time Stop Time Status Last Admin (NS Flush) 2 ml UNSCH PRN IV FLUSH 04/18/17 17:45 (NS Flush) 2 ml BID IV FLUSH 04/18/17 21:00 04/21/17 08:36 (Folate) 1 mg DAILY PO 04/19/17 09:00 04/24/17 08:59 04/21/17 08:35 (Vitamin B1) 100 mg DAILY PO 04/19/17 09:00 04/21/17 08:35 (Theragran M Tab) 1 tab DAILY PO 04/19/17 09:00 04/24/17 08:59 04/21/17 08:35 (Zofran Inj) 4 mg Q6H PRN IV 04/18/17 17:45 (Protonix) 40 mg DAILY PO 04/19/17 09:00 04/21/17 08:35 (Romazicon Inj) 0.2 mg Q1M PRN IV PUSH 04/18/17 17:45 (Ativan) 1 mg Q4H PRN PO 04/18/17 17:45 04/21/17 12:23 (Ativan Inj) 1 mg Q4H PRN IV PUSH 04/18/17 17:45 04/19/17 01:49 (Ativan) 2 mg Q2H PRN PO 04/18/17 17:45 04/21/17 04:25 (Ativan Inj) 2 mg Q2H PRN IV PUSH 04/18/17 17:45 04/20/17 03:32 (Ativan Inj) 2 mg Q1H PRN IV PUSH 04/18/17 17:45 04/20/17 05:13 (Ativan Inj) 2 mg Q15M PRN IV PUSH 04/18/17 17:45 (Lovenox Inj) 40 mg Q24H SQ 04/18/17 19:00 04/20/17 18:20 (Baciguent Oint) 1 applic Q12HR TOPICAL 04/19/17 12:00 04/20/17 20:22 (Roxicodone) 5 mg Q6H PRN PO 04/19/17 17:30 04/21/17 08:41 (Norvasc) 5 mg DAILY PO 04/20/17 14:30 04/21/17 08:35 Urinary Catheter: No Vascular Central Line Catheter: No A/P Problem List: (1) Alcohol withdrawal ICD Code: F10.239 - Alcohol dependence with withdrawal, unspecified Status: Acute Plan: Alcohol withdrawal is improving. Continue CIID protocol. Scheduling was discontinued on 04/20. Alcohol cessation advice provided. (2) HTN (hypertension) ICD Code: I10 - Essential (primary) hypertension Plan: I will increase dose of amlodipine to 10 mg by mouth daily. (3) Syncope ICD Code: R55 - Syncope and collapse Plan: Patient states he had a syncopal episode while intoxicated several days ago. Patient sustained several lacerations of the knees and nose. Topical antibiotic to start on the lesions. Head and cervical spine CT was negative in emergency department. EKG obtained on admission and reviewed personally by me showed sinus rhythm with a ventricular heart rate of 97 bpm with occasional PVCs, however no ST-T changes suggestive of active ischemia. Assessment and Plan -DVT prophylaxis with SCDs and Lovenox. Discharge Planning Continue to monitor in the medical floor, the patient still requiring several doses of IV benzodiazepines. Malik Phelan MD Apr 21, 2017 13:34
[2017-04-21 16:00] VITALS: BP 142/97; PULSE 91; RESP 18; TEMP 98.2; O2SAT 97
[2017-04-21] MEDS: ENOXAPARIN SODIUM 40 MG/0.4 ML SYRINGE SQ SCH (18:04)
[2017-04-21 20:00] VITALS: BP 142/91; PULSE 80; RESP 16; TEMP 99; O2SAT 98
[2017-04-22 08:00] VITALS: BP 150/100; PULSE 85; RESP 20; TEMP 97.7; O2SAT 97
[2017-04-22] MEDS: THIAMINE HCL 100 MG TAB PO SCH (08:03)
[2017-04-22] MEDS: FOLIC ACID 1 MG TAB PO SCH (08:03)
[2017-04-22] MEDS: MULTIVITAMINS/MINERALS THERAPEUTIC TAB PO SCH (08:03)
[2017-04-22] MEDS: PANTOPRAZOLE SOD 40 MG DELAYED RELEASE TAB PO SCH (08:03)
[2017-04-22] MEDS: SODIUM CHLORIDE 0.9% FLUSH 10 ML FLUSH IV FLUSH SCH ×2 (08:04→22:26)
[2017-04-22] MEDS: BACITRACIN TOP OINT 15 GM TUBE TOPICAL SCH ×2 (08:07→21:00)
[2017-04-22] MEDS: LISINOPRIL 5 MG TAB PO SCH (11:56)
[2017-04-22 12:00] VITALS: BP 130/97; PULSE 85; RESP 20; TEMP 97.9; O2SAT 97
[2017-04-22 14:58] LABS: AUTOMATED NEUTROPHIL # 3.5 TH/MM3 (1.8-7.7); BASOPHIL # 0.1 TH/MM3 (0-0.2); BASOPHIL % 0.9 % (0.0-2.0); EOSINOPHIL # 0.5 TH/MM3 (0-0.4); EOSINOPHIL % 7.7 % (0.0-4.0); HEMATOCRIT 41.7 % (39.0-51.0); HEMO FLAGS DIFF FINAL; LYMPH % 18.6 % (9.0-44.0); LYMPHOCYTE # 1.1 TH/MM3 (1.0-4.8); MEAN CELL VOLUME 97.1 FL (80.0-100.0); MEAN CORPUSCULAR HEMOGLOBIN 32.2 PG (27.0-34.0); MEAN CORPUSCULAR HGB CONC 33.1 % (32.0-36.0); MONO % 11.4 % (0.0-8.0); NEUT % 61.4 % (16.0-70.0); PLATELET COUNT 152 TH/MM3 (150-450); WHITE BLOOD COUNT 5.9 TH/MM3 (4.0-11.0)
[2017-04-22 15:03] LABS: CHLORIDE 103 MEQ/L (98-107); POTASSIUM 3.5 MEQ/L (3.5-5.1); SODIUM (NA) 136 MEQ/L (136-145)
[2017-04-22 15:07] LABS: ANION GAP 6 MEQ/L (5-15); BICARBONATE 27.3 MEQ/L (21.0-32.0); BLOOD UREA NITROGEN 9 MG/DL (7-18); MAGNESIUM 2.1 MG/DL (1.5-2.5)
[2017-04-22 15:10] LABS: ALT (GPT) 42 U/L (12-78); AST (GOT) 53 U/L (15-37); GLOMERULAR FILTRATION RATE 94 ML/MIN (>89)
[2017-04-22 15:11] LABS: TOTAL BILIRUBIN ADULT 0.4 MG/DL (0.2-1.0)
[2017-04-22 15:13] LABS: ALKALINE PHOSPHATASE 120 U/L (45-117)
--- NOTE | 2017-04-22 15:55 | HHI.PR ---
Subjective Remarks Deferred entry - patient seen at 12:15 am Patient states feels horrible, he complains of nasal congestion and cough. Patient denies fevers or chills BP noted to be elevated into the 150 systolic. Objective Vitals Vital Signs Date Time Temp Pulse Resp B/P (MAP) Pulse Ox O2 Delivery O2 Flow Rate FiO2 04/22/17 12:00 97.9 85 20 130/97 (108) 97 04/22/17 08:00 97.7 85 20 150/100 (117) 97 04/21/17 20:00 99.0 80 16 142/91 (108) 98 04/21/17 16:00 98.2 91 18 142/97 (112) 97 I/O 04/21/17 04/21/17 04/21/17 04/22/17 04/22/17 04/22/17 07:00 15:00 23:00 07:00 15:00 23:00 Intake Total 460 ml 600 ml 480 ml Balance 460 ml 600 ml 480 ml Intake Oral 460 ml 600 ml 480 ml # Voids 2 3 4 # Bowel Movements 0 Result Diagram: 04/22/17 1426 04/22/17 1426 Objective Remarks AAOx3, nad No tremors observed S1S2 RRR, no MRG abdomen soft, nt, nd There is mild diffuse wheezing bilaterally lung exam. There is some erythema surrounding patient's open wounds in lower extremities. Medications and IVs Current Medications Medications (Trade) Dose Ordered Sig/Jv Route Start Time Stop Time Status Last Admin (NS Flush) 2 ml UNSCH PRN IV FLUSH 04/18/17 17:45 (NS Flush) 2 ml BID IV FLUSH 04/18/17 21:00 04/22/17 08:04 (Folate) 1 mg DAILY PO 04/19/17 09:00 04/24/17 08:59 04/22/17 08:03 (Vitamin B1) 100 mg DAILY PO 04/19/17 09:00 04/22/17 08:03 (Theragran M Tab) 1 tab DAILY PO 04/19/17 09:00 04/24/17 08:59 04/22/17 08:03 (Zofran Inj) 4 mg Q6H PRN IV 04/18/17 17:45 (Protonix) 40 mg DAILY PO 04/19/17 09:00 04/22/17 08:03 (Romazicon Inj) 0.2 mg Q1M PRN IV PUSH 04/18/17 17:45 (Ativan) 1 mg Q4H PRN PO 04/18/17 17:45 04/21/17 23:15 (Ativan Inj) 1 mg Q4H PRN IV PUSH 04/18/17 17:45 04/19/17 01:49 (Ativan) 2 mg Q2H PRN PO 04/18/17 17:45 04/21/17 20:25 (Ativan Inj) 2 mg Q2H PRN IV PUSH 04/18/17 17:45 04/20/17 03:32 (Ativan Inj) 2 mg Q1H PRN IV PUSH 04/18/17 17:45 04/20/17 05:13 (Ativan Inj) 2 mg Q15M PRN IV PUSH 04/18/17 17:45 (Lovenox Inj) 40 mg Q24H SQ 04/18/17 19:00 04/21/17 18:04 (Baciguent Oint) 1 applic Q12HR TOPICAL 04/19/17 12:00 04/20/17 20:22 (Roxicodone) 5 mg Q6H PRN PO 04/19/17 17:30 04/22/17 12:00 (Norvasc) 10 mg DAILY PO 04/22/17 09:00 04/22/17 08:03 (Prinivil) 5 mg DAILY PO 04/22/17 11:30 04/22/17 11:56 Urinary Catheter: No Vascular Central Line Catheter: No A/P Problem List: (1) Alcohol withdrawal ICD Code: F10.239 - Alcohol dependence with withdrawal, unspecified Status: Acute Plan: Alcohol withdrawal is improving. Continue CIWA protocol. Librium was discontinued on 04/20. Alcohol cessation advice provided. 04/22 the patient has not been requiring Ativan since 04/21. Continue to monitor and continue CIWA protocol. (2) HTN (hypertension) ICD Code: I10 - Essential (primary) hypertension Plan: Blood pressure still uncontrolled, continue amlodipine 10 mg by mouth daily and will start the patient on lisinopril. (3) Syncope ICD Code: R55 - Syncope and collapse Plan: Patient states he had a syncopal episode while intoxicated several days ago. Patient sustained several lacerations of the knees and nose. Topical antibiotic to start on the lesions. Head and cervical spine CT was negative in emergency department. EKG obtained on admission and reviewed personally by me showed sinus rhythm with a ventricular heart rate of 97 bpm with occasional PVCs, however no ST-T changes suggestive of active ischemia. (4) Cough ICD Code: R05 - Cough Plan: I will obtain a chest x-ray. I will start the patient on Robitussin-DM for symptomatic management. (5) Nasal congestion ICD Code: R09.81 - Nasal congestion Plan: I will start the patient on Flonase nasal spray. I will also obtain a flu antigen test. Assessment and Plan -DVT prophylaxis with SCDs and Lovenox. Discharge Planning Discharge pending chest x-ray and improvement of wheezing. Malik Phelan MD Apr 22, 2017 15:55
[2017-04-22 16:00] VITALS: BP 128/84; PULSE 86; RESP 20; TEMP 97.5; O2SAT 95
[2017-04-22] MEDS ORDERED: RESP: ALBUTEROL 2.5 MG/IPRATROPIUM 0.5 MG NEB (PRN) NEB (16:00)
[2017-04-22] MEDS: FLUTICASONE PROPIONATE 50 MCG/ACT 16 GM NASAL SPRAY EACH NARE SCH (16:00)
[2017-04-22] MEDS ORDERED: RESP: ALBUTEROL 2.5 MG/IPRATROPIUM 0.5 MG NEB (SCH) NEB ONE (16:00)
[2017-04-22] MEDS ORDERED: guaiFENesin/DEXTROMETHORPHAN 200 MG/20 MG/10 ML CUP PO PRN (16:00)
[2017-04-22] MEDS ORDERED: RESP: ALBUTEROL 2.5 MG/IPRATROPIUM 0.5 MG NEB (SCH) NEB (16:00)
[2017-04-22] MEDS: ENOXAPARIN SODIUM 40 MG/0.4 ML SYRINGE SQ SCH (17:45)
[2017-04-22] MEDS: RESP: ALBUTEROL 2.5 MG/IPRATROPIUM 0.5 MG NEB (SCH) NEB (19:30)
[2017-04-22 20:00] VITALS: BP 124/84; PULSE 83; RESP 18; TEMP 98.9; O2SAT 97
--- NOTE | 2017-04-22 22:17 | RADRPT ---
EXAM DATE/TIME: 04/22/2017 21:29 [facility] COMPARISON: CHEST SINGLE AP, April 10, 2017, 13:42. INDICATIONS : Productive cough since last night. MEDICAL HISTORY : Carcinoma, bone. Hypertension SURGICAL HISTORY : Cholecystectomy. brain ENCOUNTER: Subsequent ACUITY: 2 weeks PAIN SCORE: 0/10 LOCATION: Bilateral chest FINDINGS: PA and lateral views of the chest demonstrate the lungs to be symmetrically aerated without evidence of mass, infiltrate or effusion. The cardiomediastinal contours are unremarkable. Osseous structure s are intact. CONCLUSION: No pneumonia or other acute cardiopulmonary disease demonstrated. Kal Maldonado MD on April 22, 2017 at 22:15 Board Certified Radiologist. This report was verified electronically.
[2017-04-23] VITALS: BP 140/93; PULSE 85; RESP 18; TEMP 97.7; O2SAT 97
[2017-04-23 08:00] VITALS: BP 107/86; PULSE 90; RESP 17; TEMP 96.1; O2SAT 98
[2017-04-23] MEDS: RESP: ALBUTEROL 2.5 MG/IPRATROPIUM 0.5 MG NEB (SCH) NEB ×2 (08:00→11:48)
[2017-04-23 08:01] VITALS: O2SAT 92
[2017-04-23] MEDS: PANTOPRAZOLE SOD 40 MG DELAYED RELEASE TAB PO SCH (08:06)
[2017-04-23] MEDS: THIAMINE HCL 100 MG TAB PO SCH (08:07)
[2017-04-23] MEDS: FOLIC ACID 1 MG TAB PO SCH (08:07)
[2017-04-23] MEDS: MULTIVITAMINS/MINERALS THERAPEUTIC TAB PO SCH (08:07)
[2017-04-23] MEDS: SODIUM CHLORIDE 0.9% FLUSH 10 ML FLUSH IV FLUSH SCH (08:08)
[2017-04-23] MEDS: LISINOPRIL 5 MG TAB PO SCH (08:08)
[2017-04-23] MEDS: FLUTICASONE PROPIONATE 50 MCG/ACT 16 GM NASAL SPRAY EACH NARE SCH (08:09)
[2017-04-23] MEDS: BACITRACIN TOP OINT 15 GM TUBE TOPICAL SCH (08:10)
[2017-04-23 12:00] VITALS: BP 118/83; PULSE 93; RESP 17; TEMP 96.6; O2SAT 94
--- NOTE | 2017-04-23 13:08 | HHI.PR ---
Subjective Remarks PAtient states he feels slightly dizzy after he stood up denies cp/sob nasal congestion and cough better Denies fevers or chills Objective Vitals Vital Signs Date Time Temp Pulse Resp B/P (MAP) Pulse Ox O2 Delivery O2 Flow Rate FiO2 04/23/17 12:00 96.6 93 17 118/83 (95) 94 04/23/17 08:15 Room Air 21 04/23/17 08:01 92 21 04/23/17 08:00 96.1 90 17 107/86 (93) 98 04/23/17 04:00 Room Air 04/23/17 00:00 Room Air 04/23/17 00:00 97.7 85 18 140/93 (109) 97 04/22/17 20:00 98.9 83 18 124/84 (97) 97 04/22/17 20:00 Room Air 04/22/17 16:00 97.5 86 20 128/84 (99) 95 I/O 04/22/17 04/22/17 04/22/17 04/23/17 04/23/17 04/23/17 07:00 15:00 23:00 07:00 15:00 23:00 Intake Total 480 ml 580 ml Balance 480 ml 580 ml Intake Oral 480 ml 580 ml # Voids 4 2 # Bowel Movements 0 Result Diagram: 04/22/17 1426 04/22/17 1426 Imaging Last Impressions Chest X-Ray 04/22/17 0000 Signed Impressions: Service Date/Time: April 21:29 - CONCLUSION: No pneumonia or other acute cardiopulmonary disease demonstrated. Kal Maldonado MD Objective Remarks AAOx3, nad No tremors observed S1S2 RRR, no MRG abdomen soft, nt, nd There is mild diffuse wheezing bilaterally lung exam. There is some erythema surrounding patient's open wounds in lower extremities. Medications and IVs Current Medications Medications (Trade) Dose Ordered Sig/Jv Route Start Time Stop Time Status Last Admin (NS Flush) 2 ml UNSCH PRN IV FLUSH 04/18/17 17:45 (NS Flush) 2 ml BID IV FLUSH 04/18/17 21:00 04/23/17 08:08 (Folate) 1 mg DAILY PO 04/19/17 09:00 04/24/17 08:59 04/23/17 08:07 (Vitamin B1) 100 mg DAILY PO 04/19/17 09:00 04/23/17 08:07 (Theragran M Tab) 1 tab DAILY PO 04/19/17 09:00 04/24/17 08:59 04/23/17 08:07 (Zofran Inj) 4 mg Q6H PRN IV 04/18/17 17:45 (Protonix) 40 mg DAILY PO 04/19/17 09:00 04/23/17 08:06 (Romazicon Inj) 0.2 mg Q1M PRN IV PUSH 04/18/17 17:45 (Ativan) 1 mg Q4H PRN PO 04/18/17 17:45 04/21/17 23:15 (Ativan Inj) 1 mg Q4H PRN IV PUSH 04/18/17 17:45 04/19/17 01:49 (Ativan) 2 mg Q2H PRN PO 04/18/17 17:45 04/21/17 20:25 (Ativan Inj) 2 mg Q2H PRN IV PUSH 04/18/17 17:45 04/20/17 03:32 (Ativan Inj) 2 mg Q1H PRN IV PUSH 04/18/17 17:45 04/20/17 05:13 (Ativan Inj) 2 mg Q15M PRN IV PUSH 04/18/17 17:45 (Lovenox Inj) 40 mg Q24H SQ 04/18/17 19:00 04/22/17 17:45 (Baciguent Oint) 1 applic Q12HR TOPICAL 04/19/17 12:00 04/20/17 20:22 (Roxicodone) 5 mg Q6H PRN PO 04/19/17 17:30 04/23/17 12:35 (Norvasc) 10 mg DAILY PO 04/22/17 09:00 04/23/17 08:07 (Prinivil) 5 mg DAILY PO 04/22/17 11:30 04/23/17 08:08 (Robitussin Dm 200-20 Mg/10 ml Liq) 10 ml Q4H PRN PO 04/22/17 16:00 (Flonase Sedrick Spr) 2 spray DAILY EACH NARE 04/22/17 16:00 (Duoneb Neb) 1 ampule Q2HR NEB PRN NEB 04/22/17 16:00 (Duoneb Neb) 1 ampule Q4HR WHILE AWAKE NEB NEB 04/22/17 20:00 04/23/17 11:48 A/P Problem List: (1) Alcohol withdrawal ICD Code: F10.239 - Alcohol dependence with withdrawal, unspecified Status: Acute Plan: Alcohol withdrawal is improving. Continue CIWA protocol. Librium was discontinued on 04/20. Alcohol cessation advice provided. 04/22 the patient has not been requiring Ativan since 04/21. Continue to monitor and continue CIWA protocol. 04/23 Resolved. (2) HTN (hypertension) ICD Code: I10 - Essential (primary) hypertension Plan: Blood pressure still uncontrolled, continue amlodipine 10 mg by mouth daily and will start the patient on lisinopril. 04/23 BP stable (3) Syncope ICD Code: R55 - Syncope and collapse Plan: Patient states he had a syncopal episode while intoxicated several days ago. Patient sustained several lacerations of the knees and nose. Topical antibiotic to start on the lesions. Head and cervical spine CT was negative in emergency department. EKG obtained on admission and reviewed personally by me showed sinus rhythm with a ventricular heart rate of 97 bpm with occasional PVCs, however no ST-T changes suggestive of active ischemia. (4) Cough ICD Code: R05 - Cough Plan: I will obtain a chest x-ray. I will start the patient on Robitussin-DM for symptomatic management. 04/23 chest x-ray does not show any evidence of pneumonia or acute current pulmonary disease. (5) Nasal congestion ICD Code: R09.81 - Nasal congestion Plan: Much improved. Continue Flonase. Assessment and Plan -DVT prophylaxis with SCDs and Lovenox. Discharge Planning Discharge home today. Malik Phelan MD Apr 23, 2017 13:08
[2017-04-23] MEDS ORDERED: GNP100TA3 PO (13:33)
[2017-04-23] MEDS ORDERED: FOLI1TAB6 PO (13:33)
[2017-04-23] MEDS ORDERED: THERM PO (13:33)
[2017-04-23] MEDS ORDERED: CEPH500C PO (13:35)
--- NOTE | 2017-04-23 13:36 | HHI.DCPOC ---
Discharge Care Plan Diagnosis: (1) Alcohol intoxication (2) Alcohol withdrawal (3) HTN (hypertension) (4) Syncope (5) Cough (6) Nasal congestion Goals to Promote Your Health * To prevent worsening of your condition and complications * To maintain your health at the optimal level Directions to Meet Your Goals Take your medications as prescribed Follow your dietary instruction Follow activity as directed Keep your appointments as scheduled Take your immunizations and boosters as scheduled If your symptoms worsen call your PCP, if no PCP go to Urgent Care Center or Emergency Room Smoking is Dangerous to Your Health. Avoid second hand smoke Call the 24-hour hour crisis hotline for domestic abuse at Malik Phelan MD Apr 23, 2017 13:36
--- NOTE | 2017-04-23 13:44 | HHI.DS ---
Discharge Summary Admission Date Apr 18, 2017 at 16:50 Discharge Date: Apr 23, 2017 Admitting Diagnosis Alcohol withdrawal (1) Alcohol withdrawal ICD Code: F10.239 - Alcohol dependence with withdrawal, unspecified Status: Acute (2) HTN (hypertension) ICD Code: I10 - Essential (primary) hypertension (3) Syncope ICD Code: R55 - Syncope and collapse (4) Cough ICD Code: R05 - Cough (5) Nasal congestion ICD Code: R09.81 - Nasal congestion Brief History - From Admission This is a 57 year-old female with past medical history of alcoholism and hypertension who presented to the ER today complaining of alcohol withdrawal symptoms including tremors, hallucinosis. The patient states that he normally drinks about a fifth of vodka a day and half case of beer. He has been drinking this way since he was last hospitalized in July. The patient states he stopped drinking 2 days ago as [facility]. He has started to develop hallucinations "seeing things" out of the corner of his eyes. No seizures although he does have a history of alcohol withdrawal seizures as well as delirium tremens. The patient also endorses hot and cold flashes. He denies nausea vomiting abdominal pain and hematemesis hematochezia or melena. The patient states that he is tired of drinking and wants to get involved in a cessation program. The patient states he has unintentionally lost about 70 pounds over the past 6 months which she attributes to alcoholism. The patient also states that he had a syncopal episode 2 days ago where he blacked out" face planted" suffering abrasions to his nose and lower extremities. 10 point review of systems otherwise negative. CBC/BMP: 04/22/17 1426 04/22/17 1426 Significant Findings Laboratory Tests Test 04/22/17 14:26 Red Blood Count 4.30 MIL/MM3 (4.50-5.90) Monocytes (%) (Auto) 11.4 % (0.0-8.0) Eosinophils (%) (Auto) 7.7 % (0.0-4.0) Eosinophils # (Auto) 0.5 TH/MM3 (0-0.4) Random Glucose 127 MG/DL (74-106) Albumin 3.0 GM/DL (3.4-5.0) Calcium Level 8.3 MG/DL (8.5-10.1) Alkaline Phosphatase 120 U/L (45-117) Aspartate Amino Transf (AST/SGOT) 53 U/L (15-37) Imaging Last Impressions Chest X-Ray 04/22/17 0000 Signed Impressions: Service Date/Time: April 21:29 - CONCLUSION: No pneumonia or other acute cardiopulmonary disease demonstrated. Kal Maldonado MD PE at Discharge AAOx3, nad No tremors observed S1S2 RRR, no MRG abdomen soft, nt, nd There is mild diffuse wheezing bilaterally lung exam. There is some erythema surrounding patient's open wounds in lower extremities. Pt update on day of discharge Dc on Keflex for developing cellulitis around excoriations. Pt Condition on Discharge: Stable Discharge Disposition: Discharge Home Discharge Time: > 30 minutes Discharge Instructions DIET: Follow Instructions for: As Tolerated, No Restrictions Activities you can perform: Regular-No Restrictions Activities to Avoid: Prolonged Standing, Strenuous Activity Follow up Referrals: PCP Follow-up - 1 Week New Medications: Cephalexin (Cephalexin) 500 Mg Cap 500 MG PO Q8H for Infection, #30 CAP 0 Refills Folic Acid (Folic Acid) 1 Mg Tablet 1 MG PO DAILY for Alcohol Detox, #30 TAB-CAP Multiple Vitamins W/ Minerals (Thera M Plus) 1 Tab 1 TAB PO DAILY for Alcohol Detox, #30 TAB Thiamine HCl (Gnp Vitamin B-1) 100 Mg Tab 100 MG PO DAILY for Alcohol Detox, #30 TAB Continued Medications: Ketoconazole Topical (Ketoconazole Topical) 2% Cream 1 APPLIC TOPICAL BID for Fungal Infection, #15 GM 0 Refills Discontinued Medications: Ciprofloxacin (Cipro) 500 Mg Tab 500 MG PO BID for Infection, #20 TAB Sulfamethoxazole-Trimethoprim (Bactrim DS) 800-160 Mg Tab 1 TAB PO BID for Infection, #20 TAB Malik Phelan MD Apr 23, 2017 13:44
[2017-04-23] MEDS ORDERED: CEPHALEXIN MONOHYDRATE 500 MG CAP PO SCH (14:00)
== END 2017-04-23 15:23 | disposition home or self-care (01) | DRG 897 ==
LOC: PHEDDLT 16:48 → PH3A 16:50 → UNDOADMIN 16:50
PROVIDERS: ADMIT Hospitalist; ATTEND Hospitalist
DX: F10.239 Alcohol dependence with withdrawal, unspecified (principal); L03.115 Cellulitis of right lower limb; I10 Essential (primary) hypertension; L03.116 Cellulitis of left lower limb; F17.210 Nicotine dependence, cigarettes, uncomplicated; S80.212A Abrasion, left knee, initial encounter; S80.211A Abrasion, right knee, initial encounter; S00.31XA Abrasion of nose, initial encounter; W18.39XA Other fall on same level, initial encounter; R05 Cough; R09.81 Nasal congestion
CPT/HCPCS: 70450; 71020; 80053; 80307; 82948; 83735; 84100; 85025; 93005; 94640; 96374; 96375; J1650; J2060; J3411; J7030

== ENCOUNTER 2017-04-27 10:41 | Inpatient (IN) | payer MEDICARE ==
[~2017-04-27] VITALS: Ht 180.3 cm; Wt 85.9 kg
[~2017-04-27 10:41] MED LIST changes: -BACT800T5 PO; +CEPH500C PO; -CIPR-9 PO; +FOLI1TAB6 PO; +GNP100TA3 PO; +THERM PO
[2017-04-27 10:43] VITALS: BP 124/73; PULSE 90; RESP 16; TEMP 98.5; O2SAT 98
[2017-04-27] MEDS ORDERED: LORazepam 2 MG/ML VIAL IV ONE (11:00)
--- NOTE | 2017-04-27 11:04 | PD ---
HPI Chief Complaint: Chest Pain Time Seen by Provider: 10:59 Travel History International Travel<30 days: No Contact w/Intl Traveler<30days: No Traveled to known affect area: No History of Present Illness HPI 57-year-old male patient with history of alcohol abuse, presents to the ER today because he states he has had at least 6 months history of chest pains, currently a 7 out of 10 today, with no nausea, vomiting, shortness of breath, or other symptoms. He states that he is also here because he is very depressed , states he has given up on life. He states suicidal ideation, has thought of taking an overdose including slitting his wrist. He denies any ingestions. He is [place] acted by me in the ER. Patient states he has a recent stress test which was negative. Modifying Factors: None Associated Signs & Symptoms: Chest pains, suicidal ideation Risk Factors: Alcohol abuse PFSH Past Medical History Blood Disorders: No Anxiety: Yes Depression: Yes Heart Rhythm Problems: Yes Cancer: Yes (BONE) Cardiovascular Problems: Yes (HBP PT STATES DOES NOT TAKE HIS MED) High Cholesterol: Yes Chest Pain: Yes Cerebrovascular Accident: No Diabetes: No Diminished Hearing: No Endocrine: No Genitourinary: Yes Hypertension: Yes Immune Disorder: No Musculoskeletal: Yes ( rt knee surgery/ back surgery bone graft ) Neurologic: No Psychiatric: Yes Reproductive: Yes Respiratory: No Thyroid Disease: No Past Surgical History Abdominal Surgery: No Cardiac Surgery: No Cholecystectomy: Yes Coronary Artery Bypass Graft: Yes Eye Surgery: Yes (left eye surgery) Genitourinary Surgery: Yes (gallbladder removed) Neurologic Surgery: Yes (herniated disc) Thoracic Surgery: No Other Surgery: Yes (BACK/RIGHT ARM) Social History Alcohol Use: Yes Tobacco Use: Yes Substance Use: No Allergies-Medications (Allergen,Severity, Reaction): Coded Allergies: No Known Allergies (Unverified , 04/18/17) Reported Meds & Prescriptions Reported Meds & Active Scripts Active Cephalexin 500 Mg Cap 500 Mg PO Q8H Folic Acid 1 Mg Tablet 1 Mg PO DAILY Gnp Vitamin B-1 (Thiamine HCl) 100 Mg Tab 100 Mg PO DAILY Thera M Plus (Multivitamins/Minerals Therapeutic) 1 Tab 1 Tab PO DAILY Ketoconazole Topical 2% Cream 1 Applic TOPICAL BID Review of Systems Except as stated in HPI: all other systems reviewed are Neg Physical Exam Narrative GENERAL: Well-developed middle age white male patient currently in moderate emotional distress, tearful in the ER. Awake and oriented 3. SKIN: Focused skin assessment warm/dry. HEAD: Atraumatic. Normocephalic. EYES: Pupils equal and round. No scleral icterus. No injection or drainage. ENT: No nasal bleeding or discharge. Mucous membranes pink and moist. NECK: Trachea midline. No JVD. CARDIOVASCULAR: Regular rate and rhythm. No murmur appreciated. RESPIRATORY: No accessory muscle use. Clear to auscultation. Breath sounds equal bilaterally. GASTROINTESTINAL: Abdomen soft, non-tender, nondistended. Hepatic and splenic margins not palpable. MUSCULOSKELETAL: No obvious deformities. No clubbing. No cyanosis. No edema. NEUROLOGICAL: Awake and alert. No obvious cranial nerve deficits. Motor grossly within normal limits. Normal speech. PSYCHIATRIC: Appropriate mood and affect; insight and judgment normal. Data Data Last Documented VS Vital Signs Date Time Temp Pulse Resp B/P (MAP) Pulse Ox O2 Delivery O2 Flow Rate FiO2 04/27/17 11:20 100 Nasal Cannula 2.00 04/27/17 11:20 04/27/17 10:43 98.5 90 16 Orders Orders Electrocardiogram (04/27/17 11:00) Basic Metabolic Panel (Bmp) (04/27/17 11:00) Ckmb (Isoenzyme) Profile (04/27/17 11:00) Complete Blood Count With Diff (04/27/17 11:00) Magnesium (Mg) (04/27/17 11:00) Prothrombin Time / Inr (Pt) (04/27/17 11:00) Act Partial Throm Time (Ptt) (04/27/17 11:00) Troponin I (04/27/17 11:00) Chest, Single Ap (04/27/17 11:00) Ecg Monitoring (04/27/17 11:00) Bilateral Bp Monitoring (04/27/17 11:00) Iv Access Insert/Monitor (04/27/17 11:00) Oximetry (04/27/17 11:00) Oxygen Administration (04/27/17 11:00) Psych Screen (04/27/17 11:00) Lorazepam Inj (Ativan Inj) (04/27/17 11:00) Drug Screen, Random Urine (04/27/17 11:00) Alcohol (Ethanol) (04/27/17 11:00) CKMB (04/27/17 11:15) CKMB% (04/27/17 11:15) Labs Laboratory Tests Test 04/27/17 11:15 White Blood Count 7.4 TH/MM3 Red Blood Count 4.50 MIL/MM3 Hemoglobin 14.9 GM/DL Hematocrit 44.3 % Mean Corpuscular Volume 98.4 FL Mean Corpuscular Hemoglobin 33.0 PG Mean Corpuscular Hemoglobin Concent 33.6 % Red Cell Distribution Width 13.5 % Platelet Count 394 TH/MM3 Mean Platelet Volume 7.9 FL Neutrophils (%) (Auto) 51.9 % Lymphocytes (%) (Auto) 34.6 % Monocytes (%) (Auto) 10.0 % Eosinophils (%) (Auto) 2.9 % Basophils (%) (Auto) 0.6 % Neutrophils # (Auto) 3.8 TH/MM3 Lymphocytes # (Auto) 2.6 TH/MM3 Monocytes # (Auto) 0.7 TH/MM3 Eosinophils # (Auto) 0.2 TH/MM3 Basophils # (Auto) 0.0 TH/MM3 CBC Comment DIFF FINAL Differential Comment Prothrombin Time 10.5 SEC Prothromb Time International Ratio 1.0 RATIO Activated Partial Thromboplast Time 29.8 SEC Blood Urea Nitrogen 8 MG/DL Creatinine 0.86 MG/DL Random Glucose 86 MG/DL Calcium Level 8.7 MG/DL Magnesium Level 2.1 MG/DL Sodium Level 139 MEQ/L Potassium Level 3.8 MEQ/L Chloride Level 106 MEQ/L Carbon Dioxide Level 26.5 MEQ/L Anion Gap 7 MEQ/L Estimat Glomerular Filtration Rate 91 ML/MIN Total Creatine Kinase 173 U/L Creatine Kinase MB 2.3 NG/ML Troponin I LESS THAN 0.02 NG/ML Ethyl Alcohol Level 181 MG/DL [facility] Medical Decision Making Medical Screen Exam Complete: Yes Emergency Medical Condition: Yes Medical Record Reviewed: Yes Interpretation(s) EKG shows NSR, no ST elevation or depression, and no arrhythmias. No significant T-wave inversions. Laboratory Tests Test 04/27/17 11:15 Monocytes (%) (Auto) 10.0 % (0.0-8.0) Troponin I LESS THAN 0.02 NG/ML Ethyl Alcohol Level 181 MG/DL (0-5) Differential Diagnosis Chest pains, suicidal ideation: Anxiety attacks versus substance abuse related side effects versus metabolic issues versus ACS versus dysrhythmias Narrative Course EKG did not show any signs of significant dysrhythmias. He does have a few PVCs. Recent stress test was negative and at this point, considering symptoms have been going on for 6 months and his stress test at been done in about that time, I think that this is much less likely to be a cardiac related chest pain. However, patient is openly anxious and having suicidal ideation, he was [place] acted today. My plan would be to medically clear him at this point for psychiatric evaluation. Diagnosis Primary Impression: Suicidal ideation Additional Impressions: Alcohol intoxication Chest pain Disposition: 65 DISC TO PSYCH CARE FACILITY Condition: Stable Carole Madison MD Apr 27, 2017 11:04
[2017-04-27 11:20] VITALS: O2SAT 100
[2017-04-27 11:41] LABS: AUTOMATED NEUTROPHIL # 3.8 TH/MM3 (1.8-7.7); BASOPHIL % 0.6 % (0.0-2.0); EOSINOPHIL # 0.2 TH/MM3 (0-0.4); EOSINOPHIL % 2.9 % (0.0-4.0); HEMATOCRIT 44.3 % (39.0-51.0); HEMO FLAGS DIFF FINAL; LYMPH % 34.6 % (9.0-44.0); LYMPHOCYTE # 2.6 TH/MM3 (1.0-4.8); MEAN CELL VOLUME 98.4 FL (80.0-100.0); MEAN CORPUSCULAR HGB CONC 33.6 % (32.0-36.0); NEUT % 51.9 % (16.0-70.0); PLATELET COUNT 394 TH/MM3 (150-450); RED CELL DISTRIBUTION WIDTH 13.5 % (11.6-17.2); WHITE BLOOD COUNT 7.4 TH/MM3 (4.0-11.0)
[2017-04-27 11:50] LABS: APTT (PATIENT) 29.8 SEC (24.3-30.1); PROTHROMBIN TIME - PATIENT 10.5 SEC (9.8-11.6)
[2017-04-27 11:55] LABS: ANION GAP 7 MEQ/L (5-15); BICARBONATE 26.5 MEQ/L (21.0-32.0); BLOOD UREA NITROGEN 8 MG/DL (7-18); CHLORIDE 106 MEQ/L (98-107); GLOMERULAR FILTRATION RATE 91 ML/MIN (>89); MAGNESIUM 2.1 MG/DL (1.5-2.5); POTASSIUM 3.8 MEQ/L (3.5-5.1); SODIUM (NA) 139 MEQ/L (136-145)
[2017-04-27 11:59] LABS: ALCOHOL 181 MG/DL (0-5)
[2017-04-27 12:02] LABS: CREATINE KINASE 173 U/L (39-308)
[2017-04-27 12:14] LABS: CKMB 2.3 NG/ML (0.5-3.6)
--- NOTE | 2017-04-27 12:38 | RADRPT ---
EXAM DATE/TIME: 04/27/2017 11:44 [facility] COMPARISON: CHEST SINGLE AP, April 10, 2017, 13:42. INDICATIONS : Midsternal to left chest pressure and tightness radiating into back. MEDICAL HISTORY : None. SURGICAL HISTORY : None. ENCOUNTER: Initial ACUITY: 3 days PAIN SCORE: 8/10 LOCATION: Left chest FINDINGS: A single view of the chest demonstrates the lungs to be symmetrically aerated without evidence of mas s, infiltrate or effusion. The cardiomediastinal contours are unremarkable. Osseous structures are intact. CONCLUSION: 1. No acute findings. Mildly tortuous aorta. Juan A Jackson MD on April 27, 2017 at 12:35 Board Certified Radiologist. This report was verified electronically.
[2017-04-27 13:42] VITALS: BP 105/70; PULSE 72; RESP 16; O2SAT 100
[2017-04-27 16:30] VITALS: BP_SYST 112; BP_SYST 135; BP_DIAS 66; BP_DIAS 81; PULSE 89; RESP 18; O2SAT 100
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
[2017-04-27] MEDS ORDERED: LORazepam 2 MG/ML VIAL IM PRN (19:00)
[2017-04-27] MEDS ORDERED: ALUMINUM/MAGNESIUM/SIMETH 30 ML CUP PO PRN (19:00)
[2017-04-27] MEDS ORDERED: FLUMAZENIL 0.5 MG/5 ML VIAL IV PUSH PRN (19:00)
[2017-04-27] MEDS ORDERED: MAGNESIUM HYDROXIDE SUSP 30 ML CUP PO PRN (19:00)
[2017-04-27] MEDS ORDERED: LORazepam 2 MG/ML VIAL IV PUSH PRN ×4 (19:00)
[2017-04-27] MEDS ORDERED: SODIUM CHLORIDE 0.9% FLUSH 10 ML FLUSH IV FLUSH PRN (19:00)
[2017-04-27 19:07] VITALS: BP 146/89; PULSE 96; RESP 18; TEMP 97.2; O2SAT 96
[2017-04-27] MEDS: SODIUM CHLORIDE 0.9% FLUSH 10 ML FLUSH IV FLUSH SCH (21:00)
[2017-04-27] MEDS: traZODone HCL 50 MG TAB PO PRN (21:28)
[2017-04-27] MEDS: LORazepam 1 MG TAB PO PRN (21:32)
[2017-04-28] MEDS: LORazepam 1 MG TAB PO PRN (05:11)
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
[2017-04-28 06:18] VITALS: BP 149/86; PULSE 65; RESP 20; TEMP 98.6; O2SAT 97
[2017-04-28 06:30] LABS: AUTOMATED NEUTROPHIL # 4.1 TH/MM3 (1.8-7.7); BASOPHIL # 0.1 TH/MM3 (0-0.2); BASOPHIL % 0.7 % (0.0-2.0); EOSINOPHIL # 0.3 TH/MM3 (0-0.4); EOSINOPHIL % 3.8 % (0.0-4.0); HEMATOCRIT 41.2 % (39.0-51.0); HEMO FLAGS DIFF FINAL; LYMPH % 32.6 % (9.0-44.0); LYMPHOCYTE # 2.6 TH/MM3 (1.0-4.8); MEAN CELL VOLUME 97.7 FL (80.0-100.0); MEAN CORPUSCULAR HEMOGLOBIN 32.6 PG (27.0-34.0); MEAN CORPUSCULAR HGB CONC 33.4 % (32.0-36.0); MONO % 11.7 % (0.0-8.0); NEUT % 51.2 % (16.0-70.0); PLATELET COUNT 380 TH/MM3 (150-450); RED BLOOD COUNT 4.22 MIL/MM3 (4.50-5.90); RED CELL DISTRIBUTION WIDTH 13.7 % (11.6-17.2); WHITE BLOOD COUNT 7.9 TH/MM3 (4.0-11.0)
[2017-04-28 06:58] LABS: ALT (GPT) 40 U/L (12-78); ANION GAP 6 MEQ/L (5-15); AST (GOT) 33 U/L (15-37); BICARBONATE 27.4 MEQ/L (21.0-32.0); BLOOD UREA NITROGEN 11 MG/DL (7-18); CHLORIDE 106 MEQ/L (98-107); GLOMERULAR FILTRATION RATE 112 ML/MIN (>89); POTASSIUM 3.7 MEQ/L (3.5-5.1); SODIUM (NA) 139 MEQ/L (136-145)
[2017-04-28 07:25] LABS: ALKALINE PHOSPHATASE 94 U/L (45-117); HDL CHOLESTEROL 59.1 MG/DL (40.0-60.0); LDL CHOLESTEROL 92 MG/DL (0-99); TOTAL BILIRUBIN ADULT 0.4 MG/DL (0.2-1.0)
[2017-04-28 07:41] LABS: CREATINE KINASE 72 U/L (39-308)
[2017-04-28] MEDS: LISINOPRIL 5 MG TAB PO SCH (08:47)
[2017-04-28] MEDS: THIAMINE HCL 100 MG TAB PO SCH (08:48)
[2017-04-28] MEDS: LORazepam 2 MG TAB PO PRN ×4 (08:48→22:12)
[2017-04-28] MEDS: SODIUM CHLORIDE 0.9% FLUSH 10 ML FLUSH IV FLUSH SCH ×2 (09:00→19:56)
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
[2017-04-28 16:03] VITALS: BP 130/76; PULSE 63
[2017-04-28 16:52] LABS: HEMOGLOBIN A1a 1.3 %; HEMOGLOBIN A1b 1.7 %; HEMOGLOBIN Ao 84.5 %; HEMOGLOBIN P3 3.7 %
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
[2017-04-28] MEDS: traZODone HCL 50 MG TAB PO PRN (20:06)
--- NOTE | 2017-04-28 20:35 | EKG ---
Date Performed: 04/28/2017 Time Performed: 11:22:09 PTAGE: 57 years EKG: Sinus rhythm WITH OCCASIONAL VENTRICULAR PREMATURE COMPLEXES BORDERLINE ECG PREVIOUS TRACING : 04/28/2017 07.11 Compared with previous EKG premature ventricular complexes new DOCTOR: Jay Ruby Interpretating Date/Time 04/28/2017 20:34:45
--- NOTE | 2017-04-28 20:40 | EKG ---
Date Performed: 04/28/2017 Time Performed: 07:11:33 PTAGE: 57 years EKG: Sinus rhythm NORMAL ECG PREVIOUS TRACING : 04/27/2017 11.22 Compared to prior tracing no significant change DOCTOR: Jay Ruby Interpretating Date/Time 04/28/2017 20:39:11
--- NOTE | 2017-04-28 21:05 | EKG ---
Date Performed: 04/27/2017 Time Performed: 11:22:01 PTAGE: 57 years EKG: Sinus rhythm WITH OCCASIONAL VENTRICULAR PREMATURE COMPLEXES NONSPECIFIC T-WAVE ABNORMALITY BORDERLINE ECG PREVIOUS TRACING : 02/19/2017 04.51 Compared to prior tracing no significant change DOCTOR: Jay Ruby Interpretating Date/Time 04/28/2017 20:55:07
[2017-04-28 22:05] LABS: CREATINE KINASE 69 U/L (39-308)
[2017-04-29] MEDS: LORazepam 2 MG TAB PO PRN ×4 (00:34→13:10)
[2017-04-29 02:41] VITALS: BP 134/85; PULSE 67; RESP 16; TEMP 98.9
[2017-04-29 05:59] VITALS: BP 155/96; PULSE 66; RESP 18; TEMP 97.3
[2017-04-29 07:12] LABS: CREATINE KINASE 54 U/L (39-308)
[2017-04-29] MEDS: SODIUM CHLORIDE 0.9% FLUSH 10 ML FLUSH IV FLUSH SCH ×2 (09:00→21:00)
[2017-04-29] MEDS: THIAMINE HCL 100 MG TAB PO SCH (09:00)
[2017-04-29] MEDS: LISINOPRIL 5 MG TAB PO SCH (09:00)
--- NOTE | 2017-04-29 11:44 | HHI.PR ---
Subjective Remarks No further complaints of chest pain today. Stress test ordered for today, cannot be done until tomorrow due to ingestion of caffeine. Patient's complaint today is a pustule and induration that his left arm. Objective Vital Signs Date Time Temp Pulse Resp B/P (MAP) Pulse Ox O2 Delivery O2 Flow Rate FiO2 04/29/17 05:59 97.3 66 18 155/96 (115) 04/29/17 02:41 98.9 67 16 134/85 (101) 04/28/17 21:33 12 04/28/17 16:03 63 130/76 (94) Result Diagram: 04/28/17 0555 04/28/17 0555 Objective Remarks GENERAL: NAD, A&Ox3 HEAD: Normocephalic. NECK: Supple, trachea midline. No lymphadenopathy. EYES: No scleral icterus. No injection or drainage. CARDIOVASCULAR: Regular rate and rhythm without murmurs, gallops, or rubs. RESPIRATORY: Breath sounds equal bilaterally. No accessory muscle use. GASTROINTESTINAL: Abdomen soft, non-tender, nondistended. MUSCULOSKELETAL: No cyanosis, or edema. SKIN: Warm and dry. Left arm has induration of about 5 cm at the middle of the left forearm which has a 1 cm pustule at the edge. NEURO: No focal neurological deficitis. A/P Problem List: (1) Atypical chest pain ICD Code: R07.89 - Other chest pain Status: Acute (2) Adjustment disorder with depressed mood ICD Code: F43.21 - Adjustment disorder with depressed mood (3) Substance induced mood disorder ICD Code: F19.94 - Other psychoactive substance use, unspecified with psychoactive substance-induced mood disorder Status: Acute Assessment and Plan Assessment and Plan 57-year-old male admitted to psychiatric unit secondary to suicidal ideations Atypical Chest Pain Negative EKGs Negative cardiac enzymes Repeat Lexiscan ordered secondary to patient's history of drug abuse Hypertension Continue lisinopril Follow blood pressures Presently controlled without need to adjust this point Alcohol abuse history Risk for withdrawal Continue CIWA protocol Chronic back pain Continue oxycodone Left arm cellulitis History of MRSA IV site thrombus Bactrim twice a day Probiotics Follow for improvement Continued on isolation No need for blood thinners due to the small size and superficial nature of the thrombus DVT prophylaxis Patient is active and ambulatory Travon Zurita MD Apr 29, 2017 11:44
[2017-04-29] MEDS ORDERED: SULFAMETHOXAZOLE-TRIMETHOPRIM DS 800-160 MG TAB PO ONE (12:00)
[2017-04-29] MEDS: LACTOBACILLUS ACIDOPHILUS TAB PO SCH ×2 (13:00→17:42)
[2017-04-29] MEDS: LORazepam 1 MG TAB PO PRN (17:27)
--- NOTE | 2017-04-29 17:57 | HHI.PYPN ---
Subjective Remarks Patient seen for follow up; chart reviewed. Patient currently on contact precautions. Patient noted to have less withdrawal symptoms although still present. He reports that he is feeling better, continues to feel depressed and having suicidal ideations (last time being yesterday). He states he hopes to continue to feel better and improve. He is considering partiicpating in inpatient substance rehabiliation program after dischage. Review of Systems Except as stated in HPI: all other systems reviewed are Neg Objective Alert: Yes Slater: Person, Place, Date Mood: Anxious (less so today) Affect: Restricted Memory Intact: Comment (remote and immediate, with some impairment in recent due to alcohol intoxication) Hallucinations: Other (denies) Delusions: No Delusion Type: Other (denies) Suicidal: Ideation (currently endorsing) Homicidal: Ideation (denies) Insight/Judgment Fair insight, impulse control and judgment Labs Test 04/28/17 20:50 04/29/17 04:52 Total Creatine Kinase 69 U/L 54 U/L Troponin I LESS THAN 0.02 NG/ML LESS THAN 0.02 NG/ML Vitals/IOs Vital Signs Date Time Temp Pulse Resp B/P (MAP) Pulse Ox O2 Delivery O2 Flow Rate FiO2 04/29/17 05:59 97.3 66 18 155/96 (115) 04/28/17 06:18 97 04/27/17 16:30 Room Air 04/27/17 13:42 2.00 Intake and Output 04/29/17 04/29/17 04/30/17 08:00 16:00 00:00 Intake Total 720 ml Balance 720 ml Assessment & Plan Problem List: (1) Adjustment disorder with depressed mood ICD Codes: F43.21 - Adjustment disorder with depressed mood (2) Alcohol withdrawal ICD Codes: F10.239 - Alcohol dependence with withdrawal, unspecified Status: Acute (3) Alcohol abuse ICD Codes: F10.10 - Alcohol abuse, uncomplicated Status: Acute Assessment & Plan Patient continues with withdrawal symptoms and CIWA scores above 8 which has now received 14mg of lorazepam in the last 24 hrs. Will start librium 50mg PO q8hrs and continue CIWA protocol. Continue treatment, Discharge planning in progress. Justification for Cont. Inpt. At risk for further decompensation if at lower level of care. Roger Hoover MD Apr 29, 2017 17:57
[2017-04-29] MEDS: SULFAMETHOXAZOLE-TRIMETHOPRIM DS 800-160 MG TAB PO SCH (21:53)
[2017-04-29] MEDS: chlordiazePOXIDE 25 MG CAP PO SCH (22:03)
[2017-04-30] MEDS: traZODone HCL 50 MG TAB PO PRN ×2 (01:50→20:10)
[2017-04-30] MEDS: chlordiazePOXIDE 25 MG CAP PO SCH ×3 (05:41→21:08)
[2017-04-30 05:46] VITALS: BP 156/103; PULSE 66; RESP 18; TEMP 97.8; O2SAT 96
[2017-04-30] MEDS: SODIUM CHLORIDE 0.9% FLUSH 10 ML FLUSH IV FLUSH SCH ×2 (08:22→20:14)
[2017-04-30] MEDS: THIAMINE HCL 100 MG TAB PO SCH (08:30)
[2017-04-30] MEDS: LISINOPRIL 5 MG TAB PO SCH (08:30)
[2017-04-30] MEDS: SULFAMETHOXAZOLE-TRIMETHOPRIM DS 800-160 MG TAB PO SCH ×2 (08:30→20:10)
[2017-04-30] MEDS: LACTOBACILLUS ACIDOPHILUS TAB PO SCH ×3 (08:30→17:05)
[2017-04-30] MEDS ORDERED: REGADENOSON INJ 0.4 MG/5 ML SYR ONE (13:03)
--- NOTE | 2017-04-30 15:17 | RADRPT ---
EXAM DATE/TIME: 04/30/2017 12:17 [facility] COMPARISON: No previous studies available for comparison. INDICATIONS : Chest pain. Angina. DOSE: 25.5 mCi Tc99m Myoview at stress. 8.1 mCi Tc99m Myoview at rest. 0.4 mg Lexiscan STRESS SYMPTOMS: None noted. EJECTION FRACTION: 40% MEDICAL HISTORY : Hypertension. SURGICAL HISTORY : Cholecystectomy. CABG ENCOUNTER: Initial ACUITY: 4 - 6 months PAIN SCALE: 7/10 LOCATION: Bilateral chest TECHNIQUE: The patient underwent pharmacologic stress with infusion of prescribed dose. Continuous ECG tracing was monitored during stress. Gated SPECT imaging was performed after stress and conventional SPECT i maging was performed at rest. The examination was performed on a SPECT/CT scanner, both attenuation and non-corrected datasets were reviewed. FINDINGS: DISTRIBUTION: The maximum perfused segment at stress is in the lateral wall. PERFUSION STUDY: Decreased perfusion along the inferior wall towards the apex with questionable border and redistribut ion GATED STUDY: Mild hypokinesia generalized. CONCLUSION: Diminished ejection fraction 40% with generalized hypokinesia. Perfusion defect inferior wall towards the apex with possible image redistribution. RISK CATEGORY: Intermediate (1-3% Annual Mortality Rate) Harpal Guevara MD on April 30, 2017 at 15:13 Board Certified Radiologist. This report was verified electronically.
--- NOTE | 2017-04-30 16:50 | HHI.PYPN ---
Subjective Remarks Patient seen for follow up; chart reviewed. Patient noted to have less withdrawal symptoms, tolerating librium well. He states that his mood is till "up and down" but no longer is having suicidal ideations and that he is feeling more hopeful. He mentions that when he feels depressed it is because he misses his son and father. He would like to attend inpatient rehabilitation program. Review of Systems Except as stated in HPI: all other systems reviewed are Neg Objective Alert: Yes Hendrix: Person, Place, Date Mood: Calm Affect: Restricted (less so today) Memory Intact: Comment (remote and immediate, with some impairment in recent due to alcohol intoxication) Hallucinations: Other (denies) Delusions: No Delusion Type: Other (denies) Suicidal: Ideation (currently endorsing) Homicidal: Ideation (denies) Insight/Judgment fair insight, impulse control and judgment Vitals/IOs Vital Signs Date Time Temp Pulse Resp B/P (MAP) Pulse Ox O2 Delivery O2 Flow Rate FiO2 04/30/17 05:46 97.8 66 18 156/103 (120) 96 04/27/17 16:30 Room Air 04/27/17 13:42 2.00 Assessment & Plan Problem List: (1) Adjustment disorder with depressed mood ICD Codes: F43.21 - Adjustment disorder with depressed mood (2) Alcohol withdrawal ICD Codes: F10.239 - Alcohol dependence with withdrawal, unspecified Status: Acute (3) Alcohol abuse ICD Codes: F10.10 - Alcohol abuse, uncomplicated Status: Acute Assessment & Plan Patient to continue librium with possible tapering if CIWA scores consistently less than 8. Will start Sertraline 50mg PO daily. Continue current treatment. Recommendations as per primary medical team. Will continue on contact precautions. Discharge planning in progress. Justification for Cont. Inpt. At risk for further decompensation if at lower level of care. Roger Hoover MD Apr 30, 2017 16:50
[2017-04-30] MEDS: LORazepam 1 MG TAB PO PRN (20:10)
[2017-05-01] MEDS: LORazepam 1 MG TAB PO PRN (00:28)
[2017-05-01] MEDS: chlordiazePOXIDE 25 MG CAP PO SCH ×3 (06:10→21:29)
[2017-05-01 06:40] VITALS: BP 112/72; PULSE 63; RESP 18; TEMP 93.6; O2SAT 97
--- NOTE | 2017-05-01 08:48 | HHI.PR ---
Subjective Remarks patient is right handed, admits to drinking daily until the day he got admitted good po, complains of chronic low back discomfort no radiculopathy no complains of chest pains or shortness of breath good po some left arm discomfort admits to chronic alcohol use Objective Vitals Vital Signs Date Time Temp Pulse Resp B/P (MAP) Pulse Ox O2 Delivery O2 Flow Rate FiO2 05/01/17 06:40 93.6 63 18 112/72 (85) 97 Result Diagram: 04/28/17 0555 04/28/17 0555 Imaging Last Impressions Myocardial Perfusion Scan Nuc Med 04/30/17 0000 Signed Impressions: Service Date/Time: Sunday, April 30, 2017 12:17 - CONCLUSION: Diminished ejection fraction 40%% with generalized hypokinesia. Perfusion defect inferior wall towards the apex with possible image redistribution. RISK CATEGORY: Intermediate (1-3%% Annual Mortality Rate) Harpal Guevara MD Upper Extremity Ultrasound 04/28/17 0000 Signed Impressions: Service Date/Time: Friday, April 28, 2017 09:24 - CONCLUSION: Occlusive thrombus IV site. Niko Avilez MD FACR Chest X-Ray 04/27/17 1100 Signed Impressions: Service Date/Time: Thursday, April 27, 2017 11:44 - CONCLUSION: 1. No acute findings. Mildly tortuous aorta. Juan A Jackson MD Objective Remarks awake and alert, in no acute distress mild tremors anicteric lungs clear regular rhythm abdomen soft, nontender left forearm- anterior aspect- with erythema and induration about 5 cm x 5 cm, tender, good radial pulses, good range of motion LE - no edema A/P Problem List: (1) Atypical chest pain ICD Code: R07.89 - Other chest pain Status: Acute (2) HTN (hypertension) ICD Code: I10 - Essential (primary) hypertension (3) Alcohol withdrawal ICD Code: F10.239 - Alcohol dependence with withdrawal, unspecified Status: Acute (4) Chronic pain ICD Code: G89.29 - Other chronic pain Status: Chronic Assessment and Plan 57-year-old male admitted to psychiatric unit secondary to suicidal ideations Atypical Chest Pain- + myocardial perfusion study with redistribution- EF 40& 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 I and D if needed Continued on isolation No need for blood thinners due to the small size and superficial nature of the thrombus Recheck US next few days to check for abscess formation Alcohol abuse history Risk for withdrawal Continue CIWA protocol- Librium Chronic back pain Continue oxycodone Laurent Caro MD May 01, 2017 08:48
[2017-05-01] MEDS: ASPIRIN 81 MG CHEW TAB CHEW SCH (09:00)
[2017-05-01] MEDS: SULFAMETHOXAZOLE-TRIMETHOPRIM DS 800-160 MG TAB PO SCH ×2 (09:00→21:29)
[2017-05-01] MEDS: SODIUM CHLORIDE 0.9% FLUSH 10 ML FLUSH IV FLUSH SCH ×2 (09:00→21:00)
[2017-05-01] MEDS: LACTOBACILLUS ACIDOPHILUS TAB PO SCH ×3 (09:44→18:10)
[2017-05-01] MEDS: THIAMINE HCL 100 MG TAB PO SCH (09:44)
[2017-05-01] MEDS: LISINOPRIL 5 MG TAB PO SCH (09:44)
[2017-05-01] MEDS: ISOSORBIDE MONONITRATE 30 MG TAB PO SCH (13:00)
--- NOTE | 2017-05-01 13:01 | MB ---
cc: CHRISS MENDEZ MD DATE OF CONSULTATION: 05/01/2017 REASON FOR CONSULTATION: Atypical chest pain with abnormal nuclear stress test. HISTORY: The patient is a very pleasant 57-year-old gentleman who is currently in the psychiatric unit for feeling suicidal. He does admit to about a year as chest discomfort which he describes as sharp, but severe and occurring when he is emotionally stress without a nuclear physical exertional association. He had a nuclear stress test which was mildly abnormal which I will discuss below. He is currently asymptomatic denying any chest pain at the moment or shortness breath, lightheadedness, dizziness. PAST MEDICAL HISTORY Depression Hypertension Chronic obstructive pulmonary disease Alcohol abuse. CURRENT MEDICATIONS 1. Zoloft. 2. Aspirin 115 mg daily. 3. Librium 4. Bactrim 5. Lactinex. 6. Thymine. 7. Lisinopril 500 mg daily 8. Ativan. ALLERGIES NO KNOWN DRUG ALLERGIES PHYSICAL EXAMINATION: VITAL SIGNS: Afebrile, pulse 63, respiratory rate 18, BP 112/72 satting 97% on room air. IN GENERAL: In general pleasant gentleman in no distress. NECK: No JVD. LUNGS: The lungs are clear to auscultation bilaterally. CARDIOVASCULAR SYSTEM: Regular rate and rhythm. No murmurs appreciated. ABDOMEN: Benign. EXTREMITIES: No edema. LABORATORY DATA White count 7.9, hematocrit 41.2, platelets 380. Cardiac enzymes are negative x3 sodium 139, Potassium 3.7, chloride 106, bicarb 27.4, BUN 11, creatinine 0.72, hemoglobin A1c is 6.2. EKG shows sinus rhythm with PVCs and nonspecific ST changes. Nuclear stress test was read as inferior / apical perfusion defect with possible redistribution. IMPRESSION/PLAN Atypical chest pain with possibly abnormal nuclear stress test. The patient's chest pain is not particularly cardiac sounding, his nuclear stress test seemed to be a "soft call with regard to ischemia by my interpretation of the radiologist report". Nonetheless, I did offer a cardiac catheterization but he currently declines wishes to pursue medical therapy. I will add Imdur and metoprolol to his regimen and check in with him again tomorrow and see how his pain has been, further recommendations will be based on the clinical course. Thank you again for the opportunity to participate in the patient's care. MD Ewa Hector /11:47 AM /12:48 PM
[2017-05-01 13:19] VITALS: BP 109/71; PULSE 72
[2017-05-01] MEDS: SERTRALINE HCL 50 MG TAB PO SCH (13:24)
[2017-05-01] MEDS: METOPROLOL TARTRATE 25 MG TAB PO SCH ×2 (13:25→21:29)
--- NOTE | 2017-05-01 15:03 | HHI.PYPN ---
Subjective Remarks Pt seen and discussed with staff. He has been pleasant and cooperative. He denies SI/HI. He reports he remains depressed but is tolerating medications without side effects. Objective Alert: Yes [place]: Person, Place, Date Mood: Calm, Depressed Affect: Restricted Memory Intact: Comment (intact) Hallucinations: Other (denies) Delusions: No Delusion Type: Other (denies) Suicidal: Ideation (denies) Homicidal: Ideation (denies) Insight/Judgment poor Vitals/IOs Vital Signs Date Time Temp Pulse Resp B/P (MAP) Pulse Ox O2 Delivery O2 Flow Rate FiO2 05/01/17 13:19 72 109/71 (84) 05/01/17 06:40 93.6 18 97 04/27/17 16:30 Room Air 04/27/17 13:42 2.00 Assessment & Plan Problem List: (1) Adjustment disorder with depressed mood ICD Codes: F43.21 - Adjustment disorder with depressed mood (2) Alcohol withdrawal ICD Codes: F10.239 - Alcohol dependence with withdrawal, unspecified Status: Acute (3) Alcohol abuse ICD Codes: F10.10 - Alcohol abuse, uncomplicated Status: Acute Assessment & Plan Continue current tx plan. Estimated LOS: days Justification for Cont. Inpt. risk of decompensation Willa Samaniego MD May 01, 2017 15:03
[2017-05-01 18:50] VITALS: BP 114/66; PULSE 62; RESP 18; TEMP 98.5; O2SAT 96
[2017-05-01] MEDS: traZODone HCL 50 MG TAB PO PRN (22:29)
[2017-05-02] MEDS: LORazepam 1 MG TAB PO PRN (02:15)
[2017-05-02] MEDS: ACETAMINOPHEN 325 MG TAB PO PRN (02:15)
[2017-05-02] MEDS: ISOSORBIDE MONONITRATE 30 MG TAB PO SCH (06:27)
[2017-05-02] MEDS: chlordiazePOXIDE 25 MG CAP PO SCH ×3 (06:27→22:47)
[2017-05-02 06:35] VITALS: BP 115/67; PULSE 56; RESP 18; TEMP 98.1; O2SAT 95
[2017-05-02] MEDS: SODIUM CHLORIDE 0.9% FLUSH 10 ML FLUSH IV FLUSH SCH ×2 (09:00→21:00)
[2017-05-02] MEDS: THIAMINE HCL 100 MG TAB PO SCH (09:22)
[2017-05-02] MEDS: SERTRALINE HCL 50 MG TAB PO SCH (09:22)
[2017-05-02] MEDS: METOPROLOL TARTRATE 25 MG TAB PO SCH ×2 (09:22→21:00)
[2017-05-02] MEDS: LACTOBACILLUS ACIDOPHILUS TAB PO SCH ×3 (09:22→18:21)
[2017-05-02] MEDS: SULFAMETHOXAZOLE-TRIMETHOPRIM DS 800-160 MG TAB PO SCH ×2 (09:23→20:34)
[2017-05-02] MEDS: ASPIRIN 81 MG CHEW TAB CHEW SCH (09:23)
[2017-05-02] MEDS: LISINOPRIL 5 MG TAB PO SCH (09:23)
--- NOTE | 2017-05-02 12:05 | PD.CARD.PN ---
Subjective Subjective Remarks Pt still notes pleuritic cp that "comes and goes" Objective Medications Administered Medications Medications (Trade) Dose Ordered Sig/Jv Route PRN Reason Start Time Stop Time Status Last Admin Dose Admin Lorazepam (Ativan) 1 mg Q6H PRN PO MODERATE TO SEVERE ANXIETY 04/27/17 19:00 04/30/17 20:10 Acetaminophen (Tylenol) 650 mg Q4H PRN PO Pain 1-5 or Temp >101F 04/27/17 19:00 05/02/17 02:15 Trazodone HCl (Desyrel) 50 mg HS PRN PO INSOMNIA 04/27/17 21:00 05/01/17 22:29 Sodium Chloride (NS Flush) 2 ml BID IV FLUSH 04/27/17 21:00 04/30/17 08:22 Lorazepam (Ativan) 1 mg Q4H PRN PO CIWA 8 - 10 04/27/17 19:00 05/02/17 02:15 Lorazepam (Ativan) 2 mg Q2H PRN PO CIWA 11-14 04/27/17 19:00 04/29/17 13:10 Thiamine HCl (Vitamin B1) 100 mg DAILY PO 04/28/17 09:00 05/02/17 09:22 Oxycodone HCl (Roxicodone) 5 mg Q6H PRN PO pain >5 04/28/17 05:45 05/02/17 03:18 Lisinopril (Prinivil) 5 mg DAILY PO 04/28/17 09:00 05/02/17 09:23 Trimethoprim/ Sulfamethoxazole (Bactrim Ds 800-160 Mg) 1 tab Q12HR PO 04/29/17 21:00 05/04/17 23:00 05/02/17 09:23 Lactobacillus Acidophilus (Lactinex) 1 tab TID PO 04/29/17 13:00 05/06/17 23:00 05/02/17 09:22 Chlordiazepoxide (Librium) 50 mg Q8HR PO 04/29/17 22:00 05/02/17 06:27 Sertraline HCl (Zoloft) 50 mg DAILY PO 05/01/17 09:00 05/02/17 09:22 Aspirin (Aspirin Chew) 162 mg DAILY CHEW 05/01/17 09:00 05/02/17 09:23 Metoprolol Tartrate (Lopressor) 25 mg Q12HR PO 05/01/17 13:00 05/02/17 09:22 Isosorbide Mononitrate (Imdur) 30 mg DAILY@07 PO 05/01/17 13:00 05/02/17 06:27 Vital Signs / I&O Vital Signs Date Time Temp Pulse Resp B/P (MAP) Pulse Ox O2 Delivery O2 Flow Rate FiO2 05/02/17 06:35 98.1 56 18 115/67 (83) 95 05/01/17 18:50 98.5 62 18 114/66 (82) 96 05/01/17 13:19 72 109/71 (84) I/O 05/01/17 05/01/17 05/01/17 05/02/17 05/02/17 05/02/17 07:00 15:00 23:00 07:00 15:00 23:00 Intake Total 240 ml Balance 240 ml Intake Oral 240 ml Physical Exam GENERAL: This is a well-nourished, well-developed patient, in no apparent distress. CARDIOVASCULAR: Regular rate and rhythm without murmurs, gallops, or rubs. RESPIRATORY: Clear to auscultation. Breath sounds equal bilaterally. No wheezes , rales, or rhonchi. GASTROINTESTINAL: Abdomen soft, non-tender, nondistended. Normal active bowel sounds MUSCULOSKELETAL: Extremities without clubbing, cyanosis, or edema. NEURO: Alert & Oriented x4 to person, place, time, situation. Moves all ext x4 Imaging Last Impressions Myocardial Perfusion Scan Nuc Med 04/30/17 0000 Signed Impressions: Service Date/Time: Sunday, April 30, 2017 12:17 - CONCLUSION: Diminished ejection fraction 40%% with generalized hypokinesia. Perfusion defect inferior wall towards the apex with possible image redistribution. RISK CATEGORY: Intermediate (1-3%% Annual Mortality Rate) Harpal Guevara MD Upper Extremity Ultrasound 04/28/17 0000 Signed Impressions: Service Date/Time: Friday, April 28, 2017 09:24 - CONCLUSION: Occlusive thrombus IV site. Niko Avilez MD FACR Chest X-Ray 04/27/17 1100 Signed Impressions: Service Date/Time: Thursday, April 27, 2017 11:44 - CONCLUSION: 1. No acute findings. Mildly tortuous aorta. Juan A Jackson MD Assessment and Plan Problem List: (1) Abnormal nuclear cardiac imaging test ICD Codes: R93.1 - Abnormal findings on diagnostic imaging of heart and coronary circulation Plan: He declines transfer to the main hospital and cardiac cath. (2) Chest pain ICD Codes: R07.9 - Chest pain, unspecified Status: Resolved Plan: Atypical but w/ recurrent sx and abnormal stress did offer a cardiac cath ; he declines. Assessment and Plan Given that he declines cardiac cath will sign off at this time and see him on an as needed basis; should he change his mind, pls call; continue medical mgt. Ac Hebert MD May 02, 2017 12:05
--- NOTE | 2017-05-02 13:11 | HHI.PR ---
Subjective Remarks no complains, occasional chest discomfort unrelated to effort Objective Vitals Vital Signs Date Time Temp Pulse Resp B/P (MAP) Pulse Ox O2 Delivery O2 Flow Rate FiO2 05/02/17 06:35 98.1 56 18 115/67 (83) 95 05/01/17 18:50 98.5 62 18 114/66 (82) 96 05/01/17 13:19 72 109/71 (84) I/O 05/01/17 05/01/17 05/01/17 05/02/17 05/02/17 05/02/17 07:00 15:00 23:00 07:00 15:00 23:00 Intake Total 240 ml Balance 240 ml Intake Oral 240 ml Result Diagram: 04/28/17 0555 04/28/17 0555 Imaging Last Impressions Myocardial Perfusion Scan Nuc Med 04/30/17 0000 Signed Impressions: Service Date/Time: Sunday, April 30, 2017 12:17 - CONCLUSION: Diminished ejection fraction 40%% with generalized hypokinesia. Perfusion defect inferior wall towards the apex with possible image redistribution. RISK CATEGORY: Intermediate (1-3%% Annual Mortality Rate) Harpal Guevara MD Upper Extremity Ultrasound 04/28/17 0000 Signed Impressions: Service Date/Time: Friday, April 28, 2017 09:24 - CONCLUSION: Occlusive thrombus IV site. Niko Avilez MD FACR Chest X-Ray 04/27/17 1100 Signed Impressions: Service Date/Time: Thursday, April 27, 2017 11:44 - CONCLUSION: 1. No acute findings. Mildly tortuous aorta. Juan A Jackson MD Objective Remarks awake and alert, in no acute distress anicteric lungs clear regular rhythm abdomen soft, nontender left forearm- anterior aspect- with erythema and induration about 5 cm x 5 cm, tender,- slightly decrease good radial pulses, good range of motion LE - no edema A/P Problem List: (1) Atypical chest pain ICD Code: R07.89 - Other chest pain Status: Acute (2) HTN (hypertension) ICD Code: I10 - Essential (primary) hypertension (3) Alcohol withdrawal ICD Code: F10.239 - Alcohol dependence with withdrawal, unspecified Status: Acute (4) Chronic pain ICD Code: G89.29 - Other chronic pain Status: Chronic Assessment and Plan 57-year-old male admitted to psychiatric unit secondary to suicidal ideations Atypical Chest Pain- + myocardial perfusion study with redistribution- EF 40& Likely alcoholic cardiomyopathy- EF 40% Negative EKGs, Negative cardiac enzymes ASa 162 mg daily continue on MIRLANDE- LIsinoril/BB seen by Cardiology- refused cardiac cath Hypertension Continue lisinopril Follow blood pressures Left arm cellulitis r/o possible abscess History of MRSA IV site thrombus DC Bactrim twice a day. Change to Cephalexin Warm compress to site daily- q shift Follow for improvement- warm compress q shift . I and D if needed Continued on isolation No need for blood thinners due to the small size and superficial nature of the thrombus Recheck US next few days to check for abscess formation Alcohol abuse history Risk for withdrawal Continue CIWA protocol- Librium Chronic back pain Continue oxycodone Laurent Caro MD May 02, 2017 13:11
[2017-05-02] MEDS: CEPHALEXIN MONOHYDRATE 500 MG CAP PO SCH ×3 (13:37→23:28)
--- NOTE | 2017-05-02 15:03 | HHI.PYPN ---
Subjective Remarks Pt seen and discussed with staff. No withdrawal symptoms. CIWA=4. Tolerating librium taper. Mood remains depressed but he denies SI/HI. No medication side effects. Objective Alert: Yes [place]: Person, Place, Date Mood: Depressed Affect: Restricted Memory Intact: Comment (intact) Hallucinations: Other (denies) Delusions: No Delusion Type: Other (denies) Suicidal: Ideation (denies) Homicidal: Ideation (denies) Insight/Judgment limited Vitals/IOs Vital Signs Date Time Temp Pulse Resp B/P (MAP) Pulse Ox O2 Delivery O2 Flow Rate FiO2 05/02/17 06:35 98.1 56 18 115/67 (83) 95 Intake and Output 05/02/17 05/02/17 05/03/17 08:00 16:00 00:00 Intake Total 240 ml Balance 240 ml Assessment & Plan Problem List: (1) Adjustment disorder with depressed mood ICD Codes: F43.21 - Adjustment disorder with depressed mood (2) Alcohol withdrawal ICD Codes: F10.239 - Alcohol dependence with withdrawal, unspecified Status: Acute (3) Alcohol abuse ICD Codes: F10.10 - Alcohol abuse, uncomplicated Status: Acute Assessment & Plan Continue current tx plan. Estimated LOS: days Justification for Cont. Inpt. risk of decompensation Willa Samaniego MD May 02, 2017 15:03
[2017-05-02 18:40] VITALS: BP 88/50; PULSE 59; RESP 16; TEMP 97; O2SAT 96
[2017-05-02] MEDS: traZODone HCL 50 MG TAB PO PRN (23:37)
[2017-05-03 04:59] VITALS: BP 110/55; PULSE 58; RESP 17; TEMP 98.1
[2017-05-03] MEDS: CEPHALEXIN MONOHYDRATE 500 MG CAP PO SCH ×3 (06:14→17:52)
[2017-05-03] MEDS: chlordiazePOXIDE 25 MG CAP PO SCH ×3 (06:14→21:59)
[2017-05-03] MEDS: ISOSORBIDE MONONITRATE 30 MG TAB PO SCH (06:14)
[2017-05-03] MEDS: ASPIRIN 81 MG CHEW TAB CHEW SCH (08:59)
[2017-05-03] MEDS: ACETAMINOPHEN 325 MG TAB PO PRN (08:59)
[2017-05-03] MEDS: SULFAMETHOXAZOLE-TRIMETHOPRIM DS 800-160 MG TAB PO SCH ×2 (08:59→21:58)
[2017-05-03] MEDS: SERTRALINE HCL 50 MG TAB PO SCH (09:00)
[2017-05-03] MEDS: LISINOPRIL 5 MG TAB PO SCH (09:00)
[2017-05-03] MEDS: LACTOBACILLUS ACIDOPHILUS TAB PO SCH ×3 (09:01→17:52)
[2017-05-03] MEDS: THIAMINE HCL 100 MG TAB PO SCH (09:01)
[2017-05-03] MEDS: SODIUM CHLORIDE 0.9% FLUSH 10 ML FLUSH IV FLUSH SCH ×2 (09:01→21:00)
[2017-05-03] MEDS: METOPROLOL TARTRATE 25 MG TAB PO SCH ×2 (09:02→21:00)
--- NOTE | 2017-05-03 14:00 | HHI.PR ---
Subjective Remarks no chest pain or shortness of breath pain on left UE- , good range of motion Objective Vitals Vital Signs Date Time Temp Pulse Resp B/P (MAP) Pulse Ox O2 Delivery O2 Flow Rate FiO2 05/03/17 04:59 98.1 58 17 110/55 (73) 05/02/17 18:40 97.0 59 16 88/50 (63) 96 I/O 05/02/17 05/02/17 05/02/17 05/03/17 05/03/17 05/03/17 07:00 15:00 23:00 07:00 15:00 23:00 Intake Total 480 ml 240 ml 520 ml Balance 480 ml 240 ml 520 ml Intake Oral 480 ml 240 ml 520 ml Imaging Last Impressions Myocardial Perfusion Scan Nuc Med 04/30/17 0000 Signed Impressions: Service Date/Time: Sunday, April 30, 2017 12:17 - CONCLUSION: Diminished ejection fraction 40%% with generalized hypokinesia. Perfusion defect inferior wall towards the apex with possible image redistribution. RISK CATEGORY: Intermediate (1-3%% Annual Mortality Rate) Harpal Guevara MD Upper Extremity Ultrasound 04/28/17 0000 Signed Impressions: Service Date/Time: Friday, April 28, 2017 09:24 - CONCLUSION: Occlusive thrombus IV site. Niko Avilez MD FACR Chest X-Ray 04/27/17 1100 Signed Impressions: Service Date/Time: Thursday, April 27, 2017 11:44 - CONCLUSION: 1. No acute findings. Mildly tortuous aorta. Juan A Jackson MD Objective Remarks awake and alert, in no acute distress anicteric lungs clear regular rhythm abdomen soft, nontender left forearm- anterior aspect- with erythema and induration about 5 cm x 5 cm- softer and less indurated, less tender to touch good radial pulses, good range of motion LE - no edema A/P Problem List: (1) Atypical chest pain ICD Code: R07.89 - Other chest pain Status: Acute (2) HTN (hypertension) ICD Code: I10 - Essential (primary) hypertension (3) Alcohol withdrawal ICD Code: F10.239 - Alcohol dependence with withdrawal, unspecified Status: Acute (4) Chronic pain ICD Code: G89.29 - Other chronic pain Status: Chronic Assessment and Plan 57-year-old male admitted to psychiatric unit secondary to suicidal ideations Atypical Chest Pain- + myocardial perfusion study with redistribution- EF 40& Likely alcoholic cardiomyopathy- EF 40%- no sing sof fluid overload Negative EKGs, Negative cardiac enzymes ASa 162 mg daily continue on MIRLANDE- LIsinoril/BB. Decrease Lopressor to 12.5 mg po bid. Monitor BP continue Imdur 30 mg po daily seen by Cardiology- refused cardiac cath medical management Hypertension Continue lisinopril decrease Lopressor to 12.5 mg po bid Follow blood pressures Left arm cellulitis r/o possible abscess History of MRSA IV site thrombus DC Bactrim twice a day. Change to Cephalexin Warm compress to site daily- q shift Follow for improvement- warm compress q shift . I and D if needed Continued on isolation No need for blood thinners due to the small size and superficial nature of the thrombus Recheck US in am - softer, if + collection will call for evaluation for I and D next few days Alcohol abuse history Risk for withdrawal Continue CIWA protocol- Librium Chronic back pain Continue oxycodone Laurent Caro MD May 03, 2017 13:59
--- NOTE | 2017-05-03 18:02 | HHI.PYPN ---
Subjective Remarks Patient seen for follow up; chart reviewed. Patient found sitting on bed, calm and cooperative with interview. He states feeling better but still depressed as he reports missing his family. He reports continuing to have SI this AM but lasts for a short while. He continues to be interested in inpatient rehabilation program. He mentions that the medical team had mentioned the possibility of his require an angioplasty which he reports feeling nervous about. Review of Systems Except as stated in HPI: all other systems reviewed are Neg Objective Alert: Yes [place]: Person, Place, Date Mood: Depressed Affect: Restricted (but able to smile on occasion) Memory Intact: Comment (intact) Hallucinations: Other (denies) Delusions: No Delusion Type: Other (denies) Suicidal: Ideation (denies but had passive SI this morning) Homicidal: Ideation (denies) Insight/Judgment limited insight, fair impulse control and judgment Vitals/IOs Vital Signs Date Time Temp Pulse Resp B/P (MAP) Pulse Ox O2 Delivery O2 Flow Rate FiO2 05/03/17 04:59 98.1 58 17 110/55 (73) 05/02/17 18:40 96 Intake and Output 05/03/17 05/03/17 05/04/17 08:00 16:00 00:00 Intake Total 260 ml 260 ml Balance 260 ml 260 ml Assessment & Plan Problem List: (1) Adjustment disorder with depressed mood ICD Codes: F43.21 - Adjustment disorder with depressed mood (2) Alcohol withdrawal ICD Codes: F10.239 - Alcohol dependence with withdrawal, unspecified Status: Acute (3) Alcohol abuse ICD Codes: F10.10 - Alcohol abuse, uncomplicated Status: Acute Assessment & Plan Patient with decreasing CIWA scores and will continue to taper librium. Patient continues to endorse depressive mood and will increase sertraline to 75mg PO daily. Patient once stable will be referred to inpatient rehabilitation program. Discharge planning in progress. Justification for Cont. Inpt. At risk for further decompensation if at lower level of care Roger Hoover MD May 03, 2017 18:02
[2017-05-03] MEDS ORDERED: PILL SPLITTER OTHER PRN (18:15)
[2017-05-03 20:00] VITALS: BP 123/73; PULSE 58; RESP 20; TEMP 97.8
[2017-05-03] MEDS: LORazepam 1 MG TAB PO PRN (22:01)
[2017-05-04] MEDS: CEPHALEXIN MONOHYDRATE 500 MG CAP PO SCH ×5 (00:33→22:59)
[2017-05-04] MEDS: LORazepam 1 MG TAB PO PRN (01:24)
[2017-05-04 06:00] VITALS: BP 121/65; PULSE 52; RESP 18; TEMP 98.2; O2SAT 99
[2017-05-04] MEDS: ISOSORBIDE MONONITRATE 30 MG TAB PO SCH (06:27)
[2017-05-04] MEDS: SERTRALINE HCL 50 MG TAB PO SCH (08:24)
[2017-05-04] MEDS: LACTOBACILLUS ACIDOPHILUS TAB PO SCH ×3 (08:25→17:16)
[2017-05-04] MEDS: SULFAMETHOXAZOLE-TRIMETHOPRIM DS 800-160 MG TAB PO SCH ×2 (08:25→21:20)
[2017-05-04] MEDS: ASPIRIN 81 MG CHEW TAB CHEW SCH (08:27)
[2017-05-04] MEDS: THIAMINE HCL 100 MG TAB PO SCH (08:27)
[2017-05-04] MEDS: chlordiazePOXIDE 25 MG CAP PO SCH ×3 (08:27→21:21)
[2017-05-04] MEDS: LISINOPRIL 5 MG TAB PO SCH (08:31)
[2017-05-04] MEDS: METOPROLOL TARTRATE 25 MG TAB PO SCH ×2 (08:34→21:21)
[2017-05-04] MEDS: SODIUM CHLORIDE 0.9% FLUSH 10 ML FLUSH IV FLUSH SCH ×2 (08:34→21:00)
--- NOTE | 2017-05-04 16:26 | HHI.PYPN ---
Subjective Remarks Patient seen for follow-up, chart reviewed. Patient found walking on the unit smiling and pleasant with staff. He states that he has been feeling "upbeat" although feeling a "bit sad and depressed" missing his family but denies SI today. He continues to feel physically better and plans on calling several possibilities for acceptance to a substance rehabilitation program. Review of Systems Except as stated in HPI: all other systems reviewed are Neg Objective Alert: Yes [place]: Person, Place, Date Mood: Calm Affect: Appropriate Memory Intact: Comment (intact) Hallucinations: Other (denies) Delusions: No Delusion Type: Other (denies) Suicidal: Ideation (denies but had passive SI this morning) Homicidal: Ideation (denies) Insight/Judgment fair insight, impulse control and judgment Vitals/IOs Vital Signs Date Time Temp Pulse Resp B/P (MAP) Pulse Ox O2 Delivery O2 Flow Rate FiO2 05/04/17 06:00 98.2 52 18 121/65 (83) 99 Intake and Output 05/04/17 05/04/17 05/05/17 08:00 16:00 00:00 Intake Total 720 ml Balance 720 ml Assessment & Plan Problem List: (1) Adjustment disorder with depressed mood ICD Codes: F43.21 - Adjustment disorder with depressed mood (2) Alcohol withdrawal ICD Codes: F10.239 - Alcohol dependence with withdrawal, unspecified Status: Acute (3) Alcohol abuse ICD Codes: F10.10 - Alcohol abuse, uncomplicated Status: Acute Assessment & Plan Patient noted to be improving mood and denying suicidal ideations today. Will continue to taper Librium (50mg/25mg/25mg), continue sertraline 75mg PO daily. Continue CIWA. Discharge planning in progress. Justification for Cont. Inpt. At risk for further decompensation if at lower level of care. Roger Hoover MD May 04, 2017 16:26
[2017-05-04 17:22] VITALS: BP 104/60; PULSE 61; RESP 17; TEMP 98.9; O2SAT 94
--- NOTE | 2017-05-04 17:43 | HHI.PR ---
Subjective Remarks up and ambulating no complains of chest discomfort or shortness of breath pain left arm- anterior aspect Objective Vitals Vital Signs Date Time Temp Pulse Resp B/P (MAP) Pulse Ox O2 Delivery O2 Flow Rate FiO2 05/04/17 17:22 98.9 61 17 104/60 (75) 94 05/04/17 06:00 98.2 52 18 121/65 (83) 99 05/03/17 20:00 97.8 58 20 123/73 (90) I/O 05/03/17 05/03/17 05/03/17 05/04/17 05/04/17 05/04/17 07:00 15:00 23:00 07:00 15:00 23:00 Intake Total 520 ml 720 ml Balance 520 ml 720 ml Intake Oral 520 ml 720 ml Imaging Last Impressions Myocardial Perfusion Scan Nuc Med 04/30/17 0000 Signed Impressions: Service Date/Time: Sunday, April 30, 2017 12:17 - CONCLUSION: Diminished ejection fraction 40%% with generalized hypokinesia. Perfusion defect inferior wall towards the apex with possible image redistribution. RISK CATEGORY: Intermediate (1-3%% Annual Mortality Rate) Harpal Guevara MD Upper Extremity Ultrasound 04/28/17 0000 Signed Impressions: Service Date/Time: Friday, April 28, 2017 09:24 - CONCLUSION: Occlusive thrombus IV site. Niko Avilez MD FACR Chest X-Ray 04/27/17 1100 Signed Impressions: Service Date/Time: Thursday, April 27, 2017 11:44 - CONCLUSION: 1. No acute findings. Mildly tortuous aorta. 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, good range of motion LE - no edema A/P Problem List: (1) Atypical chest pain ICD Code: R07.89 - Other chest pain Status: Acute (2) HTN (hypertension) ICD Code: I10 - Essential (primary) hypertension (3) Alcohol withdrawal ICD Code: F10.239 - Alcohol dependence with withdrawal, unspecified Status: Acute (4) Chronic pain ICD Code: G89.29 - Other chronic pain Status: Chronic Assessment and Plan 57-year-old male admitted to psychiatric unit secondary to suicidal ideations Atypical Chest Pain- + myocardial perfusion study with redistribution- EF 40& Likely alcoholic cardiomyopathy- EF 40%- no sing sof fluid overload Negative EKGs, Negative cardiac enzymes ASa 162 mg daily continue on MIRLANDE- LIsinoril/BB. Decrease Lopressor to 12.5 mg po bid. Monitor BP continue Imdur 30 mg po daily decrease to 15 mg po daily seen by Cardiology- refused cardiac cath medical management- Decrease Lisinorpil dose, decrease Lopressor dose Hypertension- some low readings asymptomatic- ambulating around Continue lisinopril- decrease dose decrease Lopressor to 12.5 mg po bid Follow blood pressures Left arm cellulitis /phlebitis r/o possible abscess- clinically- History of MRSA IV site thrombus on Cephalexin Warm compress to site daily- q shift Follow for improvement-may be ready for I and D if confirms abscess in am. will check another soft tissue US. No need for blood thinners due to the small size and superficial nature of the thrombus Recheck US in am - softer, if + collection will call for evaluation for I and D next few days Alcohol abuse history Risk for withdrawal Continue CIWA protocol- Librium per psychiatry Chronic back pain Continue oxycodone Laurent Caro MD May 04, 2017 17:43
[2017-05-04] MEDS ORDERED: PILL SPLITTER OTHER PRN (18:00)
[2017-05-04] MEDS: traZODone HCL 50 MG TAB PO PRN (23:00)
[2017-05-05] MEDS: CEPHALEXIN MONOHYDRATE 500 MG CAP PO SCH ×3 (05:16→18:00)
[2017-05-05 06:25] VITALS: BP 118/59; PULSE 57; RESP 16; TEMP 98.2; O2SAT 93
[2017-05-05] MEDS: chlordiazePOXIDE 25 MG CAP PO SCH ×3 (09:00→21:13)
[2017-05-05] MEDS: ISOSORBIDE MONONITRATE 30 MG TAB PO SCH (09:00)
[2017-05-05] MEDS: THIAMINE HCL 100 MG TAB PO SCH (09:00)
[2017-05-05] MEDS: ASPIRIN 81 MG CHEW TAB CHEW SCH (09:00)
[2017-05-05] MEDS ORDERED: chlordiazePOXIDE 25 MG CAP PO SCH (09:00)
[2017-05-05] MEDS: LACTOBACILLUS ACIDOPHILUS TAB PO SCH ×3 (09:00→18:00)
[2017-05-05] MEDS: SODIUM CHLORIDE 0.9% FLUSH 10 ML FLUSH IV FLUSH SCH ×2 (09:00→21:00)
[2017-05-05] MEDS: METOPROLOL TARTRATE 25 MG TAB PO SCH ×2 (09:00→21:00)
[2017-05-05] MEDS: SERTRALINE HCL 50 MG TAB PO SCH (09:00)
--- NOTE | 2017-05-05 09:31 | RADRPT ---
EXAM DATE/TIME: 05/05/2017 08:49 [facility] COMPARISON: US ARM LEFT, April 28, 2017, 9:24. INDICATIONS : Left arm abscess. MEDICAL HISTORY : Hypercholesterolemia. Arthritis. Head trauma. Chest pain. Numbness. Irregular heartbeat. HTN. Depre ssion. Anxiety. Suicidal ideations. Alcohol abuse. Anxiety. MRSA. SURGICAL HISTORY : Cholecystectomy. Left eye surgery. Plate in head. Back surgery. Partial left hip removal. Bone gr aft. Right knee surgery. Chemotherapy. ENCOUNTER: Subsequent ACUITY: 1 week PAIN SCORE: 6/10 LOCATION: Left arm. AREA EVALUATED: Left anterior forearm COMPLETE APPROPRIATE ITEMS PRE PROCEDURE: ID x 2: Complete NameDate of BirthPatient Name Band Education: Nurse/Technologist explained procedu re to patient/family. Patient/family demonstrates understanding of procedure. FINDINGS: MASSES: None. FLUID COLLECTIONS: None. Edema is identified within the subcutaneous and muscular tissues OTHER: Negative. CONCLUSION: 1. Edema within the forearm but no evidence of abscess Jae Flynn MD on May 05, 2017 at 9:29 Board Certified Radiologist. This report was verified electronically.
--- NOTE | 2017-05-05 11:03 | PD.TTN ---
Patient Problems 1. Discharge planning 2. Medication compliance 3. Knowledge deficit 4. Lack of coping skills Progress Toward Goals Provider Present: Dr. Robe Hoover Provider Input: Dr. Hoover reported the patient will have been tapered off Librium by this coming Wednesday. Psychiatric Counselors Present: AMARILIS Ruffin Psych Therapist Input: Counselor reported the patient remains compliant with medications and without behavioral disturbance. Patient's mood and affect appear to have improved. He is out on the unit more and participating in groups. Patient was able to find his folder with sober living resources and counselor encouraged patient to begin calling to arrange for placement following discharge. Group Spec/RT/OT/DEVINE Present: SYBIL Gaxiola Group Spec/RT/OT/DEVINE Input: Mike reported the patient is attending groups. Discharge Plan SMA Documentation Scribe: AMARILIS Ruffin Date Resolved: May 05, 2017 Daphne Ceballos May 05, 2017 11:03
--- NOTE | 2017-05-05 16:20 | HHI.PYPN ---
Subjective Remarks Patient seen for follow-up, chart reviewed. Patient found sitting on hospital, cooperative with interview. He states that he has been having pain recently and that it makes him feel more down. He mentions that if it wasn't for the pain he would not feel depressed, "I would feel good". Patient states trying to find a rehabiliation program through the information provided to him by the treatment team. He denies any suicidal ideations and reports his mood improving. Review of Systems Except as stated in HPI: all other systems reviewed are Neg Objective Alert: Yes [place]: Person, Place, Date Mood: Calm Affect: Appropriate Memory Intact: Comment (intact) Hallucinations: Other (denies) Delusions: No Delusion Type: Other (denies) Suicidal: Ideation (denies but had passive SI this morning) Homicidal: Ideation (denies) Insight/Judgment fair insight, impulse control and judgment Vitals/IOs Vital Signs Date Time Temp Pulse Resp B/P (MAP) Pulse Ox O2 Delivery O2 Flow Rate FiO2 05/05/17 06:25 98.2 57 16 118/59 (78) 93 Assessment & Plan Problem List: (1) Adjustment disorder with depressed mood ICD Codes: F43.21 - Adjustment disorder with depressed mood (2) Alcohol withdrawal ICD Codes: F10.239 - Alcohol dependence with withdrawal, unspecified Status: Acute (3) Alcohol abuse ICD Codes: F10.10 - Alcohol abuse, uncomplicated Status: Acute Assessment & Plan Patient with low CIWA scores and no noted signs of withdrawal. Will continue to taper Librium. Continue rest of medications. Discharge plannign in progress. Justification for Cont. Inpt. At risk for further decompensation if at lower level of care. Roger Hoover MD May 05, 2017 16:20
--- NOTE | 2017-05-05 16:50 | HHI.PR ---
Subjective Remarks not having any chest pain or shortness of breath or forearm pain Objective Vitals Vital Signs Date Time Temp Pulse Resp B/P (MAP) Pulse Ox O2 Delivery O2 Flow Rate FiO2 05/05/17 06:25 98.2 57 16 118/59 (78) 93 05/04/17 17:22 98.9 61 17 104/60 (75) 94 I/O 05/04/17 05/04/17 05/04/17 05/05/17 05/05/17 05/05/17 07:00 15:00 23:00 07:00 15:00 23:00 Intake Total 720 ml Balance 720 ml Intake Oral 720 ml Imaging Last Impressions Upper Extremity Ultrasound 05/05/17 0600 Signed Impressions: Service Date/Time: Friday, May 05, 2017 08:49 - CONCLUSION: 1. Edema within the forearm but no evidence of abscess Jae Flynn MD Myocardial Perfusion Scan Nuc Med 04/30/17 0000 Signed Impressions: Service Date/Time: Sunday, April 30, 2017 12:17 - CONCLUSION: Diminished ejection fraction 40%% with generalized hypokinesia. Perfusion defect inferior wall towards the apex with possible image redistribution. RISK CATEGORY: Intermediate (1-3%% Annual Mortality Rate) Harpal uGevara MD Chest X-Ray 04/27/17 1100 Signed Impressions: Service Date/Time: Thursday, April 27, 2017 11:44 - CONCLUSION: 1. No acute findings. Mildly tortuous aorta. Juan A Jackson MD Objective Remarks awake and alert, in no acute distress anicteric lungs clear regular rhythm abdomen soft, nontender left forearm- anterior aspect- with erythema and induration about 5 cm x 5 cm-- softer, non tender to touch today's exam good radial pulses, good range of motion LE - no edema A/P Problem List: (1) Atypical chest pain ICD Code: R07.89 - Other chest pain Status: Acute (2) HTN (hypertension) ICD Code: I10 - Essential (primary) hypertension (3) Alcohol withdrawal ICD Code: F10.239 - Alcohol dependence with withdrawal, unspecified Status: Acute (4) Chronic pain ICD Code: G89.29 - Other chronic pain Status: Chronic Assessment and Plan 57-year-old male admitted to psychiatric unit secondary to suicidal ideations Atypical Chest Pain- + myocardial perfusion study with redistribution- EF 40& Likely alcoholic cardiomyopathy- EF 40%- no sing sof fluid overload Negative EKGs, Negative cardiac enzymes ASa 162 mg daily continue on MIRLANDE- LIsinoril/BB. Decrease Lopressor to 12.5 mg po bid. Monitor BP continue Imdur o 15 mg po daily seen by Cardiology- refused cardiac cath- "does not want to" - asked again today - "feel fine" medical management- - borderline BPs Decrease Lisinopril dose, decrease Lopressor dose Hypertension- some low readings asymptomatic- ambulating around Continue lisinopril- decrease dose decrease Lopressor to 12.5 mg po bid Follow blood pressures Left arm cellulitis /phlebitis r/o possible abscess- clinically- History of MRSA IV site thrombus on Cephalexin Warm compress to site daily- q shift Follow for improvement-may be ready for I and D if confirms abscess in am. will check another soft tissue US. No need for blood thinners due to the small size and superficial nature of the thrombus Recheck US - no abscess collection Alcohol abuse history Risk for withdrawal Continue CIWA protocol- Librium per psychiatry Chronic back pain Continue oxycodone Laurent Caro MD May 05, 2017 16:50
[2017-05-05 18:00] VITALS: BP 95/59; PULSE 53; RESP 18; TEMP 97.7; O2SAT 94
[2017-05-06] MEDS: CEPHALEXIN MONOHYDRATE 500 MG CAP PO SCH ×5 (00:07→23:52)
[2017-05-06] MEDS: ISOSORBIDE MONONITRATE 30 MG TAB PO SCH (05:39)
[2017-05-06 05:50] VITALS: BP 125/76; PULSE 50; RESP 18; TEMP 98.6; O2SAT 96
[2017-05-06] MEDS: chlordiazePOXIDE 25 MG CAP PO SCH (08:44)
[2017-05-06] MEDS: METOPROLOL TARTRATE 25 MG TAB PO SCH (08:44)
[2017-05-06] MEDS: ASPIRIN 81 MG CHEW TAB CHEW SCH (08:44)
[2017-05-06] MEDS: LACTOBACILLUS ACIDOPHILUS TAB PO SCH ×3 (08:44→17:53)
[2017-05-06] MEDS: THIAMINE HCL 100 MG TAB PO SCH (08:44)
[2017-05-06] MEDS: SERTRALINE HCL 50 MG TAB PO SCH (08:44)
[2017-05-06] MEDS: LISINOPRIL 5 MG TAB PO SCH (09:00)
[2017-05-06] MEDS: SODIUM CHLORIDE 0.9% FLUSH 10 ML FLUSH IV FLUSH SCH ×2 (09:00→21:00)
--- NOTE | 2017-05-06 13:51 | HHI.PR ---
Subjective Remarks no complains up and ambulating with no CP or SOB "took a shower" no arm pain HR 60/min- sinus Objective Vitals Vital Signs Date Time Temp Pulse Resp B/P (MAP) Pulse Ox O2 Delivery O2 Flow Rate FiO2 05/06/17 05:50 98.6 50 18 125/76 (92) 96 05/05/17 18:00 97.7 53 18 95/59 (71) 94 Imaging Last Impressions Upper Extremity Ultrasound 05/05/17 0600 Signed Impressions: Service Date/Time: Friday, May 05, 2017 08:49 - CONCLUSION: 1. Edema within the forearm but no evidence of abscess Jae Flynn MD Myocardial Perfusion Scan Nuc Med 04/30/17 0000 Signed Impressions: Service Date/Time: Sunday, April 30, 2017 12:17 - CONCLUSION: Diminished ejection fraction 40%% with generalized hypokinesia. Perfusion defect inferior wall towards the apex with possible image redistribution. RISK CATEGORY: Intermediate (1-3%% Annual Mortality Rate) Harpal Guevara MD Chest X-Ray 04/27/17 1100 Signed Impressions: Service Date/Time: Thursday, April 27, 2017 11:44 - CONCLUSION: 1. No acute findings. Mildly tortuous aorta. Juan A Jackson MD Objective Remarks awake and alert, in no acute distress anicteric lungs clear regular rhythm abdomen soft, nontender left forearm- anterior aspect-induration-- softer, non tender, dry, erythema resolved good radial pulses, good range of motion LE - no edema A/P Problem List: (1) Atypical chest pain ICD Code: R07.89 - Other chest pain Status: Acute (2) HTN (hypertension) ICD Code: I10 - Essential (primary) hypertension (3) Alcohol withdrawal ICD Code: F10.239 - Alcohol dependence with withdrawal, unspecified Status: Acute (4) Chronic pain ICD Code: G89.29 - Other chronic pain Status: Chronic Assessment and Plan 57-year-old male admitted to psychiatric unit secondary to suicidal ideations Atypical Chest Pain- + myocardial perfusion study with redistribution- EF 40& Likely alcoholic cardiomyopathy- EF 40%- no sing sof fluid overload Negative EKGs, Negative cardiac enzymes ASa 162 mg daily continue on MIRLANDE- LIsinoril/BB. Lopressor to 6.25 mg bid- HR in the 50s . Monitor BP. Lisinopril 2.5 mg po daily continue Imdur o 15 mg po daily seen by Cardiology- refused cardiac cath- "does not want to" - asked again today - "feel fine" medical management- - borderline BPs meds dose adjusted. 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
--- NOTE | 2017-05-06 16:19 | HHI.PYPN ---
Subjective Remarks Patient seen for follow-up, chart reviewed. Patient found sitting in room and noted to be bothered after he was told he was not allowed to leave his room as he continues to be on contact precautions and rotating staff was not aware that he was on modified contact precautions which would allow him to be able to leave his room. He understood the confusion. He reports feeling better, no longer having anymore withdrawal symptoms, mood is "better" denies any suicidal ideations. He states that he has the information to call rehabilitation programs but has yet to make the calls but reports planning on doing that today. Review of Systems Except as stated in HPI: all other systems reviewed are Neg Objective Alert: Yes [place]: Person, Place, Date Mood: Depressed, Other ("better") Affect: Appropriate Memory Intact: Comment (intact) Hallucinations: Other (denies) Delusions: No Delusion Type: Other (denies) Suicidal: Ideation (denies) Homicidal: Ideation (denies) Insight/Judgment fair insight, impulse control and judgment Vitals/IOs Vital Signs Date Time Temp Pulse Resp B/P (MAP) Pulse Ox O2 Delivery O2 Flow Rate FiO2 05/06/17 05:50 98.6 50 18 125/76 (92) 96 Assessment & Plan Problem List: (1) Adjustment disorder with depressed mood ICD Codes: F43.21 - Adjustment disorder with depressed mood (2) Alcohol withdrawal ICD Codes: F10.239 - Alcohol dependence with withdrawal, unspecified Status: Acute (3) Alcohol abuse ICD Codes: F10.10 - Alcohol abuse, uncomplicated Status: Acute Assessment & Plan Patient with improved mood, no longer endorsing suicidal ideations today. Patient no longer on librium, continue rest of medications. Discharge planning in progress. Justification for Cont. Inpt. At risk for further decompensation if at lower level of care. Roger Hoover MD May 06, 2017 16:19
[2017-05-06 20:33] VITALS: BP 106/64; PULSE 56; RESP 17; TEMP 98.6; O2SAT 56
[2017-05-06] MEDS: traZODone HCL 50 MG TAB PO PRN (21:58)
[2017-05-07] MEDS: CEPHALEXIN MONOHYDRATE 500 MG CAP PO SCH ×4 (05:00→23:36)
[2017-05-07 05:29] VITALS: BP 106/65; PULSE 48; RESP 18; TEMP 97.9; O2SAT 98
[2017-05-07] MEDS: ISOSORBIDE MONONITRATE 30 MG TAB PO SCH (06:23)
[2017-05-07] MEDS: LISINOPRIL 5 MG TAB PO SCH (09:00)
[2017-05-07] MEDS: METOPROLOL TARTRATE 25 MG TAB PO SCH ×2 (09:00→21:27)
[2017-05-07] MEDS: SODIUM CHLORIDE 0.9% FLUSH 10 ML FLUSH IV FLUSH SCH ×2 (09:00→21:00)
[2017-05-07] MEDS: THIAMINE HCL 100 MG TAB PO SCH (09:52)
[2017-05-07] MEDS: SERTRALINE HCL 50 MG TAB PO SCH (09:52)
[2017-05-07] MEDS: ASPIRIN 81 MG CHEW TAB CHEW SCH (09:54)
[2017-05-07 17:11] VITALS: BP 107/57; PULSE 46; RESP 18; TEMP 98.1; O2SAT 97
--- NOTE | 2017-05-07 17:34 | HHI.PR ---
Subjective Remarks no complains up and ambulating no chest pain or shortness of breath Objective Vitals Vital Signs Date Time Temp Pulse Resp B/P (MAP) Pulse Ox O2 Delivery O2 Flow Rate FiO2 05/07/17 17:11 98.1 46 18 107/57 (74) 97 05/07/17 05:29 97.9 48 18 106/65 (79) 98 05/06/17 20:33 98.6 56 17 106/64 (78) 56 Imaging Last Impressions Upper Extremity Ultrasound 05/05/17 0600 Signed Impressions: Service Date/Time: Friday, May 05, 2017 08:49 - CONCLUSION: 1. Edema within the forearm but no evidence of abscess Jae Flynn MD Myocardial Perfusion Scan Nuc Med 04/30/17 0000 Signed Impressions: Service Date/Time: Sunday, April 30, 2017 12:17 - CONCLUSION: Diminished ejection fraction 40%% with generalized hypokinesia. Perfusion defect inferior wall towards the apex with possible image redistribution. RISK CATEGORY: Intermediate (1-3%% Annual Mortality Rate) Harpal Guevara MD Chest X-Ray 04/27/17 1100 Signed Impressions: Service Date/Time: Thursday, April 27, 2017 11:44 - CONCLUSION: 1. No acute findings. Mildly tortuous aorta. Juan A Jackson MD Objective Remarks awake and alert, regular rhythm HR 50/min abdomen soft, nontender left forearm- anterior aspect-induration-- softer, non tender, dry, erythema resolved good radial pulses, good range of motion LE - no edema A/P Problem List: (1) Atypical chest pain ICD Code: R07.89 - Other chest pain Status: Acute (2) HTN (hypertension) ICD Code: I10 - Essential (primary) hypertension (3) Alcohol withdrawal ICD Code: F10.239 - Alcohol dependence with withdrawal, unspecified Status: Acute (4) Chronic pain ICD Code: G89.29 - Other chronic pain Status: Chronic Assessment and Plan 57-year-old male admitted to psychiatric unit secondary to suicidal ideations Atypical Chest Pain- + myocardial perfusion study with redistribution- EF 40& Likely alcoholic cardiomyopathy- EF 40%- no sing sof fluid overload Negative EKGs, Negative cardiac enzymes ASa 162 mg daily continue on MIRLANDE- LIsinoril/BB. Lopressor to 6.25 mg bid- HR in the 50s .- hold parameters Monitor BP. Lisinopril 2.5 mg po daily continue Imdur o 15 mg po daily seen by Cardiology- refused cardiac cath- "does not want to" - "not now" medical management- - borderline BPs meds dose adjusted. 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
[2017-05-07] MEDS: LORazepam 1 MG TAB PO PRN (21:26)
--- NOTE | 2017-05-07 23:15 | HHI.PYPN ---
Subjective Remarks Patient seen for follow up; chart reviewed. Patient found walking on the unit, calm and cooperative with interview. He states feeling "better" and at times "up and down...but for the most part pretty good". He states feeling hopeless at times but is trying to recover and feel better. Patient states that he will continue to contact rehabilitation programs and long-term houses. Currently denies SI, HI, AVH or delusions. Review of Systems Except as stated in HPI: all other systems reviewed are Neg Objective Alert: Yes [place]: Person, Place, Date Mood: Calm, Other ("better") Affect: Appropriate Memory Intact: Comment (intact) Hallucinations: Other (denies) Delusions: No Delusion Type: Other (denies) Suicidal: Ideation (denies) Homicidal: Ideation (denies) Insight/Judgment fair insight, impulse control and judgment Vitals/IOs Vital Signs Date Time Temp Pulse Resp B/P (MAP) Pulse Ox O2 Delivery O2 Flow Rate FiO2 05/07/17 17:11 98.1 46 18 107/57 (74) 97 Assessment & Plan Problem List: (1) Adjustment disorder with depressed mood ICD Codes: F43.21 - Adjustment disorder with depressed mood (2) Alcohol withdrawal ICD Codes: F10.239 - Alcohol dependence with withdrawal, unspecified Status: Acute (3) Alcohol abuse ICD Codes: F10.10 - Alcohol abuse, uncomplicated Status: Acute Assessment & Plan Patient continues to endorse some depressive mood with occasional feelings of hopelessness but less so and denies suicidal ideations. He not noted to have any withdrawal symptoms. Will continue current treatment. Patient likely to be going to rehabilitation program once discharged. Discharge planning in progress. Justification for Cont. Inpt. At risk for further decompensation if at lower level of care. Roger Hoover MD May 07, 2017 23:15
[2017-05-08] MEDS: ISOSORBIDE MONONITRATE 30 MG TAB PO SCH (05:45)
[2017-05-08] MEDS: LORazepam 1 MG TAB PO PRN (05:45)
[2017-05-08] MEDS: CEPHALEXIN MONOHYDRATE 500 MG CAP PO SCH ×3 (05:45→18:25)
[2017-05-08 06:10] VITALS: BP 109/69; PULSE 52; RESP 18; TEMP 98.5; O2SAT 96
[2017-05-08] MEDS: SODIUM CHLORIDE 0.9% FLUSH 10 ML FLUSH IV FLUSH SCH ×2 (09:00→21:00)
[2017-05-08] MEDS: THIAMINE HCL 100 MG TAB PO SCH (09:41)
[2017-05-08] MEDS: SERTRALINE HCL 50 MG TAB PO SCH (09:41)
[2017-05-08] MEDS: LISINOPRIL 5 MG TAB PO SCH (09:42)
[2017-05-08] MEDS: METOPROLOL TARTRATE 25 MG TAB PO SCH (09:42)
[2017-05-08] MEDS: ASPIRIN 81 MG CHEW TAB CHEW SCH (09:42)
--- NOTE | 2017-05-08 15:43 | HHI.PR ---
Subjective Remarks up and ambulating denies any chest pain or shortnes of breath states pain left hip- area- states history of bone cancer and had hip surgery Objective Vitals Vital Signs Date Time Temp Pulse Resp B/P (MAP) Pulse Ox O2 Delivery O2 Flow Rate FiO2 05/08/17 06:10 98.5 52 18 109/69 (82) 96 05/07/17 17:11 98.1 46 18 107/57 (74) 97 Imaging Last Impressions Upper Extremity Ultrasound 05/05/17 0600 Signed Impressions: Service Date/Time: Friday, May 05, 2017 08:49 - CONCLUSION: 1. Edema within the forearm but no evidence of abscess Jae Flynn MD Myocardial Perfusion Scan Nuc Med 04/30/17 0000 Signed Impressions: Service Date/Time: Sunday, April 30, 2017 12:17 - CONCLUSION: Diminished ejection fraction 40%% with generalized hypokinesia. Perfusion defect inferior wall towards the apex with possible image redistribution. RISK CATEGORY: Intermediate (1-3%% Annual Mortality Rate) Harpal Guevara MD Chest X-Ray 04/27/17 1100 Signed Impressions: Service Date/Time: Thursday, April 27, 2017 11:44 - CONCLUSION: 1. No acute findings. Mildly tortuous aorta. Juan A Jackson MD Objective Remarks awake and alert, regular rhythm HR 52/min abdomen soft, nontender left forearm- anterior aspect-induration--erythema resolved good radial pulses, good range of motion LE - no edema A/P Problem List: (1) Atypical chest pain ICD Code: R07.89 - Other chest pain Status: Acute (2) HTN (hypertension) ICD Code: I10 - Essential (primary) hypertension (3) Alcohol withdrawal ICD Code: F10.239 - Alcohol dependence with withdrawal, unspecified Status: Acute (4) Chronic pain ICD Code: G89.29 - Other chronic pain Status: Chronic Assessment and Plan 57-year-old male admitted to psychiatric unit secondary to suicidal ideations Atypical Chest Pain- + myocardial perfusion study with redistribution- EF 40& Likely alcoholic cardiomyopathy- EF 40%- no sing sof fluid overload Negative EKGs, Negative cardiac enzymes ASa 162 mg daily continue on MIRLANDE- LIsinoril/BB. Lopressor to 6.25 mg bid- HR in the 50s .- decrease to once daily Monitor BP. Lisinopril 2.5 mg po daily continue Imdur o 15 mg po daily seen by Cardiology- refused cardiac cath- "does not want to" - "not now" medical management- - borderline BPs meds dose adjusted. 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
--- NOTE | 2017-05-08 17:36 | HHI.PYPN ---
Subjective Remarks Patient was seen and case discussed with nursing. Patient continues to state depression and fleeting suicidal ideation. Secondary gain given homelessness is noted. Compliant with medications and tolerating it well. Behaving well on the unit. Objective Alert: Yes [place]: Person, Place, Date Mood: Depressed, Other ("better") Affect: Appropriate Memory Intact: Comment (intact) Hallucinations: Other (denies) Delusions: No Delusion Type: Other (denies) Suicidal: Ideation (fleeting) Homicidal: Ideation (denies) Insight/Judgment Poor Vitals/IOs Vital Signs Date Time Temp Pulse Resp B/P (MAP) Pulse Ox O2 Delivery O2 Flow Rate FiO2 05/08/17 06:10 98.5 52 18 109/69 (82) 96 Assessment & Plan Problem List: (1) Adjustment disorder with depressed mood ICD Codes: F43.21 - Adjustment disorder with depressed mood (2) Alcohol withdrawal ICD Codes: F10.239 - Alcohol dependence with withdrawal, unspecified Status: Acute (3) Alcohol abuse ICD Codes: F10.10 - Alcohol abuse, uncomplicated Status: Acute Assessment & Plan Continue current treatment plan Justification for Cont. Inpt. Patient would decompensate in a less restrictive setting David Zaldivar DO May 08, 2017 17:36
[2017-05-08] MEDS: traZODone HCL 50 MG TAB PO PRN (20:51)
[2017-05-09] MEDS: CEPHALEXIN MONOHYDRATE 500 MG CAP PO SCH ×4 (00:12→18:28)
[2017-05-09 04:50] VITALS: BP 132/66; PULSE 42; RESP 17; TEMP 98.1; O2SAT 97
[2017-05-09] MEDS: ISOSORBIDE MONONITRATE 30 MG TAB PO SCH ×2 (07:00→09:39)
[2017-05-09] MEDS: SODIUM CHLORIDE 0.9% FLUSH 10 ML FLUSH IV FLUSH SCH ×2 (09:00→21:00)
[2017-05-09] MEDS: SERTRALINE HCL 50 MG TAB PO SCH (09:37)
[2017-05-09] MEDS: ASPIRIN 81 MG CHEW TAB CHEW SCH (09:37)
[2017-05-09] MEDS: THIAMINE HCL 100 MG TAB PO SCH (09:38)
[2017-05-09] MEDS: LISINOPRIL 5 MG TAB PO SCH (09:38)
[2017-05-09] MEDS: METOPROLOL TARTRATE 25 MG TAB PO SCH (09:38)
--- NOTE | 2017-05-09 12:05 | HHI.PYPN ---
Subjective Remarks Patient was seen and case discussed with nursing. Patient says he remains hopeless helpless, with fleeting suicidal thoughts with no intent or plan. Placement and homelessness remains a central theme. Tolerating medications well. Eating and sleeping well Objective Alert: Yes [place]: Person, Place, Date Mood: Depressed Affect: Appropriate Memory Intact: Comment (intact) Hallucinations: Other (denies) Delusions: No Delusion Type: Other (denies) Suicidal: Ideation (fleeting) Homicidal: Ideation (denies) Insight/Judgment Poor Vitals/IOs Vital Signs Date Time Temp Pulse Resp B/P (MAP) Pulse Ox O2 Delivery O2 Flow Rate FiO2 05/09/17 04:50 98.1 42 17 132/66 (88) 97 Assessment & Plan Problem List: (1) Adjustment disorder with depressed mood ICD Codes: F43.21 - Adjustment disorder with depressed mood (2) Alcohol withdrawal ICD Codes: F10.239 - Alcohol dependence with withdrawal, unspecified Status: Acute (3) Alcohol abuse ICD Codes: F10.10 - Alcohol abuse, uncomplicated Status: Acute Assessment & Plan Continue current treatment plan Justification for Cont. Inpt. Patient will decompensate in a less restrictive setting David Zaldivar DO May 09, 2017 12:04
--- NOTE | 2017-05-09 16:55 | HHI.PR ---
Subjective Remarks up and ambulating around intermittent chest pain " feels like a knot- now going to the left arm- "goes away right away" no nausea or vomiting HR 50/min Objective Vitals Vital Signs Date Time Temp Pulse Resp B/P (MAP) Pulse Ox O2 Delivery O2 Flow Rate FiO2 05/09/17 04:50 98.1 42 17 132/66 (88) 97 Imaging Last Impressions Upper Extremity Ultrasound 05/05/17 0600 Signed Impressions: Service Date/Time: Friday, May 05, 2017 08:49 - CONCLUSION: 1. Edema within the forearm but no evidence of abscess Jae Flynn MD Myocardial Perfusion Scan Nuc Med 04/30/17 0000 Signed Impressions: Service Date/Time: Sunday, April 30, 2017 12:17 - CONCLUSION: Diminished ejection fraction 40%% with generalized hypokinesia. Perfusion defect inferior wall towards the apex with possible image redistribution. RISK CATEGORY: Intermediate (1-3%% Annual Mortality Rate) Harpal Guevara MD Chest X-Ray 04/27/17 1100 Signed Impressions: Service Date/Time: Thursday, April 27, 2017 11:44 - CONCLUSION: 1. No acute findings. Mildly tortuous aorta. Juan A Jackson MD Objective Remarks awake and alert, regular rhythm HR 50/min abdomen soft, nontender left forearm- anterior aspect- erythema resolved good radial pulses, good range of motion LE - no edema A/P Problem List: (1) Atypical chest pain ICD Code: R07.89 - Other chest pain Status: Acute (2) HTN (hypertension) ICD Code: I10 - Essential (primary) hypertension (3) Alcohol withdrawal ICD Code: F10.239 - Alcohol dependence with withdrawal, unspecified Status: Acute (4) Chronic pain ICD Code: G89.29 - Other chronic pain Status: Chronic Assessment and Plan 57-year-old male admitted to psychiatric unit secondary to suicidal ideations Atypical Chest Pain- + myocardial perfusion study with redistribution- 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 Lisinopril 2.5 mg po daily seen by Cardiology- refused cardiac cath- "does not want to" " not now" now agreeable to cath- per patient on and off fleeting pain now going to left arm not getting Imdur- staff not giving it start Nitrol ointment 1/2 in q 8 start now will reconsult cardiology- patient now agrees to cath Repeat EKG now - sinus no acute change compared to previous EKG- slight STTW flattening 2,3, AVF Hypertension- better readings- ambulating around HR- 50s Continue lisinopril- 2.5 mg po daily LOpressor 6.25 mg po bid- hold and montior Follow blood pressure/HR Left arm cellulitis /phlebitis US- shows no collection/abscess 05/05- resolved History of MRSA IV site thrombus DC Cephalexin today- received total 10 days course of AB (cephalexin+bactrim) Warm compress to site daily- q shift Follow daily clinically No need for blood thinners due to the small size and superficial nature of the thrombus Alcohol abuse history Risk for withdrawal Continue CIWA protocol- Librium per psychiatry Chronic back pain History of bone cancer Continue oxycodone d/w patient and staff Laurent Caro MD May 09, 2017 16:55
[2017-05-09] MEDS: NITROGLYCERIN 2% OINT 1 GM PACKET TOPICAL SCH (18:00)
[2017-05-09 18:07] VITALS: BP 121/73; PULSE 50; RESP 16; TEMP 98.1; O2SAT 99
[2017-05-10] MEDS: NITROGLYCERIN 2% OINT 1 GM PACKET TOPICAL SCH ×3 (02:00→17:20)
[2017-05-10 06:49] VITALS: BP 108/82; PULSE 56; RESP 16; TEMP 96.3; O2SAT 93
[2017-05-10] MEDS: METOPROLOL TARTRATE 25 MG TAB PO SCH (09:00)
[2017-05-10] MEDS: THIAMINE HCL 100 MG TAB PO SCH (09:00)
[2017-05-10] MEDS: SERTRALINE HCL 50 MG TAB PO SCH (09:00)
[2017-05-10] MEDS: SODIUM CHLORIDE 0.9% FLUSH 10 ML FLUSH IV FLUSH SCH ×2 (09:00→20:49)
[2017-05-10] MEDS: ASPIRIN 81 MG CHEW TAB CHEW SCH (09:01)
[2017-05-10] MEDS: LISINOPRIL 5 MG TAB PO SCH (09:26)
--- NOTE | 2017-05-10 16:01 | HHI.PYPN ---
Subjective Remarks Patient seen for follow-up, chart reviewed. Patient seen sitting on hospital bed, calm and cooperative with interview. Patient states that he is feeling better, no longer having suicidal ideations but at times feels sad about his circumstances. He states that he has been trying to contact the various inpatient rehabilitation programs and [facility] but has yet to secure a program/place. He states that he will continue to pursue this. Review of Systems Except as stated in HPI: all other systems reviewed are Neg Objective Alert: Yes [place]: Person, Place, Date Mood: Calm, Other ("better") Affect: Appropriate Memory Intact: Comment (intact) Hallucinations: Other (denies) Delusions: No Delusion Type: Other (denies) Suicidal: Ideation (fleeting) Homicidal: Ideation (denies) Insight/Judgment fair insight, impulse control and judgment. Labs labs reviewed. Test 05/09/17 20:38 Troponin I LESS THAN 0.02 NG/ML Vitals/IOs Vital Signs Date Time Temp Pulse Resp B/P (MAP) Pulse Ox O2 Delivery O2 Flow Rate FiO2 05/10/17 06:49 96.3 56 16 108/82 (91) 93 Assessment & Plan Problem List: (1) Adjustment disorder with depressed mood ICD Codes: F43.21 - Adjustment disorder with depressed mood (2) Alcohol withdrawal ICD Codes: F10.239 - Alcohol dependence with withdrawal, unspecified Status: Acute (3) Alcohol abuse ICD Codes: F10.10 - Alcohol abuse, uncomplicated Status: Acute Assessment & Plan Patient noted to be with stable mood, denies suicidal ideations. Continue current treatment, discharge planning in progress. Justification for Cont. Inpt. At risk for further decompensation if at lower level of care. Roger Hoover MD May 10, 2017 16:01
--- NOTE | 2017-05-10 17:08 | HHI.PR ---
Subjective Remarks In the bed, sleepy. No chest pain. Says he did not eat, however per nurse he was noted eating well both breakfast and lunch. Patient is forgetful. No sob, n /v/d/c. Objective Vitals Vital Signs Date Time Temp Pulse Resp B/P (MAP) Pulse Ox O2 Delivery O2 Flow Rate FiO2 05/10/17 06:49 96.3 56 16 108/82 (91) 93 05/09/17 22:37 16 05/09/17 18:07 98.1 50 16 121/73 (89) 99 Objective Remarks GENERAL: awake and alert, doesn't appear in distress SKIN: left forearm- anterior aspect- erythema resolved CARDIOVASCULAR: Regular rate and rhythm without murmurs, gallops, or rubs. RESPIRATORY: Breath sounds equal bilaterally. No accessory muscle use. GASTROINTESTINAL: Abdomen soft, non-tender, nondistended. MUSCULOSKELETAL: No cyanosis, or edema. BACK: Nontender without obvious deformity. No CVA tenderness. 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 Lisinopril 2.5 mg po daily seen by Cardiology- refused cardiac cath- "does not want to" " not now" now agreeable to cath- per patient on and off fleeting pain now going to left arm not getting Imdur- staff not giving it start Nitrol ointment 1/2 in q 8 start now will reconsult cardiology- patient now agrees to cath Repeat EKG now - sinus no acute change compared to previous EKG- slight STTW flattening 2,3, AVF Hypertension- better readings- ambulating around HR- 50s Continue lisinopril- 2.5 mg po daily LOpressor 6.25 mg po bid- hold and montior Follow blood pressure/HR Left arm cellulitis /phlebitis US- shows no collection/abscess 05/05- resolved History of MRSA IV site thrombus DC Cephalexin today- received total 10 days course of AB (cephalexin+bactrim) Warm compress to site daily- q shift Follow daily clinically No need for blood thinners due to the small size and superficial nature of the thrombus Alcohol abuse history Risk for withdrawal Continue CIWA protocol- Librium per psychiatry Chronic back pain History of bone cancer Continue oxycodone d/w patient and nurse Pamela Duffy MD May 10, 2017 17:08
[2017-05-10 18:05] VITALS: BP 114/69; PULSE 51; RESP 16; TEMP 97.5; O2SAT 98
--- NOTE | 2017-05-10 19:41 | EKG ---
Date Performed: 05/09/2017 Time Performed: 13:12:13 PTAGE: 57 years EKG: SINUS BRADYCARDIA NONSPECIFIC T-WAVE ABNORMALITY BORDERLINE ECG PREVIOUS TRACING : 04/28/2017 11.22 Compared to prior tracing no significant change DOCTOR: Jay Ruby Interpretating Date/Time 05/10/2017 19:36:22
[2017-05-11] MEDS: NITROGLYCERIN 2% OINT 1 GM PACKET TOPICAL SCH ×3 (02:00→18:34)
[2017-05-11 06:26] VITALS: BP 97/69; PULSE 70; RESP 18; TEMP 97.8; O2SAT 99
--- NOTE | 2017-05-11 07:42 | HHI.PR ---
Subjective Remarks In the chair, less aggressive, awaiting for breakfast. Asking for morphine for back pain. No n/v/d/c. Denies chest pain or sob. Objective Vitals Vital Signs Date Time Temp Pulse Resp B/P (MAP) Pulse Ox O2 Delivery O2 Flow Rate FiO2 05/11/17 06:26 97.8 70 18 97/69 (78) 99 05/10/17 18:05 97.5 51 16 114/69 (84) 98 Imaging Last Impressions Upper Extremity Ultrasound 05/05/17 0600 Signed Impressions: Service Date/Time: Friday, May 05, 2017 08:49 - CONCLUSION: 1. Edema within the forearm but no evidence of abscess Jae Flynn MD Myocardial Perfusion Scan Nuc Med 04/30/17 0000 Signed Impressions: Service Date/Time: Sunday, April 30, 2017 12:17 - CONCLUSION: Diminished ejection fraction 40%% with generalized hypokinesia. Perfusion defect inferior wall towards the apex with possible image redistribution. RISK CATEGORY: Intermediate (1-3%% Annual Mortality Rate) Harpal Guevara MD Chest X-Ray 04/27/17 1100 Signed Impressions: Service Date/Time: Thursday, April 27, 2017 11:44 - CONCLUSION: 1. No acute findings. Mildly tortuous aorta. Juan A Jackson MD Objective Remarks GENERAL: awake and alert, doesn't appear in distress SKIN: left forearm- anterior aspect- erythema resolved CARDIOVASCULAR: Regular rate and rhythm without murmurs, gallops, or rubs. RESPIRATORY: Breath sounds equal bilaterally. No accessory muscle use. GASTROINTESTINAL: Abdomen soft, non-tender, nondistended. MUSCULOSKELETAL: No cyanosis, or edema. BACK: Nontender without obvious deformity. No CVA tenderness. 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 Lisinopril 2.5 mg po daily seen by Cardiology- refused cardiac cath- "does not want to" " not now" now agreeable to cath- per patient on and off fleeting pain now going to left arm not getting Imdur- staff not giving it start Nitrol ointment 1/2 in q 8 start now will reconsult cardiology- patient now agrees to cath Repeat EKG now - sinus no acute change compared to previous EKG- slight STTW flattening 2,3, AVF Hypertension- better readings- ambulating around HR- 50s Continue lisinopril- 2.5 mg po daily LOpressor 6.25 mg po bid- hold and montior Follow blood pressure/HR Left arm cellulitis /phlebitis US- shows no collection/abscess 05/05- resolved History of MRSA IV site thrombus DC Cephalexin today- received total 10 days course of AB (cephalexin+bactrim) Warm compress to site daily- q shift Follow daily clinically No need for blood thinners due to the small size and superficial nature of the thrombus Alcohol abuse history Risk for withdrawal Continue CIWA protocol- Librium per psychiatry Chronic back pain History of bone cancer Continue oxycodone d/w patient and nurse Pamela Duffy MD May 11, 2017 07:42
--- NOTE | 2017-05-11 07:50 | HHI.PR ---
Subjective Remarks Eating breakfast. No chest pain. No n/v/d/c. Denies fever or chills. Rash improved. Objective Vitals Vital Signs Date Time Temp Pulse Resp B/P (MAP) Pulse Ox O2 Delivery O2 Flow Rate FiO2 05/11/17 06:26 97.8 70 18 97/69 (78) 99 05/10/17 18:05 97.5 51 16 114/69 (84) 98 Imaging Last Impressions Upper Extremity Ultrasound 05/05/17 0600 Signed Impressions: Service Date/Time: Friday, May 05, 2017 08:49 - CONCLUSION: 1. Edema within the forearm but no evidence of abscess Jae Flynn MD Myocardial Perfusion Scan Nuc Med 04/30/17 0000 Signed Impressions: Service Date/Time: Sunday, April 30, 2017 12:17 - CONCLUSION: Diminished ejection fraction 40%% with generalized hypokinesia. Perfusion defect inferior wall towards the apex with possible image redistribution. RISK CATEGORY: Intermediate (1-3%% Annual Mortality Rate) Harpal Guevara MD Chest X-Ray 04/27/17 1100 Signed Impressions: Service Date/Time: Thursday, April 27, 2017 11:44 - CONCLUSION: 1. No acute findings. Mildly tortuous aorta. Juan A Jackson MD Objective Remarks GENERAL: awake and alert, doesn't appear in distress SKIN: left forearm- anterior aspect- erythema resolved CARDIOVASCULAR: Regular rate and rhythm without murmurs, gallops, or rubs. RESPIRATORY: Breath sounds equal bilaterally. No accessory muscle use. GASTROINTESTINAL: Abdomen soft, non-tender, nondistended. MUSCULOSKELETAL: No cyanosis, or edema. BACK: Nontender without obvious deformity. No CVA tenderness. 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 Lisinopril 2.5 mg po daily seen by Cardiology- refused cardiac cath- "does not want to" " not now" now agreeable to cath- per patient on and off fleeting pain now going to left arm not getting Imdur- staff not giving it start Nitrol ointment 1/2 in q 8 start now will reconsult cardiology- patient now agrees to cath Repeat EKG now - sinus no acute change compared to previous EKG- slight STTW flattening 2,3, AVF Hypertension- better readings- ambulating around HR- 50s Continue lisinopril- 2.5 mg po daily Lopressor 6.25 mg po bid- hold and montior Follow blood pressure/HR Left arm cellulitis /phlebitis US- shows no collection/abscess 05/05- resolved History of MRSA IV site thrombus DC Cephalexin today- received total 10 days course of AB (cephalexin+bactrim) Warm compress to site daily- q shift Follow daily clinically No need for blood thinners due to the small size and superficial nature of the thrombus Alcohol abuse history Risk for withdrawal Continue CIWA protocol- Librium per psychiatry Chronic back pain History of bone cancer Continue oxycodone d/w patient and nurse Pamela Duffy MD May 11, 2017 07:50
[2017-05-11] MEDS ORDERED: METOPROLOL TARTRATE 25 MG TAB PO SCH (09:00)
[2017-05-11] MEDS: LISINOPRIL 5 MG TAB PO SCH (09:00)
[2017-05-11] MEDS: SODIUM CHLORIDE 0.9% FLUSH 10 ML FLUSH IV FLUSH SCH ×2 (09:00→21:00)
[2017-05-11] MEDS: SERTRALINE HCL 50 MG TAB PO SCH (09:30)
[2017-05-11] MEDS: THIAMINE HCL 100 MG TAB PO SCH (09:31)
[2017-05-11] MEDS: ASPIRIN 81 MG CHEW TAB CHEW SCH (09:31)
--- NOTE | 2017-05-11 15:17 | PD.CARD.PN ---
Subjective Subjective Remarks Pt still notes chest pain, now wants cath. Nitropaste in place. Objective Medications Administered Medications Medications (Trade) Dose Ordered Sig/Jv Route PRN Reason Start Time Stop Time Status Last Admin Dose Admin Lorazepam (Ativan) 1 mg Q6H PRN PO MODERATE TO SEVERE ANXIETY 04/27/17 19:00 05/08/17 05:45 Acetaminophen (Tylenol) 650 mg Q4H PRN PO Pain 1-5 or Temp >101F 04/27/17 19:00 05/03/17 08:59 Trazodone HCl (Desyrel) 50 mg HS PRN PO INSOMNIA 04/27/17 21:00 05/08/17 20:51 Sodium Chloride (NS Flush) 2 ml BID IV FLUSH 04/27/17 21:00 04/30/17 08:22 Lorazepam (Ativan) 1 mg Q4H PRN PO CIWA 8 - 10 04/27/17 19:00 05/02/17 02:15 Lorazepam (Ativan) 2 mg Q2H PRN PO CIWA 11-14 04/27/17 19:00 04/29/17 13:10 Thiamine HCl (Vitamin B1) 100 mg DAILY PO 04/28/17 09:00 05/11/17 09:31 Oxycodone HCl (Roxicodone) 5 mg Q6H PRN PO pain >5 04/28/17 05:45 05/10/17 09:00 Aspirin (Aspirin Chew) 162 mg DAILY CHEW 05/01/17 09:00 05/11/17 09:31 Sertraline HCl (Zoloft) 75 mg DAILY PO 05/04/17 09:00 05/11/17 09:30 Lisinopril (Prinivil) 2.5 mg DAILY PO 05/06/17 09:00 05/10/17 09:26 Nitroglycerin (Nitroglycerin 2% Oint) 0.5 inch Q8H TOPICAL 05/09/17 18:00 05/11/17 10:19 Vital Signs / I&O Vital Signs Date Time Temp Pulse Resp B/P (MAP) Pulse Ox O2 Delivery O2 Flow Rate FiO2 05/11/17 06:26 97.8 70 18 97/69 (78) 99 05/10/17 18:05 97.5 51 16 114/69 (84) 98 I/O 05/10/17 05/10/17 05/10/17 05/11/17 05/11/17 05/11/17 07:00 15:00 23:00 07:00 15:00 23:00 Intake Total 240 ml Balance 240 ml Intake Oral 240 ml Physical Exam GENERAL: This is a well-nourished, well-developed patient, in no apparent distress. CARDIOVASCULAR: Regular rate and rhythm without murmurs, gallops, or rubs. RESPIRATORY: Clear to auscultation. Breath sounds equal bilaterally. No wheezes , rales, or rhonchi. GASTROINTESTINAL: Abdomen soft, non-tender, nondistended. Normal active bowel sounds MUSCULOSKELETAL: Extremities without clubbing, cyanosis, or edema. NEURO: Alert & Oriented x4 to person, place, time, situation. Moves all ext x4 Imaging Last Impressions Upper Extremity Ultrasound 05/05/17 0600 Signed Impressions: Service Date/Time: Friday, May 05, 2017 08:49 - CONCLUSION: 1. Edema within the forearm but no evidence of abscess Jae Flynn MD Myocardial Perfusion Scan Nuc Med 04/30/17 0000 Signed Impressions: Service Date/Time: Sunday, April 30, 2017 12:17 - CONCLUSION: Diminished ejection fraction 40%% with generalized hypokinesia. Perfusion defect inferior wall towards the apex with possible image redistribution. RISK CATEGORY: Intermediate (1-3%% Annual Mortality Rate) Harpal Guevara MD Chest X-Ray 04/27/17 1100 Signed Impressions: Service Date/Time: Thursday, April 27, 2017 11:44 - CONCLUSION: 1. No acute findings. Mildly tortuous aorta. Juan A Jackson MD Assessment and Plan Problem List: (1) Abnormal nuclear cardiac imaging test ICD Codes: R93.1 - Abnormal findings on diagnostic imaging of heart and coronary circulation Plan: He now agrees to cardiac cath, will transfer to [facility], ask Medicine to become attending of record, Dr. Jackson will preform. (2) Chest pain ICD Codes: R07.9 - Chest pain, unspecified Status: Resolved Plan: Atypical but w/ recurrent sx and abnormal stress did offer a cardiac cath ; he now agrees. Continue current medical therapy. Assessment and Plan Dr. Jackson will plan for Cath likely tomorrow. Ac Hebert MD May 11, 2017 15:17
[2017-05-11] MEDS ORDERED: ZOLO50TA PO (15:42)
[2017-05-11] MEDS ORDERED: GNP100TA3 PO (15:42)
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
[2017-05-11 18:17] VITALS: BP 151/85; PULSE 58; RESP 17; TEMP 98; O2SAT 99
== END 2017-05-12 00:55 | disposition short-term general hospital (02) | DRG 881 ==
LOC: NEPC 10:41 → NEDA 17:40 → H260 19:08
PROVIDERS: ADMIT Student in an Organized Health Care Education/Training Program; ATTEND Student in an Organized Health Care Education/Training Program
DX: F43.21 Adjustment disorder with depressed mood (principal); I42.6 Alcoholic cardiomyopathy; R45.851 Suicidal ideations; F10.230 Alcohol dependence with withdrawal, uncomplicated; F10.288 Alcohol dependence with other alcohol-induced disorder; L03.114 Cellulitis of left upper limb; I10 Essential (primary) hypertension; F41.9 Anxiety disorder, unspecified; F17.210 Nicotine dependence, cigarettes, uncomplicated; Y90.6 Blood alcohol level of 120-199 mg/100 ml; G89.29 Other chronic pain; M54.9 Dorsalgia, unspecified; J44.9 Chronic obstructive pulmonary disease, unspecified; E78.00 Pure hypercholesterolemia, unspecified; I49.3 Ventricular premature depolarization; M19.90 Unspecified osteoarthritis, unspecified site; R07.89 Other chest pain; R94.39 Abnormal result of other cardiovascular function study; F10.220 Alcohol dependence with intoxication, uncomplicated; Z91.5 Personal history of self-harm; Z86.14 Personal history of Methicillin resistant Staphylococcus aureus infection; Z59.0 Homelessness; Z87.820 Personal history of traumatic brain injury; Z85.830 Personal history of malignant neoplasm of bone; Z81.8 Family history of other mental and behavioral disorders; Z95.1 Presence of aortocoronary bypass graft
CPT/HCPCS: 71010; 76882; 76937; 78452; 80048; 80053; 80061; 80307; 82306; 82550; 82552; 82607; 82948; 83036; 83735; 84443; 84484; 85025; 85610; 85730; 87641; 93005; 93017; 96374; A9502; J2060; J2785

== ENCOUNTER 2017-05-12 01:00 | Inpatient (IN) | payer MEDICARE ==
[2017-05-12] VITALS (18 sets, daily range): BP systolic 112–135; BP diastolic 75–84; PULSE 44–77; RESP 14–18; TEMP 97.3–98.4; O2SAT 97–98
[~2017-05-12 01:00] MED LIST changes: +ZOLO50TA PO
[2017-05-12] MEDS ORDERED: SODIUM CHLORIDE 0.9% FLUSH 10 ML FLUSH IV FLUSH PRN (03:15)
[2017-05-12] MEDS ORDERED: NALOXONE HCL 0.4 MG/ML AMP IV PUSH PRN (03:15)
[2017-05-12] MEDS: NITROGLYCERIN 2% OINT 1 GM PACKET TOPICAL SCH ×4 (04:48→23:04)
[2017-05-12 06:58] LABS: AUTOMATED NEUTROPHIL # 2.4 TH/MM3 (1.8-7.7); BASOPHIL % 0.4 % (0.0-2.0); EOSINOPHIL # 0.2 TH/MM3 (0-0.4); EOSINOPHIL % 4.7 % (0.0-4.0); HEMATOCRIT 43.8 % (39.0-51.0); HEMO FLAGS DIFF FINAL; LYMPH % 38.2 % (9.0-44.0); MEAN CELL VOLUME 97.7 FL (80.0-100.0); MEAN CORPUSCULAR HEMOGLOBIN 32.6 PG (27.0-34.0); MEAN CORPUSCULAR HGB CONC 33.4 % (32.0-36.0); MONO % 11.3 % (0.0-8.0); NEUT % 45.4 % (16.0-70.0); PLATELET COUNT 270 TH/MM3 (150-450); RED BLOOD COUNT 4.49 MIL/MM3 (4.50-5.90); RED CELL DISTRIBUTION WIDTH 13.3 % (11.6-17.2); WHITE BLOOD COUNT 5.2 TH/MM3 (4.0-11.0)
[2017-05-12 07:01] LABS: BICARBONATE 25.2 MEQ/L (21.0-32.0)
[2017-05-12] MEDS ORDERED: PILL SPLITTER OTHER PRN (07:30)
[2017-05-12] MEDS ORDERED: CEPHALEXIN MONOHYDRATE 500 MG CAP PO SCH (08:00)
--- NOTE | 2017-05-12 08:38 | HHI.HP ---
[facility] No Primary Care Physician Admission Diagnosis Diagnoses: Chief Complaint: chest pain, had abnormal stress test Travel History International Travel<30 Days: No Contact w/Intl Traveler <30 Da: No Traveled to Known Affected Are: No History of Present Illness 57 yo male, with PMH of IVDA, EtOH/ tobacco use, came to the ED initially with chest pain and EtOH withdrawals. Patient had an abnormal stress test, initially refused cardiac catheterization. Patient with suicidal ideation was admitted to inpatient psych unit. Patient withdrawal symptoms improved. However he still complained of intermittent chest pain. He reports chest pain radiating down left arm and present intermittently for over one year. He reports chronic back pain that is worse with ambulation. He also reports severe right arm bone pain following surgery did resect cancer at the age of 5 and 11 years old. He reports a history of MRSA and had an unhealed IV site with erythema and swelling on his left forearm on admission, treated with abx He denies fever, nausea, vomiting, diarrhea, black or red stools, hematuria, dysuria, or syncope. No nausea, diaphoresis. No SOB. No cough. . Patient agreed to cardiac cath and was transfer to [facility] unit. Dr Jackson plans for cardiac cath today. Patient is NPO. 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 Reported Medications Current Medications Sodium Chloride (NS Flush) 2 ml UNSCH PRN IV FLUSH FLUSH AFTER USING IV ACCESS ; Start 05/12/17 at 03:15 Sodium Chloride (NS Flush) 2 ml BID IV FLUSH ; Start 05/12/17 at 09:00 Naloxone HCl (Narcan Inj) 0.4 mg UNSCH PRN IV PUSH SEE LABEL COMMENTS; Start 05/12/17 at 03:15 Nitroglycerin (Nitroglycerin 2% Oint) 0.5 inch Q6H TOPICAL Last administered on 05/12/17t 04:48; Start 05/12/17 at 04:00 Morphine Sulfate (Morphine Inj) 2 mg Q4H PRN IV PUSH breakthrough pain ; Start 05/12/17 at 07:15 Cephalexin Monohydrate (Keflex) 500 mg Q8H PO ; Start 05/12/17 at 08:00 Folic Acid (Folate) 1 mg DAILY PO ; Start 05/12/17 at 09:00 Ketoconazole (Nizoral 2% Cream) 1 applic BID TOPICAL ; Start 05/12/17 at 09:00 Multivitamins/ Minerals Therapeutic (Theragran M Tab) 1 tab DAILY PO ; Start at 09:00 Sertraline HCl (Zoloft) 75 mg DAILY PO ; Start 05/12/17 at 09:00 Thiamine HCl (Vitamin B1) 100 mg DAILY PO ; Start 05/12/17 at 09:00 Miscellaneous (Pill Splitter) 1 ea UNSCH PRN OTHER SEE LABEL COMMENTS; Start 05/12/17 at 07:30 Allergies: Coded Allergies: No Known Allergies (Unverified , 04/18/17) Family History Denies any significant family history. Social History Tobacco: Smokes 1 pack per day since the age of 19 Alcohol: States he drinks all day long Illicit drugs: Denies current use but reports history of cocaine abuse Physical Exam Vital Signs Vital Signs Date Time Temp Pulse Resp B/P (MAP) Pulse Ox O2 Delivery O2 Flow Rate FiO2 05/12/17 08:00 48 05/12/17 07:00 51 05/12/17 07:00 98.4 54 14 131/84 (100) 97 05/12/17 06:00 50 05/12/17 05:00 50 05/12/17 04:00 44 05/12/17 01:00 98.1 53 16 135/81 (99) 97 Physical Exam GENERAL: This is a well-nourished, well-developed patient, in no apparent distress. SKIN: No rashes, ecchymoses or lesions. Cool and dry. HEAD: Atraumatic. Normocephalic. No temporal or scalp tenderness. EYES: Pupils equal round and reactive. Extraocular motions intact. No scleral icterus. No injection or drainage. ENT: Nose without bleeding, purulent drainage or septal hematoma. Throat without erythema, tonsillar hypertrophy or exudate. Uvula midline. Airway patent. NECK: Trachea midline. No JVD or lymphadenopathy. Supple, nontender, no meningeal signs. CARDIOVASCULAR: Regular rate and rhythm without murmurs, gallops, or rubs. RESPIRATORY: Clear to auscultation. Breath sounds equal bilaterally. No wheezes , rales, or rhonchi. GASTROINTESTINAL: Abdomen soft, non-tender, nondistended. No hepato-splenomegaly , or palpable masses. No guarding. MUSCULOSKELETAL: Extremities without clubbing, cyanosis, or edema. No joint tenderness, effusion, or edema noted. No calf tenderness. Negative Homans sign bilaterally. NEUROLOGICAL: Awake and alert. Cranial nerves II through XII intact. Motor and sensory grossly within normal limits. Five out of 5 muscle strength in all muscle groups. Normal speech. Laboratory Laboratory Tests Test 05/12/17 05:57 White Blood Count 5.2 Red Blood Count 4.49 Hemoglobin 14.6 Hematocrit 43.8 Mean Corpuscular Volume 97.7 Mean Corpuscular Hemoglobin 32.6 Mean Corpuscular Hemoglobin Concent 33.4 Red Cell Distribution Width 13.3 Platelet Count 270 Mean Platelet Volume 8.0 Neutrophils (%) (Auto) 45.4 Lymphocytes (%) (Auto) 38.2 Monocytes (%) (Auto) 11.3 Eosinophils (%) (Auto) 4.7 Basophils (%) (Auto) 0.4 Neutrophils # (Auto) 2.4 Lymphocytes # (Auto) 2.0 Monocytes # (Auto) 0.6 Eosinophils # (Auto) 0.2 Basophils # (Auto) 0.0 CBC Comment DIFF FINAL Differential Comment Prothrombin Time 11.0 Prothromb Time International Ratio 1.0 Blood Urea Nitrogen 19 Creatinine 0.91 Random Glucose 78 Calcium Level 8.7 Sodium Level 137 Potassium Level 4.0 Chloride Level 104 Carbon Dioxide Level 25.2 Anion Gap 8 Estimat Glomerular Filtration Rate 86 Result Diagram: 05/12/17 0557 05/12/17 0557 Caprini VTE Risk Assessment Caprini VTE Risk Assessment: Mod/High Risk (score >= 2) Caprini Risk Assessment Model Point Value = 1 Point Value = 2 Point Value = 3 Point Value = 5 Age 41-60 Minor surgery BMI > 25 kg/m2 Swollen legs Varicose veins or History of unexplained or recurrent spontaneous Oral contraceptives or hormone replacement Sepsis (< 1 month) Serious lung disease, including pneumonia (< 1 month) Abnormal pulmonary function Acute myocardial infarction Congestive heart failure (< 1 month) History of inflammatory bowel disease Medical patient at bed rest Age 61-74 Arthroscopic surgery Major open surgery (> 45 min) Laparoscopic surgery (> 45 min) Malignancy Confined to bed (> 72 hours) Immobilizing plaster cast Central venous access Age >= 75 History of VTE Family history of VTE Factor V Leiden Prothrombin [id number] Lupus anticoagulant Anticardiolipin antibodies Elevated serum homocysteine Heparin-induced thrombocytopenia Other congenital or acquired thrombophilia Stroke (< 1 month) Elective arthroplasty Hip, pelvis, or leg fracture Acute spinal cord injury (< 1 month) Prophylaxis Regimen Total Risk Factor Score Risk Level Prophylaxis Regimen 0-1 Low Early ambulation 2 Moderate Order ONE of the following: *Sequential Compression Device (SCD) *Heparin 5000 units SQ BID 3-4 Higher Order ONE of the following medications: *Heparin 5000 units SQ TID *Enoxaparin/Lovenox 40 mg SQ daily (WT < 150 kg, CrCl > 30 mL/min) *Enoxaparin/Lovenox 30 mg SQ daily (WT < 150 kg, CrCl > 10-29 mL/min) *Enoxaparin/Lovenox 30 mg SQ BID (WT < 150 kg, CrCl > 30 mL/min) AND/OR *Sequential Compression Device (SCD) 5 or more Highest Order ONE of the following medications: *Heparin 5000 units SQ TID (Preferred with Epidurals) *Enoxaparin/Lovenox 40 mg SQ daily (WT < 150 kg, CrCl > 30 mL/min) *Enoxaparin/Lovenox 30 mg SQ daily (WT < 150 kg, CrCl > 10-29 mL/min) *Enoxaparin/Lovenox 30 mg SQ BID (WT < 150 kg, CrCl > 30 mL/min) AND *Sequential Compression Device (SCD) Assessment and Plan Assessment and Plan 57 y/o presenting with suicidal ideation/ EtOH withdrawals/ chest pain, had abnormal stress test, initially refused cardiac cath. 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 Lisinopril 2.5 mg po daily Seen by Cardiology Dr Hebert - patient refused initially cardiac cath- " does not want to" " not now" Now agreeable to cath- per patient on and off fleeting pain now going to left arm Started Nitrol ointment 1/2 in q 8 start Reconsulted cardiology- patient now agrees to cath. Plan for cardiac cath by Dr Jackson Hypertension- better readings- HR- 50s Continue lisinopril- 2.5 mg po daily Lopressor decreased to 3.125 mg po bid- hold and montior Follow blood pressure/HR Left arm cellulitis /phlebitis US- shows no collection/abscess 05/05- resolved History of MRSA IV site thrombus DC Cephalexin- received total 10 days course of AB (cephalexin+bactrim) Warm compress to site daily- q shift Follow daily clinically No need for blood thinners due to the small size and superficial nature of the thrombus Alcohol abuse history Risk for withdrawal Continue CIWA protocol- Librium per psychiatry Chronic back pain History of bone cancer Continue oxycodone d/w patient and nurse Physician Certification 2 Midnight Certification Type: Admission for Inpatient Services Order for Inpatient Services The services are ordered in accordance with Medicare regulations or non- Medicare payer requirements, as applicable. In the case of services not specified as inpatient-only, they are appropriately provided as inpatient services in accordance with the 2-midnight benchmark. Estimated LOS (days): 3 days is the estimated time the patient will need to remain in the hospital, assuming treatment plan goals are met and no additional complications. Post-Hospital Plan: Home Pamela Duffy MD May 12, 2017 08:38
[2017-05-12] MEDS: THIAMINE HCL 100 MG TAB PO SCH (08:54)
[2017-05-12] MEDS: SERTRALINE HCL 50 MG TAB PO SCH (08:54)
[2017-05-12] MEDS: MORPHINE SULFATE 4 MG/ML INJ IV PUSH PRN ×2 (08:55→20:58)
[2017-05-12] MEDS: FOLIC ACID 1 MG TAB PO SCH (08:55)
[2017-05-12] MEDS: MULTIVITAMINS/MINERALS THERAPEUTIC TAB PO SCH (08:55)
[2017-05-12] MEDS: SODIUM CHLORIDE 0.9% FLUSH 10 ML FLUSH IV FLUSH SCH ×2 (08:57→20:59)
[2017-05-12] MEDS: KETOCONAZOLE 2% CREAM 15 GM TOPICAL SCH ×2 (09:00→20:59)
--- NOTE | 2017-05-12 09:59 | EKG ---
Date Performed: 05/12/2017 Time Performed: 03:47:08 PTAGE: 57 years EKG: Sinus bradycardia. Inferior T wave changes are nonspecific Borderline ECG PREVIOUS TRACING : 05/09/2017 13.12 DOCTOR: Foster Cruz Interpretating Date/Time 05/12/2017 09:58:40
--- NOTE | 2017-05-12 10:24 | MB ---
cc: YAMILE ROMO DATE OF CONSULTATION 05/12/2017 DATE OF 1960 REASON FOR CONSULTATION Positive stress test, chest pain. HISTORY OF PRESENT ILLNESS 57-year-old male seen and evaluated by cardiology by Dr. Hebert for complaints of chest pain. The patient has cardiac risk factors that include hypertension, smoker, alcohol abuse. The patient was admitted to the psychiatric unit with chest pain, ethanol withdrawal and depression having some suicidal ideation. He was seen by cardiology and medicine. Dr. Hebert scheduled an ischemia workup which revealed a positive stress test showing intermediate risk and ischemia in the inferior lateral wall. [facility] offered but patient initially decline, however, he has changed his mind and now he wants to be fully evaluated for coronary artery disease. Thus, interventional cardiology has been consulted for left heart catheterization. REVIEW OF SYSTEMS Negative except for what is mentioned in the HPI. PAST MEDICAL HISTORY 1. Depression 2. 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 Hypertension 4. COPD 5. Alcohol-related blackouts PAST SURGICAL HISTORY 1. Cholecystectomy 2. Back surgery 3. Partial left hip bone graft 4. Right knee surgery ALLERGIES NO KNOWN DRUG ALLERGIES. FAMILY HISTORY Denies any history of premature coronary artery disease. SOCIAL HISTORY He is a smoker. He is an alcohol addict. He denies illicit drug use. HOME MEDICATIONS Reviewed. He is on no cardiac meds. PHYSICAL EXAMINATION VITAL SIGNS: Temperature 97, respiratory rate 14, heart rate 54, blood pressure 131/84, O2 sat 97% on room air. GENERAL: Awake, alert, and oriented x3 in no acute distress. NECK: No JVD, no carotid bruits. HEART: Regular rhythm. No murmurs, rubs or gallops. LUNGS: Benign. ABDOMEN: Benign. EXTREMITIES: No cyanosis or edema. Pulses throughout. DATA CBC hemoglobin 14, hematocrit 43, platelet count 270, INR 1.0. Chemistries sodium 137, potassium 4.0, BUN 19, creatinine 0.91, INR 1. EKG sinus rhythm. A myocardial perfusion study shows an ejection fraction of 40% with generalized hypokinesia and there is a perfusion defect in the inferior wall. A risk score intermediate. ASSESSMENT/PLAN 57-year-old male with cardiac risk factors that include hypertension, active smoker admitted with atypical chest pain, alcohol withdrawal and depression. He has been cleared by psychiatry. The patient now would like to have a left heart cath given positive stress test. The risks and benefits of left heart cath include, but are not limited to infection, bleeding, acute kidney injury, neurovascular trauma, stroke, emergent bypass surgery and have been explained to the patient, the patient understands the risks and he is willing to proceed. Plan: - Continue aggressive medical management for cardiovascular risk factors. - Keep n.p.o. for left heart cath today. Further management to be determined. MD PATRICIA Garcia/TYRONE /9:55 AM /10:07 AM DYLAN
[2017-05-12] MEDS ORDERED: HEPARIN-NS/PF INJ 1,000 ML ONE (13:35)
[2017-05-12] MEDS ORDERED: MIDAZOLAM HCL 2 MG/2 ML VIAL ONE (13:35)
[2017-05-12] MEDS ORDERED: NITROGLYCERIN INJ 5 ML ONE (13:36)
[2017-05-12] MEDS ORDERED: HEPARIN SODIUM - IV 10,000 UNITS/10 ML VIAL ONE (13:36)
[2017-05-12] MEDS ORDERED: VERAPAMIL HCL 5 MG/2 ML VIAL ONE (13:36)
--- NOTE | 2017-05-12 14:39 | CATHPROC ---
[facility] HIS Report Study Information Study Number Admission Scheduled Start Study Start [id number] May 12 2017 1:00AM 05/12/2017 May 12 2017 1:34PM [place] Service Cardiac Catheterization Admit Source Facility Department Emergency department [facility] - [facility] Physician and Clinical Staff Initial MD Middleton, Leonard Country Sales Manager Elizabeth Sheldon,CLAIRE Recorder Erendira Guevara,RT(R) Scrub Manpreet Aguirre RCIS(BS) Procedures Performed Procedure Location (Site) Vessel Name Coronary Angiograms LCA Left Coronary Coronary Angiograms RCA Right Coronary L Heart Cath LV Gram-hand inj. LV LV Ventricle Equipment Time Needle Straightener Description Size Mfg Part Number Used/Scraped TRANSDUCER, TRUWAVE [id number] 13:47 KNAPP KAICORE * Used W/[employer] *[id number] *[id number] 13:47 Springr PACK, CCL CUSTOM * Used *[id number] 13:47 Springr SUPPORT, ARTERIAL ADULT [id number] *[id number] Used 14:12 WonderswampTRONIC JR 4.0 DXTERITY CATHETER FR 5 [id number] Used BAND, RADIAL COMPRESSION TR [id number] 14:25 [email or web address] MEDICAL 24CM Used SHORT 24 *[id number] BAND, RADIAL COMPRESSION TR [id number] 14:26 [email or web address] MEDICAL 24CM Used SHORT 24 *[id number] 13:47 [employer] WIRE, 3MMJ .035 180CM 180CM Used *[id number] 13:47 NAMIC MANIFOLD, 4 PORT * Used *[id number] 13:47 [employer]ED OMNIPAQUE, 350 MG, 150ML 150ML [id number] Used [id number] 13:47 [employer] BL[employer]ET,WARM AIR CCL * Used *[id number] SHEATH, FR6 TRANSRADIAL RM*[id number] 13:47 [employer] FR 6 Used SLENDER 10CM *[id number] Equipment Model, Serial, Lot Number and Expiration Data Description Model Number Serial Number Lot Number Expiration Date BAND, RADIAL COMPRESSION TR [id number] 02-06-2020 SHORT 24 History: Current Medications Medication Dosage/Unit Route Frequency Last Date/Time Taken Zoloft LISINOPRIL History: Allergies Allergy Reaction No Known Allergies History: Risk Factors Family History of Hypertension Dyslipidemia Previous ID Previous Heart Failure Premature CAD Yes No No No No Prior Valve Prior PCI Prior CABG Surgery No No No Cerebrovascular Peripheral Artery Chronic Lung On Dialysis Diabetes Disease Disease Disease No No Yes Yes No History: Symptoms/Diagnosis Selection Items Chest pain History: Stress Tests Stress or Imaging Studies Performed Yes Standard Exercise Stress Test No Stress Echo No Stress Test SPECT Stress Test SPECT Result Stress Test SPECT Ischemia Risk/Extent Yes Positive Intermediate Stress Test CMR No Cardiac CTA Coronary Calcium Score No No History: Other Disease Selection Items COPD Depression HTN History: Other Current Smoker Packs a Day Years Used Pack Years Yes 1 38 38 Labs Hgb (g/dl) Hct (%) WBC (l/cumm) Platelets (thousands) 11.60-17.00 35.00-51.00 4.00-11.00 150.00-450.00 14.6 43.8 5.2 270 Glucose (mg/dl) BUN (mg/dl) 74.00-106.00 7.00-18.00 78 19 Na (meq/l) K (meq/l) 136.00-145.00 3.50-5.10 137 4 INR (PTT:PT) 0.90-1.10 1 CPK-MB (ng/ML) 0.50-3.60 Not Drawn Medication Medication Total Dose (Bolus/Oral) Medication Total Dosage/Unit 1% XYLOCAINE 20 mL FENTANYL 50 mcg RADIAL COCKTAIL 5 mL (Bolus) VERSED 2 mg Medications (Bolus/Oral) Medication Time Given Dosage/Unit Administered By Reason VERSED 05/12/2017 2:08:43 PM 2 mg Elizabeth Sheldon 2 mg VERSED given in lab by Elizabeth Sheldon, RN in Right Wrist via Peripheral IV. Ordered by Leonard Wu. FENTANYL 05/12/2017 2:09:00 PM 50 mcg Elizabeth Sheldon 50 mcg FENTANYL given in lab by Elizabeth Sheldon, RN in Right Wrist via Peripheral IV. Ordered by Leonard Dixon. 1% XYLOCAINE 05/12/2017 2:09:08 PM 20 mL Leonard Middleton 20 mL 1% XYLOCAINE given in lab by Leonard Middleton in Left Radial via Subcutaneous. Ordered by Leonard Dixon. RADIAL COCKTAIL 05/12/2017 2:10:02 PM 5 mL (Bolus) Leonard Middleton 5 mL (Bolus) RADIAL COCKTAIL given in lab by Leonard Middleton in Left Radial via Radial. Using [Solu tion Name]. Ordered by Leonard Middleton. Reason: Ntg 200mcg Heparin 2000U. Initial Case Assessment Cardiovascular HR Rhythm NIBP Chest Pain 50 guilherme 139/83 5 Edema Present Skin color Skin None Normal Warm Dry Circulatory - Right Pulses Dorsalis Pedis Femoral 2 2 Scale (0,1,2,3,4,d) Circulatory - Left Pulses Dorsalis Pedis Femoral 1 1 Scale (0,1,2,3,4,d) Neurological State Oriented to time-place- Alert Moves all extremities person Respiration - General Respiration Rate SpO2 (%) (B/min) 13 95 Chronological Log Time Study Chronological Log 13:30:00 Patient arrived via Bed. 13:33:50 Patient Name, D.O.B, / Armband Verified By R.N. 13:33:51 Consent signed by the physician and the patient and verified by the [employer] staff. 13:33:52 Pre-op and post- op instructions given; patient acknowledges understanding of instructions. 13:33:53 Verbal Stimulation=2 Physical Stimulation=2 Airway=2 Respiration=2 TOTAL=8. (0=absent, 1=li mited, 2=present) 13:33:58 Allens test performed on the left radial and ulnar artery. 13:34:05 Patient has been NPO for More than 6Hrs. 13:34:06 Skin Breakdown- none per pt 13:34:06 Patient Warmer Placed on the Table. 13:34:07 Sandy Prominences Protected 13:34:10 A # 20 IV was noted in the Wrist (right). Grade = 0 13:34:26 History and physical on the chart or being dictated. Assessment: Initial Case, HR=50 BPM, Rhythm=guilherme, NKTN=451/83 mmhg, Chest Pain=5, Edema=None, Color=Normal, Skin = Warm, Dry Right Pulses: Richard Ped=2, Femoral=2 13:34:27 Left Pulses: Richard Ped=1, Femoral=1, Radial=1 Neurological: State=Alert, Ox3, SAHA Respiration: Resp=13 B/min, SpO2=95 % Vitals capture started with the following parameters, Patient=Adult, Interval=5 min, Initial Pr ydcnmj=240 mmHg, 13:41:13 Deflation Rate=5 mmHg, Cuff placed on Right Arm 13:41:48 HR=53 bpm, LASP=216/83 mmhg, SpO2=94.0 %, Resp=18 B/min 13:42:38 Reference ECG taken 13:46:47 HR=52 bpm, NVQR=023/87 mmhg, SpO2=93.0 %, Resp=10 B/min 13:51:44 HR=51 bpm, HEYN=629/92 mmhg, SpO2=95.0 %, Resp=16 B/min 13:56:45 MD paged 13:56:50 HR=48 bpm, XXFQ=825/83 mmhg, SpO2=96.0 %, Resp=13 B/min 14:01:49 HR=50 bpm, CGTA=118/81 mmhg, SpO2=96.0 %, Resp=13 B/min 14:05:19 Pressure channel 1 zeroed. 14:06:50 HR=54 bpm, RVGV=132/82 mmhg, SpO2=98.0 %, Resp=13 B/min 14:07:58 MD arrived. Time Out. Correct patient, correct procedure, correct physician, power injector loaded, or not loaded with contrast with 14:08:20 surgical team present. Time Out Concurred by MD and individual staff in procedure. 14:08:43 2 mg VERSED given in lab by Elizabeth Sheldon, CLAIRE in Right Wrist via Peripheral IV. Ordered b y Leonard Middleton. 14:09:00 50 mcg FENTANYL given in lab by Elizabeth Sheldon, CLAIRE in Right Wrist via Peripheral IV. Order ed by Leonard Middleton. 14:09:07 Case Start 20 mL 1% XYLOCAINE given in lab by Leonard Middleton in Left Radial via Subcutaneous. Ordered b y Emi, 14:09:08 Leonard. 14:09:36 Access site was Left Radial Artery. A SHEATH, FR6 TRANSRADIAL SLENDER 10CM FR 6 was advanced into the Radial (left) using the Janette higuera 14:09:50 technique. 5 mL (Bolus) RADIAL COCKTAIL given in lab by Leonard Middleton in Left Radial via Radial. Using [Solution Name]. 14:10:02 Ordered by Leonard Middleton. Reason: Ntg 200mcg Heparin 2000U. A JR 4.0 DXTERITY CATHETER FR 5 was advanced over a wire. OMNIPAQUE, 350 MG, 150ML 150ML was us ed for 14:11:24 injections. 14:11:51 HR=61 bpm, UQGD=200/72 mmhg, SpO2=94.0 %, Resp=14 B/min Recorded Pressure: LV, HR=60, Condition=Condition 1 14:13:41 (Left Ventricle) LV 123/2/6 14:14:06 The LV was manually injected with 10 cc's and visualized. OMNIPAQUE, 350 MG, 150ML 150ML us ed. Recorded Pressure: LV, Ao, HR=62, Condition=Condition 1 14:14:17 (Left Ventricle) LV 118/5/6, (Aorta) Ao 117/71/92 14:14:33 The RCA was injected and visualized at various angles. OMNIPAQUE, 350 MG, 150ML 150ML used . After removing the current catheter a JL 4.0 INFINITI CATHETER FR 5 was advanced over a WIRE, 3 MMJ .035 180CM 14:15:05 180CM. 14:16:02 The LCA was injected and visualized at various angles. OMNIPAQUE, 350 MG, 150ML 150ML used . Recorded Pressure: Ao, HR=62, Condition=Condition 1 14:16:21 (Aorta) Ao 123/74/95 14:17:20 HR=64 bpm, UUUO=539/88 mmhg, SpO2=96.0 %, Resp=15 B/min 14:22:19 HR=63 bpm, NSXU=867/103 mmhg, SpO2=96.0 %, Resp=15 B/min 14:22:32 Catheter was removed 14:23:39 Case End Radial Compression Device Used. 10 mLs of air placed in BAND, RADIAL COMPRESSION TR SHORT 24 24 CM. Affected 14:24:42 hand ~O2 SATURATION~ % O2 saturation. 14:25:16 No case complications noted. 14:25:16 Cine recording checked. 14:25:20 Bedside Report will be given. 14:25:28 Contrast Scanned 14:25:29 A Left Heart Cath was performed. 14:26:54 HR=60 bpm, WRPB=972/84 mmhg, SpO2=97.0 %, Resp=14 B/min End Study - Contrast Media Used In Study Contrast Total Opened (mL) Total Used (mL) Total Wasted (mL) Omnipaque 35 35 0 End Study - Radiation Exposure Fluoro Time (minutes) 3.1 End Study - Patient Disposition Complications Transferred To Interventional Outcome No Telemetry Bed No attempt made
[2017-05-12] MEDS ORDERED: MISC INFORMATION XX ONE (14:45)
[2017-05-12] MEDS: ASPIRIN EC 81 MG TABEC PO SCH (14:45)
[2017-05-12] MEDS ORDERED: IOHEXOL 350 MG/ML 50 ML BTL (for Cath Lab) OTHER ONE (15:54)
--- NOTE | 2017-05-12 16:22 | MA ---
cc: DAVIDYAMILE Zacarias DATE 05/12/2017 DATE OF 1960 PROCEDURE PERFORMED 1. Left heart catheterization. 2. Selective right and left coronary angiography. 3. Left ventriculography. INDICATION Chest pain with a positive stress test. ACCESS Left transradial. DESCRIPTION OF PROCEDURE Consent signed. The patient was brought into the cardiac director geophysical laboratory in fasting state. The left wrist and groin were prepped and draped in sterile fashion. Using 1% lidocaine for local anesthesia and a micropuncture kit a 6 Afghan sheath was inserted into the left radial artery. Antispasmodic cocktail given. Then selective right and left coronary angiography was performed with a JR-4 and a JL-4 diagnostic catheters. Angiography was taken in multiple views. Then the JR-4 diagnostic catheter was introduced over a wire into the left ventricle. It was followed by pressure recordings, left ventriculogram and pullback. The patient tolerated the procedure without complications. ESTIMATED BLOOD LOSS Less than 30 mL. TOTAL CONTRAST 35 mL. The left radial access site was closed with a TR band. RESULTS LEFT VENTRICLE The left ventricular pressure was 118/5 with an LVEDP of 6. The aortic pressure was 123/74 with a mean of 95. There was no gradient upon pullback from the left ventricle to the aorta. The Left ventriculogram revealed a symmetrically paul ventricle with an estimated ejection fraction of 60%. ANGIOGRAPHY 1. Right coronary artery is a dominant vessel and has minimal luminal irregularities throughout. It has a 10% lesion proximally and then the PDA is patent as well as PLB branch. There is no significant obstructive coronary artery disease. 2. 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 It is giving off the left circumflex, ramus, the LAD. 3. The LAD is a transapical vessel. It is giving off one main diagonal vessel. The LAD has a significant 90% lesion proximally and the diagonal vessel has a proximal 99% lesion. This diagonal vessel has three side branches which are patent with CALVIN III flow. Also to add there is calcification on the proximal LAD. 4. The left circumflex artery. The left circumflex artery is giving off one OM vessel which is long and trifurcates and has nonobstructive coronary artery disease, CALVIN III flow. The rest of the circumflex artery is patent with CALVIN III flow. 5. The ramus intermedius vessel is patent with CALVIN III flow. CONCLUSION 1. Significant two-vessel coronary artery disease. 2. Preserved LV systolic function. RECOMMENDATIONS The patient will be consulted to CT surgery for two-vessel CABG in the setting of a complicated bifurcation lesion in the proximal LAD and the diagonal vessel. The patient has been discussed with Dr. Allen and he will be seeing the patient shortly. In the meantime continue aggressive medical management for coronary artery disease and post cath care. MD PATRICIA Garcia/KK /2:33 PM /3:29 PM MTDMonique
[2017-05-13] VITALS (25 sets, daily range): BP systolic 110–137; BP diastolic 64–89; PULSE 44–68; RESP 16; TEMP 97.5–98.1; O2SAT 93–95
[2017-05-13] MEDS: NITROGLYCERIN 2% OINT 1 GM PACKET TOPICAL SCH ×4 (05:19→22:06)
[2017-05-13] MEDS ORDERED: BACITRACIN OINT 0.9 GM PKT ONE (06:46)
[2017-05-13] MEDS: SERTRALINE HCL 50 MG TAB PO SCH (08:04)
[2017-05-13] MEDS: LISINOPRIL 5 MG TAB PO SCH (08:04)
[2017-05-13] MEDS: FOLIC ACID 1 MG TAB PO SCH (08:05)
[2017-05-13] MEDS: THIAMINE HCL 100 MG TAB PO SCH (08:05)
[2017-05-13] MEDS: ASPIRIN EC 81 MG TABEC PO SCH (08:05)
[2017-05-13] MEDS: SODIUM CHLORIDE 0.9% FLUSH 10 ML FLUSH IV FLUSH SCH ×2 (08:05→22:05)
[2017-05-13] MEDS: MULTIVITAMINS/MINERALS THERAPEUTIC TAB PO SCH (08:05)
[2017-05-13] MEDS: KETOCONAZOLE 2% CREAM 15 GM TOPICAL SCH ×2 (08:06→21:00)
[2017-05-13] MEDS: MORPHINE SULFATE 4 MG/ML INJ IV PUSH PRN ×4 (08:07→22:06)
[2017-05-13] MEDS ORDERED: METOPROLOL TARTRATE 25 MG TAB PO SCH (16:30)
[2017-05-13] MEDS ORDERED: PAPAVERINE INJ 60 MG, NITROGLYCERIN INJ 100 MCG, DILTIAZEM INJ 100 MG in SODIUM CHLORID... IRRIGATION SCH (16:30)
[2017-05-13] MEDS ORDERED: ceFAZolin 2 GM PREMIX 50 ML IV SCH (16:30)
[2017-05-13] MEDS ORDERED: CEFAZOLIN INJ 500 MG in SODIUM CHLORIDE 0.9% IRR BTL 500 ML IRRIGATION SCH (16:30)
[2017-05-13] MEDS ORDERED: CHLORHEXIDINE GLUCONATE 4% SOLN 120 ML BTL TOPICAL SCH (16:30)
[2017-05-13] MEDS ORDERED: INSULIN REGULAR (IV INFUSION) 100 UNITS in SODIUM CHLORIDE 0.9% INJ 99 ML IV PRN (16:30)
--- NOTE | 2017-05-13 17:15 | HHI.PR ---
Subjective Remarks Patient in nad. Says he has some chest pain , no sob, diaphoresis. No n/v/d/c. Objective Vitals Vital Signs Date Time Temp Pulse Resp B/P (MAP) Pulse Ox O2 Delivery O2 Flow Rate FiO2 05/13/17 15:37 97.7 59 16 116/71 (86) 94 05/13/17 14:41 49 05/13/17 13:00 48 05/13/17 12:00 50 05/13/17 11:22 97.6 54 16 121/73 (89) 93 05/13/17 11:00 53 05/13/17 10:00 54 05/13/17 09:00 52 05/13/17 08:00 52 05/13/17 07:40 98.1 51 16 131/88 (102) 94 05/13/17 07:23 55 05/13/17 03:00 98.1 57 16 137/89 (105) 95 05/13/17 01:00 50 05/13/17 00:00 50 05/12/17 23:00 50 05/12/17 23:00 49 16 123/75 (91) 97 05/12/17 22:00 54 05/12/17 22:00 16 05/12/17 21:00 50 05/12/17 20:00 48 05/12/17 20:00 58 16 126/75 (92) 98 05/12/17 19:00 54 05/12/17 18:41 44 I/O 05/12/17 05/12/17 05/12/17 05/13/17 05/13/17 05/13/17 06:59 14:59 22:59 06:59 14:59 22:59 Intake Total 500 ml 240 ml Output Total 825 ml 700 ml 1250 ml Balance -825 ml -200 ml -1010 ml Intake Oral 500 ml 240 ml Output Urine Total 825 ml 700 ml 1250 ml Result Diagram: 05/12/17 0557 05/12/17 0557 Objective Remarks GENERAL: This is a well-nourished, well-developed patient, in no apparent distress. CARDIOVASCULAR: Regular rate and rhythm without murmurs, gallops, or rubs. RESPIRATORY: Clear to auscultation. Breath sounds equal bilaterally. No wheezes , rales, or rhonchi. GASTROINTESTINAL: Abdomen soft, non-tender, nondistended. No hepato-splenomegaly , or palpable masses. No guarding. MUSCULOSKELETAL: Extremities without clubbing, cyanosis, or edema. No joint tenderness, effusion, or edema noted. No calf tenderness. Negative Homans sign bilaterally. NEUROLOGICAL: Awake and alert. Cranial nerves II through XII intact. Motor and sensory grossly within normal limits. Five out of 5 muscle strength in all muscle groups. Normal speech. A/P Assessment and Plan 57 y/o presenting with suicidal ideation/ EtOH withdrawals/ chest pain, had abnormal stress test, initially refused cardiac cath. Patient withdrawal symptoms improved, patient agreed to cardiac cath, transfer to [facility], s/p cardiac cath 05/12/[address] Jackson. Patient with significant two-vessel CAD. CT surgery consulted for 2 vessel CABG in the setting of complicated bifurcation lesion in the proximal LAD and the diagonal vessel. Atypical Chest Pain- + myocardial perfusion study with redistribution- EF 40% Likely alcoholic cardiomyopathy- EF 40%- no signs of fluid overload Significant two-vessel CAD Negative EKGs, Negative cardiac enzymes Repeat EKG - sinus no acute change compared to previous EKG- slight STTW flattening 2,3, AVF ASA 162 mg daily Noted with low BP and HRC in 50s, will decreased lopresor to 3.125 mg daily, held . Lisinopril 2.5 mg po daily Seen by Cardiology Dr Hebert - patient refused initially cardiac cath- " does not want to" " not now" Now agreeable to cath- per patient on and off fleeting pain now going to left arm Started Nitrol ointment 1/2 in q 8 start Reconsulted cardiology- patient now agrees to cath. S/p cardiac cath 05/12/[address] Jackson Patient with significant two-vessel CAD CT surgery consulted for 2 vessel CABG in the setting of complicated bifurcation lesion in the proximal LAD and the diagonal vessel Hypertension- better readings- HR- 50s Continue lisinopril- 2.5 mg po daily Lopressor decreased to 3.125 mg po bid- hold and montior Follow blood pressure/HR Left arm cellulitis /phlebitis US- shows no collection/abscess 05/05- resolved History of MRSA IV site thrombus DC Cephalexin- received total 10 days course of AB (cephalexin+bactrim) Warm compress to site daily- q shift Follow daily clinically No need for blood thinners due to the small size and superficial nature of the thrombus Alcohol abuse history Risk for withdrawal Continue CIWA protocol- Librium per psychiatry Chronic back pain History of bone cancer Continue oxycodone Discussed with the patient and the nurse Pamela Duffy MD May 13, 2017 17:14
--- NOTE | 2017-05-13 17:56 | RADRPT ---
EXAM DATE/TIME: 05/13/2017 17:11 [facility] COMPARISON: No previous studies available for comparison. INDICATIONS : PreOp cardiac surgery. MEDICAL HISTORY : Hypercholesterolemia. Hypertension. Hepatitis C. Missing tooth. Head trauma. Dizziness. Numbness. Lisbet [address] pain. Irregular heartbeat. Arthritis. Post traumatic stress disorder. Depression. Anxiety. Bone ca ncer. MRSA. SURGICAL HISTORY : CABG Cholecystectomy. Lower back surgery. Right knee surgery. ENCOUNTER: Initial ACUITY: 1 day PAIN SCORE: 0/10 LOCATION: Bilateral legs. GREATER SAPHENOUS VEIN THIGH: PROXIMAL: Right 8 mm Left 12 mm MID: Right 6 mm Left 8 mm DISTAL: Right 6 mm Left 8 mm CALF: PROXIMAL: Right 4 mm Left 5 mm MID: Right 3 mm Left 5 mm DISTAL: Right 3 mm Left 4 mm FINDINGS: The venous system of the lower extremities are patent by color Doppler imaging. Measurements of the leg veins (in mm) are listed above. CONCLUSION: Venous mapping study as described. Antonio Stephen MD on May 13, 2017 at 17:54 Board Certified Radiologist. This report was verified electronically.
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
--- NOTE | 2017-05-13 17:57 | RADRPT ---
EXAM DATE/TIME: 05/13/2017 16:46 [facility] COMPARISON: No previous studies available for comparison. INDICATIONS : PreOp cardiac surgery. MEDICAL HISTORY : Hypercholesterolemia. Hypertension. Hepatitis C. Missing tooth. Head trauma. Dizziness. Numbness. Lisbet [address] pain. Irregular heartbeat. Arthritis. Post traumatic stress disorder. Depression. Anxiety. Bone ca ncer. MRSA. SURGICAL HISTORY : CABG. Cholecystectomy. Lower back surgery. Right knee surgery. ENCOUNTER: Initial ACUITY: 1 day PAIN SCORE: 0/10 LOCATION: Bilateral neck PEAK SYSTOLIC VELOCITIES (cm/sec): ICA/CCA RATIO: Right: 1.1 Left: 0.6 ICA: Right: 98.3 Left: 59.4 CCA: Right: 91.8 Left: 95.6 ECA: Right: 129.9 Left: 98.2 VERTEBRAL: Right: 28.4 antegrade Left: 54.2 antegrade Elevated flow velocities and ICA/CCA ratios have been found to correlate with increased degrees of vessel stenosis, calculated as percentage of diameter relative to a normal segment of distal ICA/CCA FINDINGS: RIGHT CAROTID: No significant stenosis is visualized. There is minimal plaque. The waveforms are within normal limi ts. LEFT CAROTID: No significant stenosis is visualized. There is minimal plaque. The waveforms are within normal limit s. VERTEBRAL ARTERIES: Antegrade flow is seen in both vertebral arteries. MISCELLANEOUS: None. CONCLUSION: Minimal plaque with no evidence of stenosis. Antonio Stephen MD on May 13, 2017 at 17:55 Board Certified Radiologist. This report was verified electronically.
--- NOTE | 2017-05-13 19:10 | HHI.PR ---
Addendum to Inpatient Note Additional Information Pt was seen around 1700 full note to follow Joanie Avina MD May 13, 2017 19:09
--- NOTE | 2017-05-13 19:11 | PD.ID.CON ---
History of Present Illness Service ID Consult Requested By Hernando ORELLANA Reason for Consult preop Primary Care Physician No Primary Care Physician Diagnoses: History of Present Illness 57 yo tobacco positive male admitted with chest pain and found to have significant two-vessel coronary artery disease with preserved LV systolic function. Pt was referred to CT surgery for two-vessel CABG Apparently has a h/o L forearm IV 1-2 weeks ago during his hospitalisation fotr ETOH withdrawl, and developped tendeness, redness and palpable cords on the L forearm He was diagnosed with cellulitis/phlebits and completed 10 days course of abx (cephalexin+bactrim) He did not sick med attention for the above problem and it gradually improved He still has firm lumps on the L forearm, but they r non tender NO fever NO leukocytosis Review of Systems Except as stated in HPI: all other systems reviewed are Neg Past Family Social History Allergies: Coded Allergies: No Known Allergies (Unverified , 04/18/17) Past Medical History Depression 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 Active Ordered Medications NO abx Family History reviewed; non contributory Social History Tobacco: Smokes 1 pack per day since the age of 19 Alcohol: States he drinks all day long Illicit drugs: Denies current use but reports history of cocaine abuse Physical Exam Vital Signs Vital Signs Date Time Temp Pulse Resp B/P (MAP) Pulse Ox O2 Delivery O2 Flow Rate FiO2 05/13/17 18:00 48 05/13/17 17:00 50 05/13/17 16:00 54 05/13/17 15:37 97.7 59 16 116/71 (86) 94 05/13/17 15:00 52 05/13/17 14:41 49 05/13/17 13:00 48 05/13/17 12:00 50 05/13/17 11:22 97.6 54 16 121/73 (89) 93 05/13/17 11:00 53 05/13/17 10:00 54 05/13/17 09:00 52 05/13/17 08:00 52 05/13/17 07:40 98.1 51 16 131/88 (102) 94 05/13/17 07:23 55 05/13/17 03:00 98.1 57 16 137/89 (105) 95 05/13/17 01:00 50 05/13/17 00:00 50 05/12/17 23:00 50 05/12/17 23:00 49 16 123/75 (91) 97 05/12/17 22:00 54 05/12/17 22:00 16 05/12/17 21:00 50 05/12/17 20:00 48 05/12/17 20:00 58 16 126/75 (92) 98 Physical Exam CONSTITUTIONAL/GENERAL: This is an adequately nourished patient, in no apparent distress. TUBES/LINES/DRAINS: SKIN: No jaundice, rashes, or lesions. Skin temperature appropriate. Not diaphoretic. HEAD: Atraumatic. Normocephalic. EYES: Pupils equal and round and reactive. Extraocular motions intact. No scleral icterus. No injection or drainage. Fundi not examined. ENT: Hearing grossly normal. Nose without bleeding or purulent drainage. Oral mucosae without visible erythema, exudates, masses, or lesions. NECK: Trachea midline. Supple, nontender. CARDIOVASCULAR: Regular rate and rhythm without murmurs, gallops, or rubs. No JVD. Peripheral pulses symmetric. RESPIRATORY/CHEST: Symmetric, unlabored respirations. Clear to auscultation. Breath sounds equal bilaterally. No wheezes, rales, or rhonchi. GASTROINTESTINAL: Abdomen soft, non-tender, nondistended. No hepato-splenomegaly , or palpable masses. No guarding. Bowel sounds present. MUSCULOSKELETAL: Extremities without clubbing, cyanosis, or edema. + BLE varices L forearm with non tender hard cords, no edema, no erythema, no fluctuance No joint tenderness or effusion noted. No calf tenderness. No mottling or clubbing. LYMPHATICS: No palpable cervical or supraclavicular adenopathy. NEUROLOGICAL: Awake and alert. Motor and sensory grossly within normal limits. Follows commands. Clear speech. Moves all extremities. PSYCHIATRIC: No obvious anxiety/depression. no apparent hallucinations or other psychotic thought process. Laboratory Date/Time Source Procedure Growth Status 05/13/17 18:25 Blood Peripheral Aerobic Blood Culture Pending Received 05/13/17 18:25 Blood Peripheral Anaerobic Blood Culture Pending Received Result Diagram: 05/12/17 0557 05/12/17 0557 Imaging Last Impressions Lower Extremity Ultrasound 05/13/17 0000 Signed Impressions: Service Date/Time: May 17:11 - CONCLUSION: Venous mapping study as described. Antonio Stephen MD Carotid Artery Ultrasound 05/13/17 0000 Signed Impressions: Service Date/Time: May 16:46 - CONCLUSION: Minimal plaque with no evidence of stenosis. Antonio Stephen MD Assessment and Plan Assessment and Plan CAD, needs CABG LUE phlebitis, cellulits aw IV site thrombosis - clinically resolving; no e/o active infection fu P blood clx - received total 10 days course of AB (cephalexin+bactrim) doing OK If blood clx remain negative - no infectious contraindicatons for CBG Joanie Avina MD May 13, 2017 19:11
[2017-05-13] MEDS: MUPIROCIN 2% OINT 1 APPLIC/GM SYR EACH NARE SCH (22:06)
[2017-05-14] VITALS (24 sets, daily range): BP systolic 113–138; BP diastolic 66–85; PULSE 49–74; RESP 16–20; TEMP 97.5–98.1; O2SAT 95–98
[2017-05-14] MEDS: NITROGLYCERIN 2% OINT 1 GM PACKET TOPICAL SCH ×4 (04:00→20:14)
[2017-05-14] MEDS: MORPHINE SULFATE 4 MG/ML INJ IV PUSH PRN ×5 (04:21→20:14)
[2017-05-14] MEDS ORDERED: ATROPINE SULFATE 1 MG/10 ML SYRINGE ONE (06:38)
[2017-05-14] MEDS ORDERED: EPINEPHrine HCL (1:10,000) 1 MG/10 ML SYRINGE ONE (06:38)
--- NOTE | 2017-05-14 06:57 | RADRPT ---
EXAM DATE/TIME: 05/14/2017 06:47 [facility] COMPARISON: CHEST PA & LAT, April 22, 2017, 21:29. INDICATIONS : Chest pain and pressure MEDICAL HISTORY : None. SURGICAL HISTORY : None. ENCOUNTER: Initial ACUITY: 2 weeks PAIN SCORE: 7/10 LOCATION: Bilateral chest FINDINGS: PA and lateral views of the chest demonstrate the lungs to be symmetrically aerated without evidence of mass, infiltrate or effusion. The cardiomediastinal contours are unremarkable. Osseous structure s are intact. CONCLUSION: No acute disease. Tyrone Lezama Jr., MD on May 14, 2017 at 6:54 Board Certified Radiologist. This report was verified electronically.
[2017-05-14 07:05] LABS: ANION GAP 7 MEQ/L (5-15); AST (GOT) 33 U/L (15-37); BICARBONATE 27.5 MEQ/L (21.0-32.0); BLOOD UREA NITROGEN 18 MG/DL (7-18); CHLORIDE 104 MEQ/L (98-107); GLOMERULAR FILTRATION RATE 98 ML/MIN (>89); SODIUM (NA) 138 MEQ/L (136-145)
[2017-05-14 07:06] LABS: ALT (GPT) 44 U/L (12-78)
[2017-05-14 07:08] LABS: ALKALINE PHOSPHATASE 117 U/L (45-117); TOTAL BILIRUBIN ADULT 0.5 MG/DL (0.2-1.0)
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
[2017-05-14] MEDS: MUPIROCIN 2% OINT 1 APPLIC/GM SYR EACH NARE SCH ×2 (08:20→20:05)
[2017-05-14] MEDS: FOLIC ACID 1 MG TAB PO SCH (08:21)
[2017-05-14] MEDS: MULTIVITAMINS/MINERALS THERAPEUTIC TAB PO SCH (08:21)
[2017-05-14] MEDS: THIAMINE HCL 100 MG TAB PO SCH (08:21)
[2017-05-14] MEDS: ASPIRIN EC 81 MG TABEC PO SCH (08:21)
[2017-05-14] MEDS: SERTRALINE HCL 50 MG TAB PO SCH (08:22)
[2017-05-14] MEDS: LISINOPRIL 5 MG TAB PO SCH (08:23)
[2017-05-14] MEDS: SODIUM CHLORIDE 0.9% FLUSH 10 ML FLUSH IV FLUSH SCH ×2 (08:23→20:04)
[2017-05-14] MEDS: KETOCONAZOLE 2% CREAM 15 GM TOPICAL SCH ×2 (08:23→20:05)
--- NOTE | 2017-05-14 09:01 | HHI.PR ---
Subjective Remarks Still with intermittent chest pain. No sob. Eating. No diaphoresis or nausea. No fever or chills. No v/d/c. Says he needs time to think for further procedure. Objective Vitals Vital Signs Date Time Temp Pulse Resp B/P (MAP) Pulse Ox O2 Delivery O2 Flow Rate FiO2 05/14/17 08:18 98.1 50 18 125/79 (94) 95 05/14/17 06:00 53 05/14/17 05:00 50 05/14/17 04:00 56 05/14/17 04:00 97.5 54 16 138/85 (102) 98 05/14/17 03:00 54 05/14/17 02:00 49 05/14/17 01:00 52 05/14/17 00:00 50 05/13/17 23:30 98.1 65 16 110/64 (79) 95 05/13/17 23:00 56 05/13/17 22:00 52 05/13/17 21:00 68 05/13/17 20:30 97.5 57 16 125/70 (88) 94 05/13/17 20:00 52 05/13/17 19:00 44 05/13/17 18:00 48 05/13/17 17:00 50 05/13/17 16:00 54 05/13/17 15:37 97.7 59 16 116/71 (86) 94 05/13/17 15:00 52 05/13/17 14:41 49 05/13/17 13:00 48 05/13/17 12:00 50 05/13/17 11:22 97.6 54 16 121/73 (89) 93 05/13/17 11:00 53 05/13/17 10:00 54 05/13/17 09:00 52 I/O 05/13/17 05/13/17 05/13/17 05/14/17 05/14/17 05/14/17 07:00 15:00 23:00 07:00 15:00 23:00 Intake Total 240 ml 840 ml 480 ml Output Total 1250 ml 300 ml Balance -1010 ml 540 ml 480 ml Intake Oral 240 ml 840 ml 480 ml Output Urine Total 1250 ml 300 ml # Voids 3 2 # Bowel Movements 0 Result Diagram: 05/12/17 0557 05/14/17 0612 Imaging Last Impressions Chest X-Ray 05/14/17 0000 Signed Impressions: Service Date/Time: Sunday, May 14, 2017 06:47 - CONCLUSION: No acute disease. Tyrone Lezama Jr., MD Lower Extremity Ultrasound 05/13/17 0000 Signed Impressions: Service Date/Time: May 17:11 - CONCLUSION: Venous mapping study as described. Antonio Stephen MD Carotid Artery Ultrasound 05/13/17 0000 Signed Impressions: Service Date/Time: , May 13, 2017 16:46 - CONCLUSION: Minimal plaque with no evidence of stenosis. Antonio Stephen MD Objective Remarks GENERAL: This is a well-nourished, well-developed patient, in no apparent distress. CARDIOVASCULAR: Regular rate and rhythm without murmurs, gallops, or rubs. RESPIRATORY: Clear to auscultation. Breath sounds equal bilaterally. No wheezes , rales, or rhonchi. GASTROINTESTINAL: Abdomen soft, non-tender, nondistended. No hepato-splenomegaly , or palpable masses. No guarding. MUSCULOSKELETAL: Extremities without clubbing, cyanosis, or edema. No joint tenderness, effusion, or edema noted. No calf tenderness. Negative Homans sign bilaterally. NEUROLOGICAL: Awake and alert. Cranial nerves II through XII intact. Motor and sensory grossly within normal limits. Five out of 5 muscle strength in all muscle groups. Normal speech. A/P Assessment and Plan 57 y/o presenting with suicidal ideation/ EtOH withdrawals/ chest pain, had abnormal stress test, initially refused cardiac cath. Patient withdrawal symptoms improved, patient agreed to cardiac cath, transfer to [facility], s/p cardiac cath 05/12/[address] Jackson. Patient with significant two-vessel CAD. CT surgery consulted for 2 vessel CABG in the setting of complicated bifurcation lesion in the proximal LAD and the diagonal vessel. Atypical Chest Pain- + myocardial perfusion study with redistribution- EF 40% Likely alcoholic cardiomyopathy- EF 40%- no signs of fluid overload Significant two-vessel CAD Negative EKGs, Negative cardiac enzymes Repeat EKG - sinus no acute change compared to previous EKG- slight STTW flattening 2,3, AVF ASA 162 mg daily Noted with low BP and HRC in 50s, will decreased lopresor to 3.125 mg daily, held. Lisinopril 2.5 mg po daily Seen by Cardiology Dr Hebert - patient refused initially cardiac cath- " does not want to" " not now" Now agreeable to cath- per patient on and off fleeting pain now going to left arm Started Nitrol ointment 1/2 in q 8 start Reconsulted cardiology- patient now agrees to cath. S/p cardiac cath 05/12/[address] Jackson Patient with significant two-vessel CAD CT surgery consulted for 2 vessel CABG in the setting of complicated bifurcation lesion in the proximal LAD and the diagonal vessel. Patient is considering CABG Hypertension- better readings- HR- 50s Continue lisinopril- 2.5 mg po daily Lopressor decreased to 3.125 mg po bid- hold and montior Follow blood pressure/HR Left arm cellulitis /phlebitis US- shows no collection/abscess 05/05- resolved History of MRSA IV site thrombus DC Cephalexin- received total 10 days course of AB (cephalexin+bactrim) Warm compress to site daily- q shift Follow daily clinically No need for blood thinners due to the small size and superficial nature of the thrombus Alcohol abuse history Risk for withdrawal Continue CIWA protocol- Librium per psychiatry Chronic back pain History of bone cancer Continue oxycodone Discussed with the patient and the nurse Dispo: patient with 3 vessel disease, plan for CABG Pamela Duffy MD May 14, 2017 09:01
--- NOTE | 2017-05-14 14:15 | PD.CAR.PN ---
CVT Progress Note Subjective/Hospital Course: 57/ MALE admitted 04/27 for depression, suicidal ideation, ETOH abuse, treated with CIWA Librium protocol , c/o of chest pain during his stay in Psych department, underwent stress test: general hypokinesis inferior wall , initially refused cardiac cath , then later agreed . Transferred into main Hospital and underwent cardiac cath by Dr Jackson, EF 60% two vessel disease LAD and Diagonal branch. 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 ), tobacco abuse, depression with prior suicide attempt , hx of IVDU last use 5 years ago, homeless Echo : pending 05/14 pt still has intermittent chest pain , some time relieved with morphine awaiting ID clearance left arm abcess BC neg x 24 hrs pt still deciding on surgery sts data discussed with pt RISK SCORES About the STS Risk Calculator Procedure: CAB Only Risk of Mortality: 0.354% Morbidity or Mortality: 5.426% Long Length of Stay: 1.559% Short Length of Stay: 75.232% Permanent Stroke: 0.356% Prolonged Ventilation: 3.651% DSW Infection: 0.218% Renal Failure: 0.604% Reoperation: 2.836% Objective: GENERAL: SKIN: Warm and dry. left forarm with 1x1cm raised area with induration and surrounding redness noted HEAD: Normocephalic. EYES: No scleral icterus. No injection or drainage. NECK: Supple, trachea midline. No JVD or lymphadenopathy. CARDIOVASCULAR: Regular rate and rhythm without murmurs, gallops, or rubs. RESPIRATORY: Breath sounds equal bilaterally. No accessory muscle use. GASTROINTESTINAL: Abdomen soft, non-tender, nondistended. MUSCULOSKELETAL: No cyanosis, or edema. BACK: Nontender without obvious deformity. No CVA tenderness. Vital Signs Date Time Temp Pulse Resp B/P (MAP) Pulse Ox O2 Delivery O2 Flow Rate FiO2 05/14/17 09:00 50 05/14/17 08:37 18 05/14/17 08:18 98.1 50 18 125/79 (94) 95 05/14/17 08:00 50 05/14/17 06:00 53 05/14/17 05:00 50 05/14/17 04:00 56 10/6/17 04:00 97.5 54 16 138/85 (102) 98 05/14/17 03:00 54 05/14/17 02:00 49 05/14/17 01:00 52 05/14/17 00:00 50 05/13/17 23:30 98.1 65 16 110/64 (79) 95 05/13/17 23:00 56 05/13/17 22:00 52 05/13/17 21:00 68 05/13/17 20:30 97.5 57 16 125/70 (88) 94 05/13/17 20:00 52 05/13/17 19:00 44 05/13/17 18:00 48 05/13/17 17:00 50 05/13/17 16:00 54 05/13/17 15:37 97.7 59 16 116/71 (86) 94 05/13/17 15:00 52 05/13/17 14:41 49 Labs: Laboratory Tests Test 05/14/17 06:12 Blood Urea Nitrogen 18 MG/DL (7-18) Creatinine 0.81 MG/DL (0.60-1.30) Random Glucose 96 MG/DL (74-106) Total Protein 7.8 GM/DL (6.4-8.2) Albumin 3.4 GM/DL (3.4-5.0) Calcium Level 9.1 MG/DL (8.5-10.1) Alkaline Phosphatase 117 U/L (45-117) Aspartate Amino Transf (AST/SGOT) 33 U/L (15-37) Alanine Aminotransferase (ALT/SGPT) 44 U/L (12-78) Total Bilirubin 0.5 MG/DL (0.2-1.0) Sodium Level 138 MEQ/L (136-145) Potassium Level 4.0 MEQ/L (3.5-5.1) Chloride Level 104 MEQ/L (98-107) Carbon Dioxide Level 27.5 MEQ/L (21.0-32.0) Anion Gap 7 MEQ/L (5-15) Estimat Glomerular Filtration Rate 98 ML/MIN (>89) Result Diagram: 05/12/17 0557 05/14/17 0612 Telemetry: NSR (1) Coronary artery disease Plan: on ASA, júnior , start low dose BB eval for surgery / await pt decision await echo (2) left forearm phelbitis Plan: s/p Keflex x 7 days, still has raised possible abscess with induration ID consulted (3) HTN (hypertension) Plan: on júnior and BB, hold júnior prior to surgery (4) Abnormal nuclear cardiac imaging test (5) Alcohol abuse Plan: on rally padilla (6) Homeless Plan: case management following Darshana Whitmore May 14, 2017 14:15
[2017-05-14] MEDS: ATORVASTATIN 20 MG TAB PO SCH (20:03)
[2017-05-15] VITALS (24 sets, daily range): BP systolic 110–124; BP diastolic 71–88; PULSE 50–68; RESP 18; TEMP 97.3–98.2; O2SAT 95–98
[2017-05-15 00:02] LABS: BLOOD, URINE NEG (NEG); GLUCOSE,URINE NEG (NEG); KETONE, URINE NEG (NEG); NITRITE,URINE NEG (NEG); URINE COLOR LIGHT-YELLOW (YELLW/STRAW)
[2017-05-15 00:04] LABS: COMMENT (UR) CULT NOT INDICATED; CULTURE IF INDICATED CULT NOT INDICATED
[2017-05-15] MEDS: NITROGLYCERIN 2% OINT 1 GM PACKET TOPICAL SCH ×4 (03:35→21:12)
[2017-05-15] MEDS: MORPHINE SULFATE 4 MG/ML INJ IV PUSH PRN ×5 (03:37→21:04)
[2017-05-15] MEDS: SODIUM CHLORIDE 0.9% FLUSH 10 ML FLUSH IV FLUSH SCH ×2 (09:00→20:59)
[2017-05-15] MEDS: KETOCONAZOLE 2% CREAM 15 GM TOPICAL SCH ×2 (09:00→20:59)
[2017-05-15] MEDS ORDERED: SENNOSIDES 8.6 MG TAB PO PRN (09:30)
[2017-05-15] MEDS ORDERED: LACTULOSE SYRUP 20 GM/30 ML CUP PO PRN (09:30)
[2017-05-15] MEDS ORDERED: MAGNESIUM HYDROXIDE SUSP 30 ML CUP PO PRN (09:30)
[2017-05-15] MEDS ORDERED: NALOXONE HCL 0.4 MG/ML AMP IV PUSH PRN (09:30)
[2017-05-15] MEDS: THIAMINE HCL 100 MG TAB PO SCH (09:56)
[2017-05-15] MEDS: MULTIVITAMINS/MINERALS THERAPEUTIC TAB PO SCH (09:56)
[2017-05-15] MEDS: LISINOPRIL 5 MG TAB PO SCH (09:57)
[2017-05-15] MEDS: FOLIC ACID 1 MG TAB PO SCH (09:58)
[2017-05-15] MEDS: ASPIRIN EC 81 MG TABEC PO SCH (09:58)
[2017-05-15] MEDS: SERTRALINE HCL 50 MG TAB PO SCH (09:58)
[2017-05-15] MEDS: MUPIROCIN 2% OINT 1 APPLIC/GM SYR EACH NARE SCH ×2 (10:00→20:58)
[2017-05-15] MEDS: DOCUSATE SODIUM 50 MG/SENNA 8.6 MG TAB PO SCH (20:58)
[2017-05-15] MEDS: ATORVASTATIN 20 MG TAB PO SCH (20:59)
[2017-05-16] VITALS (16 sets, daily range): BP systolic 103–135; BP diastolic 64–83; PULSE 51–73; RESP 18–20; TEMP 97.4–98.4; O2SAT 94–97
[2017-05-16] MEDS: NITROGLYCERIN 2% OINT 1 GM PACKET TOPICAL SCH ×4 (03:51→20:26)
[2017-05-16] MEDS: MORPHINE SULFATE 4 MG/ML INJ IV PUSH PRN ×4 (03:51→20:20)
[2017-05-16 06:27] LABS: AUTOMATED NEUTROPHIL # 1.8 TH/MM3 (1.8-7.7); BASOPHIL % 0.7 % (0.0-2.0); EOSINOPHIL # 0.4 TH/MM3 (0-0.4); EOSINOPHIL % 7.9 % (0.0-4.0); HEMATOCRIT 44.2 % (39.0-51.0); HEMO FLAGS DIFF FINAL; LYMPH % 43.9 % (9.0-44.0); LYMPHOCYTE # 2.2 TH/MM3 (1.0-4.8); MEAN CELL VOLUME 97.9 FL (80.0-100.0); MEAN CORPUSCULAR HEMOGLOBIN 33.1 PG (27.0-34.0); MEAN CORPUSCULAR HGB CONC 33.8 % (32.0-36.0); MONO % 11.9 % (0.0-8.0); NEUT % 35.6 % (16.0-70.0); PLATELET COUNT 225 TH/MM3 (150-450); RED BLOOD COUNT 4.51 MIL/MM3 (4.50-5.90); RED CELL DISTRIBUTION WIDTH 13.1 % (11.6-17.2)
[2017-05-16 06:38] LABS: BICARBONATE 29.8 MEQ/L (21.0-32.0)
[2017-05-16 06:41] LABS: PROTHROMBIN TIME - PATIENT 10.7 SEC (9.8-11.6)
[2017-05-16] MEDS: KETOCONAZOLE 2% CREAM 15 GM TOPICAL SCH ×2 (09:00→20:30)
[2017-05-16] MEDS: SODIUM CHLORIDE 0.9% FLUSH 10 ML FLUSH IV FLUSH SCH ×2 (09:00→20:26)
[2017-05-16] MEDS: MULTIVITAMINS/MINERALS THERAPEUTIC TAB PO SCH (09:05)
[2017-05-16] MEDS: FOLIC ACID 1 MG TAB PO SCH (09:05)
[2017-05-16] MEDS: LISINOPRIL 5 MG TAB PO SCH (09:05)
[2017-05-16] MEDS: THIAMINE HCL 100 MG TAB PO SCH (09:05)
[2017-05-16] MEDS: DOCUSATE SODIUM 50 MG/SENNA 8.6 MG TAB PO SCH ×2 (09:06→20:25)
[2017-05-16] MEDS: ASPIRIN EC 81 MG TABEC PO SCH (09:06)
[2017-05-16] MEDS: MUPIROCIN 2% OINT 1 APPLIC/GM SYR EACH NARE SCH ×2 (09:07→20:26)
[2017-05-16] MEDS: SERTRALINE HCL 50 MG TAB PO SCH (09:24)
--- NOTE | 2017-05-16 09:25 | HHI.PR ---
Subjective Remarks Patient still deciding on whether he would want surgery or not To discuss with cardiovascular surgery later today Have talked to the patient and RN Recommended smoking cessation and surgery if it is offered Objective Vitals Vital Signs Date Time Temp Pulse Resp B/P (MAP) Pulse Ox O2 Delivery O2 Flow Rate FiO2 05/16/17 06:00 55 05/16/17 05:00 58 05/16/17 04:00 98.1 59 18 107/64 (78) 97 05/16/17 04:00 Room Air 05/16/17 04:00 59 05/16/17 03:00 58 05/16/17 02:00 57 05/16/17 01:00 59 05/16/17 00:00 98.4 53 20 135/83 (100) 96 05/16/17 00:00 53 05/16/17 00:00 Room Air 05/15/17 23:00 59 05/15/17 22:00 59 05/15/17 21:00 57 05/15/17 20:00 Room Air 05/15/17 20:00 54 05/15/17 20:00 98.2 54 18 117/73 (88) 97 05/15/17 18:07 58 05/15/17 17:11 18 05/15/17 17:10 62 05/15/17 16:13 61 05/15/17 15:52 56 05/15/17 15:52 97.8 56 18 114/75 (88) 98 05/15/17 14:08 63 05/15/17 13:30 52 05/15/17 12:08 51 05/15/17 11:52 53 05/15/17 11:52 97.7 62 18 124/88 (100) 95 05/15/17 10:00 56 I/O 05/15/17 05/15/17 05/15/17 05/16/17 05/16/17 05/16/17 07:00 15:00 23:00 07:00 15:00 23:00 Intake Total 480 ml 720 ml 480 ml Output Total 800 ml 850 ml Balance -320 ml 720 ml -370 ml Intake Oral 480 ml 720 ml 480 ml Output Urine Total 800 ml 850 ml # Voids 4 # Bowel Movements 0 0 Result Diagram: 05/16/17 0553 05/16/1753 Other Results Laboratory Tests Test 05/14/17 06:12 05/14/17 23:40 05/16/17 05:53 Blood Urea Nitrogen 18 MG/DL 18 MG/DL Creatinine 0.81 MG/DL 0.89 MG/DL Random Glucose 96 MG/DL 93 MG/DL Total Protein 7.8 GM/DL Albumin 3.4 GM/DL Calcium Level 9.1 MG/DL 9.5 MG/DL Alkaline Phosphatase 117 U/L Aspartate Amino Transf (AST/SGOT) 33 U/L Alanine Aminotransferase (ALT/SGPT) 44 U/L Total Bilirubin 0.5 MG/DL Sodium Level 138 MEQ/L 137 MEQ/L Potassium Level 4.0 MEQ/L 4.0 MEQ/L Chloride Level 104 MEQ/L 101 MEQ/L Carbon Dioxide Level 27.5 MEQ/L 29.8 MEQ/L Anion Gap 7 MEQ/L 6 MEQ/L Estimat Glomerular Filtration Rate 98 ML/MIN 88 ML/MIN Urine Color LIGHT-YELLOW Urine Turbidity CLEAR Urine pH 6.0 Urine Specific [place] 1.004 Urine Protein NEG mg/dL Urine Glucose (UA) NEG mg/dL Urine Ketones NEG mg/dL Urine Occult Blood NEG Urine Nitrite NEG Urine Bilirubin NEG Urine Urobilinogen LESS THAN 2.0 MG/DL Urine Leukocyte Esterase NEG Urine WBC LESS THAN 1 /hpf Microscopic Urinalysis Comment CULT NOT INDICATED White Blood Count 5.0 TH/MM3 Red Blood Count 4.51 MIL/MM3 Hemoglobin 15.0 GM/DL Hematocrit 44.2 % Mean Corpuscular Volume 97.9 FL Mean Corpuscular Hemoglobin 33.1 PG Mean Corpuscular Hemoglobin Concent 33.8 % Red Cell Distribution Width 13.1 % Platelet Count 225 TH/MM3 Mean Platelet Volume 8.2 FL Neutrophils (%) (Auto) 35.6 % Lymphocytes (%) (Auto) 43.9 % Monocytes (%) (Auto) 11.9 % Eosinophils (%) (Auto) 7.9 % Basophils (%) (Auto) 0.7 % Neutrophils # (Auto) 1.8 TH/MM3 Lymphocytes # (Auto) 2.2 TH/MM3 Monocytes # (Auto) 0.6 TH/MM3 Eosinophils # (Auto) 0.4 TH/MM3 Basophils # (Auto) 0.0 TH/MM3 CBC Comment DIFF FINAL Differential Comment Prothrombin Time 10.7 SEC Prothromb Time International Ratio 1.0 RATIO Imaging Last Impressions Chest X-Ray 05/14/17 Signed Impressions: Service Date/Time: Sunday, May 14, 2017 06:47 - CONCLUSION: No acute disease. Tyrone Lezama Jr., MD Lower Extremity Ultrasound 05/13/17 Signed Impressions: Service Date/Time: May 17:11 - CONCLUSION: Venous mapping study as described. Antonio Stephen MD Carotid Artery Ultrasound 05/13/17 Signed Impressions: Service Date/Time: May 16:46 - CONCLUSION: Minimal plaque with no evidence of stenosis. Antonio Stephen MD Objective Remarks GENERAL: Awake alert oriented talkative and cooperative thin-appearing male SKIN: Warm and dry. HEAD: Atraumatic. Normocephalic. EYES: Pupils equal and round. No scleral icterus. No injection or drainage. Extraocular muscles intact ENT: No nasal bleeding or discharge. Mucous membranes pink and moist. Tongue is midline NECK: Trachea midline. No JVD. Neck is supple CARDIOVASCULAR: Regular rate and rhythm. S1 and S2 no S3-S4 no heave or thrill no murmur no rubs or gallops RESPIRATORY: No accessory muscle use. Coarse breath sounds bilaterally. Breath sounds equal bilaterally. GASTROINTESTINAL: Abdomen soft, non-tender, nondistended. Hepatic and splenic margins not palpable. MUSCULOSKELETAL: Extremities without clubbing, cyanosis, or edema. No obvious deformities. Multiple varicose veins bilateral lower extremities NEUROLOGICAL: Awake and alert. No obvious cranial nerve deficits. Motor grossly within normal limits. Five out of 5 muscle strength in the arms and legs. Normal speech. PSYCHIATRIC: Appropriate mood and affect; insight and judgment normal. Procedures YAMILE ROMO DATE 05/12/2017 DATE OF 1960 PROCEDURE PERFORMED 1. Left heart catheterization. 2. Selective right and left coronary angiography. 3. Left ventriculography. INDICATION Chest pain with a positive stress test. ACCESS Left transradial. DESCRIPTION OF PROCEDURE Consent signed. The patient was brought into the cardiac lab director in fasting state. The left wrist and groin were prepped and draped in sterile fashion. Using 1% lidocaine for local anesthesia and a micropuncture kit a 6 Cypriot sheath was inserted into the left radial artery. Antispasmodic cocktail given. Then selective right and left coronary angiography was performed with a JR-4 and a JL-4 diagnostic catheters. Angiography was taken in multiple views. Then the JR-4 diagnostic catheter was introduced over a wire into the left ventricle. It was followed by pressure recordings, left ventriculogram and pullback. The patient tolerated the procedure without complications. ESTIMATED BLOOD LOSS Less than 30 mL. TOTAL CONTRAST 35 mL. The left radial access site was closed with a TR band. RESULTS LEFT VENTRICLE The left ventricular pressure was 118/5 with an LVEDP of 6. The aortic pressure was 123/74 with a mean of 95. There was no gradient upon pullback from the left ventricle to the aorta. The Left ventriculogram revealed a symmetrically paul ventricle with an estimated ejection fraction of 60%. ANGIOGRAPHY 1. Right coronary artery is a dominant vessel and has minimal luminal irregularities throughout. It has a 10% lesion proximally and then the PDA is patent as well as PLB branch. There is no significant obstructive coronary artery disease. 2. 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 It is giving off the left circumflex, ramus, the LAD. 3. The LAD is a transapical vessel. It is giving off one main diagonal vessel. The LAD has a significant 90% lesion proximally and the diagonal vessel has a proximal 99% lesion. This diagonal vessel has three side branches which are patent with CALVIN III flow. Also to add there is calcification on the proximal LAD. 4. The left circumflex artery. The left circumflex artery is giving off one OM vessel which is long and trifurcates and has nonobstructive coronary artery disease, CALVIN III flow. The rest of the circumflex artery is patent with CALVIN III flow. 5. The ramus intermedius vessel is patent with CALVIN III flow. CONCLUSION 1. Significant two-vessel coronary artery disease. 2. Preserved LV systolic function. RECOMMENDATIONS The patient will be consulted to CT surgery for two-vessel CABG in the setting of a complicated bifurcation lesion in the proximal LAD and the diagonal vessel. The patient has been discussed with Dr. Allen and he will be seeing the patient shortly. In the meantime continue aggressive medical management for coronary artery disease and post cath care. Medications and IVs Current Medications Sodium Chloride (NS Flush) 2 ml UNSCH PRN IV FLUSH FLUSH AFTER USING IV ACCESS Last administered on 05/15/17t 07:48; Start 05/12/17 at 03:15 Sodium Chloride (NS Flush) 2 ml BID IV FLUSH Last administered on 05/15/17 20: 59; Start 05/12/17 at 09:00 Naloxone HCl (Narcan Inj) 0.4 mg UNSCH PRN IV PUSH SEE LABEL COMMENTS; Start 05/12/17 at 03:15; Stop 05/15/17 at 09:37; Status DC Nitroglycerin (Nitroglycerin 2% Oint) 0.5 inch Q6H TOPICAL Last administered on 05/16/17 03:51; Start 05/12/17 at 04:00 Morphine Sulfate (Morphine Inj) 2 mg Q4H PRN IV PUSH breakthrough pain Last administered on 05/16/17 03:51; Start 05/12/17 at 07:15 Cephalexin Monohydrate (Keflex) 500 mg Q8H PO Last administered on 05/12/17 08 :54; Start 05/12/17 at 08:00; Stop 05/12/17 at 09:04; Status DC Folic Acid (Folate) 1 mg DAILY PO Last administered on 05/16/17 09:05; Start 05/12/17 at 09:00 Ketoconazole (Nizoral 2% Cream) 1 applic BID TOPICAL Last administered on 20:59; Start 05/12/17 at 09:00 Multivitamins/ Minerals Therapeutic (Theragran M Tab) 1 tab DAILY PO Last administered on 05/16/17 09:05; Start 05/12/17 at 09:00 Sertraline HCl (Zoloft) 75 mg DAILY PO Last administered on 05/15/17 09:58; Start 05/12/17 at 09:00 Thiamine HCl (Vitamin B1) 100 mg DAILY PO Last administered on 05/16/17 09:05 ; Start 05/12/17 at 09:00 Miscellaneous (Pill Splitter) 1 ea UNSCH PRN OTHER SEE LABEL COMMENTS; Start 05/12/17 at 07:30 Lisinopril (Prinivil) 2.5 mg DAILY PO Last administered on 05/16/17 09:05; Start 05/13/17 at 09:00 Heparin Sodium/ Sodium Chloride 1,000 ml @ As Directed STK-MED ONCE .ROUTE Last administered on 05/12/17 13:35; Start 05/12/17 at 13:35; Stop 05/12/17 at 13:36; Status DC Midazolam HCl (Versed Inj) 2 mg STK-MED ONCE .ROUTE Last administered on 14:08; Start 05/12/17 at 13:35; Stop 05/12/17 at 13:36; Status DC Fentanyl Citrate (fentaNYL INJ) 100 mcg STK-MED ONCE .ROUTE Last administered on 05/12/17 14:09; Start 05/12/17 at 13:35; Stop 05/12/17 at 13:36; Status DC Verapamil HCl (Isoptin Inj) 5 mg STK-MED ONCE .ROUTE ; Start 05/12/17 at 13:36; Stop 05/12/17 at 13:37; Status DC Heparin Sodium (Porcine) (Heparin Inj) 10,000 units STK-MED ONCE .ROUTE Last administered on 05/12/17 14:10; Start 05/12/17 at 13:36; Stop 05/12/17 at 13:37 ; Status DC Nitroglycerin 5 ml @ As Directed STK-MED ONCE .ROUTE Last administered on 14:10; Start 05/12/17 at 13:36; Stop 05/12/17 at 13:37; Status DC Miscellaneous Information 1 ONCE ONCE XX ; Start 05/12/17 at 14:45; Stop at 14:46; Status DC Aspirin (Ecotrin Ec) 81 mg DAILY PO Last administered on 05/16/17 09:06; Start 05/12/17 at 14:45 Iohexol (OMNIPAQUE 350 INJ (Flight Crew Time Clerk)) 50 ml STK-MED ONCE OTHER ; Start at 15:54; Stop 05/12/17 at 15:55; Status DC Bacitracin (Bacitracin Oint Packet) 0.9 gm STK-MED ONCE .ROUTE ; Start 05/13/17 at 06:46; Stop 05/13/17 at 06:47; Status DC Papaverine HCl 60 mg/Nitroglycerin 100 mcg/Diltiazem HCl 100 mg/Sodium Chloride 100 ml @ 0 mls/hr [employer] IRRIGATION ; Start 05/13/17 at 16:30; Stop 05/20/17 at 16:29 Cefazolin Sodium 500 mg/Sodium Chloride 505 ml @ 0 mls/hr [employer] IRRIGATION ; Start 05/13/17 at 16:30; Stop 05/20/17 at 16:29 Cefazolin Sodium/ Dextrose 50 ml @ 150 mls/hr [employer] IV ; Start 05/13/17 at 16:30; Stop 05/20/17 at 16:29 Metoprolol Tartrate (Lopressor) 12.5 mg [employer] PO ; Start 05/13/17 at 16:30; Stop 05/20/17 at 16:29 Mupirocin (Bactroban Nasal 2% Oint) 1 applic BID EACH NARE Last administered on 05/16/17 09:07; Start 05/13/17 at 21:00; Stop 05/18/17 at 20:59 Chlorhexidine Gluconate (Hibiclens 4% Top Soln) 1 applic [employer] TOPICAL ; Start 05/13/17 at 16:30; Stop 05/20/17 at 16:29 Insulin Human Regular 100 units/ Sodium Chloride 100 ml @ 0 mls/hr [employer] PRN IV for blood glucose control; Start 05/13/17 at 16:30; Stop 05/20/17 at 16:29 Atropine Sulfate (Atropine Inj) 1 mg STK-MED ONCE .ROUTE ; Start 05/14/17 at 06: 38; Stop 05/14/17 at 06:39; Status DC Epinephrine HCl (EPINEPHrine (1:10,000) INJ) 1 mg STK-MED ONCE .ROUTE ; Start 05/14/17 at 06:38; Stop 05/14/17 at 06:39; Status DC Atorvastatin Calcium (Lipitor) 20 mg HS PO Last administered on 05/15/17 20:59 ; Start 05/14/17 at 21:00 Naloxone HCl (Narcan Inj) 0.4 mg UNSCH PRN IV PUSH SEE LABEL COMMENTS; Start 05/15/17 at 09:30 Senna/Docusate Sodium (Viridiana-Colace) 1 tab BID PO Last administered on 09:06; Start 05/15/17 at 21:00 Magnesium Hydroxide (Milk Of Magnesia Liq) 30 ml Q12H PRN PO MILD - MODERATE CONSTIPATION; Start 05/15/17 at 09:30 Sennosides (Senokot) 17.2 mg Q12H PRN PO MODERATE - SEVERE CONSTIPATION; Start 05/15/17 at 09:30 Bisacodyl (Dulcolax Supp) 10 mg DAILY PRN RECTAL SEVERE CONSITIPATION; Start 05/15/17 at 09:30 Lactulose (Lactulose Liq) 30 ml DAILY PRN PO SEVERE CONSITIPATION; Start at 09:30 Urinary Catheter: No Vascular Central Line Catheter: No A/P Assessment and Plan 57 y/o presenting with suicidal ideation/ EtOH withdrawals/ chest pain, had abnormal stress test, initially refused cardiac cath. Patient withdrawal symptoms improved, patient agreed to cardiac cath, transfer to [facility], s/p cardiac cath 05/12/[address] Jackson. Patient with significant two-vessel CAD. CT surgery consulted for 2 vessel CABG in the setting of complicated bifurcation lesion in the proximal LAD and the diagonal vessel. Atypical Chest Pain- + myocardial perfusion study with redistribution- EF 40% Likely alcoholic cardiomyopathy- EF 40%- no signs of fluid overload Significant two-vessel CAD Negative EKGs, Negative cardiac enzymes Repeat EKG - sinus no acute change compared to previous EKG- slight STTW flattening 2,3, AVF ASA 162 mg daily Noted with low BP and HRC in 50s, will decreased lopresor to 3.125 mg daily, held. Lisinopril 2.5 mg po daily Seen by Cardiology Dr Hebert - patient refused initially cardiac cath- " does not want to" " not now" Now agreeable to cath- per patient on and off fleeting pain now going to left arm Started Nitrol ointment 1/2 in q 8 start Reconsulted cardiology- patient now agrees to cath. S/p cardiac cath 05/12/[address] Jackson Patient with significant two-vessel CAD CT surgery consulted for 2 vessel CABG in the setting of complicated bifurcation lesion in the proximal LAD and the diagonal vessel. Patient is considering CABG-still has not decided on surgery yet Hypertension- better readings- HR- 50s Continue lisinopril- 2.5 mg po daily Lopressor decreased to 3.125 mg po bid- hold and montior Follow blood pressure/HR Left arm cellulitis /phlebitis US- shows no collection/abscess 05/05- resolved History of MRSA IV site thrombus DC Cephalexin- received total 10 days course of AB (cephalexin+bactrim) Warm compress to site daily- q shift Follow daily clinically No need for blood thinners due to the small size and superficial nature of the thrombus Alcohol abuse history Risk for withdrawal Continue CIWA protocol- Librium per psychiatry Chronic back pain History of bone cancer Continue oxycodone Anxiety medications-Librium and Ativan when necessary Discussed with the patient and the nurse Dispo: patient with 3 vessel disease, plan for CABG Discharge Planning Needs to decide if he wants to have coronary artery bypass graft or just pure Medical therapy Niko Leija DO May 16, 2017 09:24
[2017-05-16] MEDS ORDERED: LORazepam 1 MG TAB PO PRN (09:30)
[2017-05-16] MEDS ORDERED: LORazepam 2 MG TAB PO PRN (09:30)
[2017-05-16] MEDS ORDERED: HALOPERIDOL LACTATE 5 MG/ML AMP IM PRN (09:30)
[2017-05-16] MEDS ORDERED: chlordiazePOXIDE 25 MG CAP PO PRN (09:30)
[2017-05-16] MEDS ORDERED: FLUMAZENIL 0.5 MG/5 ML VIAL IV PUSH PRN (09:30)
[2017-05-16] MEDS ORDERED: LORazepam 2 MG/ML VIAL IV PUSH PRN ×4 (09:30)
[2017-05-16 11:58] LABS: HEMOGLOBIN A1a 1.3 %; HEMOGLOBIN A1b 1.5 %; HEMOGLOBIN Ao 84.6 %; HEMOGLOBIN LA1C 2.1 %; HEMOGLOBIN P3 3.8 %
--- NOTE | 2017-05-16 12:27 | PD.CAR.PN ---
CVT Progress Note Subjective/Hospital Course: 57/ MALE admitted 04/27 for depression, suicidal ideation, ETOH abuse, treated with CIWA Librium protocol , c/o of chest pain during his stay in Psych department, underwent stress test: general hypokinesis inferior wall , initially refused cardiac cath , then later agreed . Transferred into main Hospital and underwent cardiac cath by Dr Jackson, EF 60% two vessel disease LAD and Diagonal branch. 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 ), tobacco abuse, depression with prior suicide attempt , hx of IVDU last use 5 years ago, homeless Echo : pending 05/14 pt still has intermittent chest pain , some time relieved with morphine awaiting ID clearance left arm abcess BC neg x 24 hrs pt still deciding on surgery sts data discussed with pt RISK SCORES About the STS Risk Calculator Procedure: CAB Only Risk of Mortality: 0.354% Morbidity or Mortality: 5.426% Long Length of Stay: 1.559% Short Length of Stay: 75.232% Permanent Stroke: 0.356% Prolonged Ventilation: 3.651% DSW Infection: 0.218% Renal Failure: 0.604% Reoperation: 2.836% 05/16 Had another lengthy discussion with the pt regarding CABG. He is still not willing to proceed and wants to think it further. Please call when pt decides. Objective: Vital Signs Date Time Temp Pulse Resp B/P (MAP) Pulse Ox O2 Delivery O2 Flow Rate FiO2 05/16/17 06:00 55 05/16/17 05:00 58 05/16/17 04:00 98.1 59 18 107/64 (78) 97 05/16/17 04:00 Room Air 05/16/17 04:00 59 05/16/17 03:00 58 05/16/17 02:00 57 05/16/17 01:00 59 05/16/17 00:00 98.4 53 20 135/83 (100) 96 05/16/17 00:00 53 05/16/17 00:00 Room Air 05/15/17 23:00 59 05/15/17 22:00 59 05/15/17 21:00 57 05/15/17 20:00 Room Air 05/15/17 20:00 54 05/15/17 20:00 98.2 54 18 117/73 (88) 97 05/15/17 18:07 58 05/15/17 17:11 18 05/15/17 17:10 62 05/15/17 16:13 61 05/15/17 15:52 56 05/15/17 15:52 97.8 56 18 114/75 (88) 98 05/15/17 14:08 63 05/15/17 13:30 52 Labs: Laboratory Tests Test 05/16/17 05:53 White Blood Count 5.0 TH/MM3 (4.0-11.0) Red Blood Count 4.51 MIL/MM3 (4.50-5.90) Hemoglobin 15.0 GM/DL (13.0-17.0) Hematocrit 44.2 % (39.0-51.0) Mean Corpuscular Volume 97.9 FL (80.0-100.0) Mean Corpuscular Hemoglobin 33.1 PG (27.0-34.0) Mean Corpuscular Hemoglobin Concent 33.8 % (32.0-36.0) Red Cell Distribution Width 13.1 % (11.6-17.2) Platelet Count 225 TH/MM3 (150-450) Mean Platelet Volume 8.2 FL (7.0-11.0) Neutrophils (%) (Auto) 35.6 % (16.0-70.0) Lymphocytes (%) (Auto) 43.9 % (9.0-44.0) Monocytes (%) (Auto) 11.9 % (0.0-8.0) Eosinophils (%) (Auto) 7.9 % (0.0-4.0) Basophils (%) (Auto) 0.7 % (0.0-2.0) Neutrophils # (Auto) 1.8 TH/MM3 (1.8-7.7) Lymphocytes # (Auto) 2.2 TH/MM3 (1.0-4.8) Monocytes # (Auto) 0.6 TH/MM3 (0-0.9) Eosinophils # (Auto) 0.4 TH/MM3 (0-0.4) Basophils # (Auto) 0.0 TH/MM3 (0-0.2) CBC Comment DIFF FINAL Differential Comment Prothrombin Time 10.7 SEC (9.8-11.6) Prothromb Time International Ratio 1.0 RATIO Blood Urea Nitrogen 18 MG/DL (7-18) Creatinine 0.89 MG/DL (0.60-1.30) Random Glucose 93 MG/DL (74-106) Calcium Level 9.5 MG/DL (8.5-10.1) Sodium Level 137 MEQ/L (136-145) Potassium Level 4.0 MEQ/L (3.5-5.1) Chloride Level 101 MEQ/L (98-107) Carbon Dioxide Level 29.8 MEQ/L (21.0-32.0) Anion Gap 6 MEQ/L (5-15) Estimat Glomerular Filtration Rate 88 ML/MIN (>89) Hemoglobin A1c 6.1 % (4.3-6.0) Result Diagram: 05/16/17 0553 05/16/17 0553 (1) Coronary artery disease Plan: on ASA, júnior , start low dose BB eval for surgery / await pt decision await echo (2) left forearm phelbitis Plan: s/p Keflex x 7 days, still has raised possible abscess with induration ID consulted (3) HTN (hypertension) Plan: on júnior and BB, hold júnior prior to surgery (4) Abnormal nuclear cardiac imaging test (5) Alcohol abuse Plan: on rally padilla (6) Homeless Plan: case management following Jeff Allen MD May 16, 2017 12:27
[2017-05-16 12:35] LABS: HDL CHOLESTEROL 50.7 MG/DL (40.0-60.0)
[2017-05-16] MEDS: ATORVASTATIN 20 MG TAB PO SCH (20:25)
[2017-05-17] VITALS (26 sets, daily range): BP systolic 106–150; BP diastolic 68–81; PULSE 48–73; RESP 14–18; TEMP 97.3–99; O2SAT 95–97
[2017-05-17] MEDS: MORPHINE SULFATE 4 MG/ML INJ IV PUSH PRN ×5 (00:26→20:28)
[2017-05-17] MEDS: NITROGLYCERIN 2% OINT 1 GM PACKET TOPICAL SCH ×4 (05:00→20:27)
[2017-05-17 06:52] LABS: AUTOMATED NEUTROPHIL # 2.6 TH/MM3 (1.8-7.7); BASOPHIL % 0.5 % (0.0-2.0); EOSINOPHIL # 0.4 TH/MM3 (0-0.4); EOSINOPHIL % 7.2 % (0.0-4.0); HEMATOCRIT 44.1 % (39.0-51.0); HEMO FLAGS DIFF FINAL; LYMPHOCYTE # 2.1 TH/MM3 (1.0-4.8); MEAN CELL VOLUME 97.2 FL (80.0-100.0); MEAN CORPUSCULAR HEMOGLOBIN 32.3 PG (27.0-34.0); MEAN CORPUSCULAR HGB CONC 33.3 % (32.0-36.0); MONO % 10.9 % (0.0-8.0); NEUT % 44.4 % (16.0-70.0); PLATELET COUNT 212 TH/MM3 (150-450); RED BLOOD COUNT 4.54 MIL/MM3 (4.50-5.90); WHITE BLOOD COUNT 5.8 TH/MM3 (4.0-11.0)
[2017-05-17 07:37] LABS: ALT (GPT) 45 U/L (12-78); ANION GAP 5 MEQ/L (5-15); AST (GOT) 32 U/L (15-37); BLOOD UREA NITROGEN 19 MG/DL (7-18); CHLORIDE 102 MEQ/L (98-107); GLOMERULAR FILTRATION RATE 98 ML/MIN (>89); POTASSIUM 4.2 MEQ/L (3.5-5.1); SODIUM (NA) 135 MEQ/L (136-145)
[2017-05-17 07:45] LABS: ALKALINE PHOSPHATASE 117 U/L (45-117); TOTAL BILIRUBIN ADULT 0.5 MG/DL (0.2-1.0)
[2017-05-17] MEDS: KETOCONAZOLE 2% CREAM 15 GM TOPICAL SCH ×2 (09:00→20:27)
[2017-05-17 09:54] LABS: HEMOGLOBIN A1a 1.2 %; HEMOGLOBIN A1b 1.5 %; HEMOGLOBIN Ao 84.8 %; HEMOGLOBIN P3 3.8 %
--- NOTE | 2017-05-17 10:00 | HHI.PR ---
Subjective Remarks Patient still deciding on whether he would want surgery or not To discuss with cardiovascular surgery later today Have talked to the patient and RN Recommended smoking cessation and surgery if it is offered 05-17 PATIENT NOW STATES HE WILL HAVE SURGERY LATER THIS WEEK DW RN AND PATIENT STATES HE IS STILL HAVING CHEST PAIN AND NEEDS PAIN MEDICATIONS AM LABS Objective Vitals Vital Signs Date Time Temp Pulse Resp B/P (MAP) Pulse Ox O2 Delivery O2 Flow Rate FiO2 05/17/17 09:00 52 05/17/17 08:00 73 05/17/17 07:00 73 05/17/17 07:00 Room Air 05/17/17 07:00 99.0 53 14 117/76 (90) 95 05/17/17 06:00 50 05/17/17 05:04 20 05/17/17 05:00 50 05/17/17 04:52 Room Air 05/17/17 04:52 97.3 55 18 150/81 (104) 97 05/17/17 04:00 54 05/17/17 03:00 50 05/17/17 02:00 50 05/17/17 01:00 54 05/17/17 00:00 Room Air 05/17/17 00:00 97.4 64 18 130/68 (88) 96 05/17/17 00:00 61 05/16/17 23:00 56 05/16/17 22:00 54 05/16/17 21:00 54 05/16/17 20:15 Room Air 05/16/17 20:15 97.7 62 18 128/74 (92) 94 05/16/17 20:00 61 05/16/17 19:00 54 05/16/17 16:00 Room Air 05/16/17 16:00 53 05/16/17 16:00 97.8 51 20 103/72 (82) 97 05/16/17 12:00 Room Air 05/16/17 12:00 97.4 70 127/72 (90) 05/16/17 12:00 51 I/O 05/16/17 05/16/17 05/16/17 05/17/17 05/17/17 05/17/17 07:00 15:00 23:00 07:00 15:00 23:00 Intake Total 480 ml 800 ml 480 ml Output Total 850 ml Balance -370 ml 800 ml 480 ml Intake Oral 480 ml 800 ml 480 ml Output Urine Total 850 ml # Voids 3 4 # Bowel Movements 0 0 Result Diagram: 05/17/17 0630 05/17/17 0539 Other Results Laboratory Tests Test 05/14/17 23:40 05/16/17 05:53 05/17/17 05:39 05/17/17 06:30 Urine Color LIGHT-YELLOW Urine Turbidity CLEAR Urine pH 6.0 Urine Specific Adkins 1.004 Urine Protein NEG mg/dL Urine Glucose (UA) NEG mg/dL Urine Ketones NEG mg/dL Urine Occult Blood NEG Urine Nitrite NEG Urine Bilirubin NEG Urine Urobilinogen LESS THAN 2.0 MG/DL Urine Leukocyte Esterase NEG Urine WBC LESS THAN 1 /hpf Microscopic Urinalysis Comment CULT NOT INDICATED White Blood Count 5.0 TH/MM3 5.8 TH/MM3 Red Blood Count 4.51 MIL/MM3 4.54 MIL/MM3 Hemoglobin 15.0 GM/DL 14.7 GM/DL Hematocrit 44.2 % 44.1 % Mean Corpuscular Volume 97.9 FL 97.2 FL Mean Corpuscular Hemoglobin 33.1 PG 32.3 PG Mean Corpuscular Hemoglobin Concent 33.8 % 33.3 % Red Cell Distribution Width 13.1 % 13.0 % Platelet Count 225 TH/MM3 212 TH/MM3 Mean Platelet Volume 8.2 FL 8.2 FL Neutrophils (%) (Auto) 35.6 % 44.4 % Lymphocytes (%) (Auto) 43.9 % 37.0 % Monocytes (%) (Auto) 11.9 % 10.9 % Eosinophils (%) (Auto) 7.9 % 7.2 % Basophils (%) (Auto) 0.7 % 0.5 % Neutrophils # (Auto) 1.8 TH/MM3 2.6 TH/MM3 Lymphocytes # (Auto) 2.2 TH/MM3 2.1 TH/MM3 Monocytes # (Auto) 0.6 TH/MM3 0.6 TH/MM3 Eosinophils # (Auto) 0.4 TH/MM3 0.4 TH/MM3 Basophils # (Auto) 0.0 TH/MM3 0.0 TH/MM3 CBC Comment DIFF FINAL DIFF FINAL Differential Comment Prothrombin Time 10.7 SEC Prothromb Time International Ratio 1.0 RATIO Blood Urea Nitrogen 18 MG/DL 19 MG/DL Creatinine 0.89 MG/DL 0.81 MG/DL Random Glucose 93 MG/DL 76 MG/DL Calcium Level 9.5 MG/DL 8.9 MG/DL Sodium Level 137 MEQ/L 135 MEQ/L Potassium Level 4.0 MEQ/L 4.2 MEQ/L Chloride Level 101 MEQ/L 102 MEQ/L Carbon Dioxide Level 29.8 MEQ/L 28.0 MEQ/L Anion Gap 6 MEQ/L 5 MEQ/L Estimat Glomerular Filtration Rate 88 ML/MIN 98 ML/MIN Hemoglobin A1c 6.1 % Triglycerides Level 134 MG/DL Cholesterol Level 194 MG/DL LDL Cholesterol 117 MG/DL HDL Cholesterol 50.7 MG/DL Cholesterol/HDL Ratio 3.82 RATIO Total Protein 8.2 GM/DL Albumin 3.5 GM/DL Phosphorus Level 3.3 MG/DL Magnesium Level 2.0 MG/DL Alkaline Phosphatase 117 U/L Aspartate Amino Transf (AST/SGOT) 32 U/L Alanine Aminotransferase (ALT/SGPT) 45 U/L Total Bilirubin 0.5 MG/DL Free Thyroxine 0.70 NG/DL Thyroid Stimulating Hormone 3rd Gen 2.280 uIU/ML Imaging Last Impressions Chest X-Ray 05/14/17 0000 Signed Impressions: Service Date/Time: Sunday, May 14, 2017 06:47 - CONCLUSION: No acute disease. Tyrone Lezama Jr., MD Lower Extremity Ultrasound 05/13/17 0000 Signed Impressions: Service Date/Time: May 17:11 - CONCLUSION: Venous mapping study as described. Antonio Stephen MD Carotid Artery Ultrasound 05/13/17 0000 Signed Impressions: Service Date/Time: May 16:46 - CONCLUSION: Minimal plaque with no evidence of stenosis. Antonio Stephen MD Objective Remarks GENERAL: Awake alert oriented talkative and cooperative thin-appearing male SKIN: Warm and dry. HEAD: Atraumatic. Normocephalic. EYES: Pupils equal and round. No scleral icterus. No injection or drainage. Extraocular muscles intact ENT: No nasal bleeding or discharge. Mucous membranes pink and moist. Tongue is midline NECK: Trachea midline. No JVD. Neck is supple CARDIOVASCULAR: Regular rate and rhythm. S1 and S2 no S3-S4 no heave or thrill no murmur no rubs or gallops RESPIRATORY: No accessory muscle use. Coarse breath sounds bilaterally. Breath sounds equal bilaterally. GASTROINTESTINAL: Abdomen soft, non-tender, nondistended. Hepatic and splenic margins not palpable. MUSCULOSKELETAL: Extremities without clubbing, cyanosis, or edema. No obvious deformities. Multiple varicose veins bilateral lower extremities NEUROLOGICAL: Awake and alert. No obvious cranial nerve deficits. Motor grossly within normal limits. Five out of 5 muscle strength in the arms and legs. Normal speech. PSYCHIATRIC: Appropriate mood and affect; insight and judgment LIMITED. Procedures DUNLAPJUSTICEYAMILE DATE 05/12/2017 DATE OF 1960 PROCEDURE PERFORMED 1. Left heart catheterization. 2. Selective right and left coronary angiography. 3. Left ventriculography. INDICATION Chest pain with a positive stress test. ACCESS Left transradial. DESCRIPTION OF PROCEDURE Consent signed. The patient was brought into the cardiac engineering lab technician in fasting state. The left wrist and groin were prepped and draped in sterile fashion. Using 1% lidocaine for local anesthesia and a micropuncture kit a 6 Dominican sheath was inserted into the left radial artery. Antispasmodic cocktail given. Then selective right and left coronary angiography was performed with a JR-4 and a JL-4 diagnostic catheters. Angiography was taken in multiple views. Then the JR-4 diagnostic catheter was introduced over a wire into the left ventricle. It was followed by pressure recordings, left ventriculogram and pullback. The patient tolerated the procedure without complications. ESTIMATED BLOOD LOSS Less than 30 mL. TOTAL CONTRAST 35 mL. The left radial access site was closed with a TR band. RESULTS LEFT VENTRICLE The left ventricular pressure was 118/5 with an LVEDP of 6. The aortic pressure was 123/74 with a mean of 95. There was no gradient upon pullback from the left ventricle to the aorta. The Left ventriculogram revealed a symmetrically paul ventricle with an estimated ejection fraction of 60%. ANGIOGRAPHY 1. Right coronary artery is a dominant vessel and has minimal luminal irregularities throughout. It has a 10% lesion proximally and then the PDA is patent as well as PLB branch. There is no significant obstructive coronary artery disease. 2. 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 It is giving off the left circumflex, ramus, the LAD. 3. The LAD is a transapical vessel. It is giving off one main diagonal vessel. The LAD has a significant 90% lesion proximally and the diagonal vessel has a proximal 99% lesion. This diagonal vessel has three side branches which are patent with CALVIN III flow. Also to add there is calcification on the proximal LAD. 4. The left circumflex artery. The left circumflex artery is giving off one OM vessel which is long and trifurcates and has nonobstructive coronary artery disease, CALVIN III flow. The rest of the circumflex artery is patent with CALVIN III flow. 5. The ramus intermedius vessel is patent with CALVIN III flow. CONCLUSION 1. Significant two-vessel coronary artery disease. 2. Preserved LV systolic function. RECOMMENDATIONS The patient will be consulted to CT surgery for two-vessel CABG in the setting of a complicated bifurcation lesion in the proximal LAD and the diagonal vessel. The patient has been discussed with Dr. Allen and he will be seeing the patient shortly. In the meantime continue aggressive medical management for coronary artery disease and post cath care. Medications and IVs Current Medications Sodium Chloride (NS Flush) 2 ml UNSCH PRN IV FLUSH FLUSH AFTER USING IV ACCESS Last administered on 05/15/17 07:48; Start 05/12/17 at 03:15 Sodium Chloride (NS Flush) 2 ml BID IV FLUSH Last administered on 05/16/17 20: 26; Start 05/12/17 at 09:00 Naloxone HCl (Narcan Inj) 0.4 mg UNSCH PRN IV PUSH SEE LABEL COMMENTS; Start 05/12/17 at 03:15; Stop 05/15/17 at 09:37; Status DC Nitroglycerin (Nitroglycerin 2% Oint) 0.5 inch Q6H TOPICAL Last administered on 05/17/17 05:00; Start 05/12/17 at 04:00 Morphine Sulfate (Morphine Inj) 2 mg Q4H PRN IV PUSH breakthrough pain Last administered on 05/17/17 04:59; Start 05/12/17 at 07:15 Cephalexin Monohydrate (Keflex) 500 mg Q8H PO Last administered on 05/12/17 08 :54; Start 05/12/17 at 08:00; Stop 05/12/17 at 09:04; Status DC Folic Acid (Folate) 1 mg DAILY PO Last administered on 05/16/17 09:05; Start 05/12/17 at 09:00 Ketoconazole (Nizoral 2% Cream) 1 applic BID TOPICAL Last administered on 20:59; Start 05/12/17 at 09:00 Multivitamins/ Minerals Therapeutic (Theragran M Tab) 1 tab DAILY PO Last administered on 05/16/17 09:05; Start 05/12/17 at 09:00 Sertraline HCl (Zoloft) 75 mg DAILY PO Last administered on 05/16/17 09:24; Start 05/12/17 at 09:00 Thiamine HCl (Vitamin B1) 100 mg DAILY PO Last administered on 05/16/17 09:05 ; Start 05/12/17 at 09:00 Miscellaneous (Pill Splitter) 1 ea UNSCH PRN OTHER SEE LABEL COMMENTS; Start 05/12/17 at 07:30 Lisinopril (Prinivil) 2.5 mg DAILY PO Last administered on 05/16/17 09:05; Start 05/13/17 at 09:00 Heparin Sodium/ Sodium Chloride 1,000 ml @ As Directed STK-MED ONCE .ROUTE Last administered on 05/12/17 13:35; Start 05/12/17 at 13:35; Stop 05/12/17 at 13:36; Status DC Midazolam HCl (Versed Inj) 2 mg STK-MED ONCE .ROUTE Last administered on 14:08; Start 05/12/17 at 13:35; Stop 05/12/17 at 13:36; Status DC Fentanyl Citrate (fentaNYL INJ) 100 mcg STK-MED ONCE .ROUTE Last administered on 05/12/17 14:09; Start 05/12/17 at 13:35; Stop 05/12/17 at 13:36; Status DC Verapamil HCl (Isoptin Inj) 5 mg STK-MED ONCE .ROUTE ; Start 05/12/17 at 13:36; Stop 05/12/17 at 13:37; Status DC Heparin Sodium (Porcine) (Heparin Inj) 10,000 units STK-MED ONCE .ROUTE Last administered on 05/12/17 14:10; Start 05/12/17 at 13:36; Stop 05/12/17 at 13:37 ; Status DC Nitroglycerin 5 ml @ As Directed STK-MED ONCE .ROUTE Last administered on 14:10; Start 05/12/17 at 13:36; Stop 05/12/17 at 13:37; Status DC Miscellaneous Information 1 ONCE ONCE XX ; Start 05/12/17 at 14:45; Stop at 14:46; Status DC Aspirin (Ecotrin Ec) 81 mg DAILY PO Last administered on 05/16/17t 09:06; Start 05/12/17 at 14:45 Iohexol (OMNIPAQUE 350 INJ (Certified Art Therapist)) 50 ml STK-MED ONCE OTHER ; Start at 15:54; Stop 05/12/17 at 15:55; Status DC Bacitracin (Bacitracin Oint Packet) 0.9 gm STK-MED ONCE .ROUTE ; Start 05/13/17 at 06:46; Stop 05/13/17 at 06:47; Status DC Papaverine HCl 60 mg/Nitroglycerin 100 mcg/Diltiazem HCl 100 mg/Sodium Chloride 100 ml @ 0 mls/hr BOLOGNA LACER IRRIGATION ; Start 05/13/17 at 16:30; Stop 05/20/17 at 16:29 Cefazolin Sodium 500 mg/Sodium Chloride 505 ml @ 0 mls/hr BOLOGNA LACER IRRIGATION ; Start 05/13/17 at 16:30; Stop 05/20/17 at 16:29 Cefazolin Sodium/ Dextrose 50 ml @ 150 mls/hr BOLOGNA LACER IV ; Start 05/13/17 at 16:30; Stop 05/20/17 at 16:29 Metoprolol Tartrate (Lopressor) 12.5 mg BOLOGNA LACER PO ; Start 05/13/17 at 16:30; Stop 05/20/17 at 16:29 Mupirocin (Bactroban Nasal 2% Oint) 1 applic BID EACH NARE Last administered on 05/16/17t 20:26; Start 05/13/17 at 21:00; Stop 05/18/17 at 20:59 Chlorhexidine Gluconate (Hibiclens 4% Top Soln) 1 applic BOLOGNA LACER TOPICAL ; Start 05/13/17 at 16:30; Stop 05/20/17 at 16:29 Insulin Human Regular 100 units/ Sodium Chloride 100 ml @ 0 mls/hr BOLOGNA LACER PRN IV for blood glucose control; Start 05/13/17 at 16:30; Stop 05/20/17 at 16:29 Atropine Sulfate (Atropine Inj) 1 mg STK-MED ONCE .ROUTE ; Start 05/14/17 at 06: 38; Stop 05/14/17 at 06:39; Status DC Epinephrine HCl (EPINEPHrine (1:10,000) INJ) 1 mg STK-MED ONCE .ROUTE ; Start 05/14/17 at 06:38; Stop 05/14/17 at 06:39; Status DC Atorvastatin Calcium (Lipitor) 20 mg HS PO Last administered on 05/16/17 20:25 ; Start 05/14/17 at 21:00 Naloxone HCl (Narcan Inj) 0.4 mg UNSCH PRN IV PUSH SEE LABEL COMMENTS; Start 05/15/17 at 09:30 Senna/Docusate Sodium (Viridiana-Colace) 1 tab BID PO Last administered on 20:25; Start 05/15/17 at 21:00 Magnesium Hydroxide (Milk Of Magnesia Liq) 30 ml Q12H PRN PO MILD - MODERATE CONSTIPATION; Start 05/15/17 at 09:30 Sennosides (Senokot) 17.2 mg Q12H PRN PO MODERATE - SEVERE CONSTIPATION; Start 05/15/17 at 09:30 Bisacodyl (Dulcolax Supp) 10 mg DAILY PRN RECTAL SEVERE CONSITIPATION; Start 05/15/17 at 09:30 Lactulose (Lactulose Liq) 30 ml DAILY PRN PO SEVERE CONSITIPATION; Start at 09:30 Flumazenil (Romazicon Inj) 0.2 mg Q1M PRN IV PUSH SEE LABEL COMMENTS; Start at 09:30 Lorazepam (Ativan) 1 mg Q4H PRN PO CIWA 8 - 10; Start 05/16/17 at 09:30 Lorazepam (Ativan Inj) 1 mg Q4H PRN IV PUSH CIWA 8 - 10; Start 05/16/17 at 09: 30 Lorazepam (Ativan) 2 mg Q2H PRN PO CIWA 11-14; Start 05/16/17 at 09:30 Lorazepam (Ativan Inj) 2 mg Q2H PRN IV PUSH CIWA 11-14; Start 05/16/17 at 09:30 Lorazepam (Ativan Inj) 2 mg Q1H PRN IV PUSH CIWA 15-20; Start 05/16/17 at 09:30 Lorazepam (Ativan Inj) 2 mg Q15M PRN IV PUSH CIWA > 20; Start 05/16/17 at 09:30 Haloperidol Lactate (Haldol Inj) 2 mg Q15M PRN IM SEE LABEL COMMENTS; Start at 09:30 Chlordiazepoxide (Librium) 25 mg TID PRN PO SEVERE ANXIETY OR AGITATION; Start 05/16/17 at 09:30 Urinary Catheter: No Vascular Central Line Catheter: No A/P Assessment and Plan 57 y/o presenting with suicidal ideation/ EtOH withdrawals/ chest pain, had abnormal stress test, initially refused cardiac cath. Patient withdrawal symptoms improved, patient agreed to cardiac cath, transfer to [facility], s/p cardiac cath 05/12/[address] Dunlap. Patient with significant two-vessel CAD. CT surgery consulted for 2 vessel CABG in the setting of complicated bifurcation lesion in the proximal LAD and the diagonal vessel. Atypical Chest Pain- + myocardial perfusion study with redistribution- EF 40% Likely alcoholic cardiomyopathy- EF 40%- no signs of fluid overload Significant two-vessel CAD Negative EKGs, Negative cardiac enzymes Repeat EKG - sinus no acute change compared to previous EKG- slight STTW flattening 2,3, AVF ASA 162 mg daily Noted with low BP and HRC in 50s, will decreased lopresor to 3.125 mg daily, held. Lisinopril 2.5 mg po daily Seen by Cardiology Dr Hebert - patient refused initially cardiac cath- " does not want to" " not now" Now agreeable to cath- per patient on and off fleeting pain now going to left arm Started Nitrol ointment 1/2 in q 8 start Reconsulted cardiology- patient now agrees to cath. S/p cardiac cath 05/12/[address] Dunlap Patient with significant two-vessel CAD CT surgery consulted for 2 vessel CABG in the setting of complicated bifurcation lesion in the proximal LAD and the diagonal vessel. Patient is considering CABG-still has not decided on surgery yet Hypertension- better readings- HR- 50s Continue lisinopril- 2.5 mg po daily Lopressor decreased to 3.125 mg po bid- hold and montior Follow blood pressure/HR Left arm cellulitis /phlebitis US- shows no collection/abscess 05/05- resolved History of MRSA IV site thrombus DC Cephalexin- received total 10 days course of AB (cephalexin+bactrim) Warm compress to site daily- q shift Follow daily clinically No need for blood thinners due to the small size and superficial nature of the thrombus Alcohol abuse history Risk for withdrawal Continue CIWA protocol- Librium per psychiatry Chronic back pain History of bone cancer Continue oxycodone Anxiety medications-Librium and Ativan when necessary Discussed with the patient and the nurse Dispo: patient with 3 vessel disease, plan for CABG- NOW IS AGREEABLE TO SURGERY Discharge Planning Needs to decide if he wants to have coronary artery bypass graft or just pure Medical therapy Niko Leija DO May 17, 2017 10:00
[2017-05-17] MEDS: MUPIROCIN 2% OINT 1 APPLIC/GM SYR EACH NARE SCH ×2 (10:19→20:27)
[2017-05-17] MEDS: SERTRALINE HCL 50 MG TAB PO SCH (10:20)
[2017-05-17] MEDS: LISINOPRIL 5 MG TAB PO SCH (10:20)
[2017-05-17] MEDS: DOCUSATE SODIUM 50 MG/SENNA 8.6 MG TAB PO SCH ×2 (10:20→20:26)
[2017-05-17] MEDS: MULTIVITAMINS/MINERALS THERAPEUTIC TAB PO SCH (10:20)
[2017-05-17] MEDS: ASPIRIN EC 81 MG TABEC PO SCH (10:20)
[2017-05-17] MEDS: FOLIC ACID 1 MG TAB PO SCH (10:20)
[2017-05-17] MEDS: SODIUM CHLORIDE 0.9% FLUSH 10 ML FLUSH IV FLUSH SCH ×2 (10:21→20:26)
[2017-05-17] MEDS: THIAMINE HCL 100 MG TAB PO SCH (10:25)
--- NOTE | 2017-05-17 11:36 | RSPPFT ---
DATE OF PROCEDURE: 05/14/17 COMMENTS: The forced vital capacity is normal. The FEV1 shows a small reduction. The FEF 25-75 also shows a small reduction. The FEV1/FVC ratio is normal. IMPRESSION: This is compatible with mild, small airways, obstructive lung disease.
--- NOTE | 2017-05-17 15:05 | PD.CAR.PN ---
CVT Progress Note Subjective/Hospital Course: 57/ MALE admitted 04/27 for depression, suicidal ideation, ETOH abuse, treated with CIWA Librium protocol , c/o of chest pain during his stay in Psych department, underwent stress test: general hypokinesis inferior wall , initially refused cardiac cath , then later agreed . Transferred into main Hospital and underwent cardiac cath by Dr Jackson, EF 60% two vessel disease LAD and Diagonal branch. 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 He is still not willing to proceed and wants to think it further. Please call when pt decides. 05/17 pt has now decided to proceed with surgery, will schedule for Monday 05/21 no chest pain today will hold júnior inhibitor Objective: GENERAL: SKIN: Warm and dry. HEAD: Normocephalic. EYES: No scleral icterus. No injection or drainage. NECK: Supple, trachea midline. No JVD or lymphadenopathy. CARDIOVASCULAR: Regular rate and rhythm without murmurs, gallops, or rubs. RESPIRATORY: Breath sounds equal bilaterally. No accessory muscle use. GASTROINTESTINAL: Abdomen soft, non-tender, nondistended. MUSCULOSKELETAL: No cyanosis, or edema. BACK: Nontender without obvious deformity. No CVA tenderness. Vital Signs Date Time Temp Pulse Resp B/P (MAP) Pulse Ox O2 Delivery O2 Flow Rate FiO2 05/17/17 13:00 59 05/17/17 12:00 56 05/17/17 11:00 54 05/17/17 11:00 97.5 56 14 135/77 (96) 05/17/17 10:00 59 05/17/17 09:00 52 05/17/17 08:00 73 05/17/17 07:00 73 05/17/17 07:00 Room Air 05/17/17 07:00 99.0 53 14 117/76 (90) 95 05/17/17 06:00 50 05/17/17 05:04 20 05/17/17 05:00 50 05/17/17 04:52 Room Air 05/17/17 04:52 97.3 55 18 150/81 (104) 97 05/17/17 04:00 54 05/17/17 03:00 50 05/17/17 02:00 50 05/17/17 01:00 54 05/17/17 00:00 Room Air 05/17/17 00:00 97.4 64 18 130/68 (88) 96 05/17/17 00:00 61 05/16/17 23:00 56 05/16/17 22:00 54 05/16/17 21:00 54 05/16/17 20:15 Room Air 05/16/17 20:15 97.7 62 18 128/74 (92) 94 05/16/17 20:00 61 05/16/17 19:00 54 05/16/17 16:00 Room Air 05/16/17 16:00 53 05/16/17 16:00 97.8 51 20 103/72 (82) 97 Labs: Laboratory Tests Test 05/17/17 05:39 05/17/17 06:30 Blood Urea Nitrogen 19 MG/DL (7-18) Creatinine 0.81 MG/DL (0.60-1.30) Random Glucose 76 MG/DL (74-106) Total Protein 8.2 GM/DL (6.4-8.2) Albumin 3.5 GM/DL (3.4-5.0) Calcium Level 8.9 MG/DL (8.5-10.1) Phosphorus Level 3.3 MG/DL (2.5-4.9) Magnesium Level 2.0 MG/DL (1.5-2.5) Alkaline Phosphatase 117 U/L (45-117) Aspartate Amino Transf (AST/SGOT) 32 U/L (15-37) Alanine Aminotransferase (ALT/SGPT) 45 U/L (12-78) Total Bilirubin 0.5 MG/DL (0.2-1.0) Sodium Level 135 MEQ/L (136-145) Potassium Level 4.2 MEQ/L (3.5-5.1) Chloride Level 102 MEQ/L (98-107) Carbon Dioxide Level 28.0 MEQ/L (21.0-32.0) Anion Gap 5 MEQ/L (5-15) Estimat Glomerular Filtration Rate 98 ML/MIN (>89) Hemoglobin A1c 6.1 % (4.3-6.0) Free Thyroxine 0.70 NG/DL (0.76-1.46) Thyroid Stimulating Hormone 3rd Gen 2.280 uIU/ML (0.358-3.740) White Blood Count 5.8 TH/MM3 (4.0-11.0) Red Blood Count 4.54 MIL/MM3 (4.50-5.90) Hemoglobin 14.7 GM/DL (13.0-17.0) Hematocrit 44.1 % (39.0-51.0) Mean Corpuscular Volume 97.2 FL (80.0-100.0) Mean Corpuscular Hemoglobin 32.3 PG (27.0-34.0) Mean Corpuscular Hemoglobin Concent 33.3 % (32.0-36.0) Red Cell Distribution Width 13.0 % (11.6-17.2) Platelet Count 212 TH/MM3 (150-450) Mean Platelet Volume 8.2 FL (7.0-11.0) Neutrophils (%) (Auto) 44.4 % (16.0-70.0) Lymphocytes (%) (Auto) 37.0 % (9.0-44.0) Monocytes (%) (Auto) 10.9 % (0.0-8.0) Eosinophils (%) (Auto) 7.2 % (0.0-4.0) Basophils (%) (Auto) 0.5 % (0.0-2.0) Neutrophils # (Auto) 2.6 TH/MM3 (1.8-7.7) Lymphocytes # (Auto) 2.1 TH/MM3 (1.0-4.8) Monocytes # (Auto) 0.6 TH/MM3 (0-0.9) Eosinophils # (Auto) 0.4 TH/MM3 (0-0.4) Basophils # (Auto) 0.0 TH/MM3 (0-0.2) CBC Comment DIFF FINAL Differential Comment Result Diagram: 05/17/1730 05/17/17 0539 Telemetry: NSR (1) Coronary artery disease Plan: on ASA, hold júnior , low dose BB scheduled for Monday 05/21 (2) left forearm phelbitis Plan: s/p Keflex x 7 days, still has raised possible abscess with induration cleared by ID for surgery (3) HTN (hypertension) Plan: on júnior and BB, hold júnior prior to surgery (4) Abnormal nuclear cardiac imaging test (5) Alcohol abuse Plan: on rally padilla (6) Homeless Plan: case management following Darshana Whitmore May 17, 2017 15:04
[2017-05-17] MEDS: ATORVASTATIN 20 MG TAB PO SCH (20:26)
[2017-05-17 22:03] LABS: PROTHROMBIN TIME - PATIENT 11.1 SEC (9.8-11.6)
[2017-05-18] VITALS (19 sets, daily range): BP systolic 95–151; BP diastolic 57–90; PULSE 48–74; RESP 12–18; TEMP 97.2–98.6; O2SAT 95–99
[2017-05-18] MEDS: MORPHINE SULFATE 4 MG/ML INJ IV PUSH PRN ×4 (00:04→20:41)
[2017-05-18] MEDS: NITROGLYCERIN 2% OINT 1 GM PACKET TOPICAL SCH ×2 (04:00→05:56)
[2017-05-18 07:04] LABS: AUTOMATED NEUTROPHIL # 2.4 TH/MM3 (1.8-7.7); BASOPHIL % 0.7 % (0.0-2.0); EOSINOPHIL # 0.4 TH/MM3 (0-0.4); EOSINOPHIL % 7.7 % (0.0-4.0); HEMO FLAGS DIFF FINAL; LYMPH % 38.1 % (9.0-44.0); LYMPHOCYTE # 2.1 TH/MM3 (1.0-4.8); MEAN CELL VOLUME 97.6 FL (80.0-100.0); MEAN CORPUSCULAR HEMOGLOBIN 32.5 PG (27.0-34.0); MEAN CORPUSCULAR HGB CONC 33.3 % (32.0-36.0); MONO % 9.9 % (0.0-8.0); NEUT % 43.6 % (16.0-70.0); PLATELET COUNT 201 TH/MM3 (150-450); RED BLOOD COUNT 4.51 MIL/MM3 (4.50-5.90); RED CELL DISTRIBUTION WIDTH 13.3 % (11.6-17.2); WHITE BLOOD COUNT 5.5 TH/MM3 (4.0-11.0)
[2017-05-18] MEDS ORDERED: HEPARIN SODIUM - SQ 10,000 UNITS/ML VIAL ONE (07:16)
[2017-05-18] MEDS ORDERED: VANCOMYCIN HCL 1000 MG VIAL ONE ×2 (07:16→08:20)
[2017-05-18 07:18] LABS: ANION GAP 8 MEQ/L (5-15); AST (GOT) 34 U/L (15-37); BICARBONATE 26.7 MEQ/L (21.0-32.0); BLOOD UREA NITROGEN 21 MG/DL (7-18); CHLORIDE 101 MEQ/L (98-107); GLOMERULAR FILTRATION RATE 93 ML/MIN (>89); MAGNESIUM 2.1 MG/DL (1.5-2.5); POTASSIUM 4.1 MEQ/L (3.5-5.1); SODIUM (NA) 136 MEQ/L (136-145)
[2017-05-18 07:19] LABS: ALT (GPT) 48 U/L (12-78)
[2017-05-18 07:21] LABS: ALKALINE PHOSPHATASE 127 U/L (45-117); TOTAL BILIRUBIN ADULT 0.4 MG/DL (0.2-1.0)
[2017-05-18] MEDS ORDERED: DEXMEDETOMIDINE HCL 200 MCG/2 ML VIAL ONE (07:56)
[2017-05-18] MEDS ORDERED: NORMOSOL R INJ 1,000 ML IV ONE (08:20)
[2017-05-18] MEDS ORDERED: MIDAZOLAM HCL 5 MG/5 ML VIAL IV ONE (08:20)
[2017-05-18] MEDS ORDERED: fentaNYL CITRATE 1000 MCG/20 ML VIAL IV ONE (08:20)
[2017-05-18] MEDS ORDERED: SODIUM CHLOR 0.9% 250 ML INJ 750 ML IV ONE (08:20)
[2017-05-18] MEDS: SERTRALINE HCL 50 MG TAB PO SCH (09:00)
[2017-05-18] MEDS: THIAMINE HCL 100 MG TAB PO SCH (09:00)
[2017-05-18] MEDS: FOLIC ACID 1 MG TAB PO SCH (09:00)
[2017-05-18] MEDS: MULTIVITAMINS/MINERALS THERAPEUTIC TAB PO SCH (09:00)
[2017-05-18] MEDS: MUPIROCIN 2% OINT 1 APPLIC/GM SYR EACH NARE SCH (09:00)
[2017-05-18] MEDS: KETOCONAZOLE 2% CREAM 15 GM TOPICAL SCH ×2 (09:00→21:00)
[2017-05-18] MEDS: BUPIVACAINE LIPOSO PF 1.3% INJ 20 ML, DEXAMETHASONE INJ 4 MG, MORPHINE INJ 8 MG in SODI... IRRIGATION SCH (09:58)
[2017-05-18] MEDS ORDERED: DOBUTamine PREMIX DRIP 250 ML IV SCH (11:52)
[2017-05-18] MEDS ORDERED: LACTATED RINGER'S 1000 ML INJ 500 ML IV PRN (11:52)
--- NOTE | 2017-05-18 11:58 | PD.OP ---
cc: Leonard Middleton MD; Jeff Allen MD Operative Report Date of Surgery: May 18, 2017 Preoperative Diagnosis: Postoperative Diagnosis: Procedure: 1. Urgent Off-pump Coronary Artery Bypass Grafting x 2 with Left Internal Mammary Artery (ROJAS) to the Left Anterior Descending (LAD), reverse saphenous vein graft to the Diagonal (D1) 2. Left Leg Endoscopic Vein [place] 3. Intraoperative Vein Mapping 4. Multi-Level Intercostal Nerve Block. Surgeon: Jeff Allen Data Modeling Architect(s): Sandra Aguilar Operation and Findings: PREPROCEDURE DIAGNOSES 1. Severe Two-Vessel Coronary Artery Disease. 2. Alcoholism 3. Psychosis POSTPROCEDURE DIAGNOSES Same SURGICAL PROCEDURE 1. Urgent Off-pump Coronary Artery Bypass Grafting x 2 with Left Internal Mammary Artery (ROJAS) to the Left Anterior Descending (LAD), reverse saphenous vein graft to the Diagonal (D1) 2. Left Leg Endoscopic Vein [place] 3. Intraoperative Vein Mapping 4. Multi-Level Intercostal Nerve Block. SURGEON Jeff Allen MD STAFFING AND SCHEDULING COORDINATOR NEELIMA Elise ANESTHESIA General endotracheal RAIL LAYER AMBER Pulliam MD PREPARATION ChloraPrep. COUNTS Needle, sponge, and instrument counts were correct. DRAINS Two 32-[place] mediastinal tubes. COMPLICATIONS None. INDICATIONS FOR PROCEDURE The patient is a 57-year-old presenting with chest pain and severe two-vessel coronary artery disease. He is being brought to the operating room for surgical revascularization therapy. PROCEDURE Patient was brought to the operating room and placed supine on the OR table. Following the induction of adequate general endotracheal anesthesia and placement of appropriate monitoring devices, intraoperative vein mapping was performed which revealed suitable-caliber conduit in both legs. The patient was then prepped and draped in standard sterile fashion. Next, 2500 units of intravenous heparin was given. The left greater saphenous vein was harvested endoscopically from the calf. This appeared to be a useable-caliber conduit. Simultaneously, a median sternotomy was performed and the left internal mammary artery dissected free off the posterior sternal table. The patient was systemically heparinized and anticoagulation monitored by serial ACT measurements. The internal mammary artery had good pulsatile flow in it and was a decent-caliber conduit. The pericardium was then divided in the midline, the cradle created and targets analyzed. At this point, all anastomoses were performed in a beating-heart fashion using the Maquet stabilizing system. The left internal mammary artery was anastomosed to the distal LAD (2.5 mm) in an end-to-side fashion using 7-0 Prolene. The next segment was anastomosed to the D1 (1.75 mm) in an end-to-side fashion using a running 7-0 Prolene. The proximal anastomosis was then constructed to the ascending aorta in a running manner using 6-0 Prolene. All anastomotic sites were inspected and appeared to be hemostatic and patent. Protamine solution was given. Strict hemostasis was assured. The closure was undertaken. 2 chest tubes were placed. The pericardium was reapproximated in the midline. Bilateral multi-level intercostal nerve block was performed using Exparel solution. The sternum was approximated using sternal wires. The muscular and fascial layer were then closed in 3 layers. The endoscopic vein harvest site was closed in 2 layers. The patient tolerated the procedure well and was transferred to CVICU in stable condition. Jeff Allen MD May 18, 2017 11:58
[2017-05-18] MEDS ORDERED: PHENYLEPHRINE INJ 40 MG in DEXTROSE 5% IN WATE 500 ML INJ 496 ML IV PRN ×2 (12:00)
[2017-05-18] MEDS ORDERED: CLEVIDIPINE INJ 50 ML IV PRN (12:00)
[2017-05-18] MEDS ORDERED: CALCIUM CHLORIDE 10% 1 GRAM/10 ML VIAL IV PUSH PRN (12:00)
[2017-05-18] MEDS ORDERED: RESP: ALBUTEROL 2.5 MG/IPRATROPIUM 0.5 MG NEB (PRN) NEB ×2 (12:00→13:30)
[2017-05-18] MEDS ORDERED: POTASSIUM CHLORIDE 20 MEQ CONTROLLED RELEASE TAB PO PRN ×2 (12:00)
[2017-05-18] MEDS ORDERED: ALBUMIN 5% INJ 250 ML IV PRN (12:00)
[2017-05-18] MEDS ORDERED: DOPamine INJ PREMIX 500 ML IV PRN (12:00)
[2017-05-18] MEDS ORDERED: MAGNESIUM SULFATE INJ 2 GM in SODIUM CHLORIDE 0.9% INJ 100 ML IV PRN ×4 (12:00)
[2017-05-18] MEDS ORDERED: ACETAMINOPHEN 325 MG TAB PO PRN (12:00)
[2017-05-18] MEDS ORDERED: NITROGLYCERIN-D5W 50 MG/250 ML 250 ML IV PRN (12:00)
[2017-05-18] MEDS ORDERED: CALCIUM CHLORIDE INJ 1 GM in SODIUM CHLORIDE 0.9% INJ 100 ML IV PRN ×2 (12:00→17:30)
[2017-05-18] MEDS ORDERED: INSULIN REGULAR (IV INFUSION) 100 UNITS in SODIUM CHLORIDE 0.9% INJ 99 ML IV PRN (12:00)
[2017-05-18] MEDS ORDERED: MEPERIDINE HCL 25 MG/ML VIAL IV PUSH PRN (12:00)
[2017-05-18] MEDS ORDERED: ONDANSETRON HCL 4 MG/2 ML VIAL IV PUSH PRN (12:00)
[2017-05-18] MEDS ORDERED: POTASSIUM CHLOR 20 MEQ PREMIX 100 ML IV PRN ×3 (12:00)
[2017-05-18] MEDS ORDERED: METOPROLOL TARTRATE 5 MG/5 ML VIAL IV PUSH PRN (12:00)
[2017-05-18] MEDS ORDERED: DEXTROSE 50% IN WATER 50 ML VIAL(D50) IV PUSH PRN (12:00)
[2017-05-18] MEDS ORDERED: Post-op Orders (for Pharmacy) MISC OTHER ONE (12:00)
[2017-05-18] MEDS ORDERED: SODIUM BICARBONATE 8.4% SOLN 50 MEQ/50 ML VIAL IV PUSH PRN ×2 (12:00)
[2017-05-18] MEDS ORDERED: ACETAMINOPHEN 650 MG SUPP RECTAL PRN (12:00)
[2017-05-18] MEDS ORDERED: SODIUM CHLORIDE 0.9% FLUSH 10 ML FLUSH IV FLUSH PRN (12:00)
[2017-05-18] MEDS ORDERED: hydrALAZINE HCL 20 MG/ML VIAL IV PUSH PRN (12:00)
[2017-05-18] MEDS ORDERED: DEXMEDETOMIDINE INJ 200 MCG in SODIUM CHLORIDE 0.9% INJ 50 ML IV PRN (12:00)
--- NOTE | 2017-05-18 12:58 | RADRPT ---
EXAM DATE/TIME: 05/18/2017 12:36 [facility] COMPARISON: CHEST PA & LAT, May 14, 2017, 6:47. CHEST SINGLE AP, April 27, 2017, 11:44. INDICATIONS : Post CABG MEDICAL HISTORY : Cardiovascular disease. SURGICAL HISTORY : CABG. ENCOUNTER: Subsequent ACUITY: 1 day PAIN SCORE: Non-responsive. LOCATION: Bilateral chest FINDINGS: There is interim median sternotomy cardiac surgery. Left subclavian venous catheter is in place termi nating in screw vena cava with left chest tube in place and an ET tube terminating above the ruiz a nasogastric tube is in the midline of the stomach. Mild bibasilar atelectasis is appreciated without consolidation no pneumothorax. CONCLUSION: Satisfactory post cardiac surgery examination. No evidence of pneumothorax Harpal Guevara MD on May 18, 2017 at 12:55 Board Certified Radiologist. This report was verified electronically.
[2017-05-18] MEDS ORDERED: RESP: RACEPINEPHRINE 2.25% 0.5 ML NEB NEB PRN ×2 (13:30→14:00)
[2017-05-18] MEDS: KETOROLAC TROMETHAMINE 30 MG/ML (IVP) VIAL IV PUSH PRN (13:59)
[2017-05-18] MEDS: ACETAMINOPHEN 1000 MG/100 ML 100 ML IV SCH ×2 (13:59→19:37)
[2017-05-18] MEDS ORDERED: RESP: ALBUTEROL 2.5 MG/IPRATROPIUM 0.5 MG NEB (SCH) NEB (16:00)
[2017-05-18] MEDS: RESP: ALBUTEROL 2.5 MG/IPRATROPIUM 0.5 MG NEB (SCH) NEB ×2 (16:28→21:26)
--- NOTE | 2017-05-18 17:08 | HHI.PR ---
Subjective Remarks Patient still deciding on whether he would want surgery or not To discuss with cardiovascular surgery later today Have talked to the patient and RN Recommended smoking cessation and surgery if it is offered 05-17 PATIENT NOW STATES HE WILL HAVE SURGERY LATER THIS WEEK DW RN AND PATIENT STATES HE IS STILL HAVING CHEST PAIN AND NEEDS PAIN MEDICATIONS AM LABS 05-18 patient underwent coronary artery bypass graft 2 vessels today Seen postoperatively in the CVICU Complains of some incisional chest pain Seen sitting in the chair Discussed with patient and RN Complains of pain Objective Vitals Vital Signs Date Time Temp Pulse Resp B/P (MAP) Pulse Ox O2 Delivery O2 Flow Rate FiO2 05/18/17 15:07 13 05/18/17 15:07 13 05/18/17 13:40 96 Nasal Cannula 4 05/18/17 13:40 96 Nasal Cannula 4.00 05/18/17 13:30 98.6 05/18/17 13:00 Nasal Cannula 40 05/18/17 13:00 97.8 58 12 127/77 (94) 98 122/67 (85) 05/18/17 12:45 58 05/18/17 12:45 98 Mechanical Ventilator 40 05/18/17 12:45 40 05/18/17 12:45 98.6 05/18/17 12:25 97 50 05/18/17 06:15 51 05/18/17 05:45 98.0 48 151/90 (110) 96 05/18/17 05:36 64 05/18/17 04:00 54 05/18/17 03:00 54 05/18/17 02:00 48 05/18/17 01:00 50 05/18/17 00:00 48 05/17/17 23:26 50 05/17/17 23:00 97.8 60 106/73 (84) 95 05/17/17 22:00 Room Air 05/17/17 22:00 97.4 60 107/81 (90) 96 05/17/17 22:00 54 05/17/17 21:00 50 05/17/17 20:00 52 05/17/17 19:00 48 05/17/17 18:00 59 05/17/17 17:00 52 I/O 05/17/17 05/17/17 05/17/17 05/18/17 05/18/17 05/18/17 07:00 15:00 23:00 07:00 15:00 23:00 Intake Total 480 ml 900 ml 400 ml 3000 ml Output Total 1750 ml Balance 480 ml 900 ml 400 ml 1250 ml Intake Oral 480 ml 900 ml 400 ml Other 3000 ml Output Urine Total 550 ml Estimated Blood Loss 600 ml Autotransfusion 600 ml # Voids 4 6 3 Result Diagram: 05/18/17 0613 05/18/17 0613 Other Results Laboratory Tests Test 05/16/17 05:53 05/17/17 05:39 05/17/17 06:30 05/17/17 20:40 White Blood Count 5.0 TH/MM3 5.8 TH/MM3 Red Blood Count 4.51 MIL/MM3 4.54 MIL/MM3 Hemoglobin 15.0 GM/DL 14.7 GM/DL Hematocrit 44.2 % 44.1 % Mean Corpuscular Volume 97.9 FL 97.2 FL Mean Corpuscular Hemoglobin 33.1 PG 32.3 PG Mean Corpuscular Hemoglobin Concent 33.8 % 33.3 % Red Cell Distribution Width 13.1 % 13.0 % Platelet Count 225 TH/MM3 212 TH/MM3 Mean Platelet Volume 8.2 FL 8.2 FL Neutrophils (%) (Auto) 35.6 % 44.4 % Lymphocytes (%) (Auto) 43.9 % 37.0 % Monocytes (%) (Auto) 11.9 % 10.9 % Eosinophils (%) (Auto) 7.9 % 7.2 % Basophils (%) (Auto) 0.7 % 0.5 % Neutrophils # (Auto) 1.8 TH/MM3 2.6 TH/MM3 Lymphocytes # (Auto) 2.2 TH/MM3 2.1 TH/MM3 Monocytes # (Auto) 0.6 TH/MM3 0.6 TH/MM3 Eosinophils # (Auto) 0.4 TH/MM3 0.4 TH/MM3 Basophils # (Auto) 0.0 TH/MM3 0.0 TH/MM3 CBC Comment DIFF FINAL DIFF FINAL Differential Comment Prothrombin Time 10.7 SEC 11.1 SEC Prothromb Time International Ratio 1.0 RATIO 1.0 RATIO Blood Urea Nitrogen 18 MG/DL 19 MG/DL Creatinine 0.89 MG/DL 0.81 MG/DL Random Glucose 93 MG/DL 76 MG/DL Calcium Level 9.5 MG/DL 8.9 MG/DL Sodium Level 137 MEQ/L 135 MEQ/L Potassium Level 4.0 MEQ/L 4.2 MEQ/L Chloride Level 101 MEQ/L 102 MEQ/L Carbon Dioxide Level 29.8 MEQ/L 28.0 MEQ/L Anion Gap 6 MEQ/L 5 MEQ/L Estimat Glomerular Filtration Rate 88 ML/MIN 98 ML/MIN Hemoglobin A1c 6.1 % 6.1 % Triglycerides Level 134 MG/DL Cholesterol Level 194 MG/DL LDL Cholesterol 117 MG/DL HDL Cholesterol 50.7 MG/DL Cholesterol/HDL Ratio 3.82 RATIO Total Protein 8.2 GM/DL Albumin 3.5 GM/DL Phosphorus Level 3.3 MG/DL Magnesium Level 2.0 MG/DL Alkaline Phosphatase 117 U/L Aspartate Amino Transf (AST/SGOT) 32 U/L Alanine Aminotransferase (ALT/SGPT) 45 U/L Total Bilirubin 0.5 MG/DL Free Thyroxine 0.70 NG/DL Thyroid Stimulating Hormone 3rd Gen 2.280 uIU/ML Test 05/18/17 06:13 White Blood Count 5.5 TH/MM3 Red Blood Count 4.51 MIL/MM3 Hemoglobin 14.7 GM/DL Hematocrit 44.0 % Mean Corpuscular Volume 97.6 FL Mean Corpuscular Hemoglobin 32.5 PG Mean Corpuscular Hemoglobin Concent 33.3 % Red Cell Distribution Width 13.3 % Platelet Count 201 TH/MM3 Mean Platelet Volume 8.7 FL Neutrophils (%) (Auto) 43.6 % Lymphocytes (%) (Auto) 38.1 % Monocytes (%) (Auto) 9.9 % Eosinophils (%) (Auto) 7.7 % Basophils (%) (Auto) 0.7 % Neutrophils # (Auto) 2.4 TH/MM3 Lymphocytes # (Auto) 2.1 TH/MM3 Monocytes # (Auto) 0.5 TH/MM3 Eosinophils # (Auto) 0.4 TH/MM3 Basophils # (Auto) 0.0 TH/MM3 CBC Comment DIFF FINAL Differential Comment Blood Urea Nitrogen 21 MG/DL Creatinine 0.85 MG/DL Random Glucose 84 MG/DL Total Protein 8.3 GM/DL Albumin 3.6 GM/DL Calcium Level 9.3 MG/DL Phosphorus Level 3.3 MG/DL Magnesium Level 2.1 MG/DL Alkaline Phosphatase 127 U/L Aspartate Amino Transf (AST/SGOT) 34 U/L Alanine Aminotransferase (ALT/SGPT) 48 U/L Total Bilirubin 0.4 MG/DL Sodium Level 136 MEQ/L Potassium Level 4.1 MEQ/L Chloride Level 101 MEQ/L Carbon Dioxide Level 26.7 MEQ/L Anion Gap 8 MEQ/L Estimat Glomerular Filtration Rate 93 ML/MIN Imaging Last Impressions Chest X-Ray 05/18/17 Signed Impressions: Service Date/Time: Thursday, May 18, 2017 12:36 - CONCLUSION: Satisfactory post cardiac surgery examination. No evidence of pneumothorax Harpal Guevara MD Lower Extremity Ultrasound 05/13/17 Signed Impressions: Service Date/Time: May 17:11 - CONCLUSION: Venous mapping study as described. Antonio Stephen MD Carotid Artery Ultrasound 05/13/17 Signed Impressions: Service Date/Time: May 16:46 - CONCLUSION: Minimal plaque with no evidence of stenosis. Antonio Stephen MD Objective Remarks GENERAL: Awake alert oriented talkative and cooperative thin-appearing male SKIN: Warm and dry. HEAD: Atraumatic. Normocephalic. EYES: Pupils equal and round. No scleral icterus. No injection or drainage. Extraocular muscles intact ENT: No nasal bleeding or discharge. Mucous membranes pink and moist. Tongue is midline NECK: Trachea midline. No JVD. Neck is supple-- left sided central catheter in place CARDIOVASCULAR: Regular rate and rhythm. S1 and S2 no S3-S4 no heave or thrill no murmur no rubs or gallops-- chest currently dressed RESPIRATORY: No accessory muscle use. Coarse breath sounds bilaterally. Breath sounds equal bilaterally. GASTROINTESTINAL: Abdomen soft, non-tender, nondistended. Hepatic and splenic margins not palpable. MUSCULOSKELETAL: Extremities without clubbing, cyanosis, or edema. No obvious deformities. Multiple varicose veins bilateral lower extremities --left leg is wrapped NEUROLOGICAL: Awake and alert. No obvious cranial nerve deficits. Motor grossly within normal limits. Five out of 5 muscle strength in the arms and legs. Normal speech. PSYCHIATRIC: Appropriate mood and affect; insight and judgment LIMITED. Procedures Date of Surgery: May 18, 2017 Preoperative Diagnosis: Postoperative Diagnosis: Procedure: 1. Urgent Off-pump Coronary Artery Bypass Grafting x 2 with Left Internal Mammary Artery (ROJAS) to the Left Anterior Descending (LAD), reverse saphenous vein graft to the Diagonal (D1) 2. Left Leg Endoscopic Vein [place] 3. Intraoperative Vein Mapping 4. Multi-Level Intercostal Nerve Block. Surgeon: Jeff Allen Management Professionals(s): Sandra Aguilar Operation and Findings: PREPROCEDURE DIAGNOSES 1. Severe Two-Vessel Coronary Artery Disease. 2. Alcoholism 3. Psychosis POSTPROCEDURE DIAGNOSES Same SURGICAL PROCEDURE 1. Urgent Off-pump Coronary Artery Bypass Grafting x 2 with Left Internal Mammary Artery (ROJAS) to the Left Anterior Descending (LAD), reverse saphenous vein graft to the Diagonal (D1) 2. Left Leg Endoscopic Vein [place] 3. Intraoperative Vein Mapping 4. Multi-Level Intercostal Nerve Block. SURGEON Jeff Allen, YAMILE SANTIAGO DATE 05/12/2017 DATE OF 1960 PROCEDURE PERFORMED 1. Left heart catheterization. 2. Selective right and left coronary angiography. 3. Left ventriculography. INDICATION Chest pain with a positive stress test. ACCESS Left transradial. DESCRIPTION OF PROCEDURE Consent signed. 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 The left wrist and groin were prepped and draped in sterile fashion. Using 1% lidocaine for local anesthesia and a micropuncture kit a 6 Czech sheath was inserted into the left radial artery. Antispasmodic cocktail given. Then selective right and left coronary angiography was performed with a JR-4 and a JL-4 diagnostic catheters. Angiography was taken in multiple views. Then the JR-4 diagnostic catheter was introduced over a wire into the left ventricle. It was followed by pressure recordings, left ventriculogram and pullback. The patient tolerated the procedure without complications. ESTIMATED BLOOD LOSS Less than 30 mL. TOTAL CONTRAST 35 mL. The left radial access site was closed with a TR band. RESULTS LEFT VENTRICLE The left ventricular pressure was 118/5 with an LVEDP of 6. The aortic pressure was 123/74 with a mean of 95. There was no gradient upon pullback from the left ventricle to the aorta. The Left ventriculogram revealed a symmetrically paul ventricle with an estimated ejection fraction of 60%. ANGIOGRAPHY 1. Right coronary artery is a dominant vessel and has minimal luminal irregularities throughout. It has a 10% lesion proximally and then the PDA is patent as well as PLB branch. There is no significant obstructive coronary artery disease. 2. 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 It is giving off the left circumflex, ramus, the LAD. 3. The LAD is a transapical vessel. It is giving off one main diagonal vessel. The LAD has a significant 90% lesion proximally and the diagonal vessel has a proximal 99% lesion. This diagonal vessel has three side branches which are patent with CALVIN III flow. Also to add there is calcification on the proximal LAD. 4. The left circumflex artery. The left circumflex artery is giving off one OM vessel which is long and trifurcates and has nonobstructive coronary artery disease, CALVIN III flow. The rest of the circumflex artery is patent with CALVIN III flow. 5. The ramus intermedius vessel is patent with CALVIN III flow. CONCLUSION 1. Significant two-vessel coronary artery disease. 2. Preserved LV systolic function. RECOMMENDATIONS The patient will be consulted to CT surgery for two-vessel CABG in the setting of a complicated bifurcation lesion in the proximal LAD and the diagonal vessel. The patient has been discussed with Dr. Allen and he will be seeing the patient shortly. In the meantime continue aggressive medical management for coronary artery disease and post cath care. Medications and IVs Current Medications Sodium Chloride (NS Flush) 2 ml UNSCH PRN IV FLUSH FLUSH AFTER USING IV ACCESS Last administered on 05/15/17 07:48; Start 05/12/17 at 03:15; Stop 05/18/17 at 13:51; Status DC Sodium Chloride (NS Flush) 2 ml BID IV FLUSH Last administered on 05/17/17 20: 26; Start 05/12/17 at 09:00; Stop 05/18/17 at 13:51; Status DC Naloxone HCl (Narcan Inj) 0.4 mg UNSCH PRN IV PUSH SEE LABEL COMMENTS; Start 05/12/17 at 03:15; Stop 05/15/17 at 09:37; Status DC Nitroglycerin (Nitroglycerin 2% Oint) 0.5 inch Q6H TOPICAL Last administered on 05/18/17 05:56; Start 05/12/17 at 04:00; Stop 05/18/17 at 11:52; Status DC Morphine Sulfate (Morphine Inj) 2 mg Q4H PRN IV PUSH breakthrough pain Last administered on 05/18/17 05:56; Start 05/12/17 at 07:15; Stop 05/18/17 at 11: 52; Status DC Cephalexin Monohydrate (Keflex) 500 mg Q8H PO Last administered on 05/12/17 08 :54; Start 05/12/17 at 08:00; Stop 05/12/17 at 09:04; Status DC Folic Acid (Folate) 1 mg DAILY PO Last administered on 05/17/17 10:20; Start 05/12/17 at 09:00 Ketoconazole (Nizoral 2% Cream) 1 applic BID TOPICAL Last administered on 20:59; Start 05/12/17 at 09:00 Multivitamins/ Minerals Therapeutic (Theragran M Tab) 1 tab DAILY PO Last administered on 05/17/17 10:20; Start 05/12/17 at 09:00 Sertraline HCl (Zoloft) 75 mg DAILY PO Last administered on 05/17/17 10:20; Start 05/12/17 at 09:00 Thiamine HCl (Vitamin B1) 100 mg DAILY PO Last administered on 05/17/17 10:25 ; Start 05/12/17 at 09:00 Miscellaneous (Pill Splitter) 1 ea UNSCH PRN OTHER SEE LABEL COMMENTS; Start 05/12/17 at 07:30 Lisinopril (Prinivil) 2.5 mg DAILY PO Last administered on 05/17/17 10:20; Start 05/13/17 at 09:00; Stop 05/18/17 at 11:52; Status DC Heparin Sodium/ Sodium Chloride 1,000 ml @ As Directed STK-MED ONCE .ROUTE Last administered on 05/12/17 13:35; Start 05/12/17 at 13:35; Stop 05/12/17 at 13:36; Status DC Midazolam HCl (Versed Inj) 2 mg STK-MED ONCE .ROUTE Last administered on 14:08; Start 05/12/17 at 13:35; Stop 05/12/17 at 13:36; Status DC Fentanyl Citrate (fentaNYL INJ) 100 mcg STK-MED ONCE .ROUTE Last administered on 05/12/17 14:09; Start 05/12/17 at 13:35; Stop 05/12/17 at 13:36; Status DC Verapamil HCl (Isoptin Inj) 5 mg STK-MED ONCE .ROUTE ; Start 05/12/17 at 13:36; Stop 05/12/17 at 13:37; Status DC Heparin Sodium (Porcine) (Heparin Inj) 10,000 units STK-MED ONCE .ROUTE Last administered on 05/12/17 14:10; Start 05/12/17 at 13:36; Stop 05/12/17 at 13:37 ; Status DC Nitroglycerin 5 ml @ As Directed STK-MED ONCE .ROUTE Last administered on 14:10; Start 05/12/17 at 13:36; Stop 05/12/17 at 13:37; Status DC Miscellaneous Information 1 ONCE ONCE XX ; Start 05/12/17 at 14:45; Stop at 14:46; Status DC Aspirin (Ecotrin Ec) 81 mg DAILY PO Last administered on 05/17/17 10:20; Start 05/12/17 at 14:45; Stop 05/18/17 at 13:50; Status DC Iohexol (OMNIPAQUE 350 INJ (Broadcast Maintenance Technician)) 50 ml STK-MED ONCE OTHER ; Start at 15:54; Stop 05/12/17 at 15:55; Status DC Bacitracin (Bacitracin Oint Packet) 0.9 gm STK-MED ONCE .ROUTE ; Start 05/13/17 at 06:46; Stop 05/13/17 at 06:47; Status DC Papaverine HCl 60 mg/Nitroglycerin 100 mcg/Diltiazem HCl 100 mg/Sodium Chloride 100 ml @ 0 mls/hr ANALYTICAL STRATEGIST IRRIGATION Last administered on 05/18/17 08:13; Start 05/13/17 at 16:30; Stop 05/18/17 at 11:52; Status DC Cefazolin Sodium 500 mg/Sodium Chloride 505 ml @ 0 mls/hr ANALYTICAL STRATEGIST IRRIGATION Last administered on 05/18/17 10:42; Start 05/13/17 at 16:30; Stop 05/18/17 at 11:52; Status DC Cefazolin Sodium/ Dextrose 50 ml @ 150 mls/hr ANALYTICAL STRATEGIST IV ; Start 05/13/17 at 16:30; Stop 05/18/17 at 11:52; Status DC Metoprolol Tartrate (Lopressor) 12.5 mg ANALYTICAL STRATEGIST PO Last administered on 07:12; Start 05/13/17 at 16:30; Stop 05/20/17 at 16:29 Mupirocin (Bactroban Nasal 2% Oint) 1 applic BID EACH NARE Last administered on 05/17/17 20:27; Start 05/13/17 at 21:00; Stop 05/18/17 at 20:59 Chlorhexidine Gluconate (Hibiclens 4% Top Soln) 1 applic ANALYTICAL STRATEGIST TOPICAL ; Start 05/13/17 at 16:30; Stop 05/18/17 at 11:52; Status DC Insulin Human Regular 100 units/ Sodium Chloride 100 ml @ 0 mls/hr ANALYTICAL STRATEGIST PRN IV for blood glucose control Last administered on 05/18/17 11:24; Start at 16:30; Stop 05/20/17 at 16:29 Atropine Sulfate (Atropine Inj) 1 mg STK-MED ONCE .ROUTE ; Start 05/14/17 at 06: 38; Stop 05/14/17 at 06:39; Status DC Epinephrine HCl (EPINEPHrine (1:10,000) INJ) 1 mg STK-MED ONCE .ROUTE ; Start 05/14/17 at 06:38; Stop 05/14/17 at 06:39; Status DC Atorvastatin Calcium (Lipitor) 20 mg HS PO Last administered on 05/17/17 20:26 ; Start 05/14/17 at 21:00 Naloxone HCl (Narcan Inj) 0.4 mg UNSCH PRN IV PUSH SEE LABEL COMMENTS; Start 05/15/17 at 09:30 Senna/Docusate Sodium (Viridiana-Colace) 1 tab BID PO Last administered on 20:26; Start 05/15/17 at 21:00 Magnesium Hydroxide (Milk Of Magnesia Liq) 30 ml Q12H PRN PO MILD - MODERATE CONSTIPATION; Start 05/15/17 at 09:30 Sennosides (Senokot) 17.2 mg Q12H PRN PO MODERATE - SEVERE CONSTIPATION; Start 05/15/17 at 09:30 Bisacodyl (Dulcolax Supp) 10 mg DAILY PRN RECTAL SEVERE CONSITIPATION; Start 05/15/17 at 09:30 Lactulose (Lactulose Liq) 30 ml DAILY PRN PO SEVERE CONSITIPATION; Start at 09:30 Flumazenil (Romazicon Inj) 0.2 mg Q1M PRN IV PUSH SEE LABEL COMMENTS; Start at 09:30 Lorazepam (Ativan) 1 mg Q4H PRN PO CIWA 8 - 10; Start 05/16/17 at 09:30 Lorazepam (Ativan Inj) 1 mg Q4H PRN IV PUSH CIWA 8 - 10; Start 05/16/17 at 09: 30 Lorazepam (Ativan) 2 mg Q2H PRN PO CIWA 11-14; Start 05/16/17 at 09:30 Lorazepam (Ativan Inj) 2 mg Q2H PRN IV PUSH CIWA 11-14; Start 05/16/17 at 09:30 Lorazepam (Ativan Inj) 2 mg Q1H PRN IV PUSH CIWA 15-20; Start 05/16/17 at 09:30 Lorazepam (Ativan Inj) 2 mg Q15M PRN IV PUSH CIWA > 20; Start 05/16/17 at 09:30 Haloperidol Lactate (Haldol Inj) 2 mg Q15M PRN IM SEE LABEL COMMENTS; Start at 09:30 Chlordiazepoxide (Librium) 25 mg TID PRN PO SEVERE ANXIETY OR AGITATION; Start 05/16/17 at 09:30 Heparin Sodium (Porcine) (Heparin Inj) 40,000 units STK-MED ONCE .ROUTE Last administered on 05/18/17 09:13; Start 05/18/17 at 07:16; Stop 05/18/17 at 07 :17; Status DC Vancomycin HCl (Vancomycin Inj) 4,000 mg STK-MED ONCE .ROUTE ; Start 05/18/17 at 07:16; Stop 05/18/17 at 07:17; Status DC Bupivacaine Liposome 20 ml/ Dexamethasone Sodium Phosphate 4 mg/Morphine Sulfate 8 mg/ Sodium Chloride 42 ml @ 84 mls/hr UNSCH IRRIGATION Last administered on 05/18/17 09:58; Start 05/18/17 at 08:00; Stop 05/18/17 at 11 :52; Status DC Dexmedetomidine HCl (Precedex Inj) 200 mcg STK-MED ONCE .ROUTE ; Start at 07:56; Stop 05/18/17 at 11:52; Status DC Vancomycin HCl (Vancomycin Inj) 1,000 mg STK-MED ONCE .ROUTE Last administered on 05/18/17t 08:35; Start 05/18/17 at 08:20; Stop 05/18/17 at 08:21; Status DC Sodium Chloride (NS Flush) 2 ml BID IV FLUSH ; Start 05/18/17 at 21:00 Sodium Chloride (NS Flush) 2 ml UNSCH PRN IV FLUSH FLUSH AFTER USING IV ACCESS ; Start 05/18/17 at 12:00 Dexmedetomidine HCl 200 mcg/ Sodium Chloride 52 ml @ 4.34 mls/hr TITRATE PRN IV SEDATION; Start 05/18/17 at 12:00 Nitroglycerin/ Dextrose 250 ml @ 1.5 mls/hr TITRATE PRN IV Maintain BP < 140/ 90 mmHg; Start 05/18/17 at 12:00 Dobutamine HCl/ Dextrose 250 ml @ 12.54 mls/ hr [id number] IV ; Start 05/18/17 at 11:52 Dopamine HCl/ Dextrose 500 ml @ 9.405 mls/ hr TITRATE PRN IV Maintain MAP > 65 mmHg; Start 05/18/17 at 12:00 Phenylephrine HCl 40 mg/Dextrose 500 ml @ 30 mls/hr TITRATE PRN IV Maintain MAP > 65 mmHg; Start 05/18/17 at 12:00 Clevidipine 50 ml @ 2 mls/hr TITRATE PRN IV Maintain BP < 140/90 mmHg; Start 05/18/17 at 12:00 Albumin Human 250 ml @ 250 mls/hr UNSCH PRN IV SEE LABEL COMMENTS; Start 05/25 at 12:00 Lactated Ringer's 500 ml @ 500 mls/hr Q1H PRN IV SEE LABEL COMMENTS; Start 05/25 at 11:52 Miscellaneous Information (Post-op Orders (for Pharmacy)) STAT ONCE OTHER ; Start 05/18/17 at 12:00; Stop 05/18/17 at 13:53; Status DC Vancomycin HCl 1000 mg/Sodium Chloride 250 ml @ 250 mls/hr Q12H IV ; Start 05/25 at 21:00; Stop 05/19/17 at 21:59 Aspirin (Aspirin Chew) 81 mg DAILY PO ; Start 05/19/17 at 09:00 Clopidogrel Bisulfate (Plavix) 75 mg DAILY PO ; Start 05/19/17 at 09:00 Pantoprazole Sodium (Protonix) 40 mg DAILY@06 PO ; Start 05/19/17 at 06:00 Amiodarone HCl (Cordarone) 200 mg Q12HR PO ; Start 05/18/17 at 21:00 Multivitamins 10 ml/Thiamine HCl 500 mg/Folic Acid 1 mg/Sodium Chloride 515.2 ml @ 21 mls/hr DAILY IV ; Start 05/19/17 at 09:00; Status UNV Acetaminophen (Tylenol) 650 mg Q4H PRN PO TEMPERATURE > 101 F; Start 05/18/17 at 12:00 Acetaminophen (Tylenol Supp) 650 mg Q4H PRN RECTAL TEMPERATURE > 101 F; Start 05/18/17 at 12:00 Acetaminophen 100 ml @ 400 mls/hr Q6H IV Last administered on 05/18/17 13:59 ; Start 05/18/17 at 14:00; Stop 05/19/17 at 08:14 Morphine Sulfate (Morphine Inj) 1 mg Q10M PRN IV PUSH PAIN SCALE 1 TO 5 Last administered on 05/18/17 15:15; Start 05/18/17 at 12:00 Meperidine HCl (Demerol Inj) 12.5 mg Q4H PRN IV PUSH SEE LABEL COMMENTS; Start 05/18/17 at 12:00 Oxycodone/ Acetaminophen (Percocet 5-325 Mg) 1 tab Q3H PRN PO PAIN SCALE 1 TO 5; Start 05/18/17 at 12:00 Ketorolac Tromethamine (Toradol Inj) 15 mg Q6H PRN IV PUSH SEE LABEL COMMENTS Last administered on 05/18/17 13:59; Start 05/18/17 at 14:00; Stop 05/20/17 at 13:59 Fentanyl Citrate (fentaNYL INJ) 25 mcg Q1H PRN IV PUSH BREAKTHROUGH PAIN; Start 05/18/17 at 12:00 Ondansetron HCl (Zofran Inj) 4 mg Q6H PRN IV PUSH NAUSEA OR VOMITING; Start at 12:00 Hydralazine HCl (Apresoline Inj) 10 mg Q4H PRN IV PUSH SEE LABEL COMMENTS; Start 05/18/17 at 12:00 Metoprolol Tartrate (Lopressor Inj) 2.5 mg Q1H PRN IV PUSH SEE LABEL COMMENTS; Start 05/18/17 at 12:00 Potassium Chloride 100 ml @ 50 mls/hr UNSCH PRN IV SEE LABEL COMMENTS Last administered on 05/18/17 13:03; Start 05/18/17 at 12:00; Stop 05/18/17 at 13 :03; Status DC Potassium Chloride 100 ml @ 50 mls/hr UNSCH PRN IV SEE LABEL COMMENTS; Start 05/18/17 at 12:00 Potassium Chloride 100 ml @ 50 mls/hr UNSCH PRN IV SEE LABEL COMMENTS; Start 05/18/17 at 12:00 Potassium Chloride (KCl) 20 meq UNSCH PRN PO SEE LABEL COMMENTS; Start at 12:00 Potassium Chloride (KCl) 40 meq UNSCH PRN PO SEE LABEL COMMENTS; Start at 12:00 Magnesium Sulfate 2 gm/Sodium Chloride 104 ml @ 100 mls/hr UNSCH PRN IV SEE LABEL COMMENTS; Start 05/18/17 at 12:00 Magnesium Sulfate 2 gm/Sodium Chloride 104 ml @ 50 mls/hr UNSCH PRN IV SEE LABEL COMMENTS; Start 05/18/17 at 12:00 Calcium Chloride 1 gm/Sodium Chloride 110 ml @ 100 mls/hr UNSCH PRN IV SEE LABEL COMMENTS Last administered on 05/18/17 13:17; Start 05/18/17 at 12:00; Stop 05/18/17 at 13:19; Status DC Calcium Chloride (Calcium Chloride Inj) 0.5 gm UNSCH PRN IV PUSH SEE LABEL COMMENTS; Start 05/18/17 at 12:00 Insulin Human Regular 100 units/ Sodium Chloride 100 ml @ 3 mls/hr TITRATE PRN IV for blood glucose control; Start 05/18/17 at 12:00 Dextrose (D50w (Vial) Inj) 50 ml UNSCH PRN IV PUSH HYPOGLYCEMIA-SEE COMMENTS; Start 05/18/17 at 12:00 Sodium Bicarbonate (Sodium Bicarbonate 8.4% Inj) 50 meq UNSCH PRN IV PUSH SEE LABEL COMMENTS; Start 05/18/17 at 12:00 Sodium Bicarbonate (Sodium Bicarbonate 8.4% Inj) 100 meq UNSCH PRN IV PUSH SEE LABEL COMMENTS; Start 05/18/17 at 12:00 Albuterol/ Ipratropium (Duoneb Neb) 1 ampule Q6HR NEB NEB Last administered on 05/18/17 16:28; Start 05/18/17 at 16:00 Albuterol/ Ipratropium (Duoneb Neb) 1 ampule Q2HR NEB PRN NEB WHEEZING; Start 05/18/17 at 12:00 Racepinephrine (Racepinephrine 2.25% Neb) 0.5 ml UNSCH X1 PRN NEB STRIDOR; Start 05/18/17 at 14:00; Stop 05/18/17 at 23:59 Albuterol/ Ipratropium (Duoneb Neb) 1 ampule Q6HR NEB NEB ; Start 05/18/17 at 16:00; Stop 05/18/17 at 16:00; Status DC Albuterol/ Ipratropium (Duoneb Neb) 1 ampule Q2HR NEB PRN NEB WHEEZING; Start 05/18/17 at 13:30; Stop 05/18/17 at 13:49; Status DC Racepinephrine (Racepinephrine 2.25% Neb) 0.5 ml UNSCH X1 PRN NEB STRIDOR; Start 05/18/17 at 13:30; Stop 05/18/17 at 13:49; Status DC Urinary Catheter: No Vascular Central Line Catheter: Yes A/P Assessment and Plan 57 y/o presenting with suicidal ideation/ EtOH withdrawals/ chest pain, had abnormal stress test, initially refused cardiac cath. Patient withdrawal symptoms improved, patient agreed to cardiac cath, transfer to [facility], s/p cardiac cath 05/12/[address] Jackson. Patient with significant two-vessel CAD. CT surgery consulted for 2 vessel CABG in the setting of complicated bifurcation lesion in the proximal LAD and the diagonal vessel. Atypical Chest Pain- + myocardial perfusion study with redistribution- EF 40% Likely alcoholic cardiomyopathy- EF 40%- no signs of fluid overload Significant two-vessel CAD Negative EKGs, Negative cardiac enzymes Repeat EKG - sinus no acute change compared to previous EKG- slight STTW flattening 2,3, AVF ASA 162 mg daily Noted with low BP and HRC in 50s, will decreased lopresor to 3.125 mg daily, held. Lisinopril 2.5 mg po daily Seen by Cardiology Dr Hebert - patient refused initially cardiac cath- " does not want to" " not now" Now agreeable to cath- per patient on and off fleeting pain now going to left arm Started Nitrol ointment 1/2 in q 8 start Reconsulted cardiology- patient now agrees to cath. S/p cardiac cath 05/12/[address] Jackson Patient with significant two-vessel CAD CT surgery consulted for 2 vessel CABG in the setting of complicated bifurcation lesion in the proximal LAD and the diagonal vessel. Patient is considering CABG-still has not decided on surgery yet Hypertension- better readings- HR- 50s Continue lisinopril- 2.5 mg po daily Lopressor decreased to 3.125 mg po bid- hold and montior Follow blood pressure/HR Left arm cellulitis /phlebitis US- shows no collection/abscess 05/05- resolved History of MRSA IV site thrombus DC Cephalexin- received total 10 days course of AB (cephalexin+bactrim) Warm compress to site daily- q shift Follow daily clinically No need for blood thinners due to the small size and superficial nature of the thrombus Alcohol abuse history Risk for withdrawal Continue CIWA protocol- Librium per psychiatry Chronic back pain History of bone cancer Continue oxycodone Anxiety medications-Librium and Ativan when necessary Discussed with the patient and the nurse SURGICAL PROCEDURE 1. Urgent Off-pump Coronary Artery Bypass Grafting x 2 with Left Internal Mammary Artery (ROJAS) to the Left Anterior Descending (LAD), reverse saphenous vein graft to the Diagonal (D1) 2. Left Leg Endoscopic Vein [place] 3. Intraoperative Vein Mapping 4. Multi-Level Intercostal Nerve Block. Discharge Planning Needs to decide if he wants to have coronary artery bypass graft or just pure Medical therapy Niko Leija DO May 18, 2017 17:08
[2017-05-18] MEDS: ATORVASTATIN 20 MG TAB PO SCH (20:39)
[2017-05-18] MEDS: VANCOMYCIN INJ 1,000 MG in SODIUM CHLOR 0.9% 250 ML INJ 250 ML IV SCH (20:39)
[2017-05-18] MEDS: DOCUSATE SODIUM 50 MG/SENNA 8.6 MG TAB PO SCH (20:40)
[2017-05-18] MEDS: SODIUM CHLORIDE 0.9% FLUSH 10 ML FLUSH IV FLUSH SCH (20:40)
[2017-05-18] MEDS: AMIODARONE 200 MG TAB PO SCH (21:00)
[2017-05-19] VITALS (21 sets, daily range): BP systolic 83–128; BP diastolic 52–74; PULSE 72–94; RESP 18; TEMP 97.8–98.4; O2SAT 91–97
[2017-05-19] MEDS: ACETAMINOPHEN 1000 MG/100 ML 100 ML IV SCH ×2 (01:56→08:45)
[2017-05-19] MEDS: MORPHINE SULFATE 4 MG/ML INJ IV PUSH PRN (01:58)
[2017-05-19] MEDS: RESP: ALBUTEROL 2.5 MG/IPRATROPIUM 0.5 MG NEB (SCH) NEB ×4 (03:29→19:33)
--- NOTE | 2017-05-19 04:18 | RADRPT ---
EXAM DATE/TIME: 05/19/2017 03:41 [facility] COMPARISON: CHEST SINGLE AP, May 18, 2017, 12:36. INDICATIONS : Short of breath. MEDICAL HISTORY : Cardiovascular disease. SURGICAL HISTORY : CABG. ENCOUNTER: Subsequent ACUITY: 2 weeks PAIN SCORE: 0/10 LOCATION: Bilateral chest FINDINGS: There has been interval extubation and removal of nasogastric tube. Thoracostomy tubes remain in plac e. Mild hazy bibasilar pleural-parenchymal opacities persist unchanged. Cardiac contours are grossly stable. CONCLUSION: Interval extubation. Persistent basilar opacities Kal Corona MD on May 19, 2017 at 4:16 Board Certified Radiologist. This report was verified electronically.
[2017-05-19 04:46] LABS: AUTOMATED NEUTROPHIL # 9.5 TH/MM3 (1.8-7.7); BASOPHIL % 0.1 % (0.0-2.0); HEMATOCRIT 34.2 % (39.0-51.0); HEMO FLAGS DIFF FINAL; LYMPH % 12.9 % (9.0-44.0); LYMPHOCYTE # 1.6 TH/MM3 (1.0-4.8); MEAN CELL VOLUME 96.6 FL (80.0-100.0); MEAN CORPUSCULAR HEMOGLOBIN 31.8 PG (27.0-34.0); MONO % 9.6 % (0.0-8.0); NEUT % 77.4 % (16.0-70.0); PLATELET COUNT 184 TH/MM3 (150-450); RED BLOOD COUNT 3.54 MIL/MM3 (4.50-5.90); WHITE BLOOD COUNT 12.3 TH/MM3 (4.0-11.0)
[2017-05-19 05:14] LABS: ANION GAP 9 MEQ/L (5-15); AST (GOT) 37 U/L (15-37); BICARBONATE 23.2 MEQ/L (21.0-32.0); BLOOD UREA NITROGEN 14 MG/DL (7-18); CHLORIDE 104 MEQ/L (98-107); GLOMERULAR FILTRATION RATE 118 ML/MIN (>89); MAGNESIUM 1.8 MG/DL (1.5-2.5); POTASSIUM 4.1 MEQ/L (3.5-5.1); SODIUM (NA) 136 MEQ/L (136-145)
[2017-05-19 05:15] LABS: ALT (GPT) 37 U/L (12-78)
[2017-05-19 05:18] LABS: ALKALINE PHOSPHATASE 104 U/L (45-117); TOTAL BILIRUBIN ADULT 0.6 MG/DL (0.2-1.0)
[2017-05-19] MEDS: PANTOPRAZOLE SOD 40 MG DELAYED RELEASE TAB PO SCH (06:07)
[2017-05-19] MEDS: MULTIVITAMINS/MINERALS THERAPEUTIC TAB PO SCH (08:43)
[2017-05-19] MEDS: AMIODARONE 200 MG TAB PO SCH ×2 (08:43→20:56)
[2017-05-19] MEDS: ASPIRIN 81 MG CHEW TAB PO SCH (08:44)
[2017-05-19] MEDS: SERTRALINE HCL 50 MG TAB PO SCH (08:44)
[2017-05-19] MEDS: THIAMINE HCL 100 MG TAB PO SCH (08:44)
[2017-05-19] MEDS: FOLIC ACID 1 MG TAB PO SCH (08:44)
[2017-05-19] MEDS: CLOPIDOGREL 75 MG TAB PO SCH (08:44)
[2017-05-19] MEDS: DOCUSATE SODIUM 50 MG/SENNA 8.6 MG TAB PO SCH ×2 (08:44→20:55)
[2017-05-19] MEDS: VANCOMYCIN INJ 1,000 MG in SODIUM CHLOR 0.9% 250 ML INJ 250 ML IV SCH ×2 (08:46→20:55)
[2017-05-19] MEDS: KETOROLAC TROMETHAMINE 30 MG/ML (IVP) VIAL IV PUSH PRN ×3 (08:47→20:57)
[2017-05-19] MEDS: DOCUSATE SODIUM 100 MG CAP PO SCH ×2 (09:00→20:55)
[2017-05-19] MEDS ORDERED: MULTIVITAMIN INJ 10 ML, THIAMINE INJ 500 MG, FOLIC ACID INJ 1 MG in SODIUM CHLORID 0.9%... IV SCH (09:00)
[2017-05-19] MEDS: SODIUM CHLORIDE 0.9% FLUSH 10 ML FLUSH IV FLUSH SCH ×2 (09:00→20:54)
[2017-05-19] MEDS: KETOCONAZOLE 2% CREAM 15 GM TOPICAL SCH ×2 (09:00→21:00)
[2017-05-19] MEDS: MAGNESIUM SULFAT 1 GM PREMIX 100 ML x2 bags IV SCH ×2 (11:03→12:00)
[2017-05-19] MEDS: oxyCODONE/ACETAMINOPHEN 5 MG/325 MG TAB PO PRN ×3 (11:03→21:00)
[2017-05-19] MEDS: MAGNESIUM HYDROXIDE SUSP 30 ML CUP PO SCH (12:50)
[2017-05-19] MEDS ORDERED: DEXTROSE 50% IN WATER 50 ML VIAL(D50) IV PUSH PRN (13:00)
[2017-05-19] MEDS ORDERED: BISACODYL 10 MG SUPP RECTAL PRN (13:00)
[2017-05-19] MEDS ORDERED: SOD PHOSPHATE/SOD BIPHOSPHATE (ADULT) ENEMA 133ML RECTAL PRN (13:00)
[2017-05-19] MEDS ORDERED: GLUCAGON 1 MG/ML VIAL OTHER PRN (13:00)
[2017-05-19] MEDS ORDERED: RESP: ALBUTEROL 2.5 MG/IPRATROPIUM 0.5 MG NEB (SCH) NEB (14:00)
[2017-05-19] MEDS: INSULIN ASPART SUPPLEMENTAL SCALE SQ SCH ×3 (14:00→21:15)
--- NOTE | 2017-05-19 15:01 | EKG ---
Date Performed: 05/19/2017 Time Performed: 03:24:54 PTAGE: 57 years EKG: Sinus rhythm Possible inferior infarct - age undetermined Low QRS voltages in precordial leads Abnormal ECG PREVIOUS TRACING : 05/12/2017 03.47 Compared to prior tracing no significant change DOCTOR: Adrien Carr Interpretating Date/Time 05/19/2017 15:00:41
[2017-05-19] MEDS ORDERED: SODIUM CHLOR 0.9% 250 ML INJ 250 ML IV ONE (16:15)
--- NOTE | 2017-05-19 16:34 | PD.CAR.PN ---
CVT Progress Note Subjective/Hospital Course: 57/ MALE admitted 04/27 for depression, suicidal ideation, ETOH abuse, treated with CIWA Librium protocol , c/o of chest pain during his stay in Psych department, underwent stress test: general hypokinesis inferior wall , initially refused cardiac cath , then later agreed . Transferred into main Hospital and underwent cardiac cath by Dr Jackson, EF 60% two vessel disease LAD and Diagonal branch. 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 He is still not willing to proceed and wants to think it further. Please call when pt decides. 05/17 pt has now decided to proceed with surgery, will schedule for Monday 05/21 no chest pain today will hold júnior inhibitor 05/18 surgery : `1. Urgent Off-pump Coronary Artery Bypass Grafting x 2 with Left Internal Mammary Artery (ROJAS) to the Left Anterior Descending (LAD), reverse saphenous vein graft to the Diagonal (D1) 2. Left Leg Endoscopic Vein [place] 3. Intraoperative Vein Mapping extubated after surgery, crystalloid 3000cc, cell saver 250cc, EBL 600cc / BP labile this am, hold ion starting BB , no diuresis chest tube drained 250cc/ 12 hrs Objective: GENERAL: SKIN: Warm and dry.prevena dressing to chest , incision intact to left leg HEAD: Normocephalic. EYES: No scleral icterus. No injection or drainage. NECK: Supple, trachea midline. No JVD or lymphadenopathy. CARDIOVASCULAR: Regular rate and rhythm without murmurs, gallops, or rubs. RESPIRATORY: Breath sounds equal bilaterally. No accessory muscle use. chest tube 230cc/ 12 hr , no air leak GASTROINTESTINAL: Abdomen soft, non-tender, nondistended. MUSCULOSKELETAL: No cyanosis, or edema. BACK: Nontender without obvious deformity. No CVA tenderness. Vital Signs Date Time Temp Pulse Resp B/P (MAP) Pulse Ox O2 Delivery O2 Flow Rate FiO2 05/19/17 16:12 94 05/19/17 16:00 75 05/19/17 15:26 81 05/19/17 15:26 94 Room Air 05/19/17 15:26 97.8 73 18 83/52 (62) 94 05/19/17 15:18 18 05/19/17 14:00 74 05/19/17 13:03 79 05/19/17 12:04 18 05/19/17 12:02 76 05/19/17 11:38 72 05/19/17 11:38 95 Room Air 05/19/17 11:38 97.8 76 18 128/55 (79) 95 Arterial Line 05/19/17 09:48 96 Nasal Cannula 3.00 05/19/17 07:00 98 Nasal Cannula 3.00 05/19/17 07:00 98.4 73 18 92/62 (72) 97 116/74 (88) 05/19/17 07:00 80 05/19/17 06:07 18 05/19/17 03:39 97 Nasal Cannula 3.00 05/19/17 03:29 97 Nasal Cannula 4.00 05/19/17 03:00 75 05/19/17 03:00 98.1 75 18 98/65 (76) 91 102/60 (74) 05/19/17 03:00 91 Nasal Cannula 3.00 05/19/17 02:40 18 05/19/17 02:05 18 05/18/17 23:00 97.8 74 18 96/59 (71) 97 110/64 (79) 05/18/17 23:00 74 05/18/17 23:00 97 Nasal Cannula 4.00 05/18/17 22:00 97.8 05/18/17 21:26 99 Nasal Cannula 4.00 05/18/17 19:00 60 05/18/17 19:00 97.6 60 18 101/57 (72) 97 108/65 (79) 05/18/17 19:00 97 Nasal Cannula 4.00 05/18/17 17:00 95 Nasal Cannula 4.00 05/18/17 16:25 98.6 Labs: Laboratory Tests Test 05/19/17 04:23 White Blood Count 12.3 TH/MM3 (4.0-11.0) Red Blood Count 3.54 MIL/MM3 (4.50-5.90) Hemoglobin 11.3 GM/DL (13.0-17.0) Hematocrit 34.2 % (39.0-51.0) Mean Corpuscular Volume 96.6 FL (80.0-100.0) Mean Corpuscular Hemoglobin 31.8 PG (27.0-34.0) Mean Corpuscular Hemoglobin Concent 33.0 % (32.0-36.0) Red Cell Distribution Width 13.0 % (11.6-17.2) Platelet Count 184 TH/MM3 (150-450) Mean Platelet Volume 8.4 FL (7.0-11.0) Neutrophils (%) (Auto) 77.4 % (16.0-70.0) Lymphocytes (%) (Auto) 12.9 % (9.0-44.0) Monocytes (%) (Auto) 9.6 % (0.0-8.0) Eosinophils (%) (Auto) 0.0 % (0.0-4.0) Basophils (%) (Auto) 0.1 % (0.0-2.0) Neutrophils # (Auto) 9.5 TH/MM3 (1.8-7.7) Lymphocytes # (Auto) 1.6 TH/MM3 (1.0-4.8) Monocytes # (Auto) 1.2 TH/MM3 (0-0.9) Eosinophils # (Auto) 0.0 TH/MM3 (0-0.4) Basophils # (Auto) 0.0 TH/MM3 (0-0.2) CBC Comment DIFF FINAL Differential Comment Blood Urea Nitrogen 14 MG/DL (7-18) Creatinine 0.69 MG/DL (0.60-1.30) Random Glucose 79 MG/DL (74-106) Total Protein 6.5 GM/DL (6.4-8.2) Albumin 2.7 GM/DL (3.4-5.0) Calcium Level 8.5 MG/DL (8.5-10.1) Phosphorus Level 3.0 MG/DL (2.5-4.9) Magnesium Level 1.8 MG/DL (1.5-2.5) Alkaline Phosphatase 104 U/L (45-117) Aspartate Amino Transf (AST/SGOT) 37 U/L (15-37) Alanine Aminotransferase (ALT/SGPT) 37 U/L (12-78) Total Bilirubin 0.6 MG/DL (0.2-1.0) Sodium Level 136 MEQ/L (136-145) Potassium Level 4.1 MEQ/L (3.5-5.1) Chloride Level 104 MEQ/L (98-107) Carbon Dioxide Level 23.2 MEQ/L (21.0-32.0) Anion Gap 9 MEQ/L (5-15) Estimat Glomerular Filtration Rate 118 ML/MIN (>89) Result Diagram: 05/19/1742205/19/17422 Telemetry: nsr (1) Coronary artery disease Plan: on ASA, BB when Bp allows (2) S/P CABG x 2 Plan: ASA, statin , BB pulm toileting OOB, PT eval for rehab (3) left forearm phelbitis Plan: s/p Keflex x 7 days, still has raised possible abscess with induration cleared by ID for surgery (4) HTN (hypertension) Plan: on júnior and BB, hold júnior prior to surgery (5) Abnormal nuclear cardiac imaging test (6) Alcohol abuse Plan: on rally padilla (7) Homeless Plan: case management following Darshana Whitmore May 19, 2017 16:34
[2017-05-19] MEDS: ATORVASTATIN 20 MG TAB PO SCH (20:56)
[2017-05-19] MEDS: SENNOSIDES 8.6 MG TAB PO SCH (20:56)
[2017-05-19] MEDS: METOPROLOL TARTRATE 25 MG TAB PO SCH (21:00)
[2017-05-20] VITALS (30 sets, daily range): BP systolic 85–117; BP diastolic 52–69; PULSE 79–105; RESP 17–20; TEMP 98–98.4; O2SAT 93–97
[2017-05-20] MEDS: INSULIN ASPART SUPPLEMENTAL SCALE SQ SCH ×3 (02:00→10:00)
[2017-05-20] MEDS: oxyCODONE/ACETAMINOPHEN 5 MG/325 MG TAB PO PRN ×6 (02:11→22:48)
[2017-05-20] MEDS: RESP: ALBUTEROL 2.5 MG/IPRATROPIUM 0.5 MG NEB (SCH) NEB ×3 (03:44→19:54)
[2017-05-20 04:45] LABS: AUTOMATED NEUTROPHIL # 6.9 TH/MM3 (1.8-7.7); BASOPHIL % 0.4 % (0.0-2.0); EOSINOPHIL # 0.1 TH/MM3 (0-0.4); EOSINOPHIL % 1.4 % (0.0-4.0); HEMO FLAGS DIFF FINAL; LYMPH % 19.5 % (9.0-44.0); MEAN CELL VOLUME 97.6 FL (80.0-100.0); MEAN CORPUSCULAR HEMOGLOBIN 33.2 PG (27.0-34.0); MONO % 12.7 % (0.0-8.0); PLATELET COUNT 136 TH/MM3 (150-450); RED BLOOD COUNT 2.87 MIL/MM3 (4.50-5.90); RED CELL DISTRIBUTION WIDTH 13.3 % (11.6-17.2); WHITE BLOOD COUNT 10.4 TH/MM3 (4.0-11.0)
[2017-05-20 05:33] LABS: BICARBONATE 25.8 MEQ/L (21.0-32.0); POTASSIUM 4.1 MEQ/L (3.5-5.1)
[2017-05-20] MEDS: PANTOPRAZOLE SOD 40 MG DELAYED RELEASE TAB PO SCH (05:39)
[2017-05-20] MEDS: POLYETHYLENE GLYCOL 17 GM PKG PO SCH (07:54)
[2017-05-20] MEDS: MAGNESIUM HYDROXIDE SUSP 30 ML CUP PO SCH (07:55)
[2017-05-20] MEDS: SERTRALINE HCL 50 MG TAB PO SCH (07:55)
[2017-05-20] MEDS: MULTIVITAMINS/MINERALS THERAPEUTIC TAB PO SCH (07:56)
[2017-05-20] MEDS: KETOROLAC TROMETHAMINE 30 MG/ML (IVP) VIAL IV PUSH PRN ×2 (07:57→16:49)
[2017-05-20] MEDS: DOCUSATE SODIUM 100 MG CAP PO SCH ×2 (07:57→20:52)
[2017-05-20] MEDS: THIAMINE HCL 100 MG TAB PO SCH (07:57)
[2017-05-20] MEDS: AMIODARONE 200 MG TAB PO SCH ×2 (07:57→20:52)
[2017-05-20] MEDS: ASPIRIN 81 MG CHEW TAB PO SCH (07:58)
[2017-05-20] MEDS: FOLIC ACID 1 MG TAB PO SCH (07:58)
[2017-05-20] MEDS: CLOPIDOGREL 75 MG TAB PO SCH (07:58)
[2017-05-20] MEDS: DOCUSATE SODIUM 50 MG/SENNA 8.6 MG TAB PO SCH (07:58)
[2017-05-20] MEDS: METOPROLOL TARTRATE 25 MG TAB PO SCH ×2 (07:59→21:00)
[2017-05-20] MEDS: SODIUM CHLORIDE 0.9% FLUSH 10 ML FLUSH IV FLUSH SCH ×2 (09:00→20:53)
[2017-05-20] MEDS: KETOCONAZOLE 2% CREAM 15 GM TOPICAL SCH ×2 (09:00→21:00)
--- NOTE | 2017-05-20 16:18 | PD.CAR.PN ---
CVT Progress Note Subjective/Hospital Course: 57/ MALE admitted 04/27 for depression, suicidal ideation, ETOH abuse, treated with CIWA Librium protocol , c/o of chest pain during his stay in Psych department, underwent stress test: general hypokinesis inferior wall , initially refused cardiac cath , then later agreed . Transferred into main Hospital and underwent cardiac cath by Dr Jackson, EF 60% two vessel disease LAD and Diagonal branch. 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 He is still not willing to proceed and wants to think it further. Please call when pt decides. 05/17 pt has now decided to proceed with surgery, will schedule for Monday 05/21 no chest pain today will hold júnior inhibitor 05/18 surgery : `1. Urgent Off-pump Coronary Artery Bypass Grafting x 2 with Left Internal Mammary Artery (ROJAS) to the Left Anterior Descending (LAD), reverse saphenous vein graft to the Diagonal (D1) 2. Left Leg Endoscopic Vein [place] 3. Intraoperative Vein Mapping extubated after surgery, crystalloid 3000cc, cell saver 250cc, EBL 600cc 05/19 BP labile this am, hold ion starting BB , no diuresis chest tube drained 250cc/ 12 hrs 05/20 on room air chest tube drained 200cc/ 12 hrs no air leak re-add toradol for pain with prn narcotics low dose BB OOB ambulate Objective: GENERAL: SKIN: Warm and dry. prevena to chest ,left leg incision in tact and well approx HEAD: Normocephalic. EYES: No scleral icterus. No injection or drainage. NECK: Supple, trachea midline. No JVD or lymphadenopathy. CARDIOVASCULAR: Regular rate and rhythm without murmurs, gallops, or rubs. RESPIRATORY: Breath sounds equal bilaterally. No accessory muscle use. chest tube to wall suction, no air leak GASTROINTESTINAL: Abdomen soft, non-tender, nondistended. MUSCULOSKELETAL: No cyanosis, or edema. BACK: Nontender without obvious deformity. No CVA tenderness. Vital Signs Date Time Temp Pulse Resp B/P (MAP) Pulse Ox O2 Delivery O2 Flow Rate FiO2 05/20/17 16:00 86 05/20/17 15:09 94 Room Air 05/20/17 15:00 93 05/20/17 15:00 96 19 117/69 (85) 05/20/17 14:00 93 05/20/17 13:00 94 05/20/17 12:00 92 05/20/17 11:54 96 Room Air 05/20/17 11:47 98.3 90 20 101/56 (71) 97 05/20/17 11:00 105 05/20/17 10:00 86 05/20/17 09:42 95 21 05/20/17 09:00 86 05/20/17 08:57 20 05/20/17 08:00 98.2 90 17 108/68 (81) 97 05/20/17 08:00 95 Room Air 05/20/17 08:00 88 05/20/17 07:00 92 05/20/17 06:40 17 05/20/17 06:27 88 05/20/17 05:06 102 05/20/17 04:02 93 05/20/17 03:46 95 Nasal Cannula 1.00 05/20/17 03:45 98.4 79 17 91/56 (68) 93 05/20/17 03:00 79 05/20/17 02:21 83 05/20/17 01:28 92 05/20/17 00:11 87 05/20/17 00:10 98.3 89 18 85/52 (63) 93 05/20/17 00:10 94 Nasal Cannula 2.00 05/19/17 23:00 89 05/19/17 22:00 94 05/19/17 21:00 90 05/19/17 20:16 18 05/19/17 20:00 82 05/19/17 19:33 93 Nasal Cannula 2.00 05/19/17 19:00 94 Nasal Cannula 2.00 05/19/17 19:00 98.0 88 18 93/62 (72) 94 05/19/17 19:00 86 05/19/17 18:12 83 05/19/17 17:02 83 05/19/17 16:54 93/55 (68) Labs: Laboratory Tests Test 05/20/17 04:30 White Blood Count 10.4 TH/MM3 (4.0-11.0) Red Blood Count 2.87 MIL/MM3 (4.50-5.90) Hemoglobin 9.5 GM/DL (13.0-17.0) Hematocrit 28.0 % (39.0-51.0) Mean Corpuscular Volume 97.6 FL (80.0-100.0) Mean Corpuscular Hemoglobin 33.2 PG (27.0-34.0) Mean Corpuscular Hemoglobin Concent 34.0 % (32.0-36.0) Red Cell Distribution Width 13.3 % (11.6-17.2) Platelet Count 136 TH/MM3 (150-450) Mean Platelet Volume 8.8 FL (7.0-11.0) Neutrophils (%) (Auto) 66.0 % (16.0-70.0) Lymphocytes (%) (Auto) 19.5 % (9.0-44.0) Monocytes (%) (Auto) 12.7 % (0.0-8.0) Eosinophils (%) (Auto) 1.4 % (0.0-4.0) Basophils (%) (Auto) 0.4 % (0.0-2.0) Neutrophils # (Auto) 6.9 TH/MM3 (1.8-7.7) Lymphocytes # (Auto) 2.0 TH/MM3 (1.0-4.8) Monocytes # (Auto) 1.3 TH/MM3 (0-0.9) Eosinophils # (Auto) 0.1 TH/MM3 (0-0.4) Basophils # (Auto) 0.0 TH/MM3 (0-0.2) CBC Comment DIFF FINAL Differential Comment Blood Urea Nitrogen 19 MG/DL (7-18) Creatinine 0.77 MG/DL (0.60-1.30) Random Glucose 100 MG/DL (74-106) Calcium Level 7.7 MG/DL (8.5-10.1) Magnesium Level 2.0 MG/DL (1.5-2.5) Sodium Level 135 MEQ/L (136-145) Potassium Level 4.1 MEQ/L (3.5-5.1) Chloride Level 103 MEQ/L (98-107) Carbon Dioxide Level 25.8 MEQ/L (21.0-32.0) Anion Gap 6 MEQ/L (5-15) Estimat Glomerular Filtration Rate 104 ML/MIN (>89) Result Diagram: 05/20/1742905/20/17429 Telemetry: NSR (1) Coronary artery disease Plan: (2) S/P CABG x 2 Plan: ASA, statin , BB pulm toileting OOB, PT eval for rehab eval to remove chest tube in am (3) left forearm phelbitis Plan: s/p Keflex x 7 days, still has raised possible abscess with induration cleared by ID for surgery (4) HTN (hypertension) Plan: on júnior and BB, hold júnior prior to surgery (5) Abnormal nuclear cardiac imaging test (6) Alcohol abuse Plan: on rally padilla (7) Homeless Plan: case management following Darshana Whitmore May 20, 2017 16:18
[2017-05-20] MEDS ORDERED: MAGNESIUM SULFATE 1 GM PREMIX 100 ML IV ONE (16:30)
[2017-05-20] MEDS: SENNOSIDES 8.6 MG TAB PO SCH (20:52)
[2017-05-20] MEDS: ATORVASTATIN 20 MG TAB PO SCH (20:53)
[2017-05-21] VITALS (31 sets, daily range): BP systolic 87–113; BP diastolic 55–82; PULSE 73–142; RESP 16–19; TEMP 97.8–98.5; O2SAT 92–94
[2017-05-21] MEDS: KETOROLAC TROMETHAMINE 30 MG/ML (IVP) VIAL IV PUSH PRN ×3 (02:19→20:31)
[2017-05-21] MEDS: oxyCODONE/ACETAMINOPHEN 5 MG/325 MG TAB PO PRN ×5 (02:19→20:32)
[2017-05-21] MEDS: RESP: ALBUTEROL 2.5 MG/IPRATROPIUM 0.5 MG NEB (SCH) NEB ×4 (04:07→20:09)
[2017-05-21] MEDS ORDERED: AMIODARONE 150 MG/D5W 97 ML BOLUS 10 MINUTES IV ONE ×2 (05:00)
[2017-05-21] MEDS: PANTOPRAZOLE SOD 40 MG DELAYED RELEASE TAB PO SCH (05:35)
[2017-05-21] MEDS: AMIODARONE INJ 450 MG in D5W (EXCEL BAG) INJ 241 ML IV SCH ×2 (06:50→14:04)
[2017-05-21] MEDS: MAGNESIUM HYDROXIDE SUSP 30 ML CUP PO SCH (08:38)
[2017-05-21] MEDS: POLYETHYLENE GLYCOL 17 GM PKG PO SCH (08:38)
[2017-05-21] MEDS: CLOPIDOGREL 75 MG TAB PO SCH (08:39)
[2017-05-21] MEDS: DOCUSATE SODIUM 100 MG CAP PO SCH ×2 (08:39→20:35)
[2017-05-21] MEDS: SERTRALINE HCL 50 MG TAB PO SCH (08:39)
[2017-05-21] MEDS: MULTIVITAMINS/MINERALS THERAPEUTIC TAB PO SCH (08:39)
[2017-05-21] MEDS: ASPIRIN 81 MG CHEW TAB PO SCH (08:40)
[2017-05-21] MEDS: THIAMINE HCL 100 MG TAB PO SCH (08:40)
[2017-05-21] MEDS: FOLIC ACID 1 MG TAB PO SCH (08:40)
[2017-05-21] MEDS: SODIUM CHLORIDE 0.9% FLUSH 10 ML FLUSH IV FLUSH SCH ×2 (08:46→20:35)
[2017-05-21] MEDS: KETOCONAZOLE 2% CREAM 15 GM TOPICAL SCH ×2 (08:46→20:36)
[2017-05-21] MEDS: METOPROLOL TARTRATE 25 MG TAB PO SCH ×2 (09:00→20:35)
[2017-05-21 14:20] LABS: BICARBONATE 24.9 MEQ/L (21.0-32.0); POTASSIUM 4.5 MEQ/L (3.5-5.1)
--- NOTE | 2017-05-21 14:42 | PD.CAR.PN ---
CVT Progress Note Subjective/Hospital Course: 57/ MALE admitted 04/27 for depression, suicidal ideation, ETOH abuse, treated with CIWA Librium protocol , c/o of chest pain during his stay in Psych department, underwent stress test: general hypokinesis inferior wall , initially refused cardiac cath , then later agreed . Transferred into main Hospital and underwent cardiac cath by Dr Jackson, EF 60% two vessel disease LAD and Diagonal branch. 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 He is still not willing to proceed and wants to think it further. Please call when pt decides. 05/17 pt has now decided to proceed with surgery, will schedule for Monday 05/21 no chest pain today will hold júnior inhibitor 05/18 surgery : `1. Urgent Off-pump Coronary Artery Bypass Grafting x 2 with Left Internal Mammary Artery (ROJAS) to the Left Anterior Descending (LAD), reverse saphenous vein graft to the Diagonal (D1) 2. Left Leg Endoscopic Vein [place] 3. Intraoperative Vein Mapping extubated after surgery, crystalloid 3000cc, cell saver 250cc, EBL 600cc 05/19 BP labile this am, hold ion starting BB , no diuresis chest tube drained 250cc/ 12 hrs 05/20 on room air chest tube drained 200cc/ 12 hrs no air leak re-add toradol for pain with prn narcotics low dose BB OOB ambulate 05/21 chest tube drained 180cc/ 12 hrs leave chest tube in for now will need rehab/ SNF at discharge, pt homeless pain controlled went into afib last pm on amiodarone gtt for 24 hrs/ buck V score 1.3 Objective: GENERAL: SKIN: Warm and dry. prevena dressing to chest , incision intact to left leg HEAD: Normocephalic. EYES: No scleral icterus. No injection or drainage. NECK: Supple, trachea midline. No JVD or lymphadenopathy. CARDIOVASCULAR: irregular rate and rhythm without murmurs, gallops, or rubs. RESPIRATORY: Breath sounds equal bilaterally. No accessory muscle use. diminished in bases, chest tube to wall suction / no air leak GASTROINTESTINAL: Abdomen soft, non-tender, nondistended. MUSCULOSKELETAL: No cyanosis, or edema. BACK: Nontender without obvious deformity. No CVA tenderness. Vital Signs Date Time Temp Pulse Resp B/P (MAP) Pulse Ox O2 Delivery O2 Flow Rate FiO2 05/21/17 14:04 84 93/58 05/21/17 12:00 86 05/21/17 11:30 98.0 85 16 87/55 (66) 93 05/21/17 11:30 93 Room Air 05/21/17 11:00 99 05/21/17 10:00 98 05/21/17 09:00 106 05/21/17 08:24 99 05/21/17 08:00 122 05/21/17 08:00 93 Room Air 05/21/17 07:49 98.2 110 18 94/62 (73) 92 05/21/17 07:00 134 05/21/17 06:50 119 94/66 05/21/17 06:38 18 05/21/17 06:01 122 05/21/17 05:10 142 99/64 05/21/17 05:03 142 05/21/17 04:03 105 05/21/17 03:46 17 05/21/17 03:10 99 05/21/17 03:08 94 Nasal Cannula 2.00 05/21/17 03:07 98.2 97 17 104/56 (72) 94 05/21/17 02:07 111 05/21/17 01:13 96 05/21/17 00:02 98 05/20/17 23:06 93 Room Air 2.00 05/20/17 23:04 98.4 97 17 94/56 (69) 93 05/20/17 23:00 94 05/20/17 22:00 97 05/20/17 21:00 98 05/20/17 20:00 97 05/20/17 19:57 96 05/20/17 19:00 93 Room Air 1.00 05/20/17 19:00 88 05/20/17 19:00 98.0 87 17 93/52 (66) 93 05/20/17 18:01 97 05/20/17 17:00 91 05/20/17 16:00 86 05/20/17 15:09 94 Room Air 05/20/17 15:00 93 05/20/17 15:00 96 19 117/69 (85) Labs: Laboratory Tests Test 05/21/17 10:42 Blood Urea Nitrogen 16 MG/DL (7-18) Creatinine 0.86 MG/DL (0.60-1.30) Random Glucose 151 MG/DL (74-106) Calcium Level 8.0 MG/DL (8.5-10.1) Phosphorus Level 2.4 MG/DL (2.5-4.9) Magnesium Level 2.0 MG/DL (1.5-2.5) Sodium Level 132 MEQ/L (136-145) Potassium Level 4.5 MEQ/L (3.5-5.1) Chloride Level 100 MEQ/L (98-107) Carbon Dioxide Level 24.9 MEQ/L (21.0-32.0) Anion Gap 7 MEQ/L (5-15) Estimat Glomerular Filtration Rate 91 ML/MIN (>89) Result Diagram: 05/20/17 0430 05/21/17 1042 Telemetry: afib (1) Coronary artery disease Plan: (2) S/P CABG x 2 Plan: ASA, statin , BB , amiodarone pulm toileting OOB, PT eval for rehab eval to remove chest tube in am (3) left forearm phelbitis Plan: s/p Keflex x 7 days, still has raised possible abscess with induration cleared by ID for surgery (4) HTN (hypertension) Plan: on júnior and BB, hold júnior prior to surgery (5) Alcohol abuse Plan: on rally padilla (6) Homeless Plan: case management following (7) Afib Plan: on amiodarone gtt for 24 hrs Darshana Whitmore May 21, 2017 14:42
[2017-05-21] MEDS ORDERED: GNP100TA3 PO (14:52)
[2017-05-21] MEDS ORDERED: OXYC1TAB63 PO (14:52)
[2017-05-21] MEDS ORDERED: POLY17S PO (14:52)
[2017-05-21] MEDS ORDERED: ZOLO50TA PO (14:52)
[2017-05-21] MEDS ORDERED: AMIO200T PO (14:52)
[2017-05-21] MEDS ORDERED: ATOR20TA15 PO (14:52)
[2017-05-21] MEDS ORDERED: PLAV75TA29 PO (14:52)
[2017-05-21] MEDS ORDERED: FOLI1TAB6 PO (14:52)
[2017-05-21] MEDS ORDERED: DOCU1CAP39 PO (14:52)
[2017-05-21] MEDS ORDERED: THERM PO (14:52)
[2017-05-21] MEDS ORDERED: ASPI81CH25 PO (14:52)
[2017-05-21] MEDS ORDERED: METO25TA3 PO (14:52)
[2017-05-21] MEDS: BISACODYL 10 MG SUPP RECTAL PRN (17:43)
[2017-05-21] MEDS: ATORVASTATIN 20 MG TAB PO SCH (20:35)
[2017-05-21] MEDS: SENNOSIDES 8.6 MG TAB PO SCH (20:36)
[2017-05-22] VITALS (31 sets, daily range): BP systolic 93–120; BP diastolic 58–70; PULSE 67–99; RESP 16; TEMP 97.8–98.5; O2SAT 91–98
[2017-05-22] MEDS: oxyCODONE/ACETAMINOPHEN 5 MG/325 MG TAB PO PRN ×8 (00:32→23:53)
[2017-05-22] MEDS: RESP: ALBUTEROL 2.5 MG/IPRATROPIUM 0.5 MG NEB (SCH) NEB ×3 (04:01→15:38)
[2017-05-22] MEDS: AMIODARONE INJ 450 MG in D5W (EXCEL BAG) INJ 241 ML IV SCH ×3 (04:16→12:49)
[2017-05-22] MEDS: PANTOPRAZOLE SOD 40 MG DELAYED RELEASE TAB PO SCH (06:38)
[2017-05-22] MEDS: CLOPIDOGREL 75 MG TAB PO SCH (08:33)
[2017-05-22] MEDS: SERTRALINE HCL 50 MG TAB PO SCH (08:33)
[2017-05-22] MEDS: MULTIVITAMINS/MINERALS THERAPEUTIC TAB PO SCH (08:33)
[2017-05-22] MEDS: ASPIRIN 81 MG CHEW TAB PO SCH (08:33)
[2017-05-22] MEDS: FOLIC ACID 1 MG TAB PO SCH (08:33)
[2017-05-22] MEDS: METOPROLOL TARTRATE 25 MG TAB PO SCH ×2 (08:34→20:59)
[2017-05-22] MEDS: THIAMINE HCL 100 MG TAB PO SCH (08:34)
[2017-05-22] MEDS: DOCUSATE SODIUM 100 MG CAP PO SCH ×2 (08:34→20:59)
[2017-05-22] MEDS: POLYETHYLENE GLYCOL 17 GM PKG PO SCH (08:34)
[2017-05-22] MEDS: MAGNESIUM HYDROXIDE SUSP 30 ML CUP PO SCH (08:34)
[2017-05-22] MEDS: SODIUM CHLORIDE 0.9% FLUSH 10 ML FLUSH IV FLUSH SCH ×2 (08:35→20:59)
[2017-05-22] MEDS: KETOCONAZOLE 2% CREAM 15 GM TOPICAL SCH ×2 (08:35→21:00)
--- NOTE | 2017-05-22 12:38 | PD.CAR.PN ---
CVT Progress Note CVT: POD #: 4 Subjective/Hospital Course: 57/ MALE admitted 04/27 for depression, suicidal ideation, ETOH abuse, treated with CIWA Librium protocol , c/o of chest pain during his stay in Psych department, underwent stress test: general hypokinesis inferior wall , initially refused cardiac cath , then later agreed . Transferred into main Hospital and underwent cardiac cath by Dr Jackson, EF 60% two vessel disease LAD and Diagonal branch. 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 He is still not willing to proceed and wants to think it further. Please call when pt decides. 05/17 pt has now decided to proceed with surgery, will schedule for Monday 05/21 no chest pain today will hold júnior inhibitor 05/18 surgery : `1. Urgent Off-pump Coronary Artery Bypass Grafting x 2 with Left Internal Mammary Artery (ROJAS) to the Left Anterior Descending (LAD), reverse saphenous vein graft to the Diagonal (D1) 2. Left Leg Endoscopic Vein [place] 3. Intraoperative Vein Mapping extubated after surgery, crystalloid 3000cc, cell saver 250cc, EBL 600cc 05/19 BP labile this am, hold ion starting BB , no diuresis chest tube drained 250cc/ 12 hrs 05/20 on room air chest tube drained 200cc/ 12 hrs no air leak re-add toradol for pain with prn narcotics low dose BB OOB ambulate 05/21 chest tube drained 180cc/ 12 hrs leave chest tube in for now will need rehab/ SNF at discharge, pt homeless pain controlled went into afib last pm on amiodarone gtt for 24 hrs/ buck V score 1.3 05/22/17 No complaints today. Continues to drain copiously from chest tubes Objective: Vital Signs Date Time Temp Pulse Resp B/P (MAP) Pulse Ox O2 Delivery O2 Flow Rate FiO2 10/14/17 12:00 82 05/22/17 11:24 98.3 76 16 101/64 (76) 94 05/22/17 11:24 94 Room Air 05/22/17 11:00 74 05/22/17 10:32 94 21 05/22/17 10:00 73 05/22/17 09:00 80 05/22/17 08:00 86 05/22/17 07:45 91 Room Air 05/22/17 07:45 98.3 74 16 115/70 (85) 91 05/22/17 07:00 75 05/22/17 06:00 74 05/22/17 05:00 78 05/22/17 04:16 68 120/58 05/22/17 04:12 97.9 68 16 120/58 (78) 91 05/22/17 04:00 68 05/22/17 03:23 98 Room Air 05/22/17 03:00 71 05/22/17 02:00 95 05/22/17 01:00 68 05/22/17 00:34 97.8 96 16 96/61 (73) 98 05/22/17 00:00 73 05/21/17 23:24 96 Room Air 05/21/17 23:00 73 05/21/17 22:00 79 05/21/17 21:00 80 05/21/17 20:20 97.8 82 16 112/82 (92) 94 05/21/17 20:16 94 Room Air 05/21/17 20:09 92 Nasal Cannula 2.00 05/21/17 20:00 92 05/21/17 20:00 82 112/82 05/21/17 19:00 88 05/21/17 18:00 90 05/21/17 17:00 88 05/21/17 16:00 91 05/21/17 15:42 92 Room Air 05/21/17 15:42 98.5 81 19 113/62 (79) 92 05/21/17 15:00 88 05/21/17 14:04 84 93/58 05/21/17 14:00 84 05/21/17 13:00 86 Result Diagram: 05/20/17 0430 05/21/17 1042 Imaging: Last Impressions Chest X-Ray 05/19/17 0500 Signed Impressions: Service Date/Time: Friday, May 19, 2017 03:41 - CONCLUSION: Interval extubation. Persistent basilar opacities Kal Corona MD Lower Extremity Ultrasound 05/13/17 Signed Impressions: Service Date/Time: May 17:11 - CONCLUSION: Venous mapping study as described. Antonio Stephen MD Carotid Artery Ultrasound 05/13/17 Signed Impressions: Service Date/Time: May 16:46 - CONCLUSION: Minimal plaque with no evidence of stenosis. Antonio Stephen MD Cardiovascular: RRR Telemetry: NSR Pulmonary: CTA GI/: NABS, NT Incision: dry and intact CT: 360ml/12hrs. no air leak Plan: Continue chest tubes to water seal. Encourage ambulation SNF placement Stop amio drip, restart PO Diurese (1) Coronary artery disease Plan: (2) S/P CABG x 2 Plan: ASA, statin , BB , amiodarone pulm toileting OOB, PT eval for rehab eval to remove chest tube in am (3) left forearm phelbitis Plan: s/p Keflex x 7 days, still has raised possible abscess with induration cleared by ID for surgery (4) HTN (hypertension) Plan: on júnior and BB, hold júnior prior to surgery (5) Alcohol abuse Plan: on rally padilla (6) Homeless Plan: case management following (7) Afib Plan: on amiodarone gtt for 24 hrs Lanette Torres MD May 22, 2017 12:38
[2017-05-22] MEDS: AMIODARONE 200 MG TAB PO SCH ×2 (13:47→20:59)
[2017-05-22] MEDS: FUROSEMIDE 40 MG/4 ML VIAL IV PUSH SCH (17:12)
[2017-05-22] MEDS: ATORVASTATIN 20 MG TAB PO SCH (20:58)
[2017-05-22] MEDS: SENNOSIDES 8.6 MG TAB PO SCH (20:59)
[2017-05-23] VITALS (29 sets, daily range): BP systolic 103–123; BP diastolic 63–77; PULSE 72–91; RESP 16–18; TEMP 97.9–98.6; O2SAT 94–97
[2017-05-23] MEDS: oxyCODONE/ACETAMINOPHEN 5 MG/325 MG TAB PO PRN ×3 (03:27→08:58)
--- NOTE | 2017-05-23 05:03 | RADRPT ---
EXAM DATE/TIME: 05/23/2017 04:10 [facility] COMPARISON: CHEST SINGLE AP, May 19, 2017, 3:41. INDICATIONS : Shortness of breath, possible pulmonary disease. MEDICAL HISTORY : Cardiovascular disease. SURGICAL HISTORY : CABG. ENCOUNTER: Subsequent ACUITY: 3 weeks PAIN SCORE: 0/10 LOCATION: Bilateral chest FINDINGS: The heart size is enlarged. There is a mild left pleural effusion. There is a left chest tube in plac e. A pneumothorax is not seen. There is bibasilar areas of consolidation or atelectasis. There is a m ediastinal drain in place. CONCLUSION: 1. Mild left pleural effusion. 2. Cardiomegaly. The patient is status post sternotomy. 3. Mediastinal and left chest tube in place. 4. Mild bibasilar areas of consolidation or atelectasis. Kal Mayfield MD on May 23, 2017 at 5:01 Board Certified Radiologist. This report was verified electronically.
[2017-05-23 05:38] LABS: HEMATOCRIT 30.4 % (39.0-51.0); MEAN CORPUSCULAR HEMOGLOBIN 32.8 PG (27.0-34.0); MEAN CORPUSCULAR HGB CONC 34.2 % (32.0-36.0); PLATELET COUNT 204 TH/MM3 (150-450); RED BLOOD COUNT 3.17 MIL/MM3 (4.50-5.90); RED CELL DISTRIBUTION WIDTH 13.6 % (11.6-17.2); REVIEW FLAG FINAL; WHITE BLOOD COUNT 7.3 TH/MM3 (4.0-11.0)
[2017-05-23 05:50] LABS: BICARBONATE 26.9 MEQ/L (21.0-32.0); POTASSIUM 4.6 MEQ/L (3.5-5.1)
[2017-05-23] MEDS: PANTOPRAZOLE SOD 40 MG DELAYED RELEASE TAB PO SCH (06:20)
[2017-05-23] MEDS: MAGNESIUM HYDROXIDE SUSP 30 ML CUP PO SCH (08:57)
[2017-05-23] MEDS: POLYETHYLENE GLYCOL 17 GM PKG PO SCH (08:57)
[2017-05-23] MEDS: SERTRALINE HCL 50 MG TAB PO SCH (08:57)
[2017-05-23] MEDS: CLOPIDOGREL 75 MG TAB PO SCH (08:58)
[2017-05-23] MEDS: METOPROLOL TARTRATE 25 MG TAB PO SCH ×2 (08:58→21:27)
[2017-05-23] MEDS: MULTIVITAMINS/MINERALS THERAPEUTIC TAB PO SCH (08:59)
[2017-05-23] MEDS: FOLIC ACID 1 MG TAB PO SCH (08:59)
[2017-05-23] MEDS: ASPIRIN 81 MG CHEW TAB PO SCH (08:59)
[2017-05-23] MEDS: AMIODARONE 200 MG TAB PO SCH ×2 (08:59→21:27)
[2017-05-23] MEDS: FUROSEMIDE 40 MG/4 ML VIAL IV PUSH SCH ×2 (08:59→18:05)
[2017-05-23] MEDS: DOCUSATE SODIUM 100 MG CAP PO SCH ×2 (08:59→21:27)
[2017-05-23] MEDS: THIAMINE HCL 100 MG TAB PO SCH (08:59)
[2017-05-23] MEDS: KETOCONAZOLE 2% CREAM 15 GM TOPICAL SCH ×2 (09:00→21:00)
[2017-05-23] MEDS: SODIUM CHLORIDE 0.9% FLUSH 10 ML FLUSH IV FLUSH SCH ×2 (09:00→21:28)
--- NOTE | 2017-05-23 11:28 | PD.CAR.PN ---
CVT Progress Note Subjective/Hospital Course: 57/ MALE admitted 04/27 for depression, suicidal ideation, ETOH abuse, treated with CIWA Librium protocol , c/o of chest pain during his stay in Psych department, underwent stress test: general hypokinesis inferior wall , initially refused cardiac cath , then later agreed . Transferred into main Hospital and underwent cardiac cath by Dr Jackson, EF 60% two vessel disease LAD and Diagonal branch. 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 He is still not willing to proceed and wants to think it further. Please call when pt decides. 05/17 pt has now decided to proceed with surgery, will schedule for Monday 05/21 no chest pain today will hold júnior inhibitor 05/18 surgery : `1. Urgent Off-pump Coronary Artery Bypass Grafting x 2 with Left Internal Mammary Artery (ROJAS) to the Left Anterior Descending (LAD), reverse saphenous vein graft to the Diagonal (D1) 2. Left Leg Endoscopic Vein [place] 3. Intraoperative Vein Mapping extubated after surgery, crystalloid 3000cc, cell saver 250cc, EBL 600cc 05/19 BP labile this am, hold ion starting BB , no diuresis chest tube drained 250cc/ 12 hrs 05/20 on room air chest tube drained 200cc/ 12 hrs no air leak re-add toradol for pain with prn narcotics low dose BB OOB ambulate 05/21 chest tube drained 180cc/ 12 hrs leave chest tube in for now will need rehab/ SNF at discharge, pt homeless pain controlled went into afib last pm on amiodarone gtt for 24 hrs/ buck V score 1.3 05/22/17 No complaints today. Continues to drain copiously from chest tubes 05/23 Doing well D/C CT Discharge planning since pt is homeless Objective: Vital Signs Date Time Temp Pulse Resp B/P (MAP) Pulse Ox O2 Delivery O2 Flow Rate FiO2 05/23/17 10:00 80 05/23/17 09:00 89 05/23/17 08:00 91 05/23/17 07:53 98.2 76 16 119/77 (91) 94 05/23/17 07:53 94 Room Air 05/23/17 07:00 73 05/23/17 06:00 74 05/23/17 05:05 72 05/23/17 04:00 96 Room Air 05/23/17 04:00 98.2 78 18 110/67 (81) 96 05/23/17 04:00 76 05/23/17 03:00 74 05/23/17 02:00 80 05/23/17 01:00 78 05/23/17 00:00 81 05/23/17 00:00 98.6 77 16 103/63 (76) 96 05/22/17 23:20 96 Room Air 05/22/17 23:00 77 05/22/17 22:00 78 05/22/17 21:00 79 05/22/17 20:00 96 Room Air 05/22/17 20:00 78 05/22/17 20:00 98.5 79 16 93/63 (73) 96 05/22/17 19:46 94 Nasal Cannula 2.00 05/22/17 19:00 80 05/22/17 18:00 86 05/22/17 17:00 99 05/22/17 16:00 82 05/22/17 15:46 95 Room Air 05/22/17 15:46 98.4 75 16 101/63 (76) 95 05/22/17 15:00 72 05/22/17 14:00 67 05/22/17 13:00 73 05/22/17 12:00 82 Labs: Laboratory Tests Test 05/23/17 04:53 White Blood Count 7.3 TH/MM3 (4.0-11.0) Red Blood Count 3.17 MIL/MM3 (4.50-5.90) Hemoglobin 10.4 GM/DL (13.0-17.0) Hematocrit 30.4 % (39.0-51.0) Mean Corpuscular Volume 96.0 FL (80.0-100.0) Mean Corpuscular Hemoglobin 32.8 PG (27.0-34.0) Mean Corpuscular Hemoglobin Concent 34.2 % (32.0-36.0) Red Cell Distribution Width 13.6 % (11.6-17.2) Platelet Count 204 TH/MM3 (150-450) Mean Platelet Volume 8.8 FL (7.0-11.0) Blood Urea Nitrogen 11 MG/DL (7-18) Creatinine 0.78 MG/DL (0.60-1.30) Random Glucose 94 MG/DL (74-106) Calcium Level 8.3 MG/DL (8.5-10.1) Sodium Level 135 MEQ/L (136-145) Potassium Level 4.6 MEQ/L (3.5-5.1) Chloride Level 101 MEQ/L (98-107) Carbon Dioxide Level 26.9 MEQ/L (21.0-32.0) Anion Gap 7 MEQ/L (5-15) Estimat Glomerular Filtration Rate 102 ML/MIN (>89) Result Diagram: 05/23/17 0453 05/23/17 0453 (1) Coronary artery disease Plan: (2) S/P CABG x 2 Plan: ASA, statin , BB , amiodarone pulm toileting OOB, PT eval for rehab eval to remove chest tube in am (3) left forearm phelbitis Plan: s/p Keflex x 7 days, still has raised possible abscess with induration cleared by ID for surgery (4) HTN (hypertension) Plan: on júnior and BB, hold júnior prior to surgery (5) Alcohol abuse Plan: on rally padilla (6) Homeless Plan: case management following (7) Afib Plan: on amiodarone gtt for 24 hrs Jeff Allen MD May 23, 2017 11:28
[2017-05-23] MEDS: oxyCODONE/ACETAMINOPHEN 7.5 MG/325 MG TAB PO PRN ×4 (12:13→21:28)
[2017-05-23] MEDS: ATORVASTATIN 20 MG TAB PO SCH (21:27)
[2017-05-23] MEDS: SENNOSIDES 8.6 MG TAB PO SCH (21:28)
[2017-05-24] VITALS (27 sets, daily range): BP systolic 98–108; BP diastolic 58–71; PULSE 72–106; RESP 16–18; TEMP 97.6–99.3; O2SAT 91–97
[2017-05-24] MEDS: BISACODYL 10 MG SUPP RECTAL PRN (00:53)
[2017-05-24] MEDS: oxyCODONE/ACETAMINOPHEN 7.5 MG/325 MG TAB PO PRN ×7 (01:07→23:40)
[2017-05-24] MEDS: PANTOPRAZOLE SOD 40 MG DELAYED RELEASE TAB PO SCH (06:13)
[2017-05-24] MEDS: FUROSEMIDE 40 MG/4 ML VIAL IV PUSH SCH ×2 (08:41→17:43)
[2017-05-24] MEDS: THIAMINE HCL 100 MG TAB PO SCH (08:42)
[2017-05-24] MEDS: SERTRALINE HCL 50 MG TAB PO SCH (08:42)
[2017-05-24] MEDS: MAGNESIUM HYDROXIDE SUSP 30 ML CUP PO SCH (08:42)
[2017-05-24] MEDS: MULTIVITAMINS/MINERALS THERAPEUTIC TAB PO SCH (08:43)
[2017-05-24] MEDS: DOCUSATE SODIUM 100 MG CAP PO SCH ×2 (08:43→20:47)
[2017-05-24] MEDS: AMIODARONE 200 MG TAB PO SCH ×2 (08:43→20:46)
[2017-05-24] MEDS: POLYETHYLENE GLYCOL 17 GM PKG PO SCH (08:43)
[2017-05-24] MEDS: METOPROLOL TARTRATE 25 MG TAB PO SCH ×2 (08:43→20:47)
[2017-05-24] MEDS: CLOPIDOGREL 75 MG TAB PO SCH (08:43)
[2017-05-24] MEDS: FOLIC ACID 1 MG TAB PO SCH (08:43)
[2017-05-24] MEDS: ASPIRIN 81 MG CHEW TAB PO SCH (08:43)
[2017-05-24] MEDS: SODIUM CHLORIDE 0.9% FLUSH 10 ML FLUSH IV FLUSH SCH ×2 (08:44→20:48)
[2017-05-24] MEDS: KETOCONAZOLE 2% CREAM 15 GM TOPICAL SCH ×2 (08:44→20:48)
[2017-05-24] MEDS ORDERED: MAGNESIUM CITRATE SOLN 300 ML BTL PO ONE (11:00)
--- NOTE | 2017-05-24 17:50 | PD.CAR.PN ---
CVT Progress Note Subjective/Hospital Course: 57/ MALE admitted 04/27 for depression, suicidal ideation, ETOH abuse, treated with CIWA Librium protocol , c/o of chest pain during his stay in Psych department, underwent stress test: general hypokinesis inferior wall , initially refused cardiac cath , then later agreed . Transferred into main Hospital and underwent cardiac cath by Dr Jackson, EF 60% two vessel disease LAD and Diagonal branch. 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 He is still not willing to proceed and wants to think it further. Please call when pt decides. 05/17 pt has now decided to proceed with surgery, will schedule for Monday 05/21 no chest pain today will hold júnior inhibitor 05/18 surgery : `1. Urgent Off-pump Coronary Artery Bypass Grafting x 2 with Left Internal Mammary Artery (ROJAS) to the Left Anterior Descending (LAD), reverse saphenous vein graft to the Diagonal (D1) 2. Left Leg Endoscopic Vein [place] 3. Intraoperative Vein Mapping extubated after surgery, crystalloid 3000cc, cell saver 250cc, EBL 600cc 05/19 BP labile this am, hold ion starting BB , no diuresis chest tube drained 250cc/ 12 hrs 05/20 on room air chest tube drained 200cc/ 12 hrs no air leak re-add toradol for pain with prn narcotics low dose BB OOB ambulate 05/21 chest tube drained 180cc/ 12 hrs leave chest tube in for now will need rehab/ SNF at discharge, pt homeless pain controlled went into afib last pm on amiodarone gtt for 24 hrs/ buck V score 1.3 05/22/17 No complaints today. Continues to drain copiously from chest tubes 05/23 Doing well D/C CT Discharge planning since pt is homeless 05/24 eval for rehab , if no placement may need placement to near by Hotel with [facility] prevena dressing removed from chest Objective: Vital Signs Date Time Temp Pulse Resp B/P (MAP) Pulse Ox O2 Delivery O2 Flow Rate FiO2 05/24/17 17:00 89 05/24/17 16:00 89 05/24/17 15:00 98.8 89 16 102/67 (79) 96 05/24/17 15:00 88 05/24/17 14:00 82 05/24/17 13:00 89 05/24/17 12:00 100 05/24/17 11:00 97.6 80 16 108/69 (82) 92 05/24/17 11:00 84 05/24/17 10:00 97 05/24/17 09:00 92 05/24/17 08:00 78 05/24/17 07:31 96 21 05/24/17 07:00 98.5 78 16 98/68 (78) 93 05/24/17 07:00 76 05/24/17 05:00 74 05/24/17 04:02 75 05/24/17 03:59 98.2 75 18 99/61 (74) 97 05/24/17 03:59 96 Room Air 05/24/17 03:00 78 05/24/17 02:03 77 05/24/17 01:00 74 05/24/17 00:00 96 Room Air 05/24/17 00:00 78 05/24/17 00:00 98.2 72 18 98/58 (71) 97 05/23/17 23:00 79 05/23/17 22:00 73 05/23/17 21:03 96 21 05/23/17 21:00 72 05/23/17 20:00 85 05/23/17 20:00 98.0 85 18 123/75 (91) 97 05/23/17 19:33 96 Room Air 05/23/17 19:00 85 05/23/17 18:00 77 Result Diagram: 05/23/17 0453 05/23/17 0453 (1) Coronary artery disease Plan: (2) S/P CABG x 2 Plan: ASA, statin , BB , amiodarone pulm toileting OOB, PT eval for rehab eval for dc when SNF bed available (3) HTN (hypertension) Plan: on júnior and BB, (4) Alcohol abuse Plan: on rally padilla (5) Homeless Plan: case management following (6) Afib Plan: amiodarone po Darshana Whitmore May 24, 2017 17:50
[2017-05-24] MEDS: ATORVASTATIN 20 MG TAB PO SCH (20:46)
[2017-05-24] MEDS: SENNOSIDES 8.6 MG TAB PO SCH (20:47)
[2017-05-25] VITALS (20 sets, daily range): BP systolic 94–106; BP diastolic 62–68; PULSE 97–111; RESP 18; TEMP 98.5–99.3; O2SAT 93
[2017-05-25] MEDS: oxyCODONE/ACETAMINOPHEN 7.5 MG/325 MG TAB PO PRN ×5 (03:27→17:05)
[2017-05-25] MEDS: PANTOPRAZOLE SOD 40 MG DELAYED RELEASE TAB PO SCH (06:27)
[2017-05-25] MEDS: THIAMINE HCL 100 MG TAB PO SCH (09:00)
[2017-05-25] MEDS: MAGNESIUM HYDROXIDE SUSP 30 ML CUP PO SCH (09:00)
[2017-05-25] MEDS: DOCUSATE SODIUM 100 MG CAP PO SCH (09:00)
[2017-05-25] MEDS ORDERED: FUROSEMIDE 40 MG/4 ML VIAL IV PUSH SCH (09:00)
[2017-05-25] MEDS: POLYETHYLENE GLYCOL 17 GM PKG PO SCH (09:00)
[2017-05-25] MEDS: KETOCONAZOLE 2% CREAM 15 GM TOPICAL SCH (09:00)
[2017-05-25] MEDS: FOLIC ACID 1 MG TAB PO SCH (09:25)
[2017-05-25] MEDS: AMIODARONE 200 MG TAB PO SCH (09:25)
[2017-05-25] MEDS: SERTRALINE HCL 50 MG TAB PO SCH (09:26)
[2017-05-25] MEDS: MULTIVITAMINS/MINERALS THERAPEUTIC TAB PO SCH (09:26)
[2017-05-25] MEDS: METOPROLOL TARTRATE 25 MG TAB PO SCH (09:26)
[2017-05-25] MEDS: CLOPIDOGREL 75 MG TAB PO SCH (09:27)
[2017-05-25] MEDS: ASPIRIN 81 MG CHEW TAB PO SCH (09:27)
[2017-05-25] MEDS: SODIUM CHLORIDE 0.9% FLUSH 10 ML FLUSH IV FLUSH SCH (09:27)
--- NOTE | 2017-05-25 16:38 | HHI.DS ---
Discharge Summary Admission Date May 12, 2017 at 01:00 Discharge Date: May 25, 2017 Admitting Diagnosis chest pain , CAD (1) Alcoholism Diagnosis: Principal ICD Codes: F10.20 - Alcohol dependence, uncomplicated Status: Resolved (2) Atypical chest pain Diagnosis: Principal ICD Codes: R07.89 - Other chest pain Status: Acute (3) Coronary artery disease Diagnosis: Principal ICD Codes: I25.10 - Atherosclerotic heart disease of [place] coronary artery without angina pectoris Status: Acute (4) HTN (hypertension) Diagnosis: Principal ICD Codes: I10 - Essential (primary) hypertension Status: Chronic (5) Afib Diagnosis: Principal ICD Codes: I48.91 - Unspecified atrial fibrillation Status: Acute (6) S/P CABG x 2 Diagnosis: Secondary ICD Codes: Z95.1 - Presence of aortocoronary bypass graft Status: Acute Procedures 1. Urgent Off-pump Coronary Artery Bypass Grafting x 2 with Left Internal Mammary Artery (ROJAS) to the Left Anterior Descending (LAD), reverse saphenous vein graft to the Diagonal (D1) 2. Left Leg Endoscopic Vein [place] 3. Intraoperative Vein [place] 4. Multi-Level Intercostal Nerve Block. 05/18 Brief History 57/ MALE admitted 04/27 for depression, suicidal ideation, ETOH abuse, treated with CIWA Librium protocol , c/o of chest pain during his stay in Psych department, underwent stress test: general hypokinesis inferior wall , initially refused cardiac cath , then later agreed . Transferred into [facility] and underwent cardiac cath by Dr Jackson, EF 60% two vessel disease LAD and Diagonal branch. 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 Mild left pleural effusion. 2. Cardiomegaly. The patient is status post sternotomy. 3. Mediastinal and left chest tube in place. 4. Mild bibasilar areas of consolidation or atelectasis. Kal Mayfield MD Lower Extremity Ultrasound 05/13/17 0000 Signed Impressions: Service Date/Time: May 17:11 - CONCLUSION: Venous mapping study as described. Antonio Stephen MD Carotid Artery Ultrasound 05/13/17 0000 Signed Impressions: Service Date/Time: May 16:46 - CONCLUSION: Minimal plaque with no evidence of stenosis. Antonio Stephen MD PE at Discharge GENERAL: SKIN: Warm and dry.sternal incision intact and well approximated incision intact to leg HEAD: Normocephalic. EYES: No scleral icterus. No injection or drainage. NECK: Supple, trachea midline. No JVD or lymphadenopathy. CARDIOVASCULAR: Regular rate and rhythm without murmurs, gallops, or rubs. RESPIRATORY: Breath sounds equal bilaterally. No accessory muscle use. GASTROINTESTINAL: Abdomen soft, non-tender, nondistended. MUSCULOSKELETAL: No cyanosis, or edema. BACK: Nontender without obvious deformity. No CVA tenderness. Hospital Course 05/14 pt still has intermittent chest pain , some time relieved with morphine awaiting ID clearance left arm abcess BC neg x 24 hrs pt still deciding on surgery sts data discussed with pt 05/16 Had another lengthy discussion with the pt regarding CABG. He is still not willing to proceed and wants to think it further. Please call when pt decides. 05/17 pt has now decided to proceed with surgery, will schedule for Monday 05/21 no chest pain today will hold júnior inhibitor 05/18 surgery : `1. Urgent Off-pump Coronary Artery Bypass Grafting x 2 with Left Internal Mammary Artery (ROJAS) to the Left Anterior Descending (LAD), reverse saphenous vein graft to the Diagonal (D1) 2. Left Leg Endoscopic Vein [place] 3. Intraoperative Vein Mapping extubated after surgery, crystalloid 3000cc, cell saver 250cc, EBL 600cc 05/19 BP labile this am, hold ion starting BB , no diuresis chest tube drained 250cc/ 12 hrs 05/20 on room air chest tube drained 200cc/ 12 hrs no air leak re-add toradol for pain with prn narcotics low dose BB OOB ambulate 05/21 chest tube drained 180cc/ 12 hrs leave chest tube in for now will need rehab/ SNF at discharge, pt homeless pain controlled went into afib last pm on amiodarone gtt for 24 hrs/ buck V score 1.3 05/22/17 No complaints today. Continues to drain copiously from chest tubes 05/23 Doing well D/C CT Discharge planning since pt is homeless 05/24 eval for rehab , if no placement may need placement to near by Hotel with [facility] prevena dressing removed from chest Discharge Disposition: Discharge to SNF Discharge Instructions DIET: Follow Instructions for: Heart Healthy Diet Activities you can perform: Full Weight Bearing, Shower Only-No Bath Activities to avoid: Driving Additional Activity Instructio: no lifting > 8 lbs or gallon of milk Follow up Referrals: Appointment for Follow Up Cardiology New Medications: Amiodarone (Amiodarone) 200 Mg Tab 200 MG PO Q12HR for heart rhythm, #28 TAB 0 Refills Aspirin (Aspirin Low Strength) 81 Mg Chew 81 MG PO DAILY for Blood Clot Prevention, #30 EA 2 Refills Atorvastatin (Atorvastatin) 20 Mg Tab 20 MG PO HS for Cholesterol Management, #30 TAB 2 Refills Clopidogrel (Plavix) 75 Mg Tab 75 MG PO DAILY for Blood Clot Prevention, #30 TAB 2 Refills Docusate Sodium (Dok) 100 Mg Cap 100 MG PO BID for Constipation, #60 CAP 0 Refills Metoprolol Tartrate (Metoprolol Tartrate) 25 Mg Tab 12.5 MG PO BID for Blood Pressure Management, #60 TAB 2 Refills Oxycodone-Acetaminophen (Oxycodone-Acetaminophen) 5-325 mg Tab 1 TAB PO Q4HR PRN for PAIN SCALE 1 TO 5, #40 TAB 0 Refills Polyethylene Glycol 3350 Powder (Polyethylene Glycol 3350 Powder) 17 Gram Pow 17 GM PO DAILY for Constipation, #30 PACKET 0 Refills Continued Medications: Folic Acid (Folic Acid) 1 Mg Tablet 1 MG PO DAILY for Alcohol Detox, #30 TAB-CAP 2 Refills (This prescription has been renewed) Ketoconazole Topical (Ketoconazole Topical) 2% Cream 1 APPLIC TOPICAL BID for Fungal Infection, #15 GM 0 Refills Multiple Vitamins W/ Minerals (Thera M Plus) 1 Tab 1 TAB PO DAILY for Alcohol Detox, #30 TAB 2 Refills (This prescription has been renewed) Sertraline (Zoloft) 50 Mg Tab 75 MG PO DAILY for health for 30 Days, #30 TAB 2 Refills (This prescription has been renewed) Thiamine HCl ([facility] Vitamin B-1) 100 Mg Tab 100 MG PO DAILY for health for 30 Days, #30 TAB Thiamine HCl ([facility] Vitamin B-1) 100 Mg Tab 100 MG PO DAILY for Alcohol Detox, #30 TAB 2 Refills (This prescription has been renewed) Discontinued Medications: Cephalexin (Cephalexin) 500 Mg Cap 500 MG PO Q8H for Infection, #30 CAP 0 Refills Darshana Whitmore May 25, 2017 16:38
== END 2017-05-25 17:26 | DRG 234 ==
LOC: HCIS 01:00 → HCVI 05-18 12:20 → HCPC 05-19 10:00
PROVIDERS: ADMIT Hospitalist; ATTEND Thoracic Surgery (Cardiothoracic Vascular Surgery)
PROC: B2111ZZ Fluoroscopy of Multiple Coronary Arteries using Low Osmolar Contrast (ICD-10-PCS; 2017-05-12)
PROC: B2151ZZ Fluoroscopy of Left Heart using Low Osmolar Contrast (ICD-10-PCS; 2017-05-12)
PROC: 4A023N7 Measurement of Cardiac Sampling and Pressure, Left Heart, Percutaneous Approach (ICD-10-PCS; principal; 2017-05-12 13:30)
PROC: 021009W Bypass Coronary Artery, One Artery from Aorta with Autologous Venous Tissue, Open Approach (ICD-10-PCS; 2017-05-18)
PROC: 06BQ4ZZ Excision of Left Saphenous Vein, Percutaneous Endoscopic Approach (ICD-10-PCS; 2017-05-18)
PROC: 3E0T3BZ Introduction of Anesthetic Agent into Peripheral Nerves and Plexi, Percutaneous Approach (ICD-10-PCS; 2017-05-18)
PROC: 02100Z9 Bypass Coronary Artery, One Artery from Left Internal Mammary, Open Approach (ICD-10-PCS; 2017-05-18 08:10)
DX: I25.119 Atherosclerotic heart disease of native coronary artery with unspecified angina pectoris (principal); I42.6 Alcoholic cardiomyopathy; J44.9 Chronic obstructive pulmonary disease, unspecified; I10 Essential (primary) hypertension; F17.210 Nicotine dependence, cigarettes, uncomplicated; G89.29 Other chronic pain; F32.9 Major depressive disorder, single episode, unspecified; M54.9 Dorsalgia, unspecified; I48.91 Unspecified atrial fibrillation; F10.20 Alcohol dependence, uncomplicated; Z85.830 Personal history of malignant neoplasm of bone; Z86.14 Personal history of Methicillin resistant Staphylococcus aureus infection; Z86.72 Personal history of thrombophlebitis; Z59.0 Homelessness
CPT/HCPCS: 36430; 71010; 71020; 76937; 80048; 80053; 80061; 81001; 82948; 83036; 83735; 84100; 84439; 84443; 85025; 85027; 85610; 86850; 86900; 86901; 86920; 87040; 93005; 93306; 93458; 93880; 93970; 93998; 94002; 94010; 94150; 94640; 94664; 94667; 94668; C1768; C1769; C1893; C9290; J0131; J0171; J0282; J0461; J0690; J1100; J1644; J1815; J1817; J1885; J1940; J2250; J2270; J2440; J3010; J3370; J3475; J3480; J7050; J7060; P9016; Q9967

== ENCOUNTER 2017-06-02 21:17 | Observation (INO) | payer MEDICARE ==
[~2017-06-02] VITALS: Ht 180.3 cm; Wt 86.5 kg
[~2017-06-02 21:17] MED LIST changes: +AMIO200T PO; +ASPI81CH25 PO; +ATOR20TA15 PO; -CEPH500C PO; +DOCU1CAP39 PO; -GNP100TA3 PO; +METO25TA3 PO; +OXYC1TAB63 PO; +PLAV75TA29 PO; +POLY17S PO; +THIA100 PO
[2017-06-02 21:24] VITALS: BP 128/86; PULSE 57; RESP 18; TEMP 98; O2SAT 97
--- NOTE | 2017-06-02 21:43 | PD ---
HPI Chief Complaint: Chest Pain Time Seen by Provider: 21:28 Travel History International Travel<30 days: No Contact w/Intl Traveler<30days: No Traveled to known affect area: No History of Present Illness HPI This is a 57-year-old male who presents via [place] from [facility] for evaluation. The patient underwent CABG 2 with ROJAS to the left anterior descending, reverse saphenous vein graft to the diagonal D1. This was performed by cardiothoracic surgeon Dr. Allen on May 18. He was discharged on May 25 to intermediate facility. Over the past few days he has been experiencing generalized chest pain which is sharp and worse with inspiration, movement. He endorses some mild degree of dyspnea associated with this. He underwent an x-ray of the chest at the rehabilitation facility revealing a "large left pleural effusion with adjacent atelectasis or pneumonia." He was sent here for further evaluation. The patient denies cough or congestion, fevers, abdominal pain, nausea or vomiting. He has been compliant with all medications that have been given to him at the facility. He has no other complaints at this time. [facility] Past Medical History Arthritis: Yes Blood Disorders: No Anxiety: Yes Depression: Yes Heart Rhythm Problems: Yes Cancer: Yes (BONE CANCER) Cardiovascular Problems: No High Cholesterol: Yes Chemotherapy: No Chest Pain: Yes Cerebrovascular Accident: No Diabetes: No Diminished Hearing: No Endocrine: No Genitourinary: No Headaches: No Hypertension: Yes Immune Disorder: No Musculoskeletal: Yes Neurologic: No Psychiatric: Yes Reproductive: No Respiratory: No Radiation Therapy: No Seizures: No Thyroid Disease: No Tetanus Vaccination: < 5 Years Influenza Vaccination: Yes Past Surgical History Abdominal Surgery: No Body Medical Devices: PATIENT STATES HAS PLATE IN HEAD Cardiac Surgery: No Cholecystectomy: Yes Coronary Artery Bypass Graft: Yes (DOUBLE BYPASS) Ear Surgery: No Endocrine Surgery: No Eye Surgery: No Genitourinary Surgery: No Gynecologic Surgery: No Oral Surgery: No Thoracic Surgery: No Other Surgery: Yes (BACK/RIGHT ARM) Social History Alcohol Use: Yes Tobacco Use: No Substance Use: Yes (COCAINE) Allergies-Medications (Allergen,Severity, Reaction): Coded Allergies: No Known Allergies (Unverified , 04/18/17) Reported Meds & Prescriptions Reported Meds & Active Scripts Active Polyethylene Glycol 3350 Powder (Polyethylene Glycol) 17 Gram Pow 17 Gm PO DAILY Dok (Docusate Sodium) 100 Mg Cap 100 Mg PO BID Oxycodone-Acetaminophen 5-325 mg Tab 1 Tab PO Q4HR PRN Aspirin Low Strength (Aspirin) 81 Mg Chew 81 Mg PO DAILY Metoprolol Tartrate 25 Mg Tab 12.5 Mg PO BID Atorvastatin (Atorvastatin Calcium) 20 Mg Tab 20 Mg PO HS Amiodarone (Amiodarone HCl) 200 Mg Tab 200 Mg PO Q12HR Plavix (Clopidogrel Bisulfate) 75 Mg Tab 75 Mg PO DAILY Zoloft (Sertraline HCl) 50 Mg Tab 75 Mg PO DAILY 30 Days Folic Acid 1 Mg Tablet 1 Mg PO DAILY Gnp Vitamin B-1 (Thiamine HCl) 100 Mg Tab 100 Mg PO DAILY Thera M Plus (Multivitamins/Minerals Therapeutic) 1 Tab 1 Tab PO DAILY Gnp Vitamin B-1 (Thiamine HCl) 100 Mg Tab 100 Mg PO DAILY 30 Days Ketoconazole Topical 2% Cream 1 Applic TOPICAL BID Review of Systems Except as stated in HPI: all other systems reviewed are Neg Physical Exam Narrative GENERAL: This is a well-developed well-nourished male in no acute distress SKIN: Warm and dry. Surgical incision along the anterior chest wall, appears to be well-healing. HEAD: Atraumatic. Normocephalic. EYES: Pupils equal and round. No scleral icterus. No injection or drainage. ENT: No nasal bleeding or discharge. Mucous membranes pink and moist. NECK: Trachea midline. No JVD. CARDIOVASCULAR: Regular rate and rhythm. No murmur appreciated. RESPIRATORY: No accessory muscle use. Breath sounds slightly diminished on the left side. No crackles. GASTROINTESTINAL: Abdomen soft, non-tender, nondistended. Hepatic and splenic margins not palpable. MUSCULOSKELETAL: No obvious deformities. No clubbing. No cyanosis. No edema. There is some tenderness to palpation along the anterior chest wall. NEUROLOGICAL: Awake and alert. No obvious cranial nerve deficits. Motor grossly within normal limits. Normal speech. PSYCHIATRIC: Appropriate mood and affect; insight and judgment normal. Data Data Last Documented VS Vital Signs Date Time Temp Pulse Resp B/P (MAP) Pulse Ox O2 Delivery O2 Flow Rate FiO2 06/02/17 22:00 57 16 105/68 (80) 96 Nasal Cannula 2.00 06/02/17 21:24 98.0 Orders Orders Electrocardiogram (06/02/17 21:31) Basic Metabolic Panel (Bmp) (06/02/17 21:31) Ckmb (Isoenzyme) Profile (06/02/17 21:31) Complete Blood Count With Diff (06/02/17 21:31) Magnesium (Mg) (06/02/17 21:31) Prothrombin Time / Inr (Pt) (06/02/17 21:31) Act Partial Throm Time (Ptt) (06/02/17 21:31) Troponin I (06/02/17 21:31) Chest, Single Ap (06/02/17:31) Ecg Monitoring (06/02/17 21:31) Bilateral Bp Monitoring (06/02/17:31) Iv Access Insert/Monitor (06/02/17:31) Oximetry (06/02/17:31) Oxygen Administration (06/02/17:) Sodium Chloride 0.9% Flush (Ns Flush) (06/02/17 21:45) Morphine Inj (Morphine Inj) (06/02/17 21:45) Ondansetron Inj (Zofran Inj) (06/02/17 21:45) Cefepime Inj (Maxipime Inj) (06/02/17 23:00) Azithromycin Inj (Zithromax Inj) (06/02/17 23:00) Admit Order (Ed Use Only) (06/02/17 23:03) Labs Laboratory Tests Test 06/02/17 21:40 White Blood Count 10.2 TH/MM3 Red Blood Count 3.78 MIL/MM3 Hemoglobin 12.1 GM/DL Hematocrit 36.4 % Mean Corpuscular Volume 96.2 FL Mean Corpuscular Hemoglobin 31.9 PG Mean Corpuscular Hemoglobin Concent 33.2 % Red Cell Distribution Width 13.7 % Platelet Count 727 TH/MM3 Mean Platelet Volume 6.6 FL Neutrophils (%) (Auto) 48.3 % Lymphocytes (%) (Auto) 27.4 % Monocytes (%) (Auto) 8.9 % Eosinophils (%) (Auto) 14.5 % Basophils (%) (Auto) 0.9 % Neutrophils # (Auto) 4.9 TH/MM3 Lymphocytes # (Auto) 2.8 TH/MM3 Monocytes # (Auto) 0.9 TH/MM3 Eosinophils # (Auto) 1.5 TH/MM3 Basophils # (Auto) 0.1 TH/MM3 CBC Comment DIFF FINAL Differential Comment Prothrombin Time 11.2 SEC Prothromb Time International Ratio 1.0 RATIO Activated Partial Thromboplast Time 28.6 SEC Blood Urea Nitrogen 14 MG/DL Creatinine 1.08 MG/DL Random Glucose 86 MG/DL Calcium Level 9.2 MG/DL Magnesium Level 2.1 MG/DL Sodium Level 137 MEQ/L Potassium Level 4.3 MEQ/L Chloride Level 103 MEQ/L Carbon Dioxide Level 28.2 MEQ/L Anion Gap 6 MEQ/L Estimat Glomerular Filtration Rate 70 ML/MIN Total Creatine Kinase 32 U/L Troponin I LESS THAN 0.02 NG/ML MDM Medical Decision Making Medical Screen Exam Complete: Yes Emergency Medical Condition: Yes Medical Record Reviewed: Yes Interpretation(s) EKG sinus rhythm, T-wave inversions noted in the lateral leads. Differential Diagnosis Postoperative pleural effusion, empyema, pneumonia, pulmonary embolism, acute coronary syndrome Narrative Course Patient's place and he sees monitoring pulse oximetry. A twelve-lead EKG was obtained. Basic lab work was obtained. He was given morphine and Zofran. I discussed the case with the on-call cardiothoracic surgeon, Dr. Bedoya, who agrees that this patient likely benefit from thoracentesis. He recommends admission to the hospitalist service Chest x-ray reveals CONCLUSION: Large left base infiltrate and effusion The patient is agreeable to admission. Procedures EKG Prior to Arrival: Yes Diagnosis Primary Impression: Pleural effusion, left Additional Impression: Left pulmonary infiltrate on CXR Admitting Information Admitting Physician Requests: Observation Fabiano Schwartz Jun 02, 2017 21:43
[2017-06-02] MEDS ORDERED: SODIUM CHLORIDE 0.9% FLUSH 10 ML FLUSH IVF PRN (21:45)
[2017-06-02] MEDS ORDERED: MORPHINE SULFATE 4 MG/ML INJ IV PUSH ONE (21:45)
[2017-06-02] MEDS ORDERED: ONDANSETRON HCL 4 MG/2 ML VIAL IV PUSH ONE (21:45)
[2017-06-02 22:00] VITALS: BP 105/68; PULSE 57; RESP 16; O2SAT 96
--- NOTE | 2017-06-02 22:14 | RADRPT ---
EXAM DATE/TIME: 06/02/2017 21:49 [place] COMPARISON: CHEST SINGLE AP, May 23, 2017, 4:10. INDICATIONS : Chest pain since CABG. MEDICAL HISTORY : Cardiovascular disease. SURGICAL HISTORY : CABG. ENCOUNTER: Initial ACUITY: 1 week PAIN SCORE: 10/10 LOCATION: Bilateral chest FINDINGS: There is extensive left lower lobe consolidation and effusion. Right lung is grossly clear. CONCLUSION: Large left base infiltrate and effusion Kal Corona MD on June 02, 2017 at 22:12 Board Certified Radiologist. This report was verified electronically.
[2017-06-02 22:22] LABS: AUTOMATED NEUTROPHIL # 4.9 TH/MM3 (1.8-7.7); BASOPHIL # 0.1 TH/MM3 (0-0.2); BASOPHIL % 0.9 % (0.0-2.0); EOSINOPHIL # 1.5 TH/MM3 (0-0.4); EOSINOPHIL % 14.5 % (0.0-4.0); HEMATOCRIT 36.4 % (39.0-51.0); HEMO FLAGS DIFF FINAL; LYMPH % 27.4 % (9.0-44.0); LYMPHOCYTE # 2.8 TH/MM3 (1.0-4.8); MEAN CELL VOLUME 96.2 FL (80.0-100.0); MEAN CORPUSCULAR HEMOGLOBIN 31.9 PG (27.0-34.0); MEAN CORPUSCULAR HGB CONC 33.2 % (32.0-36.0); MONO % 8.9 % (0.0-8.0); NEUT % 48.3 % (16.0-70.0); PLATELET COUNT 727 TH/MM3 (150-450); RED BLOOD COUNT 3.78 MIL/MM3 (4.50-5.90); RED CELL DISTRIBUTION WIDTH 13.7 % (11.6-17.2); WHITE BLOOD COUNT 10.2 TH/MM3 (4.0-11.0)
[2017-06-02 22:36] LABS: APTT (PATIENT) 28.6 SEC (24.3-30.1); PROTHROMBIN TIME - PATIENT 11.2 SEC (9.8-11.6)
[2017-06-02 22:49] LABS: ANION GAP 6 MEQ/L (5-15); BICARBONATE 28.2 MEQ/L (21.0-32.0); BLOOD UREA NITROGEN 14 MG/DL (7-18); CHLORIDE 103 MEQ/L (98-107); GLOMERULAR FILTRATION RATE 70 ML/MIN (>89); MAGNESIUM 2.1 MG/DL (1.5-2.5); POTASSIUM 4.3 MEQ/L (3.5-5.1); SODIUM (NA) 137 MEQ/L (136-145)
[2017-06-02 22:53] LABS: CREATINE KINASE 32 U/L (39-308)
[2017-06-02] MEDS ORDERED: CEFEPIME INJ 2,000 MG in SODIUM CHLORIDE 0.9% INJ 100 ML IV ONE (23:00)
[2017-06-02] MEDS ORDERED: AZITHROMYCIN INJ 500 MG in SODIUM CHLOR 0.9% 250 ML INJ 250 ML IV ONE (23:00)
--- NOTE | 2017-06-02 23:41 | HHI.HP ---
HPI Service [facility] Primary Care Physician No Primary Care Physician Admission Diagnosis left pleural effusion, chest pain Diagnoses: (1) Chest pain Diagnosis: Principal (2) Pleural effusion, left Diagnosis: Principal (3) Alcohol abuse Diagnosis: Principal Travel History International Travel<30 Days: No Contact w/Intl Traveler <30 Da: No Traveled to Known Affected Are: No History of Present Illness This is a 57-year-old male with PMH of Anxiety, Depression, HTN, Alcohol Abuse, h/o Cocaine Abuse and recent CABG who was sent to the ER from [facility] for abnormal CXR and c/o chest pain. Recent admit 05/12-05/25/17 s/p Cath by Dr. Jackson w/ 2 vessel disease, LAD and Diagonal, s/p eval by CT Sx, s/p CABG on 05/18/[address] Allen. Today, had c/o chest pain and mild SOB, had CXR done at Rehab showing large left pleural effusion w/ atelectasis or possible PNA , sent to ER for further evaluation. No fever, chills or cough reported. On arrival, BP 128/86, HR 57, O2 sat 97% on RA, Afebrile. CBC at baseline. Chemistry unremarkable except for GFR 70. Troponin negative. INR 1.0. CXR with large left base infiltrate and effusion. Dr. Torres consulted by ER physician, recommended thoracentesis. Review of Systems Except as stated in HPI: all other systems reviewed are Neg ROS: 14 point review of systems otherwise negative. Past Family Social History Past Medical History PMH: Anxiety, Depression, HTN, Alcohol Abuse, h/o Cocaine Abuse and recent CABG Past Surgical History PAST SURGICAL HISTORY: CABG, Cholecystectomy Allergies: Coded Allergies: No Known Allergies (Unverified , 04/18/17) Family History PAST FAMILY HISTORY: Reviewed. No h/o DM or CAD Social History PAST SOCIAL HISTORY: Positive for Alcohol Abuse. Negative for tobacco. H/o Cocaine Physical Exam Vital Signs Vital Signs Date Time Temp Pulse Resp B/P (MAP) Pulse Ox O2 Delivery O2 Flow Rate FiO2 06/02/17 22:00 57 16 105/68 (80) 96 Nasal Cannula 2.00 06/02/17 22:00 96 Nasal Cannula 2.00 06/02/17 21:24 98.0 57 18 128/86 (100) 97 Physical Exam PE: GENERAL: Middle-aged white male in no acute distress. HEENT: PERRLA, EOMI. No scleral icterus or conjunctival pallor. No lid lag or facial droop. CARDIOVASCULAR: Regular rate and rhythm. No obvious murmurs to auscultation. No chest tenderness to palpation. Surgical incision healing well. RESPIRATORY: No obvious rhonchi or wheezing. Clear to auscultation. Decreased breath sounds on left. GASTROINTESTINAL: Abdomen soft, non-tender, nondistended. BS normal. MUSCULOSKELETAL: Extremities without clubbing, cyanosis, or edema. No obvious deformities. NEUROLOGICAL: Awake, alert and oriented x4. No focal neurologic deficits. Moving both upper and lower extremities spontaneously. Laboratory Laboratory Tests Test 06/02/17 21:40 White Blood Count 10.2 Red Blood Count 3.78 Hemoglobin 12.1 Hematocrit 36.4 Mean Corpuscular Volume 96.2 Mean Corpuscular Hemoglobin 31.9 Mean Corpuscular Hemoglobin Concent 33.2 Red Cell Distribution Width 13.7 Platelet Count 727 Mean Platelet Volume 6.6 Neutrophils (%) (Auto) 48.3 Lymphocytes (%) (Auto) 27.4 Monocytes (%) (Auto) 8.9 Eosinophils (%) (Auto) 14.5 Basophils (%) (Auto) 0.9 Neutrophils # (Auto) 4.9 Lymphocytes # (Auto) 2.8 Monocytes # (Auto) 0.9 Eosinophils # (Auto) 1.5 Basophils # (Auto) 0.1 CBC Comment DIFF FINAL Differential Comment Prothrombin Time 11.2 Prothromb Time International Ratio 1.0 Activated Partial Thromboplast Time 28.6 Blood Urea Nitrogen 14 Creatinine 1.08 Random Glucose 86 Calcium Level 9.2 Magnesium Level 2.1 Sodium Level 137 Potassium Level 4.3 Chloride Level 103 Carbon Dioxide Level 28.2 Anion Gap 6 Estimat Glomerular Filtration Rate 70 Total Creatine Kinase 32 Troponin I LESS THAN 0.02 Result Diagram: 06/02/17213906/02/172139 Caprini VTE Risk Assessment Caprini VTE Risk Assessment: Mod/High Risk (score >= 2) Caprini Risk Assessment Model Point Value = 1 Point Value = 2 Point Value = 3 Point Value = 5 Age 41-60 Minor surgery BMI > 25 kg/m2 Swollen legs Varicose veins or History of unexplained or recurrent spontaneous Oral contraceptives or hormone replacement Sepsis (< 1 month) Serious lung disease, including pneumonia (< 1 month) Abnormal pulmonary function Acute myocardial infarction Congestive heart failure (< 1 month) History of inflammatory bowel disease Medical patient at bed rest Age 61-74 Arthroscopic surgery Major open surgery (> 45 min) Laparoscopic surgery (> 45 min) Malignancy Confined to bed (> 72 hours) Immobilizing plaster cast Central venous access Age >= 75 History of VTE Family history of VTE Factor V Leiden Prothrombin [id number] Lupus anticoagulant Anticardiolipin antibodies Elevated serum homocysteine Heparin-induced thrombocytopenia Other congenital or acquired thrombophilia Stroke (< 1 month) Elective arthroplasty Hip, pelvis, or leg fracture Acute spinal cord injury (< 1 month) Prophylaxis Regimen Total Risk Factor Score Risk Level Prophylaxis Regimen 0-1 Low Early ambulation 2 Moderate Order ONE of the following: *Sequential Compression Device (SCD) *Heparin 5000 units SQ BID 3-4 Higher Order ONE of the following medications: *Heparin 5000 units SQ TID *Enoxaparin/Lovenox 40 mg SQ daily (WT < 150 kg, CrCl > 30 mL/min) *Enoxaparin/Lovenox 30 mg SQ daily (WT < 150 kg, CrCl > 10-29 mL/min) *Enoxaparin/Lovenox 30 mg SQ BID (WT < 150 kg, CrCl > 30 mL/min) AND/OR *Sequential Compression Device (SCD) 5 or more Highest Order ONE of the following medications: *Heparin 5000 units SQ TID (Preferred with Epidurals) *Enoxaparin/Lovenox 40 mg SQ daily (WT < 150 kg, CrCl > 30 mL/min) *Enoxaparin/Lovenox 30 mg SQ daily (WT < 150 kg, CrCl > 10-29 mL/min) *Enoxaparin/Lovenox 30 mg SQ BID (WT < 150 kg, CrCl > 30 mL/min) AND *Sequential Compression Device (SCD) Assessment and Plan Problem List: (1) Chest pain ICD Code: R07.9 - Chest pain, unspecified (2) Pleural effusion, left ICD Code: J90 - Pleural effusion, not elsewhere classified Status: Acute (3) Alcohol abuse ICD Code: F10.10 - Alcohol abuse, uncomplicated Status: Acute Assessment and Plan A/P: 1. Chest Pain: Acute onset of chest pain few hours prior to arrival, Trop negative, EKG w/ no acute ischemia, recent CABG 05/18/[address] Allen. Admit for observation, telemetry, check serial cardiac enzymes. NTG/Morphine prn. 2. Left Pleural Effusion: Outpatient CXR w/ large left effusion, CXR here w/ large left base effusion and infiltrate. Dr. Torres consulted by ER physician, recommended Thoracentesis. Consult IR for Left Thoracentesis in am. Hold ASA/ Plavix prior to procedure, resume post-procedures. S/p Zithro/Cefepime for possible PNA, however afebrile, no leukocytosis, will hold off on antibiotics. 3. Alcohol Abuse: Resume MVT/Thiamine/Folate, Seizure Precautions, CIWA 4. DVT Prophylaxis: SCD/Teds. 5. Social work for d/c planning as needed. 6. Case discussed w/ ER physician at length. Lidia Crane MD Jun 02, 2017 23:41
[2017-06-02] MEDS ORDERED: BISACODYL 10 MG SUPP RECTAL PRN (23:45)
[2017-06-02] MEDS ORDERED: SODIUM CHLORIDE 0.9% FLUSH 10 ML FLUSH IV FLUSH PRN (23:45)
[2017-06-02] MEDS ORDERED: SENNOSIDES 8.6 MG TAB PO PRN (23:45)
[2017-06-02] MEDS ORDERED: ONDANSETRON HCL 4 MG/2 ML VIAL IVP PRN (23:45)
[2017-06-02] MEDS ORDERED: RESP: ALBUTEROL 2.5 MG/IPRATROPIUM 0.5 MG NEB (PRN) NEB (23:45)
[2017-06-02] MEDS ORDERED: LACTULOSE SYRUP 20 GM/30 ML CUP PO PRN (23:45)
[2017-06-02] MEDS ORDERED: MAGNESIUM HYDROXIDE SUSP 30 ML CUP PO PRN (23:45)
[2017-06-02] MEDS ORDERED: ACETAMINOPHEN 325 MG TAB PO PRN (23:45)
[2017-06-03] VITALS (7 sets, daily range): BP systolic 95–112; BP diastolic 54–69; PULSE 50–59; RESP 16–24; TEMP 97.6–98.1; O2SAT 93–99
[2017-06-03] MEDS: MORPHINE SULFATE 4 MG/ML INJ IV PUSH PRN ×3 (01:52→10:15)
[2017-06-03] MEDS ORDERED: DOCUSATE SODIUM 50 MG/SENNA 8.6 MG TAB PO SCH (09:00)
[2017-06-03] MEDS ORDERED: FOLIC ACID 1 MG TAB PO SCH (09:00)
[2017-06-03] MEDS ORDERED: INFLUENZA VIRUS VACCINE (QUADRIVALENT) 0.5 ML SYR IM ONE (09:00)
[2017-06-03] MEDS ORDERED: THIAMINE HCL 100 MG TAB PO SCH (09:00)
[2017-06-03] MEDS ORDERED: AMIODARONE 200 MG TAB PO SCH (09:00)
[2017-06-03] MEDS ORDERED: MULTIVITAMINS/MINERALS THERAPEUTIC TAB PO SCH (09:00)
[2017-06-03] MEDS ORDERED: SODIUM CHLORIDE 0.9% FLUSH 10 ML FLUSH IV FLUSH SCH (09:00)
[2017-06-03] MEDS ORDERED: SERTRALINE HCL 50 MG TAB PO SCH (09:00)
[2017-06-03] MEDS ORDERED: MORPHINE SULFATE 4 MG/ML INJ IM ONE (11:15)
--- NOTE | 2017-06-03 12:23 | PD.CAR.PN ---
CVT Progress Note Subjective/Hospital Course: 57 y/o male s/p CABG by Dr. Allen recently, discharged to SNF, c/o left chest discomfort and dyspnea. He was found to have a large left pleural effusion and was transferred to the ED. No other c/o. Objective: Vital Signs Date Time Temp Pulse Resp B/P (MAP) Pulse Ox O2 Delivery O2 Flow Rate FiO2 06/03/17 12:12 97.6 55 24 112/68 (83) 93 06/03/17 07:43 98.0 55 22 110/69 (83) 97 06/03/17 07:19 96 Nasal Cannula 2.00 06/03/17 04:16 50 06/03/17 03:55 98.1 53 17 98/54 (69) 98 06/03/17 00:15 98.1 54 18 106/63 (77) 99 06/03/17 00:08 06/03/17 00:00 59 16 95/58 (70) 93 Nasal Cannula 2.00 06/02/17 22:00 57 16 105/68 (80) 96 Nasal Cannula 2.00 06/02/17 22:00 96 Nasal Cannula 2.00 06/02/17 21:24 98.0 57 18 128/86 (100) 97 Labs: Laboratory Tests Test 06/03/17 04:27 Troponin I LESS THAN 0.02 NG/ML Result Diagram: 06/02/17213906/02/172139 Imaging: Last Impressions Chest X-Ray 06/02/172130 Signed Impressions: Service Date/Time: Friday, June 02, 2017 21:49 - CONCLUSION: Large left base infiltrate and effusion Kla Corona MD Cardiovascular: RRR Telemetry: NSR Pulmonary: Decreased BS left base GI/: NABS, NT Incision: dry and intact Plan: 57 y/o male s/p CABG with postop left pleural effusion. Recommend: left thoracentesis, following which he can be transferred back to SNF. Apparently IR would like plavix held for 5 days, so he can be transferrred back to SNF and return for elective left thoracentesis on Wednesday or Wednesday. Dr. Allen will follow-up in the office with a CXR after this procedure. Lanette Torres MD Jun 03, 2017 12:23
--- NOTE | 2017-06-03 13:18 | HHI.PR ---
Subjective Remarks Follow up for pleural effusion, recent CABG. Patient is doing well. He is on room air. CV Surgery evaluated patient and recommended discharge and follow up with Radiology to undergo US guided thoracentesis early next week. Patient was on plavix and thus thoracentesis was not done. Objective Vitals Vital Signs Date Time Temp Pulse Resp B/P (MAP) Pulse Ox O2 Delivery O2 Flow Rate FiO2 06/03/17 12:12 97.6 55 24 112/68 (83) 93 06/03/17 07:43 98.0 55 22 110/69 (83) 97 06/03/17 07:19 96 Nasal Cannula 2.00 06/03/17 04:16 50 06/03/17 03:55 98.1 53 17 98/54 (69) 98 06/03/17 00:15 98.1 54 18 106/63 (77) 99 06/03/17 00:08 06/03/17 00:00 59 16 95/58 (70) 93 Nasal Cannula 2.00 06/02/17 22:00 57 16 105/68 (80) 96 Nasal Cannula 2.00 06/02/17 22:00 96 Nasal Cannula 2.00 06/02/17 21:24 98.0 57 18 128/86 (100) 97 I/O 06/02/17 06/02/17 06/02/17 06/03/17 06/03/17 06/03/17 07:00 15:00 23:00 07:00 15:00 23:00 Intake Total 250 ml Output Total 300 ml Balance 250 ml -300 ml Intake IV Total 250 ml Output Urine Total 300 ml Result Diagram: 06/02/17213906/02/172139 Imaging Last Impressions Chest X-Ray 06/02/172130 Signed Impressions: Service Date/Time: Friday, June 02, 2017 21:49 - CONCLUSION: Large left base infiltrate and effusion Kal Corona MD Objective Remarks GENERAL: AOX3, NAD. SKIN: Warm and dry. HEAD: Normocephalic. EYES: No scleral icterus. No injection or drainage. NECK: Supple, trachea midline. No JVD or lymphadenopathy. CARDIOVASCULAR: Regular rate and rhythm without murmurs, gallops, or rubs. RESPIRATORY: Breath sounds equal bilaterally. No accessory muscle use. Left basilar diminished sound. GASTROINTESTINAL: Abdomen soft, non-tender, nondistended. MUSCULOSKELETAL: No cyanosis, or edema. BACK: Nontender without obvious deformity. No CVA tenderness. Procedures None. A/P Problem List: (1) Chest pain ICD Code: R07.9 - Chest pain, unspecified (2) Pleural effusion, left ICD Code: J90 - Pleural effusion, not elsewhere classified Status: Acute (3) Alcohol abuse ICD Code: F10.10 - Alcohol abuse, uncomplicated Status: Acute Assessment and Plan This is a 57-year-old male with PMH of Anxiety, Depression, HTN, Alcohol Abuse, h/o Cocaine Abuse and recent CABG who was sent to the ER from [facility] for abnormal CXR and c/o chest pain. Recent admit 05/12-05/25/17 s/p Cath by Dr. Jackson w/ 2 vessel disease, LAD and Diagonal, s/p eval by CT Sx, s/p CABG on 05/18/[address] Allen. On arrival, BP 128/86, HR 57, O2 sat 97% on RA, Afebrile. CBC at baseline. Chemistry unremarkable except for GFR 70. Troponin negative. INR 1.0. CXR with large left base infiltrate and effusion. Dr. Torres consulted by ER physician, recommended thoracentesis. - Left sided large pleural effusion - Radiology wants patient to be off plavix for 5 days. Thus, thoracentesis was not done. - CV surgery recommends discharging patient to SNF and patient can come back on Wednesday06/08/2017 for thoracentesis. - I discussed with radiology - they will have patient on their schedule for 8 :30AM on 06/08/2017. - Recent CABG - continue home medications. Full code. Discharge patient to home Condition on discharge: Improved Heart healthy Diet as tolerated Ad Sofi activity Rx changes: Stop Plavix until Thoracentesis is done. Plavix can be re-started after Thoracentesis. Follow-up with primary care physician as needed. Jorge Chairez DO Jun 03, 2017 13:18
[2017-06-03] MEDS ORDERED: MORPHINE SULFATE 4 MG/ML INJ IV PUSH PRN (15:00)
--- NOTE | 2017-06-03 17:30 | EKG ---
Date Performed: 06/02/2017 Time Performed: 21:24:44 PTAGE: 57 years EKG: SINUS BRADYCARDIA MODERATE T-WAVE ABNORMALITY, CONSIDER LATERAL ISCHEMIA SINCE PRIOR TRACIN G THE INFEROLATERAL T WAVE CHANGES ARE NEW. Clinical correlation is recommended ABNORMAL ECG PREVIOUS TRACING : 05/19/2017 03.24 DOCTOR: Archana Caraballo Interpretating Date/Time 06/03/2017 17:27:55
[2017-06-03] MEDS ORDERED: ATORVASTATIN 20 MG TAB PO SCH (21:00)
== END 2017-06-03 16:48 ==
LOC: NEPC 21:17 → NEDA 23:03 → UNDOADMOB 23:04 → NEDA 23:04 → NEPHCDU 23:57 → OBSVTOIN 06-03 12:02 → INTOOBSV 06-03 12:02 → UNDODISOB 06-03 16:48
PROVIDERS: ADMIT Hospitalist; ATTEND Hospitalist
DX: J90 Pleural effusion, not elsewhere classified (principal); I10 Essential (primary) hypertension; R07.89 Other chest pain; M19.90 Unspecified osteoarthritis, unspecified site; I25.10 Atherosclerotic heart disease of native coronary artery without angina pectoris; F14.11 Cocaine abuse, in remission; F10.10 Alcohol abuse, uncomplicated; F32.9 Major depressive disorder, single episode, unspecified; F41.9 Anxiety disorder, unspecified; Z23 Encounter for immunization; Z85.830 Personal history of malignant neoplasm of bone; Z95.1 Presence of aortocoronary bypass graft
CPT/HCPCS: 71010; 80048; 82550; 83735; 84484; 85025; 85610; 85730; 93005; 96365; 96367; 96375; 96376; 99285; G0008; G0378; J0456; J0692; J2270; J2405; J7050; Q2038; 90471; 90686

== ENCOUNTER 2017-06-08 07:42 | Day surgery (SDC) | payer MEDICARE ==
[~2017-06-08 07:42] MED LIST changes: +GNP100TA3 PO; -PLAV75TA29 PO; -THIA100 PO
[2017-06-08 08:57] VITALS: BP 114/77; PULSE 50; RESP 18; TEMP 97; O2SAT 100
--- NOTE | 2017-06-08 09:17 | RADRPT ---
EXAM DATE/TIME: 06/08/2017 08:38 [facility] COMPARISON: No previous studies available for comparison. INDICATIONS : Left pleural effusion. MEDICAL HISTORY : Hepatitis C. Hypertension. ETOH. Substance abuse. Hypercholesterol. SURGICAL HISTORY : CABG Cholecystectomy. Back and knee surgery. ENCOUNTER: Initial ACUITY: 4 - 6 days PAIN SCORE: 3/10 LOCATION: Left chest FLUID: Total volume of 1,100 cc of clear mone fluid was removed. Fluid was sent to lab for ordered studies. TECHNIQUE: 1. Ultrasound guidance for thoracentesis. 2. Thoracentesis. The risks, benefits, and alternatives to ultrasound guided thoracentesis were explained to the patien t in lay simple terms, including the risk of bleeding and infection. Written and verbal informed con sent was obtained. Appropriate area for thoracentesis was marked under ultrasound guidance with the patient in the uprig ht position. Overlying skin was prepped and draped in the usual sterile fashion and with local anest hetic, a dermatotomy was made with an 11 blade scalpel. A 6 [place] thoracentesis catheter was placed in the pleural space and fluid was removed. Catheter was then removed and a sterile dressing applie d. There were no immediate complications. The patient tolerated the procedure well and the left the ultrasound suite in stable condition. Chest radiograph is to be obtained. CONCLUSION: Uncomplicated ultrasound guided thoracentesis. Chriss Livingston MD on June 08, 2017 at 9:15 Board Certified Radiologist. This report was verified electronically.
[2017-06-08 09:22] VITALS: BP 123/71; PULSE 53; RESP 17; TEMP 98; O2SAT 97
--- NOTE | 2017-06-08 09:26 | RADRPT ---
EXAM DATE/TIME: 06/08/2017 09:18 [facility] COMPARISON: CHEST SINGLE AP, June 02, 2017, 21:49. INDICATIONS : Post left side thoracentesis MEDICAL HISTORY : Cardiovascular disease. SURGICAL HISTORY : CABG. ENCOUNTER: Initial ACUITY: 1 month PAIN SCORE: 0/10 LOCATION: Left chest FINDINGS: There is no pneumothorax status post left thoracentesis. Minimal left basilar atelectasis is noted. Median sternotomy wires are noted status post cardiac surgery. The heart is mildly prominent. The r ight lung is clear. CONCLUSION: 1. No pneumothorax status post left thoracentesis. 2. Left basilar atelectasis. 3. Mild cardiomegaly. Chriss Livingston MD on June 08, 2017 at 9:20 Board Certified Radiologist. This report was verified electronically.
[2017-06-08 09:37] VITALS: BP 124/73; PULSE 50; RESP 18; O2SAT 96
[2017-06-08 09:59] LABS: TOTAL PROTEIN,PLEURAL FLUID 5.2 GM/DL
[2017-06-08 10:24] LABS: PLEURAL FLUID RBC 10798 /MM3 (0-0); PLEURAL FLUID WBC 1816 /MM3 (0-10)
[2017-06-08 10:27] LABS: PLEURAL FLUID EOS 44 %; PLEURAL FLUID POLYS (SEGS) 0 %
[2017-06-08 10:28] LABS: PLEURAL FLUID BASO 2 %; PLEURAL FLUID HISTIOCYTES 6 %; PLEURAL FLUID LYMPHS 42 %; PLEURAL FLUID MESOTHELIAL 2 %; PLEURAL FLUID MONOS 3 %
== END 2017-06-08 10:25 | disposition home or self-care (01) ==
LOC: HRAD 07:42 → HRIP 07:55 → HRAD 10:25
PROVIDERS: ATTEND Hospitalist
DX: J90 Pleural effusion, not elsewhere classified (principal); I25.10 Atherosclerotic heart disease of native coronary artery without angina pectoris; I10 Essential (primary) hypertension; B19.20 Unspecified viral hepatitis C without hepatic coma; Z95.1 Presence of aortocoronary bypass graft
CPT/HCPCS: 32555; 71010; 82945; 84157; 89051; C1729

== ENCOUNTER 2017-06-27 16:54 | Observation (INO) | payer MEDICARE ==
[~2017-06-27] VITALS: Ht 177.8 cm; Wt 80.0 kg
[2017-06-27] VITALS (8 sets, daily range): BP systolic 91–117; BP diastolic 58–82; PULSE 66–101; RESP 18; TEMP 98.2; O2SAT 97–99
[~2017-06-27 16:54] MED LIST changes: -GNP100TA3 PO; +THIA100 PO
--- NOTE | 2017-06-27 17:13 | PD ---
HPI Chief Complaint: Chest Pain Time Seen by Provider: 16:55 Travel History International Travel<30 days: No Contact w/Intl Traveler<30days: No Traveled to known affect area: No History of Present Illness HPI 57-year-old homeless male presents for evaluation of chest pain. Symptoms started 2 days ago. Sharp right-sided chest pain, constant, no obvious aggravating or relieving factors. He endorses a slight cough. Denies shortness of breath, nausea or vomiting, abdominal pain, back pain, flank pain. He is status post CABG recently. He has been noncompliant with all of his medications because "I just don't like medications." He admits to drinking some beer today. He received aspirin by EMS. No other complaints. PFSH Past Medical History Arthritis: Yes Blood Disorders: No Anxiety: Yes Depression: Yes Heart Rhythm Problems: Yes Cancer: Yes (BONE CANCERS) Cardiovascular Problems: Yes High Cholesterol: Yes Chemotherapy: No Chest Pain: Yes Congestive Heart Failure: No Cerebrovascular Accident: No Diabetes: No Diminished Hearing: No Endocrine: No Gastrointestinal Disorders: No Genitourinary: No Headaches: No Hypertension: Yes Immune Disorder: No Implanted Vascular Access Dvce: No Musculoskeletal: Yes (ARTHRITIS) Neurologic: No Psychiatric: No Reproductive: No Respiratory: No Radiation Therapy: No Seizures: No Thyroid Disease: No Past Surgical History Abdominal Surgery: No Body Medical Devices: PATIENT STATES HAS PLATE IN HEAD Cardiac Surgery: No Cholecystectomy: Yes Coronary Artery Bypass Graft: Yes (DOUBLE BYPASS) Ear Surgery: No Endocrine Surgery: No Eye Surgery: No Genitourinary Surgery: No Gynecologic Surgery: No Oral Surgery: No Thoracic Surgery: No Other Surgery: Yes (CABGX2, BONE GRAFTS, BACK SURGERY) Social History Alcohol Use: Yes Tobacco Use: Yes Substance Use: No Allergies-Medications (Allergen,Severity, Reaction): Coded Allergies: No Known Allergies (Unverified , 04/18/17) Reported Meds & Prescriptions Reported Meds & Active Scripts Active Polyethylene Glycol 3350 Powder (Polyethylene Glycol) 17 Gram Pow 17 Gm PO DAILY Dok (Docusate Sodium) 100 Mg Cap 100 Mg PO BID Oxycodone-Acetaminophen 5-325 mg Tab 1 Tab PO Q4HR PRN Aspirin Low Strength (Aspirin) 81 Mg Chew 81 Mg PO DAILY Metoprolol Tartrate 25 Mg Tab 12.5 Mg PO BID Atorvastatin (Atorvastatin Calcium) 20 Mg Tab 20 Mg PO HS Amiodarone (Amiodarone HCl) 200 Mg Tab 200 Mg PO Q12HR Zoloft (Sertraline HCl) 50 Mg Tab 75 Mg PO DAILY 30 Days Folic Acid 1 Mg Tablet 1 Mg PO DAILY Gnp Vitamin B-1 (Thiamine HCl) 100 Mg Tab 100 Mg PO DAILY Thera M Plus (Multivitamins/Minerals Therapeutic) 1 Tab 1 Tab PO DAILY Gnp Vitamin B-1 (Thiamine HCl) 100 Mg Tab 100 Mg PO DAILY 30 Days Ketoconazole Topical 2% Cream 1 Applic TOPICAL BID Review of Systems Except as stated in HPI: all other systems reviewed are Neg Physical Exam Narrative GENERAL: Well-nourished male in no acute distress SKIN: Warm and dry. HEAD: Atraumatic. Normocephalic. EYES: Pupils equal and round. No scleral icterus. No injection or drainage. ENT: No nasal bleeding or discharge. Mucous membranes pink and moist. NECK: Trachea midline. No JVD. CARDIOVASCULAR: Regular rate and rhythm. No murmur appreciated. RESPIRATORY: No accessory muscle use. Clear to auscultation. Breath sounds equal bilaterally. GASTROINTESTINAL: Abdomen soft, non-tender, nondistended. Hepatic and splenic margins not palpable. MUSCULOSKELETAL: No obvious deformities. No clubbing. No cyanosis. No edema. NEUROLOGICAL: Awake and alert. No obvious cranial nerve deficits. Motor grossly within normal limits. Normal speech. PSYCHIATRIC: Appropriate mood and affect; insight and judgment normal. Data Data Last Documented VS Vital Signs Date Time Temp Pulse Resp B/P (MAP) Pulse Ox O2 Delivery O2 Flow Rate FiO2 06/27/17 18:06 66 18 91/64 (73) 97 Nasal Cannula 2.00 06/27/17 17:00 98.2 Orders Orders Electrocardiogram (06/27/17 ) Electrocardiogram (06/27/17 17:11) Basic Metabolic Panel (Bmp) (06/27/17 17:11) Ckmb (Isoenzyme) Profile (06/27/17 17:11) Complete Blood Count With Diff (06/27/17 17:11) Magnesium (Mg) (06/27/17 17:11) Prothrombin Time / Inr (Pt) (06/27/17 17:11) Act Partial Throm Time (Ptt) (06/27/17 17:11) Troponin I (06/27/17 17:11) Chest, Single Ap (06/27/17 17:11) Ecg Monitoring (06/27/17 17:11) Bilateral Bp Monitoring (06/27/17 17:11) Iv Access Insert/Monitor (06/27/17 17:11) Oximetry (06/27/17 17:11) Oxygen Administration (06/27/17 17:11) Sodium Chloride 0.9% Flush (Ns Flush) (06/27/17 17:15) Alcohol (Ethanol) (06/27/17 17:11) Morphine Inj (Morphine Inj) (06/27/17 17:30) Nitroglycerin Sl (Nitrostat Sl) (06/27/17 17:30) Vascular Poc Ultrasound (06/27/17 ) Sodium Chlorid 0.9% 500 Ml Inj (Ns 500 M (06/27/17 18:15) Admit Order (Ed Use Only) (06/27/17 18:20) Labs Laboratory Tests Test 06/27/17 17:15 White Blood Count 8.9 TH/MM3 Red Blood Count 4.15 MIL/MM3 Hemoglobin 12.9 GM/DL Hematocrit 39.1 % Mean Corpuscular Volume 94.3 FL Mean Corpuscular Hemoglobin 31.2 PG Mean Corpuscular Hemoglobin Concent 33.1 % Red Cell Distribution Width 14.6 % Platelet Count 270 TH/MM3 Mean Platelet Volume 7.2 FL Neutrophils (%) (Auto) 57.3 % Lymphocytes (%) (Auto) 34.9 % Monocytes (%) (Auto) 5.9 % Eosinophils (%) (Auto) 1.4 % Basophils (%) (Auto) 0.5 % Neutrophils # (Auto) 5.1 TH/MM3 Lymphocytes # (Auto) 3.1 TH/MM3 Monocytes # (Auto) 0.5 TH/MM3 Eosinophils # (Auto) 0.1 TH/MM3 Basophils # (Auto) 0.0 TH/MM3 CBC Comment DIFF FINAL Differential Comment Prothrombin Time 14.8 SEC Prothromb Time International Ratio 1.3 RATIO Activated Partial Thromboplast Time 46.2 SEC Blood Urea Nitrogen 4 MG/DL Creatinine 0.65 MG/DL Random Glucose 119 MG/DL Calcium Level 8.0 MG/DL Magnesium Level 2.2 MG/DL Sodium Level 138 MEQ/L Potassium Level 4.1 MEQ/L Chloride Level 106 MEQ/L Carbon Dioxide Level 20.9 MEQ/L Anion Gap 11 MEQ/L Estimat Glomerular Filtration Rate 126 ML/MIN Total Creatine Kinase 89 U/L Troponin I LESS THAN 0.02 NG/ML Ethyl Alcohol Level 359 MG/DL [facility] Medical Decision Making Medical Screen Exam Complete: Yes Emergency Medical Condition: Yes Medical Record Reviewed: Yes Interpretation(s) Chest x-ray CONCLUSION: Improved aeration with left basilar airspace disease. Differential Diagnosis Acute coronary syndrome, angina, pericarditis, pleurisy, myocarditis, pleural effusion, pneumothorax, hemothorax Narrative Course The patient was placed on ECG monitoring pulse oximeter. 12-lead EKG obtained revealing sinus rhythm. Plan is for basic lab work, chest x-ray. The patient became slightly hypotensive after the administration of morphine and sublingual nitroglycerin so 500 mL bolus normal saline ordered. Initial lab work is reassuring. He is alcohol level is 359. At this point in time the plan is to repeat the troponin and EKG and if reassuring the patient will be discharged when he is clinically sober. Procedures EKG Prior to Arrival: Yes Diagnosis Primary Impression: Atypical chest pain Additional Impression: Alcohol intoxication Qualified Codes: F10.920 - Alcohol use, unspecified with intoxication, uncomplicated Admitting Information Admitting Physician Requests: Observation Additional Instructions: Take your medications as prescribed. Follow up close with primary care physician. Return for any emergent medical conditions. Med/Other Pt SpecificInfo: No Change to Meds Disposition: 01 DISCHARGE HOME Condition: Stable Fabiano Schwartz Jun 27, 2017 17:13
[2017-06-27] MEDS ORDERED: SODIUM CHLORIDE 0.9% FLUSH 10 ML FLUSH IVF PRN (17:15)
[2017-06-27] MEDS ORDERED: MORPHINE SULFATE 4 MG/ML INJ IV PUSH ONE (17:30)
[2017-06-27] MEDS: NITROGLYCERIN 0.4 MG SL 25 TABS/BTL SL SCH ×2 (17:35→17:48)
--- NOTE | 2017-06-27 17:47 | RADRPT ---
EXAM DATE/TIME: 06/27/2017 17:18 [facility] COMPARISON: CHEST SINGLE AP, June 02, 2017, 21:49. INDICATIONS : Chest pain, to right side of chest. MEDICAL HISTORY : Cardiovascular disease. SURGICAL HISTORY : CABG. ENCOUNTER: Initial ACUITY: 1 day PAIN SCORE: 8/10 LOCATION: Bilateral chest FINDINGS: Cardiomegaly and sternotomy wires. Improved aeration of the left lung with resolution of the effusion . Mild left basilar airspace disease remains. CONCLUSION: Improved aeration with left basilar airspace disease. Raulito Meng MD on June 27, 2017 at 17:45 Board Certified Radiologist. This report was verified electronically.
[2017-06-27 18:09] LABS: AUTOMATED NEUTROPHIL # 5.1 TH/MM3 (1.8-7.7); BASOPHIL % 0.5 % (0.0-2.0); EOSINOPHIL # 0.1 TH/MM3 (0-0.4); EOSINOPHIL % 1.4 % (0.0-4.0); HEMATOCRIT 39.1 % (39.0-51.0); HEMO FLAGS DIFF FINAL; LYMPH % 34.9 % (9.0-44.0); LYMPHOCYTE # 3.1 TH/MM3 (1.0-4.8); MEAN CELL VOLUME 94.3 FL (80.0-100.0); MEAN CORPUSCULAR HEMOGLOBIN 31.2 PG (27.0-34.0); MEAN CORPUSCULAR HGB CONC 33.1 % (32.0-36.0); MONO % 5.9 % (0.0-8.0); NEUT % 57.3 % (16.0-70.0); PLATELET COUNT 270 TH/MM3 (150-450); RED BLOOD COUNT 4.15 MIL/MM3 (4.50-5.90); RED CELL DISTRIBUTION WIDTH 14.6 % (11.6-17.2); WHITE BLOOD COUNT 8.9 TH/MM3 (4.0-11.0)
[2017-06-27 18:11] LABS: ANION GAP 11 MEQ/L (5-15); APTT (PATIENT) 46.2 SEC (24.3-30.1); BICARBONATE 20.9 MEQ/L (21.0-32.0); BLOOD UREA NITROGEN 4 MG/DL (7-18); CHLORIDE 106 MEQ/L (98-107); GLOMERULAR FILTRATION RATE 126 ML/MIN (>89); INTERNATIONAL NORMALIZED RATIO 1.3 RATIO; MAGNESIUM 2.2 MG/DL (1.5-2.5); POTASSIUM 4.1 MEQ/L (3.5-5.1); PROTHROMBIN TIME - PATIENT 14.8 SEC (9.8-11.6); SODIUM (NA) 138 MEQ/L (136-145)
[2017-06-27] MEDS ORDERED: SODIUM CHLORID 0.9% 500 ML INJ 500 ML IV ONE (18:15)
[2017-06-27 18:17] LABS: CREATINE KINASE 89 U/L (39-308)
[2017-06-27 18:26] LABS: ALCOHOL 359 MG/DL (0-5)
[2017-06-27] MEDS ORDERED: SODIUM CHLORIDE 0.9% FLUSH 10 ML FLUSH IV FLUSH PRN (18:30)
[2017-06-27 20:26] LABS: CREATINE KINASE 170 U/L (39-308)
[2017-06-27] MEDS ORDERED: SODIUM CHLORIDE 0.9% FLUSH 10 ML FLUSH IV FLUSH SCH (21:00)
--- NOTE | 2017-06-28 14:32 | EKG ---
Date Performed: 06/27/2017 Time Performed: 19:23:04 PTAGE: 57 years EKG: Sinus rhythm NONSPECIFIC T-WAVE ABNORMALITY BORDERLINE ECG PREVIOUS TRACING : 06/27/2017 17.01 Since previous tracing, no significant change noted DOCTOR: Jae Troy Interpretating Date/Time 06/28/2017 14:31:53
--- NOTE | 2017-06-28 14:33 | EKG ---
Date Performed: 06/27/2017 Time Performed: 17:01:13 PTAGE: 57 years EKG: Sinus rhythm NONSPECIFIC T-WAVE ABNORMALITY BORDERLINE ECG PREVIOUS TRACING : 06/02/2017 21.24 Since previous tracing, no significant change noted DOCTOR: Jae Troy Interpretating Date/Time 06/28/2017 14:32:21
== END 2017-06-27 21:23 | disposition home or self-care (01) ==
LOC: NEPC 16:54 → NEDA 18:21
DX: R07.9 Chest pain, unspecified (principal); R05 Cough; I10 Essential (primary) hypertension; Z91.19 Patient's noncompliance with other medical treatment and regimen; E78.00 Pure hypercholesterolemia, unspecified; Z95.1 Presence of aortocoronary bypass graft; R94.31 Abnormal electrocardiogram [ECG] [EKG]
CPT/HCPCS: 71010; 76937; 80048; 80307; 82550; 83735; 84484; 85025; 85610; 85730; 93005; 96374; 96376; 99285; G0378; J2270; J7040

== ENCOUNTER 2017-08-30 13:04 | Observation (INO) | payer MEDICARE ==
[2017-08-30] VITALS (7 sets, daily range): BP systolic 126–173; BP diastolic 82–100; PULSE 85–93; RESP 16–21; TEMP 97.9–98.6; O2SAT 94–97
[~2017-08-30] VITALS: Ht 180.3 cm; Wt 90.8 kg
[2017-08-30] MEDS ORDERED: ASPIRIN 81 MG CHEW TAB PO ONE (13:45)
[2017-08-30] MEDS ORDERED: SODIUM CHLORIDE 0.9% FLUSH 10 ML FLUSH IVF PRN (13:45)
[2017-08-30 14:14] LABS: AUTOMATED NEUTROPHIL # 2.8 TH/MM3 (1.8-7.7); BASOPHIL # 0.1 TH/MM3 (0-0.2); BASOPHIL % 1.2 % (0.0-2.0); EOSINOPHIL # 0.1 TH/MM3 (0-0.4); EOSINOPHIL % 1.1 % (0.0-4.0); HEMOGLOBIN 11.5 GM/DL (13.0-17.0); LYMPH % 35.6 % (9.0-44.0); LYMPHOCYTE # 1.8 TH/MM3 (1.0-4.8); MEAN CELL VOLUME 89.1 FL (80.0-100.0); MEAN CORPUSCULAR HEMOGLOBIN 29.2 PG (27.0-34.0); MEAN CORPUSCULAR HGB CONC 32.7 % (32.0-36.0); MEAN PLATELET VOLUME 6.9 FL (7.0-11.0); MONO % 7.3 % (0.0-8.0); MONOCYTE # 0.4 TH/MM3 (0-0.9); NEUT % 54.8 % (16.0-70.0); PLATELET COUNT 333 TH/MM3 (150-450); RED BLOOD COUNT 3.93 MIL/MM3 (4.50-5.90); RED CELL DISTRIBUTION WIDTH 16.9 % (11.6-17.2); WHITE BLOOD COUNT 5.1 TH/MM3 (4.0-11.0)
--- NOTE | 2017-08-30 14:15 | RADRPT ---
EXAM DATE/TIME: 08/30/2017 13:47 [facility] COMPARISON: CHEST SINGLE AP, June 27, 2017, 17:18. INDICATIONS : Chest pain and hernia MEDICAL HISTORY : Hepatitis C. Hypertension Hypercholesterolemia. SURGICAL HISTORY : CABG. Cholecystectomy. ENCOUNTER: Initial ACUITY: 1 day PAIN SCORE: 9/10 LOCATION: Bilateral chest FINDINGS: A single view of the chest demonstrates the lungs to be symmetrically aerated without evidence of mas s, infiltrate or effusion. The cardiomediastinal contours are unremarkable. Osseous structures are intact. Median sternotomy wires. CONCLUSION: No acute disease. Tyrone Lezama Jr., MD on August 30, 2017 at 14:12 Board Certified Radiologist. This report was verified electronically.
[2017-08-30 14:23] LABS: PROTHROMBIN TIME - PATIENT 10.3 SEC (9.8-11.6)
[2017-08-30 14:31] LABS: ALBUMIN 3.5 GM/DL (3.4-5.0); ALT (GPT) 31 U/L (12-78); AST (GOT) 47 U/L (15-37); BICARBONATE 23.5 MEQ/L (21.0-32.0); BLOOD UREA NITROGEN 9 MG/DL (7-18); CALCIUM 7.8 MG/DL (8.5-10.1); CHLORIDE 107 MEQ/L (98-107); CREATININE 0.83 MG/DL (0.60-1.30); GLOMERULAR FILTRATION RATE 95 ML/MIN (>89); GLUCOSE,RANDOM 80 MG/DL (74-106); MAGNESIUM 1.9 MG/DL (1.5-2.5); SODIUM (NA) 141 MEQ/L (136-145)
[2017-08-30 14:35] LABS: ALKALINE PHOSPHATASE 87 U/L (45-117); TOTAL BILIRUBIN ADULT 0.4 MG/DL (0.2-1.0); TOTAL PROTEIN 7.9 GM/DL (6.4-8.2); TROPONIN I LESS THAN 0.02 NG/ML (0.02-0.05)
--- NOTE | 2017-08-30 14:35 | PD ---
HPI Chief Complaint: Chest Pain Time Seen by Provider: 13:43 Travel History International Travel<30 days: No Contact w/Intl Traveler<30days: No Traveled to known affect area: No History of Present Illness HPI 57-year-old homeless man with a history of CABG 3 months ago presents to the emergency department for chest pain for 24 hours. Patient states that he had 2 episodes of syncope within 24 hours as well and states he had urinary incontinence. Patient states that his pain is located in the lower midsternal region that radiates to his left arm. Patient has chronic shortness of breath. Patient states that he has a headache, "hernia pain" and feels suicidal. Patient states he had one beer today and smokes one pack per day of tobacco. Patient denies any illicit drug use. Patient has not followed cardiology since his last visit. States his bisque kiln placer is Dr. Jackson. Says that he would kill himself by taking blood thinners. PFSH Past Medical History Arthritis: Yes Blood Disorders: No Bipolar Disorder: Yes Anxiety: Yes Depression: Yes Heart Rhythm Problems: Yes Cancer: Yes (BONE CANCERS) Cardiovascular Problems: Yes High Cholesterol: Yes Chemotherapy: No Chest Pain: Yes Congestive Heart Failure: No Cerebrovascular Accident: No Diabetes: No Diminished Hearing: No Endocrine: No Gastrointestinal Disorders: No Genitourinary: No Headaches: No Hepatitis: Yes Hypertension: Yes Immune Disorder: No Implanted Vascular Access Dvce: No Musculoskeletal: Yes (ARTHRITIS) Neurologic: No Psychiatric: No Reproductive: No Respiratory: No Radiation Therapy: No Seizures: No Thyroid Disease: No Past Surgical History Abdominal Surgery: No Body Medical Devices: PATIENT STATES HAS PLATE IN HEAD Cardiac Surgery: No Cholecystectomy: Yes Coronary Artery Bypass Graft: Yes (DOUBLE BYPASS) Ear Surgery: No Endocrine Surgery: No Eye Surgery: No Genitourinary Surgery: No Gynecologic Surgery: No Oral Surgery: No Thoracic Surgery: No Other Surgery: Yes (CABGX2, BONE GRAFTS, BACK SURGERY) Social History Alcohol Use: Yes (BEER DAILY) Tobacco Use: Yes (1/2 PPD) Substance Use: No Allergies-Medications (Allergen,Severity, Reaction): Coded Allergies: No Known Allergies (Unverified , 04/18/17) Reported Meds & Prescriptions Reported Meds & Active Scripts Active Polyethylene Glycol 3350 Powder (Polyethylene Glycol) 17 Gram Pow 17 Gm PO DAILY Dok (Docusate Sodium) 100 Mg Cap 100 Mg PO BID Oxycodone-Acetaminophen 5-325 mg Tab 1 Tab PO Q4HR PRN Aspirin Low Strength (Aspirin) 81 Mg Chew 81 Mg PO DAILY Metoprolol Tartrate 25 Mg Tab 12.5 Mg PO BID Atorvastatin (Atorvastatin Calcium) 20 Mg Tab 20 Mg PO HS Amiodarone (Amiodarone HCl) 200 Mg Tab 200 Mg PO Q12HR Zoloft (Sertraline HCl) 50 Mg Tab 75 Mg PO DAILY 30 Days Folic Acid 1 Mg Tablet 1 Mg PO DAILY Gnp Vitamin B-1 (Thiamine HCl) 100 Mg Tab 100 Mg PO DAILY Thera M Plus (Multivitamins/Minerals Therapeutic) 1 Tab 1 Tab PO DAILY Gnp Vitamin B-1 (Thiamine HCl) 100 Mg Tab 100 Mg PO DAILY 30 Days Ketoconazole Topical 2% Cream 1 Applic TOPICAL BID Review of Systems Except as stated in HPI: all other systems reviewed are Neg Physical Exam Narrative GENERAL: Well-developed well-nourished in no apparent distress SKIN: Focused skin assessment warm/dry. HEAD: Atraumatic. Normocephalic. EYES: Pupils equal and round. No scleral icterus. No injection or drainage. ENT: No nasal bleeding or discharge. Mucous membranes pink and moist. NECK: Trachea midline. No JVD. CARDIOVASCULAR: Regular rate and rhythm. No murmur appreciated. RESPIRATORY: No accessory muscle use. Clear to auscultation. Breath sounds equal bilaterally. GASTROINTESTINAL: Abdomen soft, non-tender, nondistended. Hepatic and splenic margins not palpable. MUSCULOSKELETAL: No obvious deformities. No clubbing. No cyanosis. No edema. Tender to palpation of the left chest wall NEUROLOGICAL: Awake and alert. No obvious cranial nerve deficits. Motor grossly within normal limits. Normal speech. PSYCHIATRIC: Appropriate mood and affect; insight and judgment normal. Data Data Last Documented VS Vital Signs Date Time Temp Pulse Resp B/P (MAP) Pulse Ox O2 Delivery O2 Flow Rate FiO2 08/30/17 19:05 16 97 Room Air 08/30/17 19:05 88 159/100 (119) 08/30/17 13:31 98.6 Orders Orders Electrocardiogram (08/30/17 13:43) Complete Blood Count With Diff (08/30/17 13:43) Comprehensive Metabolic Panel (08/30/17 13:43) Magnesium (Mg) (08/30/17 13:43) Prothrombin Time / Inr (Pt) (08/30/17 13:43) Act Partial Throm Time (Ptt) (08/30/17 13:43) Troponin I (08/30/17 13:43) Chest, Single Ap (08/30/17 13:43) Ecg Monitoring (08/30/17 13:43) Bilateral Bp Monitoring (08/30/17 13:43) Iv Access Insert/Monitor (08/30/17 13:43) Oximetry (08/30/17 13:43) Oxygen Administration (08/30/17 13:43) Sodium Chloride 0.9% Flush (Ns Flush) (08/30/17 13:45) Psych Screen (08/30/17 13:43) Drug Screen, Random Urine (08/30/17 13:43) Alcohol (Ethanol) (08/30/17 13:43) Ct Brain W/O Iv Contrast(Rout) (08/30/17 ) Ct Cerv Spine W/O Contrast (08/30/17 ) Troponin I (08/30/17 15:31) Morphine Inj (Morphine Inj) (08/30/17 15:45) Activity Bed Rest With Brp (08/30/17 19:03) Vital Signs (Adult) Q4H (08/30/17 19:03) Cardiac Rhythm .As Directed (08/30/17 19:03) Notify Dr: Other .PRN (08/30/17 19:03) Notify Parameters (08/30/17 19:03) Resp Oxygen Nasal Cannula (08/30/17 ) Ckmb (Isoenzyme) Profile (08/30/17 23:00) Troponin I (08/30/17 23:00) Electrocardiogram (08/30/17 19:03) ^ Obtain (08/30/17 19:03) Sodium Chloride 0.9% Flush (Ns Flush) (08/30/17 19:15) Sodium Chloride 0.9% Flush (Ns Flush) (08/30/17 21:00) School Bus Aide / Telemetry TORREY.Q8H (08/30/17 19:03) Admit Order (Ed Use Only) (08/30/17 19:03) CKMB (08/30/17 23:46) CKMB% (08/30/17 23:46) Labs Laboratory Tests Test 08/30/17 14:05 08/30/17 17:25 White Blood Count 5.1 TH/MM3 Red Blood Count 3.93 MIL/MM3 Hemoglobin 11.5 GM/DL Hematocrit 35.0 % Mean Corpuscular Volume 89.1 FL Mean Corpuscular Hemoglobin 29.2 PG Mean Corpuscular Hemoglobin Concent 32.7 % Red Cell Distribution Width 16.9 % Platelet Count 333 TH/MM3 Mean Platelet Volume 6.9 FL Neutrophils (%) (Auto) 54.8 % Lymphocytes (%) (Auto) 35.6 % Monocytes (%) (Auto) 7.3 % Eosinophils (%) (Auto) 1.1 % Basophils (%) (Auto) 1.2 % Neutrophils # (Auto) 2.8 TH/MM3 Lymphocytes # (Auto) 1.8 TH/MM3 Monocytes # (Auto) 0.4 TH/MM3 Eosinophils # (Auto) 0.1 TH/MM3 Basophils # (Auto) 0.1 TH/MM3 CBC Comment DIFF FINAL Differential Comment Prothrombin Time 10.3 SEC Prothromb Time International Ratio 1.0 RATIO Activated Partial Thromboplast Time 26.6 SEC Blood Urea Nitrogen 9 MG/DL Creatinine 0.83 MG/DL Random Glucose 80 MG/DL Total Protein 7.9 GM/DL Albumin 3.5 GM/DL Calcium Level 7.8 MG/DL Magnesium Level 1.9 MG/DL Alkaline Phosphatase 87 U/L Aspartate Amino Transf (AST/SGOT) 47 U/L Alanine Aminotransferase (ALT/SGPT) 31 U/L Total Bilirubin 0.4 MG/DL Sodium Level 141 MEQ/L Potassium Level 3.8 MEQ/L Chloride Level 107 MEQ/L Carbon Dioxide Level 23.5 MEQ/L Anion Gap 11 MEQ/L Estimat Glomerular Filtration Rate 95 ML/MIN Troponin I LESS THAN 0.02 NG/ML LESS THAN 0.02 NG/ML Urine Opiates Screen NEG Urine Barbiturates Screen NEG Urine Amphetamines Screen NEG Urine Benzodiazepines Screen NEG Urine Cocaine Screen NEG Urine Cannabinoids Screen POS Ethyl Alcohol Level 172 MG/DL [facility] Medical Decision Making Medical Screen Exam Complete: Yes Emergency Medical Condition: Yes Differential Diagnosis STEMI, and STEMI, atypical chest pain, angina, suicidal ideations, malingering Narrative Course 57-year-old male with a history of CABG presents to the emergency department complaining of chest pain with radiation to left arm that started yesterday. Says the pain is moderate. No palliative or provocative factors States that he does have associated mild shortness of breath but denies nausea, vomiting or diaphoresis. Patient has not followed up with a bisque kiln placer since his last procedure 3 months ago. States that he was diagnosed previously with a pleural effusion and thinks maybe this is cause of his chest pain. Patient further admits that he is suicidal and homeless and believes that he would kill himself by taking blood thinners. Denies illicit drug use and had one alcoholic drink today. States he drinks 2-3 beers a day. Patient received aspirin on ambulance today. Vital signs are stable. Physical exam findings consistent with a disheveled 57-year-old male in no acute distress. No cranial nerve deficits. Left knee tender to palpation and full range of motion. Chest pain reproducible with palpation of the left lower sternal border. Abdomen soft nontender. Initial cardiac enzymes negative. We'll repeat troponin at 3 hour trinh although I do not suspect this is of cardiac etiology. I believe that the patient is here for psych evaluation and admission. EKG demonstrates sinus rhythm without ST elevation or depression. It appears similar to EKG in June 2017. CBC & BMP Diagram 08/30/17 14:05 Total Protein 7.9, Albumin 3.5, Calcium Level 7.8 L, Magnesium Level 1.9, Alkaline Phosphatase 87, Aspartate Amino Transf (AST/SGOT) 47 H, Alanine Aminotransferase (ALT/SGPT) 31, Total Bilirubin 0.4 Last Impressions Chest X-Ray 08/30/17 1343 Signed Impressions: Service Date/Time: Wednesday, August 30, 2017 13:47 - CONCLUSION: No acute disease. Tyrone Lezama Jr., MD Head CT 08/30/17 0000 Signed Impressions: Service Date/Time: Wednesday, August 30, 2017 15:43 - CONCLUSION: Negative for an acute process. Niko Avilez MD FACR Cervical Spine CT 08/30/17 0000 Signed Impressions: Service Date/Time: Wednesday, August 30, 2017 15:45 - CONCLUSION: 1. No fracture or dislocation. 2. Multilevel degenerative changes as detailed at each level in the above discussion. Tyrone Lezama Jr., MD Delta troponin negative. No acute process on imaging studies. Urine drug screen positive for cannabinoids. Alcohol present. When I confronted the patient regarding cannabinoids in his UDS, patient admits to smoking occasionally. After further discussion regarding his alcohol use, he admits to drinking from ' sun up to sun down'. He says that he is starting to feel tremulous and admits to syncopal episodes with urinary incontinence. Patient will be administered Ativan. CIWA protocol recommended. Patient did not go the chest pain center because of his alcoholism and likely alcohol withdrawal. A [place] Act was initiated. Pt will be admitted to Dr. Mariee with psych and cardiology consult. Diagnosis Primary Impression: Suicidal ideation Additional Impressions: Atypical chest pain Alcohol withdrawal Qualified Codes: F10.230 - Alcohol dependence with withdrawal, uncomplicated Admitting Information Admitting Physician Requests: Admit Condition: Stable Kassie Aden Aug 30, 2017 14:35
[2017-08-30] MEDS ORDERED: MORPHINE SULFATE 2 MG/ML INJ IV PUSH ONE ×2 (15:45→19:15)
--- NOTE | 2017-08-30 16:00 | RADRPT ---
EXAM DATE/TIME: 08/30/2017 15:43 [facility] COMPARISON: CT BRAIN W/O CONTRAST, April 18, 2017, 13:08. INDICATIONS : Syncopal episode today. RADIATION DOSE: 56.35 CTDIvol (mGy) MEDICAL HISTORY : Hypertension. Hepatitis C. Carcinoma, bone. SURGICAL HISTORY : CABG ENCOUNTER: Initial ACUITY: 1 day PAIN SCALE: 0/10 LOCATION: Bilateral head TECHNIQUE: Multiple contiguous axial images were obtained of the head. Using automated exposure control and adj ustment of the mA and/or kV according to patient size, radiation dose was kept as low as reasonably a chievable to obtain optimal diagnostic quality images. DICOM format image data is available electro nically for review and comparison. FINDINGS: CEREBRUM: The ventricles are normal for age. No evidence of midline shift, mass lesion, hemorrhage or acute in farction. No extra-axial fluid collections are seen. POSTERIOR FOSSA: The cerebellum and brainstem are intact. The 4th ventricle is midline. The cerebellopontine angle i s unremarkable. EXTRACRANIAL: The visualized portion of the orbits is intact. SKULL: The calvaria is intact. No evidence of skull fracture. Minimal left maxillary sinus disease. CONCLUSION: Negative for an acute process. Niko Avilez MD FACR on August 30, 2017 at 15:58 Board Certified Radiologist. This report was verified electronically.
--- NOTE | 2017-08-30 16:18 | RADRPT ---
EXAM DATE/TIME: 08/30/2017 15:45 [facility] COMPARISON: CT CERVICAL SPINE W/O CONTRAST, April 10, 2017, 14:20. INDICATIONS : Suspected trauma to head and neck today. RADIATION DOSE: 25.39 CTDIvol (mGy) MEDICAL HISTORY : Carcinoma, bone. Hepatitis C. Hypertension. SURGICAL HISTORY : CABG ENCOUNTER: Initial ACUITY: 1 day PAIN SCALE: 0/10 LOCATION: Bilateral neck TECHNIQUE: Volumetric scanning of the cervical spine was performed. Multiplanar reconstructions in the sagittal, coronal and oblique axial planes were performed. Using automated exposure control and adjustment o f the mA and/or kV according to patient size, radiation dose was kept as low as reasonably achievable to obtain optimal diagnostic quality images. DICOM format image data is available electronically f or review and comparison. FINDINGS: VERTEBRAE: Normal vertebral body height. ALIGNMENT: No evidence of subluxation. C2-C3: The bony spinal canal is normal in size. No evidence of disc bulge or herniation. The neural forami na are bilaterally patent. C3-C4: There is disc space narrowing with a posterior disc osteophyte. This is nearly bridging. This abuts t he ventral portion of the cord in the midline. Bony uncovertebral hypertrophy generates moderate narr owing of the left neural foramen. The right remains patent. C4-C5: There is disc space narrowing with a bridging osteophyte posteriorly. This abuts the ventral portion of the cord within the midline. Neural foramina are patent bilaterally. C5-C6: There is considerable disc space narrowing with a broad-based disc osteophyte complex eccentric to th e right that flattens the right ventral portion of the cord. This effaces the right lateral recess. B geovanna uncovertebral hypertrophy generates severe right and moderate left neural foraminal narrowing. C6-C7: There is disc space narrowing with a broad-based disc osteophyte complex that flattens the ventral po rtion of the cord. Bony other vertebral hypertrophy contributes to moderate bilateral lateral recess and neural foraminal narrowing. C7-T1: The bony spinal canal is normal in size. No evidence of disc bulge or herniation. The neural forami na are bilaterally patent. CONCLUSION: 1. No fracture or dislocation. 2. Multilevel degenerative changes as detailed at each level in the above discussion. Tyrone Lezama Jr., MD on August 30, 2017 at 16:07 Board Certified Radiologist. This report was verified electronically.
[2017-08-30] MEDS ORDERED: SODIUM CHLORIDE 0.9% FLUSH 10 ML FLUSH IV FLUSH PRN ×3 (19:15→20:45)
[2017-08-30] MEDS ORDERED: LORazepam 2 MG/ML VIAL IV PUSH ONE (20:00)
[2017-08-30] MEDS ORDERED: NITROGLYCERIN 0.4 MG SL 25 TABS/BTL SL PRN (20:45)
[2017-08-30] MEDS ORDERED: FLUMAZENIL 0.5 MG/5 ML VIAL IV PUSH PRN (20:45)
[2017-08-30] MEDS ORDERED: LORazepam 2 MG/ML VIAL IV PUSH PRN ×4 (20:45)
[2017-08-30] MEDS ORDERED: SODIUM CHLORIDE 0.9% FLUSH 10 ML FLUSH IV FLUSH SCH ×2 (21:00)
[2017-08-30] MEDS ORDERED: PILL SPLITTER OTHER PRN (21:15)
[2017-08-30] MEDS ORDERED: MORPHINE SULFATE 2 MG/ML INJ IV PUSH PRN (21:15)
[2017-08-30] MEDS: FAMOTIDINE 20 MG TAB PO SCH (22:36)
[2017-08-30] MEDS: LORazepam 2 MG TAB PO PRN (22:36)
[2017-08-30] MEDS: METOPROLOL TARTRATE 25 MG TAB PO SCH (22:36)
--- NOTE | 2017-08-30 22:36 | HHI.HP ---
[facility] Service [facility] Primary Care Physician No Primary Care Physician Admission Diagnosis Chest pain Diagnoses: Travel History International Travel<30 Days: No Contact w/Intl Traveler <30 Da: No Traveled to Known Affected Are: No History of Present Illness 57-year-old male with a past medical history significant for anxiety, depression , hypertension, alcohol abuse, history of cocaine abuse and CABG done 3 months ago who presents to the emergency department for the evaluation of chest pain. The patient reports the pain is substernal and radiates down his left arm. He states that began 2 days ago and is associated with shortness of breath. He denies any lower extremity edema. Also reports recent episodes of blackouts and loss of bladder control. The patient is noncompliant with his medications and states he does not take them because he is stubborn. He also states that he would kill himself with a blood thinner if he had access to it at this time. Vital signs: Temperature 98.6, pulse 93, respiratory rate 21, BP 126/82, pulse ox 96% on room air. Review of Systems Denies fever or chills Denies blurry vision, otorrhea, rhinorrhea Denies sore throat and cough Positive chest pain, palpitations Positive shortness of breath, No wheezing No abdominal pain Denies constipation/diarrhea/nausea/vomiting Denies muscle pain Denies focal weakness No rashes Past Family Social History Past Medical History Anxiety, Depression, HTN, Alcohol Abuse, h/o Cocaine Abuse and recent CABG x2 - 3 months ago Past Surgical History CABG, Cholecystectomy, back surgery, right knee surgery, facial reconstruction Reported Medications Reported Meds & Active Scripts Active Polyethylene Glycol 3350 Powder (Polyethylene Glycol) 17 Gram Pow 17 Gm PO DAILY Dok (Docusate Sodium) 100 Mg Cap 100 Mg PO BID Oxycodone-Acetaminophen 5-325 mg Tab 1 Tab PO Q4HR PRN Aspirin Low Strength (Aspirin) 81 Mg Chew 81 Mg PO DAILY Metoprolol Tartrate 25 Mg Tab 12.5 Mg PO BID Atorvastatin (Atorvastatin Calcium) 20 Mg Tab 20 Mg PO HS Amiodarone (Amiodarone HCl) 200 Mg Tab 200 Mg PO Q12HR Zoloft (Sertraline HCl) 50 Mg Tab 75 Mg PO DAILY 30 Days Folic Acid 1 Mg Tablet 1 Mg PO DAILY Gnp Vitamin B-1 (Thiamine HCl) 100 Mg Tab 100 Mg PO DAILY Thera M Plus (Multivitamins/Minerals Therapeutic) 1 Tab 1 Tab PO DAILY Gnp Vitamin B-1 (Thiamine HCl) 100 Mg Tab 100 Mg PO DAILY 30 Days Ketoconazole Topical 2% Cream 1 Applic TOPICAL BID This is a list of the patient's most recent medications, he currently admits that he does not take any medications at this time because he is stubborn Allergies: Coded Allergies: No Known Allergies (Unverified , 04/18/17) Family History Denies family history of CAD/DM Social History Drinks approximately 14-16 beers daily. Has had withdrawal seizures in the past. Positive marijuana. Denies other illicit drugs. Denies tobacco. Physical Exam Vital Signs Vital Signs Date Time Temp Pulse Resp B/P (MAP) Pulse Ox O2 Delivery O2 Flow Rate FiO2 08/30/17 19:05 16 97 Room Air 08/30/17 19:05 88 16 159/100 (119) 96 Room Air 08/30/17 17:00 17 08/30/17 16:54 85 19 163/82 (109) 97 Room Air 08/30/17 13:36 91 Room Air 08/30/17 13:31 98.6 93 21 126/82 (97) 96 Physical Exam GENERAL: Thin, male lying in bed SKIN: No rashes, ecchymoses or lesions. Cool and dry. HEAD: Atraumatic. Normocephalic. No temporal or scalp tenderness. EYES: Pupils equal round and reactive. Extraocular motions intact. No scleral icterus. No injection or drainage. ENT: Nose without bleeding, purulent drainage or septal hematoma. Throat without erythema, tonsillar hypertrophy or exudate. Uvula midline. Airway patent. NECK: Trachea midline. No JVD or lymphadenopathy. Supple, nontender, no meningeal signs. CARDIOVASCULAR: Regular rate and rhythm without murmurs, gallops, or rubs. RESPIRATORY: Clear to auscultation. Breath sounds equal bilaterally. No wheezes , rales, or rhonchi. GASTROINTESTINAL: Abdomen soft, non-tender, nondistended. No hepato-splenomegaly , or palpable masses. No guarding. MUSCULOSKELETAL: Extremities without clubbing, cyanosis, or edema. No joint tenderness, effusion, or edema noted. No calf tenderness. NEUROLOGICAL: Awake and alert. Cranial nerves II through XII intact. Motor and sensory grossly within normal limits. Normal speech. Laboratory Laboratory Tests Test 08/30/17 14:05 08/30/17 17:25 White Blood Count 5.1 Red Blood Count 3.93 Hemoglobin 11.5 Hematocrit 35.0 Mean Corpuscular Volume 89.1 Mean Corpuscular Hemoglobin 29.2 Mean Corpuscular Hemoglobin Concent 32.7 Red Cell Distribution Width 16.9 Platelet Count 333 Mean Platelet Volume 6.9 Neutrophils (%) (Auto) 54.8 Lymphocytes (%) (Auto) 35.6 Monocytes (%) (Auto) 7.3 Eosinophils (%) (Auto) 1.1 Basophils (%) (Auto) 1.2 Neutrophils # (Auto) 2.8 Lymphocytes # (Auto) 1.8 Monocytes # (Auto) 0.4 Eosinophils # (Auto) 0.1 Basophils # (Auto) 0.1 CBC Comment DIFF FINAL Differential Comment Prothrombin Time 10.3 Prothromb Time International Ratio 1.0 Activated Partial Thromboplast Time 26.6 Blood Urea Nitrogen 9 Creatinine 0.83 Random Glucose 80 Total Protein 7.9 Albumin 3.5 Calcium Level 7.8 Magnesium Level 1.9 Alkaline Phosphatase 87 Aspartate Amino Transf (AST/SGOT) 47 Alanine Aminotransferase (ALT/SGPT) 31 Total Bilirubin 0.4 Sodium Level 141 Potassium Level 3.8 Chloride Level 107 Carbon Dioxide Level 23.5 Anion Gap 11 Estimat Glomerular Filtration Rate 95 Troponin I LESS THAN 0.02 LESS THAN 0.02 Urine Opiates Screen NEG Urine Barbiturates Screen NEG Urine Amphetamines Screen NEG Urine Benzodiazepines Screen NEG Urine Cocaine Screen NEG Urine Cannabinoids Screen POS Ethyl Alcohol Level 172 Result Diagram: 08/30/17 1405 08/30/17 1405 Caprini VTE Risk Assessment Caprini VTE Risk Assessment: No/Low Risk (score <= 1) Caprini Risk Assessment Model Point Value = 1 Point Value = 2 Point Value = 3 Point Value = 5 Age 41-60 Minor surgery BMI > 25 kg/m2 Swollen legs Varicose veins or History of unexplained or recurrent spontaneous Oral contraceptives or hormone replacement Sepsis (< 1 month) Serious lung disease, including pneumonia (< 1 month) Abnormal pulmonary function Acute myocardial infarction Congestive heart failure (< 1 month) History of inflammatory bowel disease Medical patient at bed rest Age 61-74 Arthroscopic surgery Major open surgery (> 45 min) Laparoscopic surgery (> 45 min) Malignancy Confined to bed (> 72 hours) Immobilizing plaster cast Central venous access Age >= 75 History of VTE Family history of VTE Factor V Leiden Prothrombin [id number] Lupus anticoagulant Anticardiolipin antibodies Elevated serum homocysteine Heparin-induced thrombocytopenia Other congenital or acquired thrombophilia Stroke (< 1 month) Elective arthroplasty Hip, pelvis, or leg fracture Acute spinal cord injury (< 1 month) Prophylaxis Regimen Total Risk Factor Score Risk Level Prophylaxis Regimen 0-1 Low Early ambulation 2 Moderate Order ONE of the following: *Sequential Compression Device (SCD) *Heparin 5000 units SQ BID 3-4 Higher Order ONE of the following medications: *Heparin 5000 units SQ TID *Enoxaparin/Lovenox 40 mg SQ daily (WT < 150 kg, CrCl > 30 mL/min) *Enoxaparin/Lovenox 30 mg SQ daily (WT < 150 kg, CrCl > 10-29 mL/min) *Enoxaparin/Lovenox 30 mg SQ BID (WT < 150 kg, CrCl > 30 mL/min) AND/OR *Sequential Compression Device (SCD) 5 or more Highest Order ONE of the following medications: *Heparin 5000 units SQ TID (Preferred with Epidurals) *Enoxaparin/Lovenox 40 mg SQ daily (WT < 150 kg, CrCl > 30 mL/min) *Enoxaparin/Lovenox 30 mg SQ daily (WT < 150 kg, CrCl > 10-29 mL/min) *Enoxaparin/Lovenox 30 mg SQ BID (WT < 150 kg, CrCl > 30 mL/min) AND *Sequential Compression Device (SCD) Assessment and Plan Assessment and Plan Assessment/plan: 1. Chest pain/CAD Patient with significant history of CAD status post CABG 2 - 3 months ago EKG significant for sinus rhythm without ST segment elevations or depressions, reviewed by me Initial troponin negative ACS rule out pending; serial troponin/EKGs Patient noncompliant with home medications - counseling provided as to the importance of medication compliance Restarted home medications 2. Alcohol abuse [facility] protocol Monitor for signs of withdrawal 3. Suicidal ideation/depression/anxiety Patient under [place] act Psychiatry consulted, appreciate recommendations Restarted patient's home zoloft 4. Hypertension/hyperlipidemia Continue home medications FEN Heart healthy diet Electrolytes: monitor and replete prn SCDs Patricia Mariee MD Aug 30, 2017 22:36
[2017-08-30] MEDS: SODIUM CHLORIDE 0.9% FLUSH 10 ML FLUSH IV FLUSH SCH (22:37)
[2017-08-30] MEDS: ENOXAPARIN SODIUM 40 MG/0.4 ML SYRINGE SQ SCH (22:37)
[2017-08-30] MEDS: AMIODARONE 200 MG TAB PO SCH (22:47)
[2017-08-30] MEDS: ATORVASTATIN 20 MG TAB PO SCH (22:47)
[2017-08-31] VITALS (9 sets, daily range): BP systolic 135–177; BP diastolic 88–104; PULSE 71–86; RESP 18–20; TEMP 97.6–98.1; O2SAT 93–97
[2017-08-31] MEDS: oxyCODONE/ACETAMINOPHEN 5 MG/325 MG TAB PO PRN ×5 (00:11→22:36)
[2017-08-31 00:32] LABS: TROPONIN I 0.02 NG/ML (0.02-0.05)
[2017-08-31 05:10] LABS: TROPONIN I LESS THAN 0.02 NG/ML (0.02-0.05)
[2017-08-31] MEDS: THIAMINE HCL 100 MG TAB PO SCH (07:29)
[2017-08-31] MEDS: MULTIVITAMINS/MINERALS THERAPEUTIC TAB PO SCH (07:29)
[2017-08-31] MEDS: FOLIC ACID 1 MG TAB PO SCH (07:29)
[2017-08-31] MEDS: FAMOTIDINE 20 MG TAB PO SCH ×2 (07:30→20:48)
[2017-08-31] MEDS: SERTRALINE HCL 50 MG TAB PO SCH (07:30)
[2017-08-31] MEDS: METOPROLOL TARTRATE 25 MG TAB PO SCH ×2 (07:31→20:48)
[2017-08-31] MEDS: AMIODARONE 200 MG TAB PO SCH (07:32)
[2017-08-31] MEDS: SODIUM CHLORIDE 0.9% FLUSH 10 ML FLUSH IV FLUSH SCH ×2 (07:32→20:47)
[2017-08-31] MEDS ORDERED: ASPIRIN 325 MG TAB PO SCH (09:00)
--- NOTE | 2017-08-31 11:40 | HHI.PR ---
Subjective Remarks Follow-up chest pain and suicidal ideations. Constant sharp chest pain with radiation to left upper extremity without associated sinus symptoms. Denies suicidal ideations. Objective Vitals Vital Signs Date Time Temp Pulse Resp B/P (MAP) Pulse Ox O2 Delivery O2 Flow Rate FiO2 08/31/17 08:15 98.1 71 18 177/97 (123) 94 08/31/17 07:17 73 08/31/17 05:01 97.9 86 20 135/95 (108) 95 08/30/17 23:20 96 21 08/30/17 22:35 90 08/30/17 22:25 98.4 89 18 173/94 (120) 94 08/30/17 19:05 16 97 Room Air 08/30/17 19:05 88 16 159/100 (119) 96 Room Air 08/30/17 17:00 17 08/30/17 16:54 85 19 163/82 (109) 97 Room Air 08/30/17 13:36 91 Room Air 08/30/17 13:31 98.6 93 21 126/82 (97) 96 I/O 08/30/17 08/30/17 08/30/17 08/31/17 08/31/17 08/31/17 07:00 15:00 23:00 07:00 15:00 23:00 Output Total 1200 ml Balance -1200 ml Output Urine Total 1200 ml Result Diagram: 08/30/17 1405 08/30/17 1405 Imaging Last Impressions Chest X-Ray 08/30/17 1343 Signed Impressions: Service Date/Time: Wednesday, August 30, 2017 13:47 - CONCLUSION: No acute disease. Tyrone Lezama Jr., MD Head CT 08/30/17 0000 Signed Impressions: Service Date/Time: Wednesday, August 30, 2017 15:43 - CONCLUSION: Negative for an acute process. Niko Avilez MD FACR Cervical Spine CT 08/30/17 0000 Signed Impressions: Service Date/Time: Wednesday, August 30, 2017 15:45 - CONCLUSION: 1. No fracture or dislocation. 2. Multilevel degenerative changes as detailed at each level in the above discussion. Tyrone Lezama Jr., MD Objective Remarks GENERAL: Thin, male lying in bed SKIN: No rashes, ecchymoses or lesions. Cool and dry. CARDIOVASCULAR: Regular rate and rhythm without murmurs, gallops, or rubs. Tender chest wall RESPIRATORY: Clear to auscultation. Breath sounds equal bilaterally. No wheezes , rales, or rhonchi. GASTROINTESTINAL: Abdomen soft, non-tender, nondistended. No guarding. MUSCULOSKELETAL: Extremities without clubbing, cyanosis, or edema. No joint tenderness, effusion, or edema noted. No calf tenderness. NEUROLOGICAL: Awake and alert. Cranial nerves II through XII intact. Motor and sensory grossly within normal limits. Normal speech. Procedures none A/P Problem List: (1) Chest pain ICD Code: R07.9 - Chest pain, unspecified Assessment and Plan 1. Chest pain/CAD Patient with significant history of CAD status post CABG 2 - 3 months ago EKG significant for sinus rhythm without ST segment elevations or depressions, reviewed by me This is atypical. Patient ruled out for NC. This is likely musculoskeletal. Start NSAIDs Patient noncompliant with home medications - counseling provided as to the importance of medication compliance Restarted home medications. Await cardiology evaluation 2. Alcohol abuse [facility] protocol Monitor for signs of withdrawal 3. Suicidal ideation/depression/anxiety Patient under [place] act Psychiatry consulted, appreciate recommendations Restarted patient's home zoloft 4. Hypertension/hyperlipidemia Continue home medications FEN Heart healthy diet Electrolytes: monitor and replete prn SCDs Discharge Planning Possible discharge in the morning when cleared by cardiology and psychiatry Hardy Anderson MD Aug 31, 2017 11:40
[2017-08-31] MEDS: LORazepam 1 MG TAB PO PRN (12:02)
--- NOTE | 2017-08-31 13:41 | MB ---
cc: ADRIEN PRESCOTT DO DATE OF CONSULTATION 08/31/2017 REASON FOR CONSULTATION Chest pain. HISTORY OF PRESENT ILLNESS Brett Robertson is a 57-year-old male who presented to [facility] Emergency Room on August 30, 2017 due to chest pain. He states that he has had this chest pain since his bypass three months ago. He previously presented with a similar type episode in May and at that time was found to have a pleural effusion. He underwent a thoracentesis. He states that the chest pain seems to hurt a lot worse whenever he takes a deep breath and that the chest pain is sharp and stabbing in nature. The patient states that he had two episodes of passing out while walking and during these he urinated on himself, unsure if there was any seizure activity. He states that he stopped all medications as he does not want to take any other medications. He has also talked about committing suicide and states that if he was placed on any blood thinners that he would overdose on them trying to kill myself. Overall in seeing him he is currently hemodynamically stable without chest pain or shortness of breath but states that he feels that he is done with life and overall depressed. PAST MEDICAL HISTORY 1. Coronary artery disease. 2. Anxiety. 3. Depression. 4. Hypertension. 5. History of alcohol abuse. 6. History of cocaine abuse. PAST SURGICAL HISTORY 1. Coronary artery bypass grafting x2 (May 18, 2017) with ROJAS to LAD, SVG to diagonal. 2. Cholecystectomy. 3. Back surgery. 4. Right knee surgery. 5. Facial reconstruction. ALLERGIES No known drug allergies. MEDICATIONS The patient states that he has stopped all of his medications that he was previously on because he does not want to take him. He was previously on: 1. Amiodarone 200 mg b.i.d. 2. Lipitor 20 mg every night. 3. Metoprolol tartrate 12.5 mg b.i.d. 4. Aspirin 81 mg daily. 5. Oxycodone/acetaminophen 5/325 every 4 hours as needed for pain. 6. Zoloft 75 mg daily. 7. Folic acid 1 mg daily. 8. Thiamine 100 mcg daily. FAMILY HISTORY Denies premature coronary artery disease or sudden cardiac within the family. SOCIAL HISTORY The patient drinks approximately 14-16 beers daily. He has had withdrawal seizures in the past. He has a history of marijuana and cocaine abuse. REVIEW OF SYSTEMS 14-systems were reviewed including osteopathic. Pertinent positives and negatives as above, otherwise negative. PHYSICAL EXAMINATION VITAL SIGNS: Temperature 98.0, heart rate 77, blood pressure 149/94, respirations 18, pulse ox 93% on room air. GENERAL: In general the patient appears thin and overall disheveled. Alert, awake and oriented x3. HEENT: Extraocular muscles intact. Mucous membranes moist. NECK: Supple. No JVD at 45 degrees. No carotid bruits heard bilaterally. Carotid upstroke is brisk in nature. HEART: Regular rate and rhythm. Positive first and second heart sounds without murmurs, gallops or rubs. Sternotomy is clean, dry and intact. LUNGS: Clear to auscultation bilaterally. No wheezes, rales or rhonchi. ABDOMEN: Soft, nontender, nondistended. No organomegaly noted. EXTREMITIES: No clubbing, cyanosis or edema. Femoral and distal pulses are intact bilaterally. NEUROLOGIC: No focal deficits. PSYCHOLOGIC: Appears overall depressed. LABORATORY Hemoglobin 11.5, hematocrit 35.0, platelets 333. Potassium 3.8, BUN 9, creatinine 0.83. Troponin negative x3. ELECTROCARDIOGRAM Electrocardiogram (August 31, 2017 at 0344): Sinus rhythm, no acute ST-T wave changes. IMPRESSION 1. Atypical chest pain, possibly pleuritic in nature. 2. Coronary artery disease with a history of CABG. 3. History of alcohol abuse. 4. History of marijuana abuse. 5. History of cocaine abuse. 6. Suicidal ideation with severe depression. 7. History of hypertension. 8. History of hyperlipidemia. RECOMMENDATIONS 1. Brett appears to have chest pain but is very atypical for coronary artery disease and most likely is pleuritic in nature. 2. His EKG shows no ischemic changes, his chest pain has been relatively constant which would go against coronary artery disease and his troponins have been negative. Would not plan on doing further ischemic evaluation at this time. The other problem with this is that he would not take any type of antiplatelet or anticoagulation as he states that he would attempt to overdose on this trying to kill himself. 3. Agree with psych evaluation due to his suicidal ideation. 4. Would restart him on his previous cardiovascular medications. 5. Would plan on attempting to wean off his amiodarone as this should have been most likely stopped post surgery. Apparently he went into atrial fibrillation post surgery but would not place on anticoagulation due to was suicidal ideation. Thank you for allowing me to see Brett Robertson. If there are any questions please do not hesitate to call. dArien Prescott DO VGP/BT /12:51 PM /1:24 PM
--- NOTE | 2017-08-31 14:43 | PD.PSY.CON ---
Provisional Diagnosis Admission Date Aug 30, 2017 at 19:08 [place] I. Alcohol induced mood disorder, alcohol use disorder, history of bipolar disorder [place] II. Deferred History of Present Illness Service Psychiatry Consult Requested By ER team Reason for Consult Suicidal ideation Primary Care Physician No Primary Care Physician HPI The patient is a 57-year-old man, domiciled with a friend in [facility], , unemployed, supported by [facility], with psychiatric history of self reported bipolar disorder, depression, anxiety, alcohol, cocaine and cannabis use disorder, previous psychiatric hospitalizations, numerous ER visits with alcohol related issues, suicidal attempts, history of self cutting behavior, impulse control disorder, incarcerations, with a past medical history significant for CABG done 3 months ago who presents to the emergency department for the evaluation of chest pain. The patient reports the pain is substernal and radiates down his left arm. He states that began 2 days ago and is associated with shortness of breath. He denies any lower extremity edema. Also reports recent episodes of blackouts and loss of bladder control. The patient is noncompliant with his medications and states he does not take them because he is stubborn. He also states that he would kill himself with a blood thinner if he had access to it at this time. Vital signs: Temperature 98.6, pulse 93, respiratory rate 21, BP 126/82, pulse ox 96% on room air. The patient is under [place] act due to suicidal ideation at his arrival in the ER. Psychiatric evaluation today patient is calm, cooperative, stating that he wants help. He says that he wants to go to detox for alcohol. Patient says that he has been abusing alcohol profusely in the last days. Patient says that he doesn't want to "I just want help with my alcoholism". Patient says that he does not remember stating that he was suicidal "and if I did it, it was just to get the attention". At this moment patient denies depression, denies anxiety, denies suicidal and homicidal ideation, denies visual and auditory hallucinations. Patient is asking for Ativan for withdrawal symptoms. He reports sweating and shaking. Review of Systems Constitutional: DENIES: Diaphoretic episodes, Fatigue, Fever, Weight gain, Weight loss, Chills, Dizziness, Change in appetite, Night Sweats Endocrine: DENIES: Heat/cold intolerance, Polydipsia, Polyuria, Polyphagia Eyes: DENIES: Blurred vision, Diplopia, Eye inflammation, Eye pain, Vision loss , Photosensitivity, Double Vision Ears, nose, mouth, throat: DENIES: Tinnitus, Hearing loss, Vertigo, Nasal discharge, Oral lesions, Throat pain, Hoarseness, Ear Pain, Running Nose, Epistaxis, Sinus Pain, Toothache, Odynophagia Respiratory: DENIES: Apneas, Cough, Snoring, Wheezing, Hemoptysis, Sputum production, Shortness of breath Cardiovascular: DENIES: Chest pain, Palpitations, Syncope, Dyspnea on Exertion , PND, Lower Extremity Edema, Orthopnea, Claudication Gastrointestinal: DENIES: Abdominal pain, Black stools, Bloody stools, Constipation, Diarrhea, Nausea, Vomiting, Difficulty Swallowing, Anorexia Genitourinary: DENIES: Sexual dysfunction, Urinary frequency, Urinary incontinence, Urgency, Hematuria, Dysuria, Nocturia, Penile Discharge, Testicular Pain, Testicular Swelling Musculoskeletal: DENIES: Joint pain, Muscle aches, Stiffness, Joint Swelling, Back pain, Neck pain Integumentary: DENIES: Abnormal pigmentation, Nail changes, Pruritus, Rash Hematologic/lymphatic: DENIES: Bruising, Lymphadenopathy Immunologic/allergic: DENIES: Eczema, Urticaria Neurologic: DENIES: Abnormal gait, Headache, Localized weakness, Paresthesias, Seizures, Speech Problems, Tremor, Poor Balance Psychiatric: DENIES: Anxiety, Confusion, Mood changes, Depression, Hallucinations, Agitation, Suicidal Ideation, Homicidal Ideation, Delusions Past Family Social History Coded Allergies: No Known Allergies (Unverified , 04/18/17) Active Scripts Polyethylene Glycol 3350 Powder (Polyethylene Glycol 3350 Powder) 17 Gram Pow, 17 GM PO DAILY for Constipation, #30 PACKET 0 Refills Prov:Darshana Whitmore 05/21/17 Docusate Sodium (Dok) 100 Mg Cap, 100 MG PO BID for Constipation, #60 CAP 0 Refills Prov:Darshana Whitmore 05/21/17 Oxycodone-Acetaminophen (Oxycodone-Acetaminophen) 5-325 mg Tab, 1 TAB PO Q4HR Y for PAIN SCALE 1 TO 5, #40 TAB 0 Refills Prov:Darshana Whitmore 05/21/17 Aspirin (Aspirin Low Strength) 81 Mg Chew, 81 MG PO DAILY for Blood Clot Prevention, #30 EA 2 Refills Prov:Darshana Whitmore 05/21/17 Metoprolol Tartrate (Metoprolol Tartrate) 25 Mg Tab, 12.5 MG PO BID for Blood Pressure Management, #60 TAB 2 Refills Prov:Darshana Whitmore 05/21/17 Atorvastatin (Atorvastatin) 20 Mg Tab, 20 MG PO HS for Cholesterol Management, # 30 TAB 2 Refills Prov:Darshana Whitmore 05/21/17 Amiodarone (Amiodarone) 200 Mg Tab, 200 MG PO Q12HR for heart rhythm, #28 TAB 0 Refills Prov:Darshana Whitmore 05/21/17 Sertraline (Zoloft) 50 Mg Tab, 75 MG PO DAILY for health for 30 Days, #30 TAB 2 Refills Prov:Darshana Whitmore 05/21/17 Folic Acid (Folic Acid) 1 Mg Tablet, 1 MG PO DAILY for Alcohol Detox, #30 TAB- CAP 2 Refills Prov:Darshana Whitmore 05/21/17 Thiamine HCl ([facility] Vitamin B-1) 100 Mg Tab, 100 MG PO DAILY for Alcohol Detox, # 30 TAB 2 Refills Prov:Darshana WhitmoreP 05/21/17 Multiple Vitamins W/ Minerals (Thera M Plus) 1 Tab, 1 TAB PO DAILY for Alcohol Detox, #30 TAB 2 Refills Prov:Darshana WhitmoreP 05/21/17 Thiamine HCl ([facility] Vitamin B-1) 100 Mg Tab, 100 MG PO DAILY for health for 30 Days, #30 TAB Prov:Roger Hoover MD 05/11/17 Ketoconazole Topical (Ketoconazole Topical) 2% Cream, 1 APPLIC TOPICAL BID for Fungal Infection, #15 GM 0 Refills Prov:Comfort Donaldson [facility] 02/02/17 Current Medications Medications (Trade) Dose Ordered Sig/Jv Route Start Time Stop Time Status Last Admin (NS Flush) 2 ml BID IV FLUSH 08/30/17 21:00 08/31/17 07:32 (NS Flush) 2 ml UNSCH PRN IV FLUSH 08/30/17 20:45 (Nitrostat Sl) 0.4 mg Q5M PRN SL 08/30/17 20:45 08/31/17 07:32 (Morphine Inj) 2 mg Q3HR PRN IV PUSH 08/30/17 21:15 (Pepcid) 20 mg BID PO 08/30/17 21:00 08/31/17 07:30 (Lovenox Inj) 40 mg Q24H SQ 08/30/17 22:00 08/30/17 22:37 (Lipitor) 20 mg HS PO 08/30/17 21:15 08/30/17 22:47 (Lopressor) 12.5 mg BID PO 08/30/17 21:00 08/31/17 07:31 (Percocet 5-325 Mg) 1 tab Q4HR PRN PO 08/30/17 20:45 08/31/17 12:03 (Zoloft) 25 mg DAILY PO 08/31/17 09:00 08/31/17 07:30 (Folate) 1 mg DAILY PO 08/31/17 09:00 09/05/17 08:59 08/31/17 07:29 (Vitamin B1) 100 mg DAILY PO 08/31/17 09:00 08/31/17 07:29 (Theragran M Tab) 1 tab DAILY PO 08/31/17 09:00 09/05/17 08:59 08/31/17 07:29 (Romazicon Inj) 0.2 mg Q1M PRN IV PUSH 08/30/17 20:45 (Ativan) 1 mg Q4H PRN PO 08/30/17 20:45 08/31/17 12:02 (Ativan Inj) 1 mg Q4H PRN IV PUSH 08/30/17 20:45 (Ativan) 2 mg Q2H PRN PO 08/30/17 20:45 08/30/17 22:36 (Ativan Inj) 2 mg Q2H PRN IV PUSH 08/30/17 20:45 (Ativan Inj) 2 mg Q1H PRN IV PUSH 08/30/17 20:45 (Ativan Inj) 2 mg Q15M PRN IV PUSH 08/30/17 20:45 (Pill Splitter) 1 ea UNSCH PRN OTHER 08/30/17 21:15 (Flu (Quadrivalent) Vaccine Inj) 0.5 ml ONCE ONCE IM 09/01/17 10:00 09/01/17 10:01 (Cordarone) 200 mg DAILY PO 09/01/17 09:00 (Aspirin Chew) 81 mg DAILY CHEW 09/01/17 09:00 Family Psych History No family psychiatric history Social History Patient was born in [place], he lives with a friend Prabhu, he is , unemployed, supported by [facility], he has a two-year college Patient's Strengths (min. 2) Verbal, motivated to detox Physical Exam Some mild bilateral tremors Vital Signs Vital Signs Date Time Temp Pulse Resp B/P (MAP) Pulse Ox O2 Delivery O2 Flow Rate FiO2 08/31/17 12:12 98.0 77 18 149/94 (112) 93 08/30/17 23:20 21 08/30/17 19:05 Room Air I/O 08/31/17 08/31/17 08/31/17 07:59 15:59 23:59 Output Total 1200 ml Balance -1200 ml Lab Results Test 08/30/17 17:25 08/30/17 23:46 08/31/17 04:44 Troponin I LESS THAN 0.02 NG/ML 0.02 NG/ML LESS THAN 0.02 NG/ML Total Creatine Kinase 157 U/L 296 U/L Creatine Kinase MB 1.1 NG/ML Lipase 155 U/L Mental Status Examination Appearance: Appropriate Consciousness: Alert Orientation: x4 Motor Activity: Normal gait Speech: Unremarkable Language: Adequate Fund of Knowledge: Adequate Attention and Concentration: Adequate Memory: Unremarkable Mood: Appropriate Affect: Appropriate Thought Process & Associations: Intact Thought Content: Appropriate Hallucination Type: None Delusion Type: None Suicidal Ideation: No Suicidal Plan: No Suicidal Intention: No Homicidal Ideation: No Homicidal Plan: No Homicidal Intention: No Insight: Adequate Judgment: Adequate Assessment & Plan Problem List: (1) Substance induced mood disorder ICD Codes: F19.94 - Other psychoactive substance use, unspecified with psychoactive substance-induced mood disorder Status: Acute Assessment & Plan: On psychiatric evaluation today the patient denies suicidal ideation, he denies depression, he denies anxiety, he denies cody and psychosis. He does report bilateral tremors and sweating related with alcohol withdrawal. She says that he wants detox and he wants help. He is future oriented, oriented 3, logical, coherent and relevant. Able to admit that he expressed suicidal ideation with the intentions of getting attention. Patient has an extensive history of ER visits with alcohol related problems. Patient does not meet criteria for involuntary psychiatric admission. Continue medical treatment as needed. CIWA protocol. Documented suicidal ideation was most probably the result of acute alcohol intoxication and conscious simulation in order to use the hospital as a residential and detox. Lift [place] act Assessment & Plan Estimated LOS: days Stanford Pineda MD Aug 31, 2017 14:43
[2017-08-31] MEDS: LORazepam 2 MG TAB PO PRN ×2 (15:57→20:49)
--- NOTE | 2017-08-31 17:27 | EKG ---
Date Performed: 08/31/2017 Time Performed: 03:44:54 PTAGE: 57 years EKG: Sinus rhythm NORMAL ECG PREVIOUS TRACING : 08/30/2017 19.13 DOCTOR: Jessica Esquivel Interpretating Date/Time 08/31/2017 17:22:58
--- NOTE | 2017-08-31 17:38 | EKG ---
Date Performed: 08/30/2017 Time Performed: 19:13:47 PTAGE: 57 years EKG: Sinus rhythm NONSPECIFIC T-WAVE ABNORMALITY BORDERLINE ECG PREVIOUS TRACING : 08/30/2017 13.47 DOCTOR: Jessica Esquivel Interpretating Date/Time 08/31/2017 17:29:42
--- NOTE | 2017-08-31 17:45 | EKG ---
Date Performed: 08/30/2017 Time Performed: 13:47:34 PTAGE: 57 years EKG: Sinus rhythm NONSPECIFIC T-WAVE ABNORMALITY BORDERLINE ECG INTERPRETATION BASED ON A DEFAULT AGE OF 39 YEARS PREVIOUS TRACING : 06/27/2017 19.23 DOCTOR: Jessica Esquivel Interpretating Date/Time 08/31/2017 17:38:07
[2017-08-31] MEDS: ENOXAPARIN SODIUM 40 MG/0.4 ML SYRINGE SQ SCH (20:48)
[2017-08-31] MEDS: ATORVASTATIN 20 MG TAB PO SCH (20:48)
[2017-08-31] MEDS: IBUPROFEN 600 MG TAB PO PRN (20:49)
[2017-09-01] VITALS (10 sets, daily range): BP systolic 132–183; BP diastolic 91–106; PULSE 67–96; RESP 18; TEMP 97.6–98.5; O2SAT 95–97
[2017-09-01] MEDS: LORazepam 2 MG TAB PO PRN (01:42)
[2017-09-01] MEDS: oxyCODONE/ACETAMINOPHEN 5 MG/325 MG TAB PO PRN ×3 (03:19→21:18)
[2017-09-01] MEDS ORDERED: cloNIDine HCL 0.1 MG TAB PO PRN (08:00)
[2017-09-01] MEDS: THIAMINE HCL 100 MG TAB PO SCH (09:19)
[2017-09-01] MEDS: METOPROLOL TARTRATE 25 MG TAB PO SCH ×2 (09:19→21:16)
[2017-09-01] MEDS: LORazepam 1 MG TAB PO PRN ×2 (09:19→17:05)
[2017-09-01] MEDS: SERTRALINE HCL 50 MG TAB PO SCH (09:20)
[2017-09-01] MEDS: SODIUM CHLORIDE 0.9% FLUSH 10 ML FLUSH IV FLUSH SCH ×2 (09:20→21:16)
[2017-09-01] MEDS: AMIODARONE 200 MG TAB PO SCH (09:20)
[2017-09-01] MEDS: FOLIC ACID 1 MG TAB PO SCH (09:21)
[2017-09-01] MEDS: MULTIVITAMINS/MINERALS THERAPEUTIC TAB PO SCH (09:21)
[2017-09-01] MEDS: chlordiazePOXIDE 25 MG CAP PO SCH ×3 (09:21→18:41)
[2017-09-01] MEDS: ASPIRIN 81 MG CHEW TAB CHEW SCH (09:21)
[2017-09-01] MEDS: FAMOTIDINE 20 MG TAB PO SCH ×2 (09:21→21:16)
[2017-09-01] MEDS ORDERED: INFLUENZA VIRUS VACCINE (QUADRIVALENT) 0.5 ML SYR IM ONE (10:00)
[2017-09-01] MEDS: IBUPROFEN 600 MG TAB PO PRN ×2 (10:43→17:05)
--- NOTE | 2017-09-01 13:56 | PD.CARD.PN ---
Subjective Subjective Remarks No events overnight Still feels anxious/shaky Objective Medications Current Medications Medications (Trade) Dose Ordered Sig/Jv Route Start Time Stop Time Status Last Admin (NS Flush) 2 ml BID IV FLUSH 08/30/17 21:00 09/01/17 09:20 (NS Flush) 2 ml UNSCH PRN IV FLUSH 08/30/17 20:45 (Nitrostat Sl) 0.4 mg Q5M PRN SL 08/30/17 20:45 08/31/17 07:32 (Pepcid) 20 mg BID PO 08/30/17 21:00 09/01/17 09:21 (Lovenox Inj) 40 mg Q24H SQ 08/30/17 22:00 08/31/17 20:48 (Lipitor) 20 mg HS PO 08/30/17 21:15 08/31/17 20:48 (Percocet 5-325 Mg) 1 tab Q4HR PRN PO 08/30/17 20:45 09/01/17 13:11 (Zoloft) 25 mg DAILY PO 08/31/17 09:00 09/01/17 09:20 (Folate) 1 mg DAILY PO 08/31/17 09:00 09/05/17 08:59 09/01/17 09:21 (Vitamin B1) 100 mg DAILY PO 08/31/17 09:00 09/01/17 09:19 (Theragran M Tab) 1 tab DAILY PO 08/31/17 09:00 09/05/17 08:59 09/01/17 09:21 (Romazicon Inj) 0.2 mg Q1M PRN IV PUSH 08/30/17 20:45 (Ativan) 1 mg Q4H PRN PO 08/30/17 20:45 09/01/17 09:19 (Ativan Inj) 1 mg Q4H PRN IV PUSH 08/30/17 20:45 (Ativan) 2 mg Q2H PRN PO 08/30/17 20:45 09/01/17 01:42 (Ativan Inj) 2 mg Q2H PRN IV PUSH 08/30/17 20:45 (Ativan Inj) 2 mg Q1H PRN IV PUSH 08/30/17 20:45 (Ativan Inj) 2 mg Q15M PRN IV PUSH 08/30/17 20:45 (Pill Splitter) 1 ea UNSCH PRN OTHER 08/30/17 21:15 (Cordarone) 200 mg DAILY PO 09/01/17 09:00 09/01/17 09:20 (Aspirin Chew) 81 mg DAILY CHEW 09/01/17 09:00 09/01/17 09:21 (Motrin) 600 mg Q6H PRN PO 08/31/17 18:15 09/01/17 10:43 (Lopressor) 25 mg BID PO 09/01/17 09:00 09/01/17 09:19 (Catapres) 0.1 mg Q6H PRN PO 09/01/17 08:00 (Librium) 25 mg TID PO 09/01/17 09:00 09/01/17 13:11 Vital Signs / I&O Vital Signs Date Time Temp Pulse Resp B/P (MAP) Pulse Ox O2 Delivery O2 Flow Rate FiO2 09/01/17 12:42 97.6 67 18 167/92 (117) 95 09/01/17 08:05 98.0 87 18 157/101 (119) 95 09/01/17 04:49 79 09/01/17 04:24 98.5 88 18 183/106 (131) 97 09/01/17 00:34 97.9 72 18 166/100 (122) 97 08/31/17 21:07 97.6 77 18 160/100 (120) 96 08/31/17 17:08 77 08/31/17 16:12 168/88 (114) 08/31/17 16:04 97.8 75 18 171/104 (126) 97 I/O 08/31/17 08/31/17 08/31/17 09/01/17 09/01/17 09/01/17 07:00 15:00 23:00 07:00 15:00 23:00 Intake Total 500 ml Output Total 1200 ml Balance -1200 ml 500 ml Intake Oral 500 ml Output Urine Total 1200 ml # Voids 2 2 Physical Exam GENERAL: AAOx3, anxious SKIN: Warm and dry. HEAD: Atraumatic. Normocephalic. EYES: Pupils equal and round. No scleral icterus. No injection or drainage. ENT: No nasal bleeding or discharge. Mucous membranes pink and moist. NECK: Trachea midline. No JVD. CARDIOVASCULAR: Regular rate and rhythm. RESPIRATORY: No accessory muscle use. Clear to auscultation. Breath sounds equal bilaterally. GASTROINTESTINAL: Abdomen soft, non-tender, nondistended. Hepatic and splenic margins not palpable. MUSCULOSKELETAL: Extremities without clubbing, cyanosis, or edema. No obvious deformities. NEUROLOGICAL: Awake and alert. No obvious cranial nerve deficits. Motor grossly within normal limits. Five out of 5 muscle strength in the arms and legs. Normal speech. Assessment and Plan Problem List: (1) Substance induced mood disorder ICD Codes: F19.94 - Other psychoactive substance use, unspecified with psychoactive substance-induced mood disorder Status: Acute (2) S/P CABG x 2 ICD Codes: Z95.1 - Presence of aortocoronary bypass graft Status: Acute (3) Homeless ICD Codes: Z59.0 - Homelessness Status: Acute (4) Alcohol abuse ICD Codes: F10.10 - Alcohol abuse, uncomplicated (5) Atypical chest pain ICD Codes: R07.89 - Other chest pain Status: Acute (6) Suicidal ideation ICD Codes: R45.851 - Suicidal ideations Status: Acute (7) Alcohol withdrawal ICD Codes: F10.239 - Alcohol dependence with withdrawal, unspecified Status: Resolved (8) Coronary artery disease ICD Codes: I25.10 - Atherosclerotic heart disease of [place] coronary artery without angina pectoris Status: Acute Assessment and Plan 1) Atypical chest pain Chronic in nature Admits that he will use blood thinners if given to try to commit suicide 2) No ischemic work up 3) Con't current management per primary team and psych 4) Con't current cardiac medications Wean off Amiodarone, 200mg daily for a week then stop Problem Qualifiers (1) Alcohol withdrawal: Qualified Codes: F10.230 - Alcohol dependence with withdrawal, uncomplicated Adrien Carr DO Sep 01, 2017 13:56
--- NOTE | 2017-09-01 13:58 | HHI.PR ---
Subjective Remarks Follow-up alcohol withdrawal. Reports of visual hallucinations last night non- today. Uncontrolled BP with worsening tremors. Discussed with nursing staff Objective Vitals Vital Signs Date Time Temp Pulse Resp B/P (MAP) Pulse Ox O2 Delivery O2 Flow Rate FiO2 09/01/17 12:42 97.6 67 18 167/92 (117) 95 09/01/17 08:05 98.0 87 18 157/101 (119) 95 09/01/17 04:49 79 09/01/17 04:24 98.5 88 18 183/106 (131) 97 09/01/17 00:34 97.9 72 18 166/100 (122) 97 08/31/17 21:07 97.6 77 18 160/100 (120) 96 08/31/17 17:08 77 08/31/17 16:12 168/88 (114) 08/31/17 16:04 97.8 75 18 171/104 (126) 97 I/O 08/31/17 08/31/17 08/31/17 09/01/17 09/01/17 09/01/17 07:00 15:00 23:00 07:00 15:00 23:00 Intake Total 500 ml Output Total 1200 ml Balance -1200 ml 500 ml Intake Oral 500 ml Output Urine Total 1200 ml # Voids 2 2 Result Diagram: 08/30/17 1405 08/30/17 1405 Imaging Last Impressions Chest X-Ray 08/30/17 1343 Signed Impressions: Service Date/Time: Wednesday, August 30, 2017 13:47 - CONCLUSION: No acute disease. Tyrone Lezama Jr., MD Head CT 08/30/17 0000 Signed Impressions: Service Date/Time: Wednesday, August 30, 2017 15:43 - CONCLUSION: Negative for an acute process. Niko Avilez MD FACR Cervical Spine CT 08/30/17 0000 Signed Impressions: Service Date/Time: Wednesday, August 30, 2017 15:45 - CONCLUSION: 1. No fracture or dislocation. 2. Multilevel degenerative changes as detailed at each level in the above discussion. Tyrone Lezama Jr., MD Objective Remarks GENERAL: Thin, male lying in bed SKIN: No rashes, ecchymoses or lesions. Cool and dry. CARDIOVASCULAR: Regular rate and rhythm without murmurs, gallops, or rubs. Tender chest wall RESPIRATORY: Clear to auscultation. Breath sounds equal bilaterally. No wheezes , rales, or rhonchi. GASTROINTESTINAL: Abdomen soft, non-tender, nondistended. No guarding. MUSCULOSKELETAL: Extremities without clubbing, cyanosis, or edema. No joint tenderness, effusion, or edema noted. No calf tenderness. NEUROLOGICAL: Awake and alert. Cranial nerves II through XII intact. Motor and sensory grossly within normal limits. Normal speech. Tremulous Procedures none A/P Problem List: (1) Chest pain ICD Code: R07.9 - Chest pain, unspecified Assessment and Plan 1. Chest pain/CAD. Patient with significant history of CAD status post CABG 2 - 3 months ago. EKG significant for sinus rhythm without ST segment elevations or depressions, reviewed by me This is atypical. Patient ruled out for CT. This is likely musculoskeletal. Continue NSAIDs. Patient noncompliant with home medications - counseling provided as to the importance of medication compliance. Restarted home medications. Wean amiodarone per cardiology 2. Alcohol abuse/withdrawal. Patient with worsening tremors and had visual hallucinations. Start Librium.. Ct CIWA protocol 3. Suicidal ideation/depression/anxiety. Status post psychiatry evaluation in [place] act has been lifted. Restarted patient's home zoloft 4. Hypertension/hyperlipidemia. Uncontrolled hypertension secondary to withdrawal. Increase Lopressor. Clonidine as needed. FEN Heart healthy diet Electrolytes: monitor and replete prn SCDs Discharge Planning Possible discharge in the morning Hardy Anderson MD Sep 01, 2017 13:58
[2017-09-01] MEDS: ATORVASTATIN 20 MG TAB PO SCH (21:16)
[2017-09-01] MEDS: ENOXAPARIN SODIUM 40 MG/0.4 ML SYRINGE SQ SCH (21:17)
[2017-09-02 00:39] VITALS: BP 160/93; PULSE 73; RESP 18; TEMP 97.6; O2SAT 98
[2017-09-02] MEDS: IBUPROFEN 600 MG TAB PO PRN (02:29)
[2017-09-02 03:04] VITALS: PULSE 76
[2017-09-02 03:57] VITALS: BP 148/82; PULSE 66; RESP 18; TEMP 97.6; O2SAT 95
[2017-09-02 07:36] VITALS: PULSE 63
[2017-09-02] MEDS: THIAMINE HCL 100 MG TAB PO SCH (09:43)
[2017-09-02] MEDS: AMIODARONE 200 MG TAB PO SCH (09:43)
[2017-09-02] MEDS: chlordiazePOXIDE 25 MG CAP PO SCH (09:43)
[2017-09-02] MEDS: MULTIVITAMINS/MINERALS THERAPEUTIC TAB PO SCH (09:43)
[2017-09-02] MEDS: SERTRALINE HCL 50 MG TAB PO SCH (09:43)
[2017-09-02] MEDS: FOLIC ACID 1 MG TAB PO SCH (09:43)
[2017-09-02] MEDS: FAMOTIDINE 20 MG TAB PO SCH (09:44)
[2017-09-02] MEDS: ASPIRIN 81 MG CHEW TAB CHEW SCH (09:44)
[2017-09-02] MEDS: METOPROLOL TARTRATE 25 MG TAB PO SCH (09:44)
[2017-09-02] MEDS: SODIUM CHLORIDE 0.9% FLUSH 10 ML FLUSH IV FLUSH SCH (09:45)
[2017-09-02] MEDS: oxyCODONE/ACETAMINOPHEN 5 MG/325 MG TAB PO PRN (09:46)
[2017-09-02 09:53] VITALS: BP 147/83; PULSE 65; RESP 18; TEMP 97.9; O2SAT 95
[2017-09-02] MEDS ORDERED: CHLO25CA9 PO (11:12)
[2017-09-02] MEDS ORDERED: METO25TA3 PO (11:12)
--- NOTE | 2017-09-02 11:14 | HHI.DCPOC ---
Discharge Care Plan Diagnosis: (1) Alcoholism (2) Alcohol withdrawal (3) Atypical chest pain Goals to Promote Your Health * To prevent worsening of your condition and complications * To maintain your health at the optimal level Directions to Meet Your Goals Take your medications as prescribed Follow your dietary instruction Follow activity as directed Keep your appointments as scheduled Take your immunizations and boosters as scheduled If your symptoms worsen call your PCP, if no PCP go to Urgent Care Center or Emergency Room Smoking is Dangerous to Your Health. Avoid second hand smoke Call the 24-hour hour crisis hotline for domestic abuse at Feli Arguelles PA-C Sep 02, 2017 11:14 am
[2017-09-02] MEDS ORDERED: AMIO200T PO (11:16)
--- NOTE | 2017-09-02 11:16 | HHI.DS ---
Discharge Summary Admission Date Aug 30, 2017 at 19:08 Discharge Date: Sep 02, 2017 Admitting Diagnosis Chest pain (1) Chest pain ICD Code: R07.9 - Chest pain, unspecified Diagnosis: Principal Procedures none Brief History - From Admission 57-year-old male with a past medical history significant for anxiety, depression , hypertension, alcohol abuse, history of cocaine abuse and CABG done 3 months ago who presents to the emergency department for the evaluation of chest pain. The patient reports the pain is substernal and radiates down his left arm. He states that began 2 days ago and is associated with shortness of breath. He denies any lower extremity edema. Also reports recent episodes of blackouts and loss of bladder control. The patient is noncompliant with his medications and states he does not take them because he is stubborn. He also states that he would kill himself with a blood thinner if he had access to it at this time. Vital signs: Temperature 98.6, pulse 93, respiratory rate 21, BP 126/82, pulse ox 96% on room air. CBC/BMP: 08/30/17 1405 08/30/17 1405 Significant Findings Laboratory Tests Test 08/30/17 14:05 08/30/17 17:25 08/30/17 23:46 08/31/17 04:44 Red Blood Count 3.93 MIL/MM3 (4.50-5.90) Hemoglobin 11.5 GM/DL (13.0-17.0) Hematocrit 35.0 % (39.0-51.0) Mean Platelet Volume 6.9 FL (7.0-11.0) Calcium Level 7.8 MG/DL (8.5-10.1) Aspartate Amino Transf (AST/SGOT) 47 U/L (15-37) Troponin I LESS THAN 0.02 NG/ML LESS THAN 0.02 NG/ML LESS THAN 0.02 NG/ML Urine Cannabinoids Screen POS (NEG) Ethyl Alcohol Level 172 MG/DL (0-5) Imaging Last Impressions Chest X-Ray 08/30/17 1343 Signed Impressions: Service Date/Time: Wednesday, August 30, 2017 13:47 - CONCLUSION: No acute disease. Tyrone Lezama Jr., MD Head CT 08/30/17 0000 Signed Impressions: Service Date/Time: Wednesday, August 30, 2017 15:43 - CONCLUSION: Negative for an acute process. Niko Avilez MD FACR Cervical Spine CT 08/30/17 0000 Signed Impressions: Service Date/Time: Wednesday, August 30, 2017 15:45 - CONCLUSION: 1. No fracture or dislocation. 2. Multilevel degenerative changes as detailed at each level in the above discussion. Tyrone Lezama Jr., MD PE at Discharge GENERAL: Thin, male lying in bed SKIN: No rashes, ecchymoses or lesions. Cool and dry. CARDIOVASCULAR: Regular rate and rhythm without murmurs, gallops, or rubs. Tender chest wall RESPIRATORY: Clear to auscultation. Breath sounds equal bilaterally. No wheezes , rales, or rhonchi. GASTROINTESTINAL: Abdomen soft, non-tender, nondistended. No guarding. MUSCULOSKELETAL: Extremities without clubbing, cyanosis, or edema. No joint tenderness, effusion, or edema noted. No calf tenderness. NEUROLOGICAL: Awake and alert. Cranial nerves II through XII intact. Motor and sensory grossly within normal limits. Normal speech. Resolved tremors Hospital Course 1. Chest pain/CAD. Patient with significant history of CAD status post CABG 2 - 3 months ago. EKG significant for sinus rhythm without ST segment elevations or depressions, reviewed by me This is atypical. Patient ruled out for [place]. This is likely musculoskeletal. Continue NSAIDs. Patient noncompliant with home medications - counseling provided as to the importance of medication compliance. Restarted home medications. Wean amiodarone per cardiology 2. Alcohol abuse/withdrawal. Improving tremors no hallucinations on Librium. Counseled. Ct CIWA protocol 3. Suicidal ideation/depression/anxiety. Status post psychiatry evaluation in [place] act has been lifted. Restarted patient's home zoloft 4. Hypertension/hyperlipidemia. Uncontrolled hypertension secondary to withdrawal. Improving continue Lopressor. Clonidine as needed. FEN Heart healthy diet Electrolytes: monitor and replete prn SCDs Pt Condition on Discharge: Stable Discharge Disposition: Discharge Home Discharge Time: > 30 minutes Discharge Instructions DIET: Follow Instructions for: Heart Healthy Diet Activities you can perform: Regular-No Restrictions Follow up Referrals: Cardiology - 1 Week with Adrien Carr DO PCP Follow-up - 1 Week New Medications: Amiodarone (Amiodarone) 200 Mg Tab 200 MG PO DAILY for Regulate Heart Beat, #7 TAB Take 200mg ONCE DAILY for 1 week, and then STOP. Chlordiazepoxide HCl (Chlordiazepoxide HCl) 25 Mg Capsule 25 MG PO TID for Alcohol Detox, #12 CAP Take 25mg three times a day x2days, Then take 25mg twice a day x2days, Then take 25mg once a day x2days, Then stop. DO NOT DRINK ALCOHOL. Metoprolol Tartrate (Metoprolol Tartrate) 25 Mg Tab 25 MG PO BID for Blood Pressure Management, #60 TAB Continued Medications: Aspirin (Aspirin Low Strength) 81 Mg Chew 81 MG PO DAILY for Blood Clot Prevention, #30 EA 2 Refills Atorvastatin (Atorvastatin) 20 Mg Tab 20 MG PO HS for Cholesterol Management, #30 TAB 2 Refills Docusate Sodium (Dok) 100 Mg Cap 100 MG PO BID for Constipation, #60 CAP 0 Refills Folic Acid (Folic Acid) 1 Mg Tablet 1 MG PO DAILY for Alcohol Detox, #30 TAB-CAP 2 Refills Ketoconazole Topical (Ketoconazole Topical) 2% Cream 1 APPLIC TOPICAL BID for Fungal Infection, #15 GM 0 Refills Multiple Vitamins W/ Minerals (Thera M Plus) 1 Tab 1 TAB PO DAILY for Alcohol Detox, #30 TAB 2 Refills Oxycodone-Acetaminophen (Oxycodone-Acetaminophen) 5-325 mg Tab 1 TAB PO Q4HR PRN for PAIN SCALE 1 TO 5, #40 TAB 0 Refills Polyethylene Glycol 3350 Powder (Polyethylene Glycol 3350 Powder) 17 Gram Pow 17 GM PO DAILY for Constipation, #30 PACKET 0 Refills Sertraline (Zoloft) 50 Mg Tab 75 MG PO DAILY for health for 30 Days, #30 TAB 2 Refills Thiamine HCl (Gnp Vitamin B-1) 100 Mg Tab 100 MG PO DAILY for health for 30 Days, #30 TAB Discontinued Medications: Amiodarone (Amiodarone) 200 Mg Tab 200 MG PO Q12HR for heart rhythm, #28 TAB 0 Refills Metoprolol Tartrate (Metoprolol Tartrate) 25 Mg Tab 12.5 MG PO BID for Blood Pressure Management, #60 TAB 2 Refills Thiamine HCl (Gnp Vitamin B-1) 100 Mg Tab 100 MG PO DAILY for Alcohol Detox, #30 TAB 2 Refills Hardy Anderson MD Sep 02, 2017 11:16
== END 2017-09-02 12:47 | disposition home or self-care (01) ==
LOC: NEPC 13:04 → NEDA 19:08 → NEPGCP 20:47
PROVIDERS: ADMIT Internal Medicine; ATTEND Internal Medicine
DX: R07.9 Chest pain, unspecified (principal); F10.230 Alcohol dependence with withdrawal, uncomplicated; F10.24 Alcohol dependence with alcohol-induced mood disorder; I10 Essential (primary) hypertension; J90 Pleural effusion, not elsewhere classified; F12.90 Cannabis use, unspecified, uncomplicated; R06.02 Shortness of breath; R45.851 Suicidal ideations; R32 Unspecified urinary incontinence; R55 Syncope and collapse; E78.5 Hyperlipidemia, unspecified; E78.00 Pure hypercholesterolemia, unspecified; I25.10 Atherosclerotic heart disease of native coronary artery without angina pectoris; K75.9 Inflammatory liver disease, unspecified; F17.210 Nicotine dependence, cigarettes, uncomplicated; Z59.0 Homelessness; Z95.1 Presence of aortocoronary bypass graft; Z91.5 Personal history of self-harm; Z91.14 Patient's other noncompliance with medication regimen; Z23 Encounter for immunization
CPT/HCPCS: 70450; 71045; 72125; 80053; 80307; 82550; 82552; 82948; 83690; 83735; 84484; 85025; 85610; 85730; 93005; 96372; 96374; 96375; 96376; 99285; G0008; G0378; J1650; J2060; J2270; Q2038; 90471; 90686; G0009

== ENCOUNTER 2017-09-04 16:37 | Emergency (ER) | payer MEDICARE ==
[~2017-09-04] VITALS: Ht 180.3 cm; Wt 85.0 kg
[~2017-09-04 16:37] MED LIST changes: +CHLO25CA9 PO
[2017-09-04 16:45] VITALS: BP 109/70; PULSE 86; RESP 18; TEMP 98.2; O2SAT 98
[2017-09-04 16:54] VITALS: RESP 18; O2SAT 98
--- NOTE | 2017-09-04 17:01 | PD ---
HPI Chief Complaint: chest pain Time Seen by Provider: 16:45 Travel History International Travel<30 days: No Contact w/Intl Traveler<30days: No Traveled to known affect area: No History of Present Illness HPI 57-year-old male complains of chest pain. Patient states that he has history of CAD status post CABG 3 months ago. Patient states that he had persistent chest pain since then. Patient states the pain localizes substernal area left chest area. Patient states the pain is sharp pain. Patient states that the pain occasionally radiates to the left arm. Patient denies any coughing congestion fever chills. Patient denies any palpitation diaphoresis. Patient denies any recent injury. She and has been seen in the emergency room several times in the past for atypical chest pain. Cardiac workup has been negative. Patient also has history of alcohol abuse. Patient states that he has tremors when he stops drinking alcohol. Last drink was this morning. Patient denies history of DT. Patient denies any illicit drug abuse. Patient also has history hypertension and hyperlipidemia. Patient is a smoker. Patient states that he is feeling depressed and suicidal. Patient was seen by psychiatrist during last visit for the same problem. PFSH Past Medical History Arthritis: Yes Blood Disorders: No Bipolar Disorder: Yes Anxiety: Yes Depression: Yes Heart Rhythm Problems: Yes Cancer: Yes (BONE CANCERS) Cardiovascular Problems: Yes High Cholesterol: Yes Chemotherapy: No Chest Pain: Yes Congestive Heart Failure: No Cerebrovascular Accident: No Diabetes: No Diminished Hearing: No Endocrine: No Gastrointestinal Disorders: No Genitourinary: No Headaches: No Hepatitis: Yes Hypertension: Yes Immune Disorder: No Implanted Vascular Access Dvce: No Musculoskeletal: Yes (ARTHRITIS) Neurologic: No Psychiatric: No Reproductive: No Respiratory: No Radiation Therapy: No Seizures: No Thyroid Disease: No Past Surgical History Abdominal Surgery: No Body Medical Devices: PATIENT STATES HAS PLATE IN HEAD Cardiac Surgery: No Cholecystectomy: Yes Coronary Artery Bypass Graft: Yes (DOUBLE BYPASS) Ear Surgery: No Endocrine Surgery: No Eye Surgery: No Genitourinary Surgery: No Gynecologic Surgery: No Oral Surgery: No Thoracic Surgery: No Other Surgery: Yes (CABGX2, BONE GRAFTS, BACK SURGERY) Social History Alcohol Use: Yes (BEER DAILY) Tobacco Use: Yes (1/2 PPD) Substance Use: No Allergies-Medications (Allergen,Severity, Reaction): Coded Allergies: No Known Allergies (Verified Allergy, Unknown, 09/04/17) Reported Meds & Prescriptions Reported Meds & Active Scripts Active No Active Prescriptions or Reported Medications Review of Systems General / Constitutional: No: Fever Eyes: No: Visual changes HENT: No: Headaches Cardiovascular: Positive: Chest Pain or Discomfort Respiratory: No: Shortness of Breath Gastrointestinal: No: Abdominal Pain Genitourinary: No: Dysuria Musculoskeletal: No: Pain Skin: No Rash Neurologic: No: Weakness Psychiatric: No: Depression Endocrine: No: Polydipsia Hematologic/Lymphatic: No: Easy Bruising Physical Exam Narrative GENERAL: Well-nourished, well-developed patient. SKIN: Focused skin assessment warm/dry. HEAD: Normocephalic. EYES: No scleral icterus. No injection or drainage. NECK: Supple, trachea midline. No JVD or lymphadenopathy. CARDIOVASCULAR: Regular rate and rhythm without murmurs, gallops, or rubs. Patient has reproducible anterior chest wall pain on palpation. No crepitus and no deformity noted. RESPIRATORY: Breath sounds equal bilaterally. No accessory muscle use. GASTROINTESTINAL: Abdomen soft, non-tender, nondistended. MUSCULOSKELETAL: No cyanosis, or edema. BACK: Nontender without obvious deformity. No CVA tenderness. Neurologic exam normal. Data Data Last Documented VS Vital Signs Date Time Temp Pulse Resp B/P (MAP) Pulse Ox O2 Delivery O2 Flow Rate FiO2 09/04/17 18:18 97.8 80 16 129/78 (95) 98 Room Air Orders Orders Electrocardiogram (09/04/17 16:49) Complete Blood Count With Diff (09/04/17 16:49) Comprehensive Metabolic Panel (09/04/17 16:49) Creatine Kinase (Cpk) (09/04/17 16:49) Troponin I (09/04/17 16:49) Prothrombin Time / Inr (Pt) (09/04/17 16:49) Act Partial Throm Time (Ptt) (09/04/17 16:49) Chest, Single Ap (09/04/17 16:49) Iv Access Insert/Monitor (09/04/17 16:49) Ecg Monitoring (09/04/17 16:49) Oximetry (09/04/17 16:49) Drug Screen, Random Urine (09/04/17 16:49) Alcohol (Ethanol) (09/04/17 16:49) Psych Screen (09/04/17 17:10) Calcium Gluconate Inj (Calcium Gluconate (09/04/17 19:15) Labs Laboratory Tests Test 09/04/17 16:50 White Blood Count 5.8 TH/MM3 Red Blood Count 4.01 MIL/MM3 Hemoglobin 11.8 GM/DL Hematocrit 36.0 % Mean Corpuscular Volume 89.8 FL Mean Corpuscular Hemoglobin 29.5 PG Mean Corpuscular Hemoglobin Concent 32.8 % Red Cell Distribution Width 16.9 % Platelet Count 249 TH/MM3 Mean Platelet Volume 7.2 FL Neutrophils (%) (Auto) 49.6 % Lymphocytes (%) (Auto) 38.7 % Monocytes (%) (Auto) 7.3 % Eosinophils (%) (Auto) 4.1 % Basophils (%) (Auto) 0.3 % Neutrophils # (Auto) 2.9 TH/MM3 Lymphocytes # (Auto) 2.2 TH/MM3 Monocytes # (Auto) 0.4 TH/MM3 Eosinophils # (Auto) 0.2 TH/MM3 Basophils # (Auto) 0.0 TH/MM3 CBC Comment DIFF FINAL Differential Comment Prothrombin Time 10.4 SEC Prothromb Time International Ratio 1.0 RATIO Activated Partial Thromboplast Time 26.9 SEC Blood Urea Nitrogen 9 MG/DL Creatinine 0.82 MG/DL Random Glucose 89 MG/DL Total Protein 7.8 GM/DL Albumin 3.4 GM/DL Calcium Level 7.3 MG/DL Alkaline Phosphatase 90 U/L Aspartate Amino Transf (AST/SGOT) 62 U/L Alanine Aminotransferase (ALT/SGPT) 49 U/L Total Bilirubin 0.2 MG/DL Sodium Level 139 MEQ/L Potassium Level 4.2 MEQ/L Chloride Level 109 MEQ/L Carbon Dioxide Level 22.5 MEQ/L Anion Gap 8 MEQ/L Estimat Glomerular Filtration Rate 96 ML/MIN Protein Corrected Calcium 7.0 MG/DL Total Creatine Kinase 202 U/L Troponin I LESS THAN 0.02 NG/ML Ethyl Alcohol Level 328 MG/DL MDM Medical Decision Making Medical Screen Exam Complete: Yes Emergency Medical Condition: Yes Interpretation(s) Last Impressions Chest X-Ray 09/04/17 0682 Signed Impressions: Service Date/Time: Monday, September 04, 2017 17:02 - CONCLUSION: No evidence of acute cardiopulmonary disease. Kal Maldonado MD 7:16 PM. EKG shows sinus rhythm nonspecific ST-T wave change. Cardiac enzymes are normal. Protein corrected calcium 7.0. Differential Diagnosis Differential diagnosis including atypical chest pain, costochondritis, angina, PA, PE, pneumothorax. Narrative Course 57-year-old male with anterior chest wall pain. History of CAD status post CABG 3 months ago. Patient has recurrent chest pain and has been seen and admitted with negative workup in the past. History of EtOH abuse. Calcium gluconate 1 g IV given. Scripts No Active Prescriptions or Reported Meds Doug Acevedo MD Sep 04, 2017 17:01
--- NOTE | 2017-09-04 17:09 | RADRPT ---
EXAM DATE/TIME: 09/04/2017 17:02 [facility] COMPARISON: CHEST SINGLE AP, August 30, 2017, 13:47. INDICATIONS : Chest pain. MEDICAL HISTORY : Carcinoma, bone. Hepatitis C. Hypertension. SURGICAL HISTORY : CABG. ENCOUNTER: Initial ACUITY: 1 day PAIN SCORE: 8/10 LOCATION: Left chest FINDINGS: A single view of the chest demonstrates the lungs to be symmetrically aerated without evidence of mas s, infiltrate or effusion. The cardiomediastinal contours are unremarkable. Osseous structures are intact. Median sternotomy changes are again noted. CONCLUSION: No evidence of acute cardiopulmonary disease. Kal Maldonado MD on September 04, 2017 at 17:07 Board Certified Radiologist. This report was verified electronically.
[2017-09-04 17:24] LABS: AUTOMATED NEUTROPHIL # 2.9 TH/MM3 (1.8-7.7); BASOPHIL % 0.3 % (0.0-2.0); EOSINOPHIL # 0.2 TH/MM3 (0-0.4); EOSINOPHIL % 4.1 % (0.0-4.0); HEMOGLOBIN 11.8 GM/DL (13.0-17.0); LYMPH % 38.7 % (9.0-44.0); LYMPHOCYTE # 2.2 TH/MM3 (1.0-4.8); MEAN CELL VOLUME 89.8 FL (80.0-100.0); MEAN CORPUSCULAR HEMOGLOBIN 29.5 PG (27.0-34.0); MEAN CORPUSCULAR HGB CONC 32.8 % (32.0-36.0); MEAN PLATELET VOLUME 7.2 FL (7.0-11.0); MONO % 7.3 % (0.0-8.0); MONOCYTE # 0.4 TH/MM3 (0-0.9); NEUT % 49.6 % (16.0-70.0); PLATELET COUNT 249 TH/MM3 (150-450); RED BLOOD COUNT 4.01 MIL/MM3 (4.50-5.90); RED CELL DISTRIBUTION WIDTH 16.9 % (11.6-17.2); WHITE BLOOD COUNT 5.8 TH/MM3 (4.0-11.0)
[2017-09-04 17:36] LABS: PROTHROMBIN TIME - PATIENT 10.4 SEC (9.8-11.6)
[2017-09-04 18:02] LABS: ALBUMIN 3.4 GM/DL (3.4-5.0); ALKALINE PHOSPHATASE 90 U/L (45-117); ALT (GPT) 49 U/L (12-78); AST (GOT) 62 U/L (15-37); BICARBONATE 22.5 MEQ/L (21.0-32.0); BLOOD UREA NITROGEN 9 MG/DL (7-18); CALCIUM 7.3 MG/DL (8.5-10.1); CHLORIDE 109 MEQ/L (98-107); CREATININE 0.82 MG/DL (0.60-1.30); GLOMERULAR FILTRATION RATE 96 ML/MIN (>89); GLUCOSE,RANDOM 89 MG/DL (74-106); SODIUM (NA) 139 MEQ/L (136-145); TOTAL BILIRUBIN ADULT 0.2 MG/DL (0.2-1.0); TOTAL PROTEIN 7.8 GM/DL (6.4-8.2); TROPONIN I LESS THAN 0.02 NG/ML (0.02-0.05)
[2017-09-04 18:18] VITALS: BP 129/78; PULSE 80; RESP 16; TEMP 97.8; O2SAT 98
[2017-09-04] MEDS ORDERED: CALCIUM GLUCONATE INJ 1 GM in DEXTROSE 5% IN WATER 100ML INJ 100 ML IV ONE ×2 (19:15)
[2017-09-04 19:41] VITALS: BP 110/63; PULSE 82; RESP 16; O2SAT 96
[2017-09-04] MEDS ORDERED: CALCIUM CARBONATE 500 MG CHEWABLE TAB PO ONE (20:00)
[2017-09-04 23:55] VITALS: BP 131/76; PULSE 83; RESP 18; O2SAT 97
[2017-09-05] MEDS ORDERED: DIAZEPAM 10 MG TAB PO ONE (06:45)
[2017-09-05 06:52] VITALS: BP 164/94; PULSE 95; RESP 14; O2SAT 97
[2017-09-05 10:32] VITALS: PULSE 82; RESP 15; O2SAT 96
[2017-09-05 10:43] VITALS: BP 136/103; PULSE 88; RESP 18; O2SAT 100
[2017-09-05] MEDS ORDERED: LORazepam 2 MG TAB PO PRN (10:45)
[2017-09-05] MEDS ORDERED: LORazepam 1 MG TAB PO PRN (10:45)
[2017-09-05] MEDS ORDERED: FLUMAZENIL 0.5 MG/5 ML VIAL IV PUSH PRN (10:45)
[2017-09-05] MEDS ORDERED: LORazepam 2 MG/ML VIAL IV PUSH PRN ×4 (10:45)
[2017-09-05 11:40] VITALS: BP 148/76; PULSE 78; RESP 16; O2SAT 98
--- NOTE | 2017-09-05 12:31 | EKG ---
Date Performed: 09/04/2017 Time Performed: 17:22:13 PTAGE: 57 years EKG: Sinus rhythm POSSIBLE ANTERIOR MYOCARDIAL INFARCTION POSSIBLE INFERIOR MYOCARDIAL INFARCTION Anterior R waves may represent lead placement Anterior and inferior infarct called on this tracing, but largely unchanged from prior tracing ABNORMAL ECG PREVIOUS TRACING : 08/31/2017 03.44 DOCTOR: Zeke Dexter Interpretating Date/Time 09/05/2017 12:29:37
[2017-09-05 14:33] VITALS: BP 99/56; PULSE 100; O2SAT 98
--- NOTE | 2017-09-05 15:11 | PD ---
History of Present Illness Chief Complaint: Chest Pain Time Seen by Provider: 14:30 Travel History International Travel<30 Days: No Contact w/Intl Traveler<30days: No Known affected area: No Legal Status Legal Status: Voluntary History of Present Illness: History of Present Illness HPI 57-year-old male with history of alcohol dependence who presents to the ED with complaints of chest pain. Patient also has history of alcohol dependence. Patient states that he has tremors when he stops drinking alcohol but denies history of DT. Last drink was this morning. His blood alcohol level on arrival to the ED as 328. Patient also reports that he is feeling depressed and suicidal and requests a psychiatric evaluation. EMR is reviewed. Patient has had multiple visits to the emergency department for alcohol related related issues since he moved to the area 2 years ago. He was last admitted to our psychiatric unit in May for reports of depression and suicidal ideation. Toxicology is positive for benzos which she reports he received while he was evaluated in the ED yesterday. The patient is seen in the main ED. He is alert, oriented, speech is clear and logical. He presents no symptoms of psychosis, no cody or hypomania. He reports he feels depressed over his current living situation and his continued use of alcohol. He states" I want to get sober and I want to get counseling. I need to find another living arrangement." Patient essentially has been homeless since he arrived in the area 15 months ago and he states that he is tired living out in the rain, being robbed, and hanging out in drinking every day because he is essentially nothing else to do. There is no suicidal or homicidal ideation intent or plan. PFSH Past Medical History Arthritis: Yes Blood Disorders: No Bipolar Disorder: Yes Anxiety: Yes Depression: Yes Heart Rhythm Problems: Yes Cancer: Yes (BONE CANCERS) Cardiovascular Problems: Yes High Cholesterol: Yes Chemotherapy: No Chest Pain: Yes Congestive Heart Failure: No Cerebrovascular Accident: No Diabetes: No Diminished Hearing: No Endocrine: No Gastrointestinal Disorders: No Genitourinary: No Headaches: No Hepatitis: Yes Hypertension: Yes Immune Disorder: No Implanted Vascular Access Dvce: No Musculoskeletal: Yes (ARTHRITIS) Neurologic: No Psychiatric: Yes Reproductive: No Respiratory: No Radiation Therapy: No Seizures: No Thyroid Disease: No Tetanus Vaccination: < 5 Years Influenza Vaccination: Yes Past Surgical History Abdominal Surgery: No Body Medical Devices: PATIENT STATES HAS PLATE IN HEAD Cardiac Surgery: No Cholecystectomy: Yes Coronary Artery Bypass Graft: Yes (DOUBLE BYPASS) Ear Surgery: No Endocrine Surgery: No Eye Surgery: No Genitourinary Surgery: No Gynecologic Surgery: No Oral Surgery: No Thoracic Surgery: No Other Surgery: Yes (CABGX2, BONE GRAFTS, BACK SURGERY) Psychiatric History Psychiatric History Hx Psychiatric Treatment: Was admitted to our inpatient psychiatric unit in May 2017 for treatment of adjustment disorder as well as alcohol induced mood disorder. Did not follow up with outpatient discharge plan History of Inpatient Treatment: Yes Guns or firearms in home: No Social History male who is originally from [place]. He's been in [place] for 15 months. He is homeless. He is unemployed and receives a partial disability. Hx Alcohol Use: Yes (BEER DAILY) Hx Tobacco Use: Yes (1/2 PPD) Hx Substance Use: No Substance Use Type: Alcohol Hx of Substance Use Treatment: Yes Allergies-Medications (Allergen,Severity, Reaction): Coded Allergies: No Known Allergies (Verified Allergy, Unknown, 09/04/17) Reported Meds & Prescriptions Reported Meds & Active Scripts Active No Active Prescriptions or Reported Medications Review of Systems Cardiovascular: COMPLAINS OF: Chest pain Psychiatric: COMPLAINS OF: Depression Mental Status Examination Appearance: Appropriate (dressed in hospital gown with fair hygiene) Consciousness: Alert Orientation: x4 Motor Activity: Normal gait Speech: Unremarkable Language: Adequate Fund of Knowledge: Adequate Attention and Concentration: Adequate Memory: Unremarkable Mood: Appropriate Affect: Appropriate Thought Process & Associations: Intact, Logical, Goal directed Thought Content: Appropriate Hallucination Type: None Delusion Type: None Suicidal Ideation: No Suicidal Plan: No Suicidal Intention: No Homicidal Ideation: No Homicidal Plan: No Homicidal Intention: No Insight: Fair Judgment: Impulsive MDM Medical Decision Making Medical Record Reviewed: Yes Assessment/Plan 57-year-old male with history of alcohol dependence, alcohol induced mood disorder who presents to the emergency department on a voluntary basis complaining of chest pain as well as complaining of depression and suicidal ideation. The patient admits to drinking alcohol every day. He also complains of his current homelessness situation. Although the patient initially reported feeling suicidal he is wanting treatment and does verbalize his desire to get sober and to receive counseling. He demonstrates an interest in a sober living facilities and he is provided with the name and telephone numbers to solutions by the [facility] as well as to the [facility]. He is also provided bus passes to get to [facility] detox . He is provided psychoeducation and support. Psychiatric clear for discharge from the ED. Orders Orders Electrocardiogram (09/04/17 16:49) Complete Blood Count With Diff (09/04/17 16:49) Comprehensive Metabolic Panel (09/04/17 16:49) Creatine Kinase (Cpk) (09/04/17 16:49) Troponin I (09/04/17 16:49) Prothrombin Time / Inr (Pt) (09/04/17 16:49) Act Partial Throm Time (Ptt) (09/04/17 16:49) Chest, Single Ap (09/04/17 16:49) Iv Access Insert/Monitor (09/04/17 16:49) Ecg Monitoring (09/04/17 16:49) Oximetry (09/04/17 16:49) Drug Screen, Random Urine (09/04/17 16:49) Alcohol (Ethanol) (09/04/17 16:49) Psych Screen (09/04/17 17:10) Calcium Gluconate Inj (Calcium Gluconate (09/04/17 19:15) Calcium Carbonate Chew (Tums Chew) (09/04/17 20:00) Diazepam (Valium) (09/05/17 06:45) Alcohol Withdrawal Asmt-Ciwa Q4HX18 (09/05/17 10:42) Flumazenil Inj (Romazicon Inj) (09/05/17 10:45) Lorazepam (Ativan) (09/05/17 10:45) Lorazepam Inj (Ativan Inj) (09/05/17 10:45) Lorazepam (Ativan) (09/05/17 10:45) Lorazepam Inj (Ativan Inj) (09/05/17 10:45) Lorazepam Inj (Ativan Inj) (09/05/17 10:45) Lorazepam Inj (Ativan Inj) (09/05/17 10:45) Results Vital Signs Date Time Temp Pulse Resp B/P (MAP) Pulse Ox O2 Delivery O2 Flow Rate FiO2 09/05/17 11:40 78 16 148/76 (100) 98 Room Air 09/05/17 10:43 88 18 136/103 (114) 100 Room Air 09/05/17 10:32 82 15 96 Room Air 09/05/17 06:52 95 14 164/94 (117) 97 Room Air 09/04/17 23:55 83 18 131/76 (94) 97 Room Air 09/04/17 19:41 82 16 110/63 (79) 96 Room Air 09/04/17 18:18 97.8 80 16 129/78 (95) 98 Room Air 09/04/17 16:54 18 98 Room Air 09/04/17 16:45 86 18 98 Room Air 09/04/17 16:45 98.2 86 18 109/70 (83) 98 Laboratory Tests Test 09/04/17 16:50 09/04/17 17:45 White Blood Count 5.8 Red Blood Count 4.01 Hemoglobin 11.8 Hematocrit 36.0 Mean Corpuscular Volume 89.8 Mean Corpuscular Hemoglobin 29.5 Mean Corpuscular Hemoglobin Concent 32.8 Red Cell Distribution Width 16.9 Platelet Count 249 Mean Platelet Volume 7.2 Neutrophils (%) (Auto) 49.6 Lymphocytes (%) (Auto) 38.7 Monocytes (%) (Auto) 7.3 Eosinophils (%) (Auto) 4.1 Basophils (%) (Auto) 0.3 Neutrophils # (Auto) 2.9 Lymphocytes # (Auto) 2.2 Monocytes # (Auto) 0.4 Eosinophils # (Auto) 0.2 Basophils # (Auto) 0.0 CBC Comment DIFF FINAL Differential Comment Prothrombin Time 10.4 Prothromb Time International Ratio 1.0 Activated Partial Thromboplast Time 26.9 Blood Urea Nitrogen 9 Creatinine 0.82 Random Glucose 89 Total Protein 7.8 Albumin 3.4 Calcium Level 7.3 Alkaline Phosphatase 90 Aspartate Amino Transf (AST/SGOT) 62 Alanine Aminotransferase (ALT/SGPT) 49 Total Bilirubin 0.2 Sodium Level 139 Potassium Level 4.2 Chloride Level 109 Carbon Dioxide Level 22.5 Anion Gap 8 Estimat Glomerular Filtration Rate 96 Protein Corrected Calcium 7.0 Total Creatine Kinase 202 Troponin I LESS THAN 0.02 Ethyl Alcohol Level 328 Urine Opiates Screen NEG Urine Barbiturates Screen NEG Urine Amphetamines Screen NEG Urine Benzodiazepines Screen POS Urine Cocaine Screen NEG Urine Cannabinoids Screen NEG Diagnosis Primary Impression: Alcohol dependence Psychiatrically Cleared: Yes Prescriptions No Active Prescriptions or Reported Meds Disposition: 01 DISCHARGE HOME Condition: Stable Problem Qualifiers Primary Impression: Alcohol dependence Qualified Codes: F10.220 - Alcohol dependence with intoxication, uncomplicated Kristin Cage Sep 05, 2017 15:11
[2017-09-05 15:42] VITALS: BP 163/98; PULSE 90; RESP 16; O2SAT 98
== END 2017-09-05 16:11 | disposition home or self-care (01) ==
LOC: NEPE 16:37
DX: F10.220 Alcohol dependence with intoxication, uncomplicated (principal); F17.210 Nicotine dependence, cigarettes, uncomplicated; Y90.8 Blood alcohol level of 240 mg/100 ml or more
CPT/HCPCS: 71045; 80053; 80307; 82550; 84484; 85025; 85610; 85730; 93005

== ENCOUNTER 2017-09-25 15:45 | Emergency (ER) | payer MEDICARE ==
[~2017-09-25] VITALS: Ht 180.3 cm; Wt 80.0 kg
[2017-09-25 16:11] VITALS: BP 105/79; PULSE 90; RESP 18; TEMP 98.8; O2SAT 95
--- NOTE | 2017-09-25 17:54 | RADRPT ---
EXAM DATE/TIME: 09/25/2017 17:24 [facility] COMPARISON: CT BRAIN W/O CONTRAST, August 30, 2017, 15:43. INDICATIONS : Unsteady gait; ETOH. RADIATION DOSE: 41.11 CTDIvol (mGy) MEDICAL HISTORY : Cardiovascular disease. Hepatitis C. Hypertension.ETOH abuse, bone cancer SURGICAL HISTORY : CABG Cholecystectomy. ENCOUNTER: Initial ACUITY: 1 day PAIN SCALE: 0/10 LOCATION: cranial TECHNIQUE: Multiple contiguous axial images were obtained of the head. Using automated exposure control and adj ustment of the mA and/or kV according to patient size, radiation dose was kept as low as reasonably a chievable to obtain optimal diagnostic quality images. DICOM format image data is available electro nically for review and comparison. FINDINGS: CEREBRUM: The ventricles are within normal limits. No evidence of midline shift, mass lesion, hemorrhage or ac amanda infarction. No extra-axial fluid collections are seen. POSTERIOR FOSSA: The cerebellum and brainstem are intact. The 4th ventricle is midline. The cerebellopontine angle i s unremarkable. EXTRACRANIAL: Visualized sinuses are clear. There is left anterior maxillary wall and left periorbital wall hardwar e. SKULL: The calvaria is intact. No evidence of skull fracture. CONCLUSION: Stable noncontrast head CT. No acute intracranial abnormality is identified. Kal Simeon MD on September 25, 2017 at 17:50 Board Certified Radiologist. This report was verified electronically.
--- NOTE | 2017-09-25 18:10 | PD ---
HPI Chief Complaint: Medical Clearance Time Seen by Provider: 17:23 Travel History International Travel<30 days: No Contact w/Intl Traveler<30days: No Traveled to known affect area: No History of Present Illness HPI 57-year-old male that presents to the ED for evaluation of alcohol intoxication in public. Patient apparently was found by police been intoxicated in public [place]. He was bilaterally oriented and had slurred speech as well as alcohol and him. Patient could barely ambulate without falling and he was brought here for medical clearance. Patient himself states that his been drinking a lot and he has a problem with alcohol. He does want help us that he feeling depressed because of the alcohol level like to see psychologist. He denies any suicidal ideation. No other drug abuse. History of heart disease. Noncompliant. States that he did fell today and has an abrasion to the left forehead. No other medical issues reported today. No chest pain. No shortness of breath. No medical issues. PFSH Past Medical History Arthritis: Yes Blood Disorders: No Bipolar Disorder: Yes Anxiety: Yes Depression: Yes Heart Rhythm Problems: Yes Cancer: Yes (BONE CANCERS) Cardiovascular Problems: Yes High Cholesterol: Yes Chemotherapy: No Chest Pain: Yes Congestive Heart Failure: No Cerebrovascular Accident: No Diabetes: No Diminished Hearing: No Endocrine: No Gastrointestinal Disorders: No Genitourinary: No Headaches: No Hepatitis: Yes Hypertension: Yes Immune Disorder: No Implanted Vascular Access Dvce: No Musculoskeletal: Yes (ARTHRITIS) Neurologic: No Psychiatric: Yes Reproductive: No Respiratory: No Radiation Therapy: No Seizures: No Thyroid Disease: No Past Surgical History Abdominal Surgery: No Body Medical Devices: PATIENT STATES HAS PLATE IN HEAD Cardiac Surgery: No Cholecystectomy: Yes Coronary Artery Bypass Graft: Yes (DOUBLE BYPASS) Ear Surgery: No Endocrine Surgery: No Eye Surgery: No Genitourinary Surgery: No Gynecologic Surgery: No Oral Surgery: No Thoracic Surgery: No Other Surgery: Yes (CABGX2, BONE GRAFTS, BACK SURGERY) Social History Alcohol Use: Yes (BEER DAILY) Tobacco Use: Yes (1/2 PPD) Substance Use: No Allergies-Medications (Allergen,Severity, Reaction): Coded Allergies: No Known Allergies (Verified Allergy, Unknown, 09/04/17) Reported Meds & Prescriptions Reported Meds & Active Scripts Active No Active Prescriptions or Reported Medications Review of Systems Except as stated in HPI: all other systems reviewed are Neg Physical Exam Narrative GENERAL: SKIN: Warm and dry. HEAD: Atraumatic. Normocephalic. small abrasion and swelling to left forehead. EYES: Pupils equal and round. No scleral icterus. No injection or drainage. ENT: No nasal bleeding or discharge. Mucous membranes pink and moist. NECK: Trachea midline. No JVD. CARDIOVASCULAR: Regular rate and rhythm. RESPIRATORY: No accessory muscle use. Clear to auscultation. Breath sounds equal bilaterally. GASTROINTESTINAL: Abdomen soft, non-tender, nondistended. Hepatic and splenic margins not palpable. MUSCULOSKELETAL: Extremities without clubbing, cyanosis, or edema. No obvious deformities. Full range of motion of the upper and lower extremities bilaterally. 2+ pulses bilaterally. NEUROLOGICAL: Awake and alert. No obvious cranial nerve deficits. Motor grossly within normal limits. Five out of 5 muscle strength in the arms and legs. Normal speech. PSYCHIATRIC: Appropriate mood and affect; insight and judgment normal. Data Data Last Documented VS Vital Signs Date Time Temp Pulse Resp B/P (MAP) Pulse Ox O2 Delivery O2 Flow Rate FiO2 09/25/17 16:11 98.8 90 18 105/79 (88) [address] Brain W/O Iv Contrast(Rout) (09/25/17 ) Complete Blood Count With Diff (09/25/17 17:51) Comprehensive Metabolic Panel (09/25/17 17:51) Thyroid Stimulating Hormone (09/25/17 17:51) Psych Screen (09/25/17 17:51) Alcohol (Ethanol) (09/25/17 17:51) MDM Medical Decision Making Medical Screen Exam Complete: Yes Emergency Medical Condition: Yes Medical Record Reviewed: Yes Interpretation(s) CT head negative Differential Diagnosis Head injury versus alcoholism versus mood disorder versus depression Narrative Course 57-year-old male that presents to the ED for evaluation of a couple abuse. Patient was properly examined and was found to have signs and symptoms consistent with appears to be alcoholism and head injury. CT of the head was negative for acute disease. Patient states that he does like to see psychiatry for depression. Labs were ordered. Patient was medically cleared. Okay to be seen by psych. CIWA was ordered by me. Mental health screening was discussed with the patient. Diagnosis Primary Impression: Alcohol abuse with alcohol-induced mood disorder Scripts No Active Prescriptions or Reported Meds Solis King Sep 25, 2017 18:10
[2017-09-25] MEDS ORDERED: FLUMAZENIL 0.5 MG/5 ML VIAL IV PUSH PRN (18:15)
[2017-09-25] MEDS ORDERED: LORazepam 2 MG/ML VIAL IV PUSH PRN ×4 (18:15)
[2017-09-25] MEDS ORDERED: LORazepam 2 MG TAB PO PRN (18:15)
[2017-09-25] MEDS ORDERED: ACETAMINOPHEN 325 MG TAB PO PRN (18:15)
[2017-09-25] MEDS ORDERED: ONDANSETRON ODT 4 MG TAB PO PRN (18:15)
[2017-09-25 18:25] LABS: AUTOMATED NEUTROPHIL # 2.8 TH/MM3 (1.8-7.7); BASOPHIL % 0.8 % (0.0-2.0); EOSINOPHIL # 0.2 TH/MM3 (0-0.4); EOSINOPHIL % 2.5 % (0.0-4.0); HEMATOCRIT 38.7 % (39.0-51.0); HEMOGLOBIN 12.8 GM/DL (13.0-17.0); LYMPH % 47.9 % (9.0-44.0); LYMPHOCYTE # 3.1 TH/MM3 (1.0-4.8); MEAN CELL VOLUME 88.2 FL (80.0-100.0); MEAN CORPUSCULAR HEMOGLOBIN 29.1 PG (27.0-34.0); MEAN CORPUSCULAR HGB CONC 32.9 % (32.0-36.0); MEAN PLATELET VOLUME 6.9 FL (7.0-11.0); MONO % 4.9 % (0.0-8.0); MONOCYTE # 0.3 TH/MM3 (0-0.9); NEUT % 43.9 % (16.0-70.0); PLATELET COUNT 374 TH/MM3 (150-450); RED BLOOD COUNT 4.39 MIL/MM3 (4.50-5.90); RED CELL DISTRIBUTION WIDTH 18.4 % (11.6-17.2); WHITE BLOOD COUNT 6.4 TH/MM3 (4.0-11.0)
[2017-09-25 18:38] LABS: ALBUMIN 3.8 GM/DL (3.4-5.0); AST (GOT) 129 U/L (15-37); BICARBONATE 24.3 MEQ/L (21.0-32.0); BLOOD UREA NITROGEN 7 MG/DL (7-18); CALCIUM 8.4 MG/DL (8.5-10.1); CHLORIDE 107 MEQ/L (98-107); CREATININE 0.87 MG/DL (0.60-1.30); GLOMERULAR FILTRATION RATE 90 ML/MIN (>89); GLUCOSE,RANDOM 90 MG/DL (74-106); SODIUM (NA) 142 MEQ/L (136-145)
[2017-09-25 18:39] LABS: ALT (GPT) 49 U/L (12-78)
[2017-09-25 18:49] LABS: ALKALINE PHOSPHATASE 148 U/L (45-117); TOTAL BILIRUBIN ADULT 0.3 MG/DL (0.2-1.0); TOTAL PROTEIN 8.4 GM/DL (6.4-8.2)
[2017-09-25 19:39] VITALS: BP 129/82; PULSE 90; RESP 18; O2SAT 97
[2017-09-25] MEDS: LORazepam 1 MG TAB PO PRN ×2 (19:45→23:55)
[2017-09-25 23:57] VITALS: BP 137/88; PULSE 93; RESP 18; O2SAT 98
[2017-09-26] MEDS: LORazepam 1 MG TAB PO PRN ×2 (05:57→09:51)
[2017-09-26 08:56] VITALS: BP 162/94; PULSE 95; RESP 18; TEMP 98.2; O2SAT 97
[2017-09-26 12:54] VITALS: BP 169/95; PULSE 102; RESP 18; TEMP 97.9; O2SAT 99
[2017-09-26 15:18] VITALS: BP 167/94; PULSE 97; RESP 18; TEMP 97.6; O2SAT 95
--- NOTE | 2017-09-26 15:28 | PD ---
Physical Exam Date Seen by Provider: Sep 26, 2017 Time Seen by Provider: 15:27 Narrative 57-year-old male previously medically cleared for psychiatric evaluation has been determined by psychiatric staff to need transfer to the [facility]. Patient remains medically stable at this time and is appropriate for transfer. Data Data Last Documented VS Vital Signs Date Time Temp Pulse Resp B/P (MAP) Pulse Ox O2 Delivery O2 Flow Rate FiO2 09/26/17 15:18 97.6 97 18 167/94 (118) 95 09/25/17 23:[address] Orders Orders [address] Brain W/O Iv Contrast(Rout) (09/25/17 ) Complete Blood Count With Diff (09/25/17 17:51) Comprehensive Metabolic Panel (09/25/17 17:51) Thyroid Stimulating Hormone (09/25/17 17:51) Psych Screen (09/25/17 17:51) Alcohol (Ethanol) (09/25/17 17:51) Alcohol Withdrawal Asmt-Ciwa ONCE (09/25/17 18:10) Ondansetron Odt (Zofran Odt) (09/25/17 18:15) Acetaminophen (Tylenol) (09/25/17 18:15) Flumazenil Inj (Romazicon Inj) (09/25/17 18:15) Lorazepam (Ativan) (09/25/17 18:15) Lorazepam Inj (Ativan Inj) (09/25/17 18:15) Lorazepam (Ativan) (09/25/17 18:15) Lorazepam Inj (Ativan Inj) (09/25/17 18:15) Lorazepam Inj (Ativan Inj) (09/25/17 18:15) Lorazepam Inj (Ativan Inj) (09/25/17 18:15) Diet Regular Basic (09/26/17 Breakfast) Labs Laboratory Tests Test 09/25/17 18:10 White Blood Count 6.4 TH/MM3 Red Blood Count 4.39 MIL/MM3 Hemoglobin 12.8 GM/DL Hematocrit 38.7 % Mean Corpuscular Volume 88.2 FL Mean Corpuscular Hemoglobin 29.1 PG Mean Corpuscular Hemoglobin Concent 32.9 % Red Cell Distribution Width 18.4 % Platelet Count 374 TH/MM3 Mean Platelet Volume 6.9 FL Neutrophils (%) (Auto) 43.9 % Lymphocytes (%) (Auto) 47.9 % Monocytes (%) (Auto) 4.9 % Eosinophils (%) (Auto) 2.5 % Basophils (%) (Auto) 0.8 % Neutrophils # (Auto) 2.8 TH/MM3 Lymphocytes # (Auto) 3.1 TH/MM3 Monocytes # (Auto) 0.3 TH/MM3 Eosinophils # (Auto) 0.2 TH/MM3 Basophils # (Auto) 0.0 TH/MM3 CBC Comment DIFF FINAL Differential Comment Blood Urea Nitrogen 7 MG/DL Creatinine 0.87 MG/DL Random Glucose 90 MG/DL Total Protein 8.4 GM/DL Albumin 3.8 GM/DL Calcium Level 8.4 MG/DL Alkaline Phosphatase 148 U/L Aspartate Amino Transf (AST/SGOT) 129 U/L Alanine Aminotransferase (ALT/SGPT) 49 U/L Total Bilirubin 0.3 MG/DL Sodium Level 142 MEQ/L Potassium Level 4.2 MEQ/L Chloride Level 107 MEQ/L Carbon Dioxide Level 24.3 MEQ/L Anion Gap 11 MEQ/L Estimat Glomerular Filtration Rate 90 ML/MIN Thyroid Stimulating Hormone 3rd Gen 0.417 uIU/ML Ethyl Alcohol Level 339 MG/DL [facility] Medical Record Reviewed: Yes Supervised Visit with BENITO: Yes Narrative Course 57-year-old male previously medically cleared for psychiatric evaluation has been determined by psychiatric staff to need transfer to the [facility]. Patient remains medically stable at this time and is appropriate for transfer. Diagnosis Primary Impression: Alcohol abuse with alcohol-induced mood disorder Scripts No Active Prescriptions or Reported Meds Disposition: 70 TRANSFER TO OTHER FACILITY Condition: Stable Fernando Whaley Sep 26, 2017 15:28
== END 2017-09-26 17:55 | disposition short-term general hospital (02) ==
LOC: NEDAMB 15:45 → NEPB 09-26 17:55
DX: F10.94 Alcohol use, unspecified with alcohol-induced mood disorder (principal); M19.90 Unspecified osteoarthritis, unspecified site; F31.9 Bipolar disorder, unspecified; F41.9 Anxiety disorder, unspecified; E78.00 Pure hypercholesterolemia, unspecified; I10 Essential (primary) hypertension; F17.200 Nicotine dependence, unspecified, uncomplicated; Z86.19 Personal history of other infectious and parasitic diseases
CPT/HCPCS: 70450; 80053; 80307; 84443; 85025